=== PATIENT | male | born 1940 | race Caucasian/White ===

== ENCOUNTER 2016-08-22 15:56 | Inpatient (IN) | payer OTHER, MEDICARE ==
--- NOTE | 2016-08-22 16:43 | PDOC ---
History of Present Illness - General History Source: Patient Exam Limitations: No Limitations - History of Present Illness Initial Comments: 08/22/16 16:46 The patient is a 76 year old male, with a significant past medical history of prostate Ca s/p seed implants, NIDDM, HTN, who presents to the emergency department with left toe cellulitis/infection. The patient reports redness and warmth, has been radiating up his LLE originating from his left pinky toe. He reports last night having throbbing pain from his left foot. He reports today having little feeling in his LLE. He denies any recent chills, headache or dizziness. He denies any recent nausea, vomit, diarrhea or constipation. Allergies: See Nursing Notes. Past surgical history: Noncontributory Social History: Nonsmoker. Denies EtOH use and recreational drug use. Canteen Attendant (Referring Physician): <Ganga Trujillo - Last Filed: 08/22/16 16:46> <Gilma Corbin - Last Filed: 08/22/16 18:44> - General Chief Complaint: Wound Infection Stated Complaint: CELLULITIS/ LT TOE (PCP SENT) Time Seen by Provider: 08/22/16 16:25 Past History <Ganga Trujillo - Last Filed: 08/22/16 16:46> - Past Medical History Anemia: No Asthma: No Cancer: Yes (PROSTATE - RADIATION/SEEDS) Cardiac Disorders: Yes (ASHD;CKD) CVA: No COPD: No CHF: No Diabetes: Yes (NIDDM) GI Disorders: Yes (CELIAC DISEASE;GERD;DIVERTICULOSIS) Disorders: No HTN: Yes Hypercholesterolemia: No Kidney Stones: (KIDNEY PROBLEM. FUNCTIONS AT 33%) Liver Disease: No Seizures: No Thyroid Disease: No - Surgical History Appendectomy: No Cardiac Surgery: No Cholecystectomy: No Lung Surgery: No Neurologic Surgery: No Orthopedic Surgery: Yes (LAMINECTOMY/FUSION 1967) - Psycho/Social/Smoking Cessation Hx Anxiety: No Suicidal Ideation: No Smoking History: Current some day smoker Have you smoked in the past 12 months: Yes Number of Cigarettes Smoked Daily: 1 Cigars Per Day: 1 Information on smoking cessation initiated: No 'Breaking Loose' booklet given: 02/13/16 Hx Alcohol Use: No Drug/Substance Use Hx: No Substance Use Type: None <Gilma Corbin - Last Filed: 08/22/16 18:44> - Past Medical History Allergies/Adverse Reactions: Allergies Allergy/AdvReac Type Severity Reaction Status Date / Time Penicillins Allergy Severe Swelling Verified 08/22/16 16:10 ciprofloxacin [From Cipro] Allergy Intermediate Rash Verified 08/22/16 16:10 ciprofloxacin HCl Allergy Intermediate Rash Verified 08/22/16 16:10 [From Cipro] levofloxacin [From Levaquin] Allergy Intermediate Rash Verified 08/22/16 16:10 gluten Allergy Verified 08/22/16 17:05 SHRIMP Allergy Rash Uncoded 08/22/16 16:10 Home Medications: Ambulatory Orders Allopurinol [Zyloprim -] 150 mg PO DAILY 09/28/15 Atorvastatin Calcium 20 mg PO DAILY 09/28/15 Calcium Carbonate [Coral Calcium] 10 gm PO TID 09/28/15 Cholecalciferol (Vitamin D3) [Vitamin D3 -] 4,000 unit PO DAILY 09/28/15 Folic Acid - 3 mg PO DAILY 09/28/15 Glimepiride [Glimepiride -] 2 mg PO DAILY 09/28/15 Lisinopril [Prinivil] 5 mg PO DAILY 09/28/15 Multivit-Min/FA/Lycopen/Lutein [Centrum Silver Tablet] 1 each PO DAILY 09/28/15 Magnesium Chloride [Slow-Mag -] 64 mg PO DAILY 12/05/15 Warfarin Sodium [Coumadin] 7.5 mg PO HS 02/13/16 Review of Systems - Review of Systems Able to Perform ROS?: Yes Comments:: 08/22/16 16:46 GENERAL/CONSTITUTIONAL: No fever or chills. No weakness. HEAD, EYES, EARS, NOSE AND THROAT: No change in vision. No ear pain or discharge. No sore throat. CARDIOVASCULAR: No chest pain or shortness of breath. RESPIRATORY: No cough, wheezing, or hemoptysis. GASTROINTESTINAL: No nausea, vomiting, diarrhea or constipation. GENITOURINARY: No dysuria, frequency, or change in urination. MUSCULOSKELETAL:+ left toe cellulitis. No joint or muscle swelling or pain. No neck or back pain. SKIN: No rash NEUROLOGIC: No headache, vertigo, loss of consciousness, or change in strength/ sensation. ENDOCRINE: No increased thirst. No abnormal weight change. HEMATOLOGIC/LYMPHATIC: No anemia, easy bleeding, or history of blood clots. ALLERGIC/IMMUNOLOGIC: No hives or skin allergy. <Ganga Trujillo - Last Filed: 08/22/16 16:46> *Physical Exam - Vital Signs Last Vital Signs Temp Pulse Resp BP Pulse Ox 97.8 F 82 19 139/77 96 08/22/16 16:10 08/22/16 16:10 08/22/16 16:10 08/22/16 16:10 08/22/16 16:10 - Physical Exam Comments: 08/22/16 16:46 GENERAL: Awake, alert, and fully oriented, in no acute distress HEAD: No signs of trauma EYES: PERRLA, EOMI, sclera anicteric, conjunctiva clear ENT: Auricles normal inspection, hearing grossly normal, nares patent, oropharynx clear without exudates. Moist mucosa NECK: Normal ROM, supple, no lymphadenopathy, JVD, or masses LUNGS: Breath sounds equal, clear to auscultation bilaterally. No wheezes, and no crackles HEART: Regular rate and rhythm, normal S1 and S2, no murmurs, rubs or gallops ABDOMEN: Soft, nontender, normoactive bowel sounds. No guarding, no rebound. No masses EXTREMITIES: LEFT foot: wound at the base of the great toe. Mild swelling erythema. No drainage or induration. Healing wound overlying the base of the 5th toe. NEUROLOGICAL: Cranial nerves II through XII grossly intact. Normal speech, normal gait SKIN: Warm, Dry, normal turgor, no rashes or lesions noted. <Ganga Trujillo - Last Filed: 08/22/16 16:46> - Vital Signs Last Vital Signs Temp Pulse Resp BP Pulse Ox 97.8 F 82 19 139/77 96 08/22/16 16:10 08/22/16 16:10 08/22/16 16:10 08/22/16 16:10 08/22/16 16:10 <Gilma Corbin - Last Filed: 08/22/16 18:44> ED Treatment Course - LABORATORY CBC & Chemistry Diagram: 08/22/16 16:55 08/22/16 16:55 <Gilma Corbin - Last Filed: 08/22/16 18:44> *DC/Admit/Observation/Transfer - Attestations Scribe Attestion: 08/22/16 16:48 Documentation prepared by Ganga Trujillo, acting as medical billing service for Gilma Corbin MD. <Ganga Trujillo - Last Filed: 08/22/16 16:46> - Discharge Dispostion Admit: Yes <Gilma Corbin - Last Filed: 08/22/16 18:44> Diagnosis at time of Disposition: Diabetic foot ulcer Qualifiers: Diabetic foot ulcer location: midfoot Diabetes mellitus type: type 2 Laterality : left Non-pressure ulcer stage: unspecified non-pressure ulcer stage Qualified Code(s): E11.621 - Type 2 diabetes mellitus with foot ulcer; L97.429 - Non- pressure chronic ulcer of left heel and midfoot with unspecified severity Cellulitis Qualifiers: Site of cellulitis: extremity Site of cellulitis of extremity: lower extremity Laterality: left Qualified Code(s): L03.116 - Cellulitis of left lower limb - Discharge Dispostion Condition at time of disposition: Stable - Referrals Referrals: Jose Young MD [Primary Care Provider] -
[2016-08-22] MEDS ORDERED: CLINDAMYCIN 600MG PREMIX IVPB 50 ML IVPB ONE ×2 (16:44→17:26)
[2016-08-22 17:41] LABS: BASOPHIL 0.8 % (0-2.0); EOSINOPHIL 2.5 % (0-4.5); MCHC 34.4 g/dl (32.0-35.9); MEAN CELL VOLUME 93.1 fl (80-96); MEAN PLT VOLUME 8.7 fl (7.5-11.1); NEUTROPHILS 64.6 % (42.8-82.8); PLATELET COUNT 211 K/MM3 (134-434); WHITE BLOOD COUNT 7.2 K/mm3 (4.0-10.0)
[2016-08-22 18:01] LABS: INR 1.41 (0.82-1.09); PROTHROMBIN TIME (PATIENT) 15.6 SEC (9.98-11.88)
[2016-08-22 18:11] LABS: ALBUMIN 3.6 g/dl (3.4-5.0); BILIRUBIN,TOTAL 0.5 mg/dL (0.2-1.0); CALCIUM 8.7 mg/dL (8.5-10.1); COCKROFT - GAULT 61.42; TOT PROT 6.8 g/dl (6.4-8.2)
--- NOTE | 2016-08-22 19:33 | PN ---
<DelroyVera - Last Filed: 08/22/16 19:32> Teaching Attending Note Name of Resident: Joe Macias <Serena Horner - Last Filed: 08/22/16 23:54> Teaching Attending Note ATTENDING PHYSICIAN STATEMENT I saw and evaluated the patient. I reviewed the resident's note and discussed the case with the resident. I agree with the resident's findings and plan as documented. SUBJECTIVE: 76 yo M presents with left toe cellulitis Radiating up from his left pinky toe with throbbing pain and numbness today. Patient denies any recent chills, headache or dizziness. He denies any recent nausea, vomit, diarrhea or constipation. 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 Young OBJECTIVE: Last Vital Signs Temp Pulse Resp BP Pulse Ox 97.6 F 66 20 140/71 96 08/22/16 21:45 08/22/16 21:45 08/22/16 21:45 08/22/16 21:45 08/22/16 22:00 GENERAL: Awake, alert, and fully oriented, in no acute distress HEENT: Atraumatic. PERRLA, EOMI. Moist mucosa. No JVD LUNGS: No distress, speaks full sentences, clear to auscultation bilaterally HEART: Regular rate and rhythm, normal S1 and S2, no murmurs, rubs or gallops, peripheral pulses normal and equal bilaterally. ABDOMEN: Soft, nontender, normoactive bowel sounds. No guarding, no rebound. No masses EXTREMITIES: Normal inspection, Normal range of motion, no edema. No clubbing or Cyanosis. NEUROLOGICAL: Cranial nerves II through XII grossly intact. Normal speech, abnormal gait with external rotation of L foot greater than R. no focal sensorimotor deficits SKIN: Warm, Dry, normal turgor, 3 spots on L buttocks. Erythema up to mid clayton. CBCD WBC 7.2 K/mm3 (4.0-10.0) D 08/22/16 16:55 RBC 3.58 M/mm3 (4.00-5.60) L D 08/22/16 16:55 Hgb 11.4 GM/dL (11.7-16.9) L D 08/22/16 16:55 Hct 33.3 % (35.4-49) L D 08/22/16 16:55 MCV 93.1 fl (80-96) 08/22/16 16:55 MCHC 34.4 g/dl (32.0-35.9) 08/22/16 16:55 RDW 16.0 % (11.9-15.9) H 08/22/16 16:55 Plt Count 211 K/MM3 (134-434) 08/22/16 16:55 MPV 8.7 fl (7.5-11.1) 08/22/16 16:55 CMP Sodium 141 mmol/L (136-145) 08/22/16 16:55 Potassium 4.6 mmol/L (3.5-5.1) 08/22/16 16:55 Chloride 108 mmol/L (98-107) H 08/22/16 16:55 Carbon Dioxide 23 mmol/L (21-32) 08/22/16 16:55 Anion Gap 10 (8-16) 08/22/16 16:55 BUN 38 mg/dL (7-18) H 08/22/16 16:55 Creatinine 2.0 mg/dL (0.7-1.3) H 08/22/16 16:55 Creat Clearance w eGFR 32.74 (>60) 08/22/16 16:55 Calcium 8.7 mg/dL (8.5-10.1) 08/22/16 16:55 Total Bilirubin 0.5 mg/dL (0.2-1.0) D 08/22/16 16:55 AST 33 U/L (15-37) D 08/22/16 16:55 ALT 38 U/L (12-78) 08/22/16 16:55 Alkaline Phosphatase 43 U/L (45-117) L D 08/22/16 16:55 Total Protein 6.8 g/dl (6.4-8.2) 08/22/16 16:55 Albumin 3.6 g/dl (3.4-5.0) 08/22/16 16:55 ASSESSMENT AND PLAN: 1.) Left toe cellulitis -Continue clindamycin -Follow ESR -Will get MRI of LLE to r/o osteomyelitis in AM -FOBT 2.) Anemia -r/o anemia of chronic diseases vs iron deficiency -Get anemia panel 3.) NIDDM -Follow hemoglobin A1C -insulin sliding scale -Hold glimepiride 4.) HTN -Continue lisinopril 5.) Gout -Continue allopurinol 6.) Dyslipidemia -Continue Atorvastatin 7.) Hx of GERD -protonix 40 mg daily 8.) Hx of DVT secondary to hypercoagulability disorder -continue coumadin 7.5 mg HS DVT ppx -None secondary to chronic anticoag therapy Advanced directives Documentation prepared by Serena Horner acting as medical staff coordinator for Vera Potts M.D.
[2016-08-22] MEDS ORDERED: ACETAMINOPHEN 325 MG TABLET (FP) PO PRN (19:55)
--- NOTE | 2016-08-22 20:04 | HP ---
CHIEF COMPLAINT: Sent by [facility] for left foot ulcer PCP: Hector Podiatriy: Marcelo HISTORY OF PRESENT ILLNESS: Patient is a 76 year old female with PMH of HTN, DM, CKD, Gout, Factor V Leiden/ Lupus anticoagulant w/ DVT history of chronic Coumadin, Prostate CA s/p seed implants, Celiac disease who presents to ED from podiatry's office for left foot ulcer. Patient has noted left pinky toe has been red, mildly tender & swollen for 3-4 days. Swelling & erythema started spreading upwards and has now reached ankle, bordering on calf of left lower extremity. There is no discharge or drainage. He has limited sensation on entire left lower extremity for last few years s/p spinal laminectomy for spinal stenosis. Denies fever, chills, headache, visual changes, vomiting, nausea, diarrhea, constipation. Patient states he does NOT live with pets. Ulcer on base of left pinky toe is covered most of the time at home & kept very clean. ER course was notable for: (1)Clindamycin started in ED (2)Foot XRay & LLE US ordered (3)CRP elevated 5.9 Recent Travel: NONE NOTED PAST MEDICAL HISTORY: ABOVE PAST SURGICAL HISTORY: ABOVE Social History: Smoking:tobacco pipe, once every 1-2 days Alcohol:occasional, 1-2 scotches on occasion Drugs: NONE REPORTED, PAST OR PRESENT Family History: noncontributory Allergies Penicillins Allergy (Severe, Verified 08/22/16 16:10) Swelling ciprofloxacin [From Cipro] Allergy (Intermediate, Verified 08/22/16 16:10) Rash ciprofloxacin HCl [From Cipro] Allergy (Intermediate, Verified 08/22/16 16:10) Rash levofloxacin [From Levaquin] Allergy (Intermediate, Verified 08/22/16 16:10) Rash gluten Allergy (Verified 08/22/16 17:05) SHRIMP Allergy (Uncoded 08/22/16 16:10) Rash HOME MEDICATIONS: Home Medications Medication Instructions Recorded Allopurinol [Zyloprim -] 150 mg PO DAILY 09/28/15 Atorvastatin Calcium 20 mg PO DAILY 09/28/15 Calcium Carbonate [Coral Calcium] 10 gm PO TID 09/28/15 Cholecalciferol (Vitamin D3) 4,000 unit PO DAILY 09/28/15 [Vitamin D3 -] Folic Acid - 3 mg PO DAILY 09/28/15 Glimepiride [Glimepiride -] 2 mg PO DAILY 09/28/15 Lisinopril [Prinivil] 5 mg PO DAILY 09/28/15 Multivit-Min/FA/Lycopen/Lutein 1 each PO DAILY 09/28/15 [Centrum Silver Tablet] Magnesium Chloride [Slow-Mag -] 64 mg PO DAILY 12/05/15 Warfarin Sodium [Coumadin] 7.5 mg PO HS 02/13/16 REVIEW OF SYSTEMS CONSTITUTIONAL: Absent: fever, chills, diaphoresis, generalized weakness, malaise, loss of appetite, weight change HEENT: Absent: rhinorrhea, nasal congestion, throat pain, throat swelling, difficulty swallowing, mouth swelling, ear pain, eye pain, visual changes CARDIOVASCULAR: Absent: chest pain, syncope, palpitations, irregular heart rate, lightheadedness , peripheral edema RESPIRATORY: Absent: cough, shortness of breath, dyspnea with exertion, orthopnea, wheezing, stridor, hemoptysis GASTROINTESTINAL: Absent: abdominal pain, abdominal distension, nausea, vomiting, diarrhea, constipation, melena, hematochezia GENITOURINARY: Absent: dysuria, frequency, urgency, hesitancy, hematuria, flank pain, genital pain MUSCULOSKELETAL: Absent: myalgia, arthralgia, joint swelling, back pain, neck pain SKIN: (+)erythema & swelling left foot Absent: itching, pallor HEMATOLOGIC/IMMUNOLOGIC: Absent: easy bleeding, easy bruising, lymphadenopathy, frequent infections ENDOCRINE: Absent: unexplained weight gain, unexplained weight loss, heat intolerance, cold intolerance NEUROLOGIC: Absent: headache, focal weakness or paresthesias, dizziness, unsteady gait, seizure, mental status changes, bladder or bowel incontinence PSYCHIATRIC: Absent: anxiety, depression, suicidal or homicidal ideation, hallucinations. PHYSICAL EXAMINATION Vital Signs Temperature 97.8 F 08/22/16 16:10 Pulse Rate 82 08/22/16 16:10 Respiratory Rate 19 08/22/16 16:10 Blood Pressure 139/77 08/22/16 16:10 O2 Sat by Pulse Oximetry (%) 96 08/22/16 16:10 GENERAL: Awake, alert, and fully oriented, in no acute distress. HEENT: Atraumatic, EOMI, PERRLA, No lymphadenopathy noted, moist membranes LUNGS: Breath sounds equal, clear to auscultation bilaterally. No wheezes, and no crackles. No accessory muscle use. HEART: Regular rate and rhythm, normal S1 and S2 without murmur, rub or gallop. ABDOMEN: Soft, nontender, moderately distended but baseline, normoactive bowel sounds, no guarding, no rebound, no masses. MUSCULOSKELETAL: Normal range of motion at all joints. No bony deformities or tenderness. No CVA tenderness. UPPER EXTREMITIES: 2+ pulses, warm, well-perfused. No cyanosis. No clubbing. No peripheral edema. LOWER EXTREMITIES: 1+ pulses (minimally felt in Left foot), warm, well- perfused. No calf tenderness. +1 pitting edema bilateral LE. NEUROLOGICAL: Cranial nerves II-XII intact. Normal speech. Gait deferred due to clinical condition. PSYCHIATRIC: Cooperative. Good eye contact. Appropriate mood and affect. SKIN: Erythematous, increased warmth, mild tenderness left lower extremity ( dorsal left foot starting at pinky toe spreading up towards ankle just below calf) ASSESSMENT/PLAN: 76 year old female with PMH of HTN, DM, CKD, Gout, Factor V Leiden/Lupus anticoagulant w/ DVT history of chronic Coumadin, Prostate CA s/p seed implants , Celiac disease who presents to ED from podiatry's office for left foot ulcer & cellulitis. #Left foot acute cellulitis, r/o Osteomyelitis -Clindamycin, given patient's multiple allergies -wound cultures -blood cultures -CRP elevated, ESR pending -left foot xray pending -most likely will need left foot MRI in AM (will defer to day team) -LLE US (-) for DVT but does show diminished monophasic blood flow noted at left posterior tibial artery -podiatry consult -vascular surgery consult #Chronic kidney injury -creatinine 2.0 is at baseline -[facility] -avoid nephrotoxic meds #DM -holding oral meds -ISS -BGM ACHS -HgA1C Pending #Hypertension/Hyperlipidemia -continue home meds: Lisinopril 5mg PO Daily, Lipitor 20mg PO HS #Gout -continue home meds: Allopurinol 150mg PO daily Prophylaxis/FEN -Continue Coumadin at home dose, 7.5mg PO HS -Protonix 40mg PO daily -Cholecalciferol 4000u PO daily, FOlic ACid 3mg PO daily, Magnesium Chloride 64mg PO daily -will monitor electrolytes -GLUTEN FREE DIET given celiac disease Visit type - Emergency Visit Emergency Visit: Yes ED Registration Date: 08/22/16 Care time: The patient presented to the Emergency Department on the above date and was hospitalized for further evaluation of their emergent condition. - New Patient This patient is new to me today: Yes Date on this admission: 08/22/16 - Critical Care Critical Care patient: No
[2016-08-22 21:56] VITALS: BMI 39.4
[2016-08-22] MEDS: WARFARIN NA 7.5 MG TABLET (FP) PO SCH (22:15)
[2016-08-22] MEDS: INSULIN SLIDING SCALE (NOVOLOG) 1 VIAL SQ SCH (22:15)
[2016-08-22] MEDS: ATORVASTATIN CA 20 MG TABLET (FP) PO SCH (22:15)
[2016-08-23] MEDS: CLINDAMYCIN 600MG PREMIX IVPB 50 ML IVPB SCH ×4 (01:19→17:06)
[2016-08-23] MEDS: INSULIN SLIDING SCALE (NOVOLOG) 1 VIAL SQ SCH ×4 (06:26→21:07)
[2016-08-23 07:36] LABS: BASOPHIL 0.8 % (0-2.0); EOSINOPHIL 3.8 % (0-4.5); MCH 32.5 pg (25.7-33.7); MCHC 34.7 g/dl (32.0-35.9); MEAN CELL VOLUME 93.5 fl (80-96); MEAN PLT VOLUME 8.5 fl (7.5-11.1); NEUTROPHILS 52.8 % (42.8-82.8); PLATELET COUNT 179 K/MM3 (134-434); WHITE BLOOD COUNT 5.9 K/mm3 (4.0-10.0)
[2016-08-23 07:53] LABS: INR 1.59 (0.82-1.09); PROTHROMBIN TIME (PATIENT) 17.7 SEC (9.98-11.88)
[2016-08-23 07:55] LABS: ACTIVATED PTT 32.3 SECONDS (26.9-34.4)
[2016-08-23 07:58] LABS: ALBUMIN 3.2 g/dl (3.4-5.0); BILIRUBIN,TOTAL 0.7 mg/dL (0.2-1.0); CALCIUM 8.4 mg/dL (8.5-10.1); COCKROFT - GAULT 62.78; CREATININE 1.9 mg/dL (0.7-1.3); MAGNESIUM 2.3 mg/dL (1.8-2.4); PHOSPHOROUS 4.1 mg/dL (2.5-4.9); TOT PROT 6.1 g/dl (6.4-8.2)
[2016-08-23] MEDS: LISINOPRIL 5 MG TABLET (FP) PO SCH (10:38)
[2016-08-23] MEDS: FOLIC ACID 1 MG TABLET (FP) PO SCH (10:38)
[2016-08-23] MEDS: ALLOPURINOL 100 MG TABLET (FP) PO SCH (10:39)
[2016-08-23] MEDS: CHOLECALCIFEROL (VITAMIN D3) 1,000 UNIT TABLET (FP) PO SCH (10:39)
[2016-08-23] MEDS: PANTOPRAZOLE 40 MG TABLET (FP) PO SCH (10:39)
[2016-08-23] MEDS: MAGNESIUM CL 64 MG TABLET.SA PO SCH (12:17)
[2016-08-23] MEDS: WARFARIN NA 7.5 MG TABLET (FP) PO SCH (17:06)
--- NOTE | 2016-08-23 17:24 | PN ---
Teaching Attending Note Name of Resident: Ilya Ring ATTENDING PHYSICIAN STATEMENT I saw and evaluated the patient. I reviewed the resident's note and discussed the case with the resident. I agree with the resident's findings and plan as documented. SUBJECTIVE:staes pain in his foot significantly improved. erythema has resolved. started off as a pimple on bottom of foot which his fund accounting manager noticed 2 weeks ago when cutting his nails. 5 days ago developed subjective fevers and chills. entire L leg to mid clayton became tender and hot and erythematous. now has all resolved. denies CP, SOb, N/V/C/D, did not have any trauma to the foot. was told in the past his circulation is poor OBJECTIVE: Last Vital Signs Temp Pulse Resp BP Pulse Ox 97.7 F 67 20 140/74 96 08/23/16 14:48 08/23/16 14:48 08/23/16 10:00 08/23/16 14:48 08/22/16 22:00 General NAD CV S1 S2 RRR no murmur/rub/gallop Lungs CTA B/L no wheezing/rales/rhonchi Extremities shallow necrotic ulcer plantar surface L foot at base of 1st toe, < 1cm ulcer on lateral aspect of 5th digit. no fluctuance or drainage noted from either lesions, no erythema or warmth. 1+ pitting edema. unable to palpate pedal pulse ASSESSMENT AND PLAN: 76yo M with PMH HTN, DM, Factor 5 leiden, prostate ca, DVT and celiac disease presented to the ER and was admitted for further evaluation of their emergent condition 1. L foot cellulitis- sent by fund accounting manager for evaluation. low concern for OM at this time. XR negative but is less sensitive than MRI. however CRP is elevated will d/w vascular surgery if MRI should be investigated. doppler of the leg is negative for DVT however does show reduced flow. vascular consulted for further evalaution. significant improvement in less than 24H of IV abx therapy. will follow up Cx and if continues to improve can d/c tomorrow on clindamycin 2. DM- controlled here. only on glimperide at home A1c 8. will need to start additional medication on discharge. will hold for possible further imaging. cont BGM, iSS. diabetic diet 3. CKD- at baseline 4. DVT/Factor V leiden- on coumadin INR subtherapeutic. states he is compliant. will increase coumadin to 8mg. check INR 5. Normocytic anemia- no signs of bleeding. iron studies pending 6. DVT ppx- on coumadin
--- NOTE | 2016-08-23 17:30 | EKG ---
Test Reason : Blood Pressure : / mmHG Vent. Rate : 071 BPM Atrial Rate : 071 BPM P-R Int : 178 ms QRS Dur : 114 ms QT Int : 396 ms P-R-T Axes : 046 -59 022 degrees QTc Int : 430 ms NORMAL SINUS RHYTHM LEFT AXIS DEVIATION RIGHT BUNDLE BRANCH BLOCK ABNORMAL ECG WHEN COMPARED WITH ECG OF 28-SEP-2015 20:37, NO SIGNIFICANT CHANGE WAS FOUND Confirmed by KERLINE BEST MD ([id number]) on 08/23/2016 5:29:53 PM Referred By: Confirmed By:KERLINE BEST MD
[2016-08-23] MEDS ORDERED: WARFARIN NA 1 MG TABLET (FP) PO ONE (17:34)
[2016-08-23] MEDS ORDERED: WARFARIN NA 3 MG, WARFARIN NA 5 MG PO SCH (18:00)
[2016-08-23] MEDS ORDERED: WARFARIN NA 2 MG TABLET (UD) PO SCH (18:00)
--- NOTE | 2016-08-23 18:07 | PN ---
Physical Exam: SUBJECTIVE: Patient seen and examined Pt is awake, alert and oriented NO fever or chills no pain in lower ext, no tenderness Pt said that the redness and swelling in the foot has improved OBJECTIVE: Vital Signs Period Temp Pulse Resp BP Sys/Gautam Pulse Ox Last 24 Hr 97.6 F-97.7 F 64-82 20-22 129-140/63-74 96-98 GENERAL: Awake, alert, and fully oriented, in no acute distress. LUNGS: Breath sounds equal, clear to auscultation bilaterally. No wheezes, and no crackles. No accessory muscle use. HEART: Regular rate and rhythm, normal S1 and S2 without murmur, rub or gallop. ABDOMEN: Soft, nontender, moderately distended but baseline, normoactive bowel sounds, no guarding, no rebound, no masses. MUSCULOSKELETAL: Normal range of motion at all joints. No bony deformities or tenderness. No CVA tenderness. LOWER EXTREMITIES: 1+ pulses (minimally felt in Left foot), warm, well- perfused. No calf tenderness. +1 pitting edema bilateral LE. NEUROLOGICAL: Normal speech. Slow wide gait using cane for steadiness PSYCHIATRIC: Cooperative. Good eye contact. Appropriate mood and affect. SKIN: left lower extremities with mild/moderate erythema from foot to midtibia, no mild sewlling, no tenderness, no increased warmth felt on palpation. Left foot with healing/closed small non draining ulcers, one in medial plantar of foot and second in lateral 5th toe of left foot Laboratory Results - last 24 hr 08/22/16 08/23/16 08/23/16 22:13 05:59 06:40 WBC 5.9 RBC 3.41 L Hgb 11.1 L Hct 31.9 L MCV 93.5 MCHC 34.7 RDW 16.0 H Plt Count 179 MPV 8.5 Neutrophils % 52.8 Lymphocytes % 32.7 D Monocytes % 9.9 Eosinophils % 3.8 Basophils % 0.8 INR PTT (Actin FS) Sodium Potassium Chloride Carbon Dioxide Anion Gap BUN Creatinine Creat Clearance w eGFR POC Glucometer 106 133 Random Glucose Calcium Phosphorus Magnesium Total Bilirubin AST ALT Alkaline Phosphatase Total Protein Albumin 08/23/16 08/23/16 08/23/16 06:40 06:40 11:32 WBC RBC Hgb Hct MCV MCHC RDW Plt Count MPV Neutrophils % Lymphocytes % Monocytes % Eosinophils % Basophils % INR 1.59 H PTT (Actin FS) 32.3 Sodium 140 Potassium 4.6 Chloride 108 H Carbon Dioxide 26 Anion Gap 6 L BUN 36 H Creatinine 1.9 H Creat Clearance w eGFR 34.73 POC Glucometer 261 Random Glucose 130 H Calcium 8.4 L Phosphorus 4.1 Magnesium 2.3 Total Bilirubin 0.7 D AST 33 ALT 32 Alkaline Phosphatase 41 L Total Protein 6.1 L Albumin 3.2 L 08/23/16 16:56 WBC RBC Hgb Hct MCV MCHC RDW Plt Count MPV Neutrophils % Lymphocytes % Monocytes % Eosinophils % Basophils % INR PTT (Actin FS) Sodium Potassium Chloride Carbon Dioxide Anion Gap BUN Creatinine Creat Clearance w eGFR POC Glucometer 160 Random Glucose Calcium Phosphorus Magnesium Total Bilirubin AST ALT Alkaline Phosphatase Total Protein Albumin Active Medications Generic Name Dose Route Start Last Admin Trade Name Freq PRN Reason Stop Dose Admin Acetaminophen 650 mg 08/22/16 19:55 08/23/16 04:04 Tylenol - PO 650 mg Q4H PRN Administration FEVER OR PAIN Allopurinol 150 mg 08/23/16 10:00 08/23/16 10:39 Zyloprim - PO 150 mg DAILY ANNY Administration Atorvastatin Calcium 20 mg 08/22/16 22:00 08/22/16 22:15 Lipitor - PO 20 mg HS ANNY Administration Cholecalciferol 4,000 unit 08/23/16 10:00 08/23/16 10:39 Vitamin D3 - PO 4,000 unit DAILY ANNY Administration Folic Acid 3 mg 08/23/16 10:00 08/23/16 10:38 Folic Acid - PO 3 mg DAILY ANNY Administration Clindamycin Phosphate 50 mls @ 100 mls/hr 08/23/16 01:00 08/23/16 17:06 Cleocin 600 Mg Premix Ivpb - IVPB 100 mls/hr Q8H-IV ANNY Administration Insulin Aspart 1 vial 08/22/16 22:00 08/23/16 17:06 Novolog Vial Sliding Scale - SQ 2 units ACHS ANNY Administration Protocol Lisinopril 5 mg 08/23/16 10:00 08/23/16 10:38 Prinivil PO 5 mg DAILY ANNY Administration Magnesium Chloride 64 mg 08/23/16 10:00 08/23/16 12:17 Slow-Mag - PO 64 mg DAILY ANNY Administration Pantoprazole Sodium 40 mg 08/23/16 10:00 08/23/16 10:39 Protonix - PO 40 mg DAILY ANNY Administration Warfarin Sodium 3 mg/ Warfarin 8 mg 08/24/16 18:00 Sodium 5 mg PO DAILY@1800 [facility] CBC, BMP 08/23/16 06:40 08/23/16 06:40 Microbiology 08/22/16 16:55 Blood - Peripheral Venous Blood Culture - Preliminary NO GROWTH OBTAINED AFTER 24 HOURS, INCUBATION TO CONTINUE FOR 4 DAYS. 08/22/16 16:55 Blood - Peripheral Venous Blood Culture - Preliminary NO GROWTH OBTAINED AFTER 24 HOURS, INCUBATION TO CONTINUE FOR 4 DAYS. ASSESSMENT/PLAN: 76 year old male with PMH of Hypertension, Diabetes, CKD, Gout, Factor V Leiden/ Lupus anticoagulant w/ DVT on Coumadin, Prostate Cancer s/p seed implants, Celiac disease presents to ED from podiatry's office with Cellulitis and left foot healing/closed non draining ulcers in medial plantar and lateral 5th toe of left foot. Left foot cellulitis and ulcers Erthythema and swelling has improved No fever, no leukocytosis US lower ext negative for DVT but showed with diminished blood flow in in posterior tibial artery. CRP 5.9 left foot Xray showed f/u wound culture f/l blood culture Podiatry consulted Vascular surgery consulted Low suspicion of Osteomyelitis but will defer to Podiatry and Vascular for evaluation CKD Cr 1.9, at baseline continue to Monitor Avoid nephrotoxins Diabetes Blood sugar has been controlled this admission has not required insulin coverage HgA1c pending Novolog sliding scale BGM AC HS Hyperlipidemia Lipitor 20mg qhs Hypertension BP in 130's Lisinpril 5mg Po daily Gout hyperlipidemia DVT Prophylaxis : on coumadin FEN Fluid: none Electrolytes: Nutrition: Gluten free diet Disposition: Keep in medsurg pending evaluating by podiatry and Vascular Visit type - Emergency Visit Emergency Visit: Yes ED Registration Date: 08/22/16 Care time: The patient presented to the Emergency Department on the above date and was hospitalized for further evaluation of their emergent condition. - New Patient This patient is new to me today: Yes Date on this admission: 08/23/16 - Critical Care Critical Care patient: No - Discharge Referral Referred to [facility] No
--- NOTE | 2016-08-23 18:37 | PN ---
Progress Note (short form) - Note Progress Note: Vascular Surgery Pt seen and examined. Left foot cellulitis is resolving. Has callus on plantar aspect of left foot , but is not open. Foot is warm. No need for MRI. Cont antibiotics and then can DC Can follow up in wound care clinic and Dr. Feng (pt's sports analyst). No need for any intervention. Palpable PT pulse. Yvon Kelly DO
[2016-08-23] MEDS: ATORVASTATIN CA 20 MG TABLET (FP) PO SCH (21:07)
[2016-08-24] MEDS: CLINDAMYCIN 600MG PREMIX IVPB 50 ML IVPB SCH ×3 (01:16→12:46)
[2016-08-24 06:11] LABS: SERUM IRON 101 ug/dL (38-169); TOTAL IRON BINDING CAPACITY 229 ug/dL (250-450); UIBC 128 ug/dL (111-343)
[2016-08-24] MEDS: INSULIN SLIDING SCALE (NOVOLOG) 1 VIAL SQ SCH ×2 (06:38→11:33)
[2016-08-24 09:13] LABS: INR 1.84 (0.82-1.09); PROTHROMBIN TIME (PATIENT) 20.5 SEC (9.98-11.88)
[2016-08-24] MEDS ORDERED: PT OWN MED DRAWER 7, Y5N ONE (10:11)
[2016-08-24] MEDS: CHOLECALCIFEROL (VITAMIN D3) 1,000 UNIT TABLET (FP) PO SCH (10:16)
[2016-08-24] MEDS: FOLIC ACID 1 MG TABLET (FP) PO SCH (10:16)
[2016-08-24] MEDS: PANTOPRAZOLE 40 MG TABLET (FP) PO SCH (10:16)
[2016-08-24] MEDS: LISINOPRIL 5 MG TABLET (FP) PO SCH (10:17)
[2016-08-24] MEDS: MAGNESIUM CL 64 MG TABLET.SA PO SCH (10:17)
[2016-08-24] MEDS: ALLOPURINOL 100 MG TABLET (FP) PO SCH (10:17)
[2016-08-24] MEDS ORDERED: INSULIN (NOVOLOG) ASPART 100 UNITS/ML 10ML VIAL ONE (11:31)
[2016-08-24] MEDS ORDERED: CLINDAMYCIN HCL 150 MG CAPSULE (FP) PO ONE (12:30)
[2016-08-24 14:55] VITALS: BP 158/77; PULSE 62; TEMP 97.8
--- NOTE | 2016-08-24 17:26 | DS ---
Physical Exam: SUBJECTIVE: Patient seen and examined at bedside. No complaint or acute overnight event noted. OBJECTIVE: Vital Signs Period Temp Pulse Resp BP Sys/Gautam Pulse Ox Last 24 Hr 97.8 F-98.5 F 62-65 20-20 146-158/72-84 96-96 PHYSICAL EXAM GENERAL: Awake, alert, and fully oriented, in no acute distress. LUNGS: Breath sounds equal, clear to auscultation bilaterally. No wheezes, and no crackles. No accessory muscle use. HEART: Regular rate and rhythm, normal S1 and S2 without murmur, rub or gallop. ABDOMEN: Soft, nontender, moderately distended but baseline, normoactive bowel sounds, no guarding, no rebound, no masses. MUSCULOSKELETAL: Normal range of motion at all joints. No bony deformities or tenderness. No CVA tenderness. LOWER EXTREMITIES: 1+ pulses (minimally felt in Left foot), warm, well- perfused. No calf tenderness. +1 pitting edema bilateral LE. NEUROLOGICAL: Normal speech. Slow wide gait using cane for steadiness PSYCHIATRIC: Cooperative. Good eye contact. Appropriate mood and affect. SKIN: left lower extremities with mild/moderate erythema from foot to midtibia, no mild sewlling, no tenderness, no increased warmth felt on palpation. Left foot with healing/closed small non draining ulcers, one in medial plantar of foot and second in lateral 5th toe of left foot LABS Laboratory Results - last 24 hr 08/23/16 08/23/16 08/23/16 06:40 16:56 21:05 INR POC Glucometer 160 221 Iron 101 TIBC 229 L Iron Saturation 44 08/24/16 08/24/16 08/24/16 05:56 07:34 11:19 INR 1.84 H POC Glucometer 185 194 Iron TIBC Iron Saturation HOSPITAL COURSE: Date of Admission:08/22/16 76 year old male with PMH of Hypertension, Diabetes, CKD, Gout, Factor V Leiden/ Lupus anticoagulant w/ DVT on Coumadin, Prostate Cancer s/p seed implants, Celiac disease presents to ED from podiatry's office with Cellulitis and left foot healing/closed non draining ulcers in medial plantar and lateral 5th toe of left foot. Patient's erthythema and swelling has improved without fever and leukocytosis. US lower ext negative for DVT but showed with diminished blood flow in in posterior tibial artery. He was also found to have poorly controlled DM for which he will start start januvia after discharge. Because of his h/o DVT /Factor V leiden, INR needed to be within 2-3 range. We increased his coumadin dose from 7.5mg to 8mg daily. Instructed the patient to have a1c, INR checked and cont. to take clindamycin for 7 days and follow up at the wound clinic as scheduled. Date of Discharge: 08/24/16 Minutes to complete discharge: 30 Discharge Summary Reason For Visit: DIABETIC FOOT ULCER; CELLULITIS Current Active Problems Cellulitis (Acute) CA prostate, adenoca (Chronic) Diabetic foot ulcer (Chronic) Factor V Leiden (Chronic) History of DVT (deep vein thrombosis) (Chronic) Condition: Stable - Instructions Diet, Activity, Other Instructions: Instruction for continuing care: You were admitted to the hospital because you had skin infection of your L leg which has now resolved after antibiotic treatment. After discharge, you must follow up with your primary doctor to better manage your blood sugar. You also need to [facility]. [facility] for your diabetic foot. Please take clindamycin 600mg every 6 hours for 6 more days. Otherwise, you may resume normal diet and activities. Referrals: Jose Young MD [Primary Care Provider] - Dioni Feng MD [Staff Physician] - Yvon Kelly MD [Staff Physician] - Disposition: HOME - Home Medications Comprehensive Discharge Medication List: Ambulatory Orders Allopurinol [Zyloprim -] 150 mg PO DAILY 09/28/15 Atorvastatin Calcium 20 mg PO DAILY 09/28/15 Calcium Carbonate [Coral Calcium] 10 gm PO TID 09/28/15 Cholecalciferol (Vitamin D3) [Vitamin D3 -] 4,000 unit PO DAILY 09/28/15 Folic Acid - 3 mg PO DAILY 09/28/15 Glimepiride [Glimepiride -] 2 mg PO DAILY 09/28/15 Lisinopril [Prinivil] 5 mg PO DAILY 09/28/15 Multivit-Min/FA/Lycopen/Lutein [Centrum Silver Tablet] 1 each PO DAILY 09/28/15 Magnesium Chloride [Slow-Mag -] 64 mg PO DAILY 12/05/15 Warfarin Sodium [Coumadin] 7.5 mg PO HS 10/24/16 Acetaminophen [Tylenol .Regular Strength -] 650 mg PO Q4H PRN #0 tablet Clindamycin [Cleocin -] 600 mg PO Q6H #24 capsule 08/24/16 Warfarin Na [Coumadin -] 8 mg PO DAILY@1800 tablet 08/24/16 Warfarin Na [Coumadin -] 8 mg PO DAILY@1800 tablet 08/24/16 This patient is new to me today: Yes Date on this admission: 08/25/16 Emergency Visit: No Critical Care patient: No - Discharge Referral Referred to [facility] No
[2016-08-24] MEDS ORDERED: WARFARIN NA 3 MG, WARFARIN NA 5 MG PO SCH (18:00)
--- NOTE | 2016-08-24 18:13 | PN ---
Teaching Attending Note Name of Resident: Oscar Arora ATTENDING PHYSICIAN STATEMENT I saw and evaluated the patient. I reviewed the resident's note and discussed the case with the resident. I agree with the resident's findings and plan as documented. SUBJECTIVE:currently asymptomatic. denies CP, SOB,fever, chills, N/V/C/D OBJECTIVE: Last Vital Signs Temp Pulse Resp BP Pulse Ox 97.8 F 62 20 158/77 96 08/24/16 14:52 08/24/16 14:52 08/24/16 10:00 08/24/16 14:52 08/24/16 09:00 General NAD CV S1 S2 RRR no murmur/rub/gallop Lungs CTA B/L no wheezing/rales/rhonchi Extremities no warmth of erythema of the LLE, ASSESSMENT AND PLAN: 76yo M with PMH HTN, DM, Factor 5 leiden, prostate ca, DVT and celiac disease presented to the ER and was admitted for further evaluation of their emergent condition 1. L foot cellulitis-resolved at this time. evaluated by vascular surgery. no urgent need for vascular studies at this time. will d/c on clinda to complete 7 day course. appt with wine steward/stewardess on saturday. 2. DM- A1c 8. start januvia at this time. will need repeat a1c in 3 months 3. CKD- at baseline 4. DVT/Factor V leiden- INR increased on coumadin 8 mg. will discharge on 8mg. will need INR check on saturday. 5. Normocytic anemia- no signs of bleeding. iron studies pending 6. DVT ppx- on coumadin 7. d/c home
== END 2016-08-24 14:45 | disposition home or self-care (01) | DRG 638 ==
LOC: JER 15:56 → JERBED 18:45 → J6S 20:56
PROVIDERS: ADMIT Internal Medicine; ATTEND Internal Medicine
DX: E11.621 Type 2 diabetes mellitus with foot ulcer (principal); D68.51 Activated protein C resistance; L97.529 Non-pressure chronic ulcer of other part of left foot with unspecified severity; E11.628 Type 2 diabetes mellitus with other skin complications; L03.032 Cellulitis of left toe; I12.9 Hypertensive chronic kidney disease with stage 1 through stage 4 chronic kidney disease, or unspecified chronic kidney disease; E11.22 Type 2 diabetes mellitus with diabetic chronic kidney disease; N18.9 Chronic kidney disease, unspecified; E78.5 Hyperlipidemia, unspecified; K90.0 Celiac disease; M10.9 Gout, unspecified; F17.210 Nicotine dependence, cigarettes, uncomplicated; D64.9 Anemia, unspecified; K57.90 Diverticulosis of intestine, part unspecified, without perforation or abscess without bleeding; K21.9 Gastro-esophageal reflux disease without esophagitis; D63.8 Anemia in other chronic diseases classified elsewhere; I25.10 Atherosclerotic heart disease of native coronary artery without angina pectoris; Z85.46 Personal history of malignant neoplasm of prostate; Z79.01 Long term (current) use of anticoagulants; Z86.718 Personal history of other venous thrombosis and embolism
CPT/HCPCS: 36415; 73630-TC-LT; 80053; 83036; 83540; 83550; 83735; 84100; 85025; 85610; 85730; 86140; 86850; 86900; 86901; 87040; 87070; 87077; 87205; 93005; 93010; 93926-TC; 97116-GP; 97162-PG; 99285-25

== ENCOUNTER 2017-11-15 07:51 | Day surgery (SDC) | payer OTHER ==
[2017-11-15] MEDS ORDERED: LIDOCAINE VISCOUS 2% ORAL/TOP 20 ML UNIT-DOSE CUP ONE (08:53)
[2017-11-15] MEDS ORDERED: PROPOFOL 20 ML ONE ×2 (08:53)
[2017-11-15 08:58] VITALS: TEMP 97.8; BMI 40.6
[2017-11-15 12:02] VITALS: BP 126/60; PULSE 65
--- NOTE | 2017-11-18 11:16 | PATH ---
Surgical Pathology Report Patient Name: MAGNOLIA LO [facility]. Rec. #: [id number] /Age/Gender: 1940 (Age: 77) / M Account: [id number] Location: U-ENDOSCOPY Taken: 11/15/2017 Received: 11/15/2017 Reported: 11/18/2017 Physicians: Maria Del Carmen Childs M.D. Specimen(s) Received A: BX 2ND PORTION DUODENUM AND DUODENAL BULB B: BX GASTRIC ANTRUM C: BX TRANSVERSE COLON POLYP Clinical History Progressive anemia, adenoma surveillance, celiac disease Postoperative diagnosis: Mild gastritis, colon polyps, angiodysplasia Final Diagnosis A. SECOND PORTION DUODENUM AND BULB, BIOPSY: DUODENAL MUCOSA WITH MILD CHRONIC DUODENITIS. B. GASTRIC ANTRUM, BIOPSY: GASTRIC MUCOSA WITH MILD CHRONIC GASTRITIS. IMMUNOSTAIN IS NEGATIVE FOR H. PYLORI ORGANISMS. C. TRANSVERSE COLON POLYPS, POLYPECTOMY: TUBULAR ADENOMA, ONE FRAGMENT. SEPARATE FRAGMENTS OF POLYPOID COLONIC MUCOSA WITH NO DIAGNOSTIC ABNORMALITIES. Electronically Signed Cinthia Lane M.D. Gross Description A. Received in formalin, labeled "biopsy second portion of duodenum and duodenal bulb" are 3 madden, irregular portions of soft tissue averaging 0.3 cm. in greatest dimension. The specimens are submitted in toto in one cassette. B. Received in formalin, labeled "biopsy gastric antrum" are 4 madden, irregular portions of soft tissue ranging from 0.2-0.4 cm. in greatest dimension. The specimens are submitted in toto in one cassette. C. Received in formalin, labeled "biopsy transverse colon polyps" are 3 madden, irregular portions of soft tissue ranging from 0.1-0.4 cm. in greatest dimension. The specimens are submitted in toto in one cassette. DL/11/15/2017 saudi/11/15/2017
== END 2017-11-15 11:30 | disposition home or self-care (01) ==
LOC: JASU-ENDO 07:51
PROVIDERS: ATTEND Internal Medicine Gastroenterology
PROC: 0DB98ZX Excision of Duodenum, Via Natural or Artificial Opening Endoscopic, Diagnostic (ICD-10-PCS; 2017-11-15)
PROC: 0DB68ZX Excision of Stomach, Via Natural or Artificial Opening Endoscopic, Diagnostic (ICD-10-PCS; 2017-11-15)
PROC: 0DBL8ZX Excision of Transverse Colon, Via Natural or Artificial Opening Endoscopic, Diagnostic (ICD-10-PCS; principal; 2017-11-15 09:00)
DX: D64.9 Anemia, unspecified (principal); D12.3 Benign neoplasm of transverse colon; K57.30 Diverticulosis of large intestine without perforation or abscess without bleeding; K55.20 Angiodysplasia of colon without hemorrhage
CPT/HCPCS: 82962; 88305-TC; 88342-TC

== ENCOUNTER 2019-01-05 18:56 | Inpatient (IN) | payer OTHER ==
--- NOTE | 2019-01-05 19:06 | PDOC ---
Rapid Medical Evaluation Chief Complaint: Wound Time Seen by Provider: 01/05/19 19:03 Medical Evaluation: Allergies Allergy/AdvReac Type Severity Reaction Status Date / Time Penicillins Allergy Severe Swelling Verified 05/28/18 11:30 ciprofloxacin [From Cipro] Allergy Intermediate Rash Verified 05/28/18 11:30 ciprofloxacin HCl Allergy Intermediate Rash Verified 05/28/18 11:30 [From Cipro] levofloxacin [From Levaquin] Allergy Intermediate Rash Verified 05/28/18 11:30 gluten Allergy Verified 05/28/18 11:30 shellfish derived Allergy Hives Verified 05/28/18 11:30 SHRIMP Allergy Rash Uncoded 05/28/18 11:30 01/05/19 19:03 I have performed a brief in-person evaluation of this patient. The patient presents with a chief complaint of: sent by Dr. Young for CT of right ft wound, R leg cellulitis, reports fever at onset of symptoms Pertinent physical exam findings: SOB, marked erythema and swelling to R ft/leg I have ordered the following: labs, lower extremity CT The patient will proceed to the ED for further evaluation. Discharge Disposition - Diagnosis Cellulitis - Referrals - Patient Instructions - Post Discharge Activity
--- NOTE | 2019-01-05 21:58 | PDOC ---
History of Present Illness - General Chief Complaint: Wound Stated Complaint: PAIN Time Seen by Provider: 01/05/19 19:03 - History of Present Illness Initial Comments: Maxi Brandon is a 78yo man with a PMH of HTN, NIDDM, CKD, factor V leiden, lupus anticoagulant, chronic BLE foot wounds who presents with RLE erythema and warmth concerning for cellulitis. He reports that he has had chronic wounds on both feet, but he sees podiatry regularly and his helps him dress the wounds at home. He feels that the wounds are slowly healing and have not started to look any worse than normal; the pt and his report that the right is much better than the left. He was in his usual state of health until Saturday, when his right leg became warm and red. He additionally reports fevers to 101F and chills at home on Saturday. His PMD (Dr Young) sent him to the ED for "a scan" of his leg. Mr Brandon has been admitted to the hospital for LLE cellutlitis and wound in the past, and he was found to have a partial occluded PT as well as poor diabetic control. Past History - Past Medical History Allergies/Adverse Reactions: Allergies Allergy/AdvReac Type Severity Reaction Status Date / Time Penicillins Allergy Severe Swelling Verified 05/28/18 11:30 ciprofloxacin [From Cipro] Allergy Intermediate Rash Verified 05/28/18 11:30 ciprofloxacin HCl Allergy Intermediate Rash Verified 05/28/18 11:30 [From Cipro] levofloxacin [From Levaquin] Allergy Intermediate Rash Verified 05/28/18 11:30 gluten Allergy Verified 05/28/18 11:30 shellfish derived Allergy Hives Verified 05/28/18 11:30 SHRIMP Allergy Rash Uncoded 05/28/18 11:30 Home Medications: Ambulatory Orders Atorvastatin Calcium 20 mg PO DAILY 09/28/15 Calcium Carbonate [Coral Calcium] 10 gm PO TID 09/28/15 Cholecalciferol (Vitamin D3) [Vitamin D3 -] 4,000 unit PO DAILY 09/28/15 Folic Acid - 3 mg PO DAILY 09/28/15 Glimepiride [Glimepiride -] 2 mg PO DAILY 09/28/15 Lisinopril [Prinivil] 5 mg PO DAILY 09/28/15 Multivit-Min/FA/Lycopen/Lutein [Centrum Silver Tablet] 1 each PO DAILY 09/28/15 Magnesium Chloride [Slow-Mag -] 64 mg PO DAILY 12/05/15 Warfarin Sodium [Coumadin] 7.5 mg PO HS 02/13/16 Allopurinol 150 mg PO DAILY 11/14/17 Docusate Sodium [Colace] 100 mg PO PRN PRN 11/14/17 Ferrous Sulfate [Feosol] 324 mg PO DAILY 11/14/17 Furosemide [Lasix -] 1 tab PO DAILY 11/14/17 Planada-3 Fatty Acids/Fish Oil [Fish Oil 1,000 mg Capsule] 3 cap PO DAILY Potassium Chloride [K-Dur -] 20 meq PO DAILY 11/14/17 Ranitidine [Zantac -] 150 mg PO BID 11/14/17 Anemia: No Asthma: No Cancer: Yes (PROSTATE - RADIATION/SEEDS) Cardiac Disorders: Yes (ASHD) CVA: No COPD: No CHF: No Diabetes: Yes (NIDDM) GI Disorders: Yes (GERD,MILD DIVERTICULOSIS) Disorders: Yes (BPH) HTN: Yes Hypercholesterolemia: No Kidney Stones: (KIDNEY PROBLEM. FUNCTIONS AT 33%) Liver Disease: No Seizures: No Thyroid Disease: No - Surgical History Appendectomy: No Cardiac Surgery: No Cholecystectomy: No Lung Surgery: No Neurologic Surgery: No Orthopedic Surgery: Yes (LAMINECTOMY/FUSION 1966) - Immunization History Immunization Up to Date: No - Suicide/Smoking/Psychosocial Hx Smoking History: Current every day smoker Have you smoked in the past 12 months: Yes Number of Cigarettes Smoked Daily: 0 Cigars Per Day: 1 Information on smoking cessation initiated: No 'Breaking Loose' booklet given: 11/15/17 Hx Alcohol Use: No Drug/Substance Use Hx: No Substance Use Type: None Hx Substance Use Treatment: No Review of Systems - Review of Systems Comments:: General: No fevers, no chills, no weight or appetite change, no malaise HEENT: No changes in vision, no changes in hearing, no congestion, no sore throat CV: No chest pain, no palpitations, no LE edema Pulm: No SOB, no cough, no wheezing GI: No nausea or vomiting, no change in bowel habits, no melena : No frequency, no urgency, no dysuria Musc: No back pain, no joint swelling, no recent injury Skin: See HPI Endo: No excessive thirst, no heat/cold intolerance Heme: No unusual bruising or bleeding, no swollen glands Neuro: No syncope, no numbness/tingling, no focal weakness Vasc: No claudication Psych: No recent change in mood, no SI or HI *Physical Exam - Vital Signs Last Vital Signs Temp Pulse Resp BP Pulse Ox 98.9 F 89 16 135/59 L 96 01/05/19 19:02 01/05/19 19:02 01/05/19 19:02 01/05/19 19:02 01/05/19 19:02 - Physical Exam Comments: General: Comfortable, no acute distress HEENT: PERRL, EOMI, MMM, voice normal, normal neck ROM Cards: RRR, no murmur appreciated Pulm: Comfortable on room air, clear to auscultation bilaterally Abd: Soft, nontender, nondistended Ext: Atraumatic. 3+ LE edema. ROM intact. Strength 5/5 and equal bilaterally Vasc: Extremities WWP. Skin: Warmth, erythema to RLE distal to knee. Ulcerated wound to plantar surface of Rt foot w/ overlying callus. L foot without erythema. Wound to medial plantar surface with circular scooped-out appearance in thick callus. No erythema, drainage, or swelling at wounds. Neuro: A&Ox3, CN grossly intact, normal speech, motor/sensory grossly intact and symmetric Psych: Mood appropriate to situation ED Treatment Course - LABORATORY CBC & Chemistry Diagram: 01/05/19 21:50 01/05/19 21:50 - RADIOLOGY Radiology Studies Ordered: Category Date Time Status DUPLEX VASCUL US-1 LEG [US] Stat Ultrasound 01/05/19 21:49 Ordered Medical Decision Making - Medical Decision Making 01/05/19 21:50 Maxi Brandon is a 78yo man with a PMH of HTN, NIDDM, CKD, factor V leiden, lupus anticoagulant, chronic BLE foot wounds who presents with RLE erythema and warmth concerning for cellulitis. He reports fever/chills at home but is currently afebrile. - RLE appears cellulitic, but currently no systemic symptoms indicating widespread infection. Erythema distal to knee only. Reports fever at home but currently afebrile. Given coagulopathies, cannot exclude DVT though pt is on warfarin - LE wounds appear clean, do not look grossly infected. RLE wound shallow. LLE wound w/ clean base. No purulence or drainage. - CBC, CMP, blood cultures ordered in RME - Coags added as pt is on Warfarin and has significant DVT risk factors - Duplex US RLE, leg xrays 01/05/19 23:20 - CBC, Chemistry without concerning changes. Notable for Cr 2.3 (at baseline) - INR supratherapeutic at 3.55 - Duplex completed. No DVT appreciated. Radiology report pending 01/06/19 00:48 - Sign out given to Dr Spencer. Will admit to med/surg on Dr Austin's service Discussed with Dr Travis Denton PGY2 *DC/Admit/Observation/Transfer Diagnosis at time of Disposition: Cellulitis Qualifiers: Site of cellulitis: extremity Site of cellulitis of extremity: lower extremity Laterality: right Qualified Code(s): L03.115 - Cellulitis of right lower limb - Discharge Dispostion Decision to Admit order: Yes - Referrals Referrals: Jose Young MD [Primary Care Provider] - - Patient Instructions - Post Discharge Activity
[2019-01-05 22:21] LABS: BASO % 0.5 % (0-2.0); EOS % 0.4 % (0-4.5); HEMATOCRIT 35.2 % (35.4-49); HEMOGLOBIN 11.6 GM/dL (11.7-16.9); LYMPH % 22.6 % (8-40); MCH 32.4 pg (25.7-33.7); MEAN PLT VOLUME 9.3 fl (7.5-11.1); MONO % 8.8 % (3.8-10.2); NEUT % 67.7 % (42.8-82.8); PLATELET COUNT 186 K/MM3 (134-434); RBC 3.59 M/mm3 (4.00-5.60); RDW 17.4 % (11.9-15.9); WHITE BLOOD COUNT 8.8 K/mm3 (4.0-10.0)
[2019-01-05 22:42] LABS: INR 3.55 (0.83-1.09); PROTHROMBIN TIME (PATIENT) 42.4 SEC (9.7-13.0)
[2019-01-05 22:52] LABS: ALBUMIN 3.4 g/dl (3.4-5.0); BILIRUBIN,TOTAL 0.8 mg/dL (0.2-1); BLOOD UREA NITROGEN 44.6 mg/dL (7-18); CALCIUM 8.4 mg/dL (8.5-10.1); CREATININE 2.3 mg/dL (0.55-1.3); POTASSIUM 4.7 mmol/L (3.5-5.1); TOT PROT 6.4 g/dl (6.4-8.2)
--- NOTE | 2019-01-06 00:01 | PDOC ---
Attending Attestation - Resident Resident Name: CorrieElodia - ED Attending Attestation I have performed the following: I have examined & evaluated the patient, The case was reviewed & discussed with the resident, I agree w/resident's findings & plan, Exceptions are as noted - HPI HPI: 01/05/19 23:55 78 yo male h/o chronic edema. prior dvt, factor V leiden, lupus anticoagulant , DM HTN CKD here with c/o right leg swelling and pain. pt states started one week ago. has h/o two foot wounds one each foot. base first toe left, foot plantar surface. does put cream on them daily and dressing changes. also c/o fever at home few days ago. denies cough, or chest pain. still takes warfarin daily - Physicial Exam PE: 01/05/19 23:59 awake alert lungs clear bilat heart rrr no mrg abd soft nt nd ext wwp. right leg erythema to [place], warmth, bilat foot wounds, callus with central ulceration. moist no drainage. 2 + pulses bilat. - Medical Decision Making 01/06/19 00:00 78 yo male h/o dm prior dvt, foot ulcer, here with right leg cellulitis, foot wound. plan vancomycin ivpb, blood cultures, doppler leg, labs.
--- NOTE | 2019-01-06 00:41 | PN ---
Teaching Attending Note Name of Resident: Mahin Pineda ATTENDING PHYSICIAN STATEMENT I saw and evaluated the patient. I reviewed the resident's note and discussed the case with the resident. I agree with the resident's findings and plan as documented. SUBJECTIVE: Patient is a 78 year old man with a PMH of HTN, Tobacco use, NIDDM, DVT (on coumadin), CKD, Factor V leiden, Prostate cancer, GERD, Penicillin allergy, Lupus anticoagulant and Chronic BLE foot wounds who presents with RLE erythema and warmth concerning for cellulitis. He reports that he has had chronic wounds on both feet, but he sees podiatry regularly and his helps him dress the wounds at home. He feels that the wounds are slowly healing and have not started to look any worse than normal; the pt and his report that the right is much better than the left. On Saturday, he noticed that his right leg became warm and red. He additionally reports fevers to 101F and chills at home on Saturday. His PMD (Dr Young) sent him to the ER for "a scan" of his leg. He denies cough, or chest pain. OBJECTIVE: Alert Vital Signs Period Temp Pulse Resp BP Sys/Gautam Pulse Ox Last 24 Hr 98.9 F 89 16 135/59 96 HEENT: No Jaundice, eye redness or discharge, PERRLA, EOMI. Normocephalic, atraumatic. External ears are normal and hearing is grossly intact. No nasal discharge. Neck: Supple, nontender. No palpable adenopathy or thyromegaly. No JVD Chest: Good effort. Clear to auscultation and percussion. Heart: Regular. No S3, rub or murmur Abdomen: Not distended, soft, nontender and no HSM. No rebound or guarding. Normal bowel sounds. Ext: Peripheral pulses intact. Erythema from of right foot to midcalf; warm and tender. Wounds on medial aspect of feet. Leg edema. Skin: Warm and dry. No petechiae, rash or ecchymosis. Neuro: Alert. Oriented x3. CN 2-12 grossly intact. Sensation grossly intact in all four extremities and DTR are symmetric. Psych: Appropriate mood and affect. Good insight. Home Medications Medication Instructions Recorded Atorvastatin Calcium 20 mg PO DAILY 09/28/15 Calcium Carbonate [Coral Calcium] 10 gm PO TID 09/28/15 Cholecalciferol (Vitamin D3) 4,000 unit PO DAILY 09/28/15 [Vitamin D3 -] Folic Acid - 3 mg PO DAILY 09/28/15 Glimepiride [Glimepiride -] 2 mg PO DAILY 09/28/15 Lisinopril [Prinivil] 5 mg PO DAILY 09/28/15 Multivit-Min/FA/Lycopen/Lutein 1 each PO DAILY 09/28/15 [Centrum Silver Tablet] Magnesium Chloride [Slow-Mag -] 64 mg PO DAILY 12/05/15 Warfarin Sodium [Coumadin] 7.5 mg PO HS 02/13/16 Allopurinol 150 mg PO DAILY 11/14/17 Docusate Sodium [Colace] 100 mg PO PRN PRN 11/14/17 Ferrous Sulfate [Feosol] 324 mg PO DAILY 11/14/17 Furosemide [Lasix -] 1 tab PO DAILY 11/14/17 [place]-3 Fatty Acids/Fish Oil [Fish 3 cap PO DAILY 11/14/17 Oil 1,000 mg Capsule] Potassium Chloride [K-Dur -] 20 meq PO DAILY 11/14/17 Ranitidine [Zantac -] 150 mg PO BID 11/14/17 Abnormal Lab Results 01/05/19 01/05/19 01/05/19 21:50 21:50 21:50 RBC 3.59 L Hgb 11.6 L Hct 35.2 L MCV 98.0 H RDW 17.4 H PT with INR INR PTT (Actin FS) 51.3 H Anion Gap 7 L BUN 44.6 H Creatinine 2.3 H Calcium 8.4 L 01/05/19 21:50 RBC Hgb Hct MCV RDW PT with INR 42.40 H INR 3.55 H PTT (Actin FS) Anion Gap BUN Creatinine Calcium ASSESSMENT AND PLAN: 1. RLE Cellulitis - Sepsis workup and wound culture being done. Being treated with IV Linezolid and Aztreonam. Want to avoid vancomycin in view of CKD. Will consult ID, Podiatry and Wound care service. Daily wound care. No DVT on leg doppler and foot xrays are pending. EKG shows NSR with LAD and RBBB. Will hold coumadin for INR of 3.55 and check INR daily. Will continue comprehensive care for all of patients comorbid conditions. 2. DM For now, we will hold the home diabetes drugs and implement sliding scale insulin regimen. Provide comprehensive diabetes care with patient teaching and counseling about the importance of adherence to prescribed diabetes regimen, euglycemia, eye care and foot care. 3. Tobacco Use Counseled on risks associated with tobacco use. We will provide patient all the necessary assistance to facilitate smoking cessation and prescribe Nicotine patch. 4. CKD - Has multiple risk factors for CKD. Will consult nephrology and avoid nephrotoxic agents such as NSAIDS, aminoglycosides, contrast dyes and certain Alternative medicine products. 5. Anemia - Likely partly due to CKD. Will do basic anemia work up including serial stool guaiacs, reticulocyte count and iron studies. 6. Morbid Obesity Counseled on the risks associated with obesity. Will provide patient all the necessary assistance, counseling and positive reinforcement to facilitate weight loss. Consult housekeeper supervisor. 7. Hypertension - Restart suitable outpatient antihypertensive drugs when clinically appropriate. Revise regimen to ensure [id number] excellent BP control and counselor education professor patient on the injurious effects of uncontrolled hypertension. Nonpharmacologic measures to control hypertension like weight loss , salt restriction and exercise discussed. Importance of adherence to treatment regimen and attainment of normotension emphasized. 8. DVT prophylaxis - On coumadin 9. Advance directives - Full code
[2019-01-06] MEDS ORDERED: VANCOMYCIN 1 GM in D5W (PRE-DOCKED) 1,000 MG/250 ML IVPB ONE (01:27)
[2019-01-06] MEDS ORDERED: AZTREONAM 1 GM in DEXTROSE 5%-WATER - 50 ML IVPB ONE (01:27)
[2019-01-06] MEDS ORDERED: AZTREONAM 1 GM VIAL (RESTRICTED TO ID) ONE (01:28)
[2019-01-06] MEDS ORDERED: VANCOMYCIN 1 GRAM (PRE-DOCKED) 1,000 MG/250 ML BAG IVPB ONE (02:18)
--- NOTE | 2019-01-06 02:47 | HP ---
CHIEF COMPLAINT: cellulitis PCP: Dr. Young HISTORY OF PRESENT ILLNESS: Maxi Brandon is a 78 year old male with a past medical history of hypertension , diabetes, CKD, Factor V Leiden mutation, lupus anticoagulant, chronic BLE foot wounds, gout, celiac disease, prostate CA, GERD who presents with RLE erythema and warmth. The patient stated that 3 days prior to admission he felt generalized weakness, fever, chills, and general discomfort of the RLE. He stated that he felt better the next day but noticed that his RLE had increased erythema, warmth, and was tender to touch. He stated that it was not more difficult to walk around than usual and he usually ambulates with the help of two canes. He was encouraged to come to the ED by family however refused until his PCP told him to come for evaluation. Denies localized trauma to the area, bleeding from the wounds, weeping wounds, pus drainage. Noted that usually his changes his dressings and sees Dr. Feng for wound care. Stated that his wounds looked better in general and did not appear to be worsening of recent. Since, 3 days ago when his symptoms began, he denied further episodes of chest pain, shortness of breath, nausea, vomiting, dizziness, lightheadedness, syncope , falls, constipation, diarrhea, dysuria. Denies recent use of antibiotics, recent medication changes, sick contacts, travel. ER course was notable for: (1) Vascular study of RLE with no DVT (2) Given Aztreonam and vancomycin (3) INR 3.55 Recent Travel: denies PAST MEDICAL HISTORY: as above PAST SURGICAL HISTORY: prostate seeds laminectomy Social History: Smoking: endorses smoking a pipe and cigar regularly Alcohol: occasional alcohol use Drugs: denies Lives at home with Family History: denies significant family history Allergies Penicillins Allergy (Severe, Verified 05/28/18 11:30) Swelling ciprofloxacin [From Cipro] Allergy (Intermediate, Verified 05/28/18 11:30) Rash ciprofloxacin HCl [From Cipro] Allergy (Intermediate, Verified 05/28/18 11:30) Rash levofloxacin [From Levaquin] Allergy (Intermediate, Verified 05/28/18 11:30) Rash gluten Allergy (Verified 05/28/18 11:30) shellfish derived Allergy (Verified 05/28/18 11:30) Hives SHRIMP Allergy (Uncoded 05/28/18 11:30) Rash HOME MEDICATIONS: Home Medications Medication Instructions Recorded Atorvastatin Calcium 20 mg PO DAILY 09/28/15 Calcium Carbonate [Coral Calcium] 10 gm PO TID 09/28/15 Cholecalciferol (Vitamin D3) 4,000 unit PO DAILY 09/28/15 [Vitamin D3 -] Folic Acid - 3 mg PO DAILY 09/28/15 Glimepiride [Glimepiride -] 2 mg PO DAILY 09/28/15 Lisinopril [Prinivil] 5 mg PO DAILY 09/28/15 Multivit-Min/FA/Lycopen/Lutein 1 each PO DAILY 09/28/15 [Centrum Silver Tablet] Magnesium Chloride [Slow-Mag -] 64 mg PO DAILY 12/05/15 Warfarin Sodium [Coumadin] 7.5 mg PO HS 02/13/16 Allopurinol 150 mg PO DAILY 11/14/17 Docusate Sodium [Colace] 100 mg PO PRN PRN 11/14/17 Ferrous Sulfate [Feosol] 324 mg PO DAILY 11/14/17 Furosemide [Lasix -] 1 tab PO DAILY 11/14/17 [place]-3 Fatty Acids/Fish Oil [Fish 3 cap PO DAILY 11/14/17 Oil 1,000 mg Capsule] Potassium Chloride [K-Dur -] 20 meq PO DAILY 11/14/17 Ranitidine [Zantac -] 150 mg PO BID 11/14/17 REVIEW OF SYSTEMS CONSTITUTIONAL: fever, chills, generalized weakness Absent: diaphoresis, ,malaise, loss of appetite, weight change HEENT: Absent: rhinorrhea, nasal congestion, throat pain, throat swelling, difficulty swallowing, visual changes CARDIOVASCULAR: peripheral edema Absent: chest pain, syncope, palpitations, irregular heart rate, lightheadedness , RESPIRATORY: Absent: cough, shortness of breath, dyspnea with exertion, orthopnea, wheezing, GASTROINTESTINAL: Absent: abdominal pain, abdominal distension, nausea, vomiting, diarrhea, constipation, GENITOURINARY: Absent: dysuria, frequency, urgency, hesitancy, hematuria, flank pain MUSCULOSKELETAL: Absent: myalgia, arthralgia, joint swelling, back pain, neck pain SKIN: open wounds on bilateral feet, warmth, erythema and tenderness on the RLE Absent: rash, itching, pallor HEMATOLOGIC/IMMUNOLOGIC: Absent: easy bleeding, easy bruising, lymphadenopathy, frequent infections ENDOCRINE: Absent: unexplained weight gain, unexplained weight loss, heat intolerance, cold intolerance NEUROLOGIC: numbness on bilateral plantar side of feet Absent: headache, focal weakness, dizziness, unsteady gait, seizure, mental status changes PSYCHIATRIC: Absent: anxiety, depression, suicidal or homicidal ideation, hallucinations. PHYSICAL EXAMINATION Vital Signs - 24 hr 01/05/19 01/06/19 19:02 02:32 Temperature 98.9 F Pulse Rate 89 Pulse Rate [ 74 Left Radial] Respiratory 16 18 Rate Blood Pressure 135/59 L Blood Pressure 141/53 L [Left Arm] O2 Sat by Pulse 96 94 L Oximetry (%) GENERAL: Awake, alert, and fully oriented, in no acute distress. HEAD: Normal with no signs of trauma. EYES: Pupils equal, round and reactive to light, extraocular movements intact, sclera anicteric, conjunctiva clear. EARS, NOSE, THROAT: Oropharynx clear without exudates. Moist mucous membranes. NECK: Normal range of motion, supple without lymphadenopathy, JVD. LUNGS: Breath sounds equal, clear to auscultation bilaterally. No wheezes, and no crackles. No accessory muscle use. HEART: Regular rate and rhythm, normal S1 and S2 without murmur, rub. ABDOMEN: Soft, obese, nontender, not distended, normoactive bowel sounds, no guarding, no rebound, no masses. MUSCULOSKELETAL: Normal range of motion at all joints. No bony deformities or tenderness. UPPER EXTREMITIES: 2+ pulses, warm, well-perfused. No cyanosis. No clubbing. No peripheral edema. LOWER EXTREMITIES: 1+ pulses poorly palpated, warm, well-perfused. No calf tenderness. 1+ peripheral edema slightly past the ankles. NEUROLOGICAL: Cranial nerves II-XII intact. 5/5 muscle strength bilaterally upper and lower extremities. PSYCHIATRIC: Cooperative. Good eye contact. Appropriate mood and affect. SKIN: RLE erythema, tenderness to palpation, warmness circumferentially from the malleoli midway up the calf, noted [id number] open wound non-draining on the plantar surface of the foot. LLE noted [id number] open wound non-draining on the plantar surface of the foot. Laboratory Results - last 24 hr 01/05/19 01/05/19 01/05/19 21:50 21:50 21:50 WBC 8.8 RBC 3.59 L Hgb 11.6 L Hct 35.2 L MCV 98.0 H MCH 32.4 MCHC 33.0 RDW 17.4 H Plt Count 186 D MPV 9.3 Absolute Neuts (auto) 6.0 Neutrophils % 67.7 D Lymphocytes % 22.6 D Monocytes % 8.8 Eosinophils % 0.4 D Basophils % 0.5 Nucleated RBC % 0 PT with INR INR PTT (Actin FS) 51.3 H Sodium 139 Potassium 4.7 Chloride 107 Carbon Dioxide 26 Anion Gap 7 L BUN 44.6 H Creatinine 2.3 H Est GFR (CKD-EPI)AfAm 30.60 Est GFR (CKD-EPI)NonAf 26.40 Random Glucose 76 Calcium 8.4 L Total Bilirubin 0.8 AST 32 ALT 31 Alkaline Phosphatase 51 Total Protein 6.4 Albumin 3.4 01/05/19 21:50 WBC RBC Hgb Hct MCV MCH MCHC RDW Plt Count MPV Absolute Neuts (auto) Neutrophils % Lymphocytes % Monocytes % Eosinophils % Basophils % Nucleated RBC % PT with INR 42.40 H INR 3.55 H PTT (Actin FS) Sodium Potassium Chloride Carbon Dioxide Anion Gap BUN Creatinine Est GFR (CKD-EPI)AfAm Est GFR (CKD-EPI)NonAf Random Glucose Calcium Total Bilirubin AST ALT Alkaline Phosphatase Total Protein Albumin EKG--> NSr, Left axis deviation, RBBB, no ST segment changes, QtC 434 ASSESSMENT/PLAN: Maxi Brandon is a 78 year old male with a past medical history of hypertension , diabetes, CKD, Factor V Leiden mutation, lupus anticoagulant, chronic BLE foot wounds, gout, celiac disease, prostate CA, GERD admitted for cellulitis. Cellulitis HTN DM NAZARIO on CKD Anemia Elevated INR Tobacco Use Obesity Cellulitis - likely from open wound on surface of the R foot - foot x-ray to evaluate for osteomyelitis with possibility of needing MRI - duplex as above - linezolid 600mg q12 in setting of renal impairment - continue aztreonam 1g q12 - blood cultures pending - ID consult - wound care consult - patient will follow up with his regular leaf sorter upon leaving the hospital - tight glucose control for proper wound healing HTN - continue home medications once reconciled - monitor BP closely DM - BGM - ISS - A1c NAZARIO on CKD - likely from infection - oral hydration - careful with IV hydration in setting of CKD Anemia - likely in setting of CKD - iron studies - may benefit from iron supplementation Elevated INR - warfarin dose tonight held - recheck levels in the morning and redose as necessary Tobacco Use - offered nicotine patch - encouraged cessation Obesity - morbidly obese - encouraged weight loss with proper diet, smoking cessation, and exercise program - physical therapy consult FEN - no standing fluids in setting of CKD - continue to monitor electrolytes and replete as necessary - Gluten free diet with sodium and diabetic restrictions Prophylaxis - on warfarin Code - full code KATIE SERRATO DO - PGY-1 Visit type - Emergency Visit Emergency Visit: Yes ED Registration Date: 01/06/19 Care time: The patient presented to the Emergency Department on the above date and was hospitalized for further evaluation of their emergent condition. - New Patient This patient is new to me today: Yes Date on this admission: 01/06/19 - Critical Care Critical Care patient: No
[2019-01-06] MEDS ORDERED: DOCUSATE SODIUM 100 MG CAPSULE (FP) PO PRN (03:42)
[2019-01-06] MEDS ORDERED: FUROSEMIDE 40 MG TABLET (FP) PO SCH (03:42)
[2019-01-06] MEDS: INSULIN SLIDING SCALE (NOVOLOG) 1 VIAL SQ SCH ×4 (07:13→22:30)
[2019-01-06] MEDS ORDERED: LINEZOLID 600 MG PREMIX BAG 600 MG in PREMIX 300 IVPB SCH (10:00)
[2019-01-06] MEDS ORDERED: PT OWN MED DRAWER 7, Y5N ONE ×3 (10:03→21:22)
[2019-01-06] MEDS: FOLIC ACID 1 MG TABLET (FP) PO SCH (10:08)
[2019-01-06] MEDS: GABAPENTIN 300 MG CAPSULE (FP) PO SCH ×2 (10:08→22:24)
[2019-01-06] MEDS: ALLOPURINOL 300 MG TABLET (FP) PO SCH (10:08)
[2019-01-06] MEDS: LOSARTAN POTASSIUM 25 MG TABLET PO SCH (10:08)
[2019-01-06] MEDS: FUROSEMIDE 40 MG TABLET (FP) PO SCH (10:08)
[2019-01-06 10:22] LABS: BASO % 0.4 % (0-2.0); EOS % 0.9 % (0-4.5); HEMATOCRIT 30.7 % (35.4-49); HEMOGLOBIN 10.5 GM/dL (11.7-16.9); LYMPH % 16.4 % (8-40); MCH 33.3 pg (25.7-33.7); MCHC 34.2 g/dl (32.0-35.9); MEAN CELL VOLUME 97.5 fl (80-96); MONO % 10.1 % (3.8-10.2); NEUT % 72.2 % (42.8-82.8); PLATELET COUNT 167 K/MM3 (134-434); RBC 3.15 M/mm3 (4.00-5.60); RDW 17.9 % (11.9-15.9); WHITE BLOOD COUNT 6.5 K/mm3 (4.0-10.0)
[2019-01-06 10:41] LABS: INR 3.07 (0.83-1.09); PROTHROMBIN TIME (PATIENT) 36.6 SEC (9.7-13.0)
--- NOTE | 2019-01-06 10:46 | EKG ---
Test Reason : Blood Pressure : / mmHG Vent. Rate : 073 BPM Atrial Rate : 073 BPM P-R Int : 166 ms QRS Dur : 146 ms QT Int : 394 ms P-R-T Axes : 037 -88 003 degrees QTc Int : 434 ms NORMAL SINUS RHYTHM LEFT AXIS DEVIATION RIGHT BUNDLE BRANCH BLOCK ABNORMAL ECG WHEN COMPARED WITH ECG OF 22-AUG-2016 17:33, QRS DURATION HAS INCREASED NONSPECIFIC T WAVE ABNORMALITY NOW EVIDENT IN ANTERIOR LEADS Confirmed by MD Otto, Rolando ([id number]) on 01/06/2019 10:45:39 AM Referred By: Confirmed By:Rolando Menjivar MD
[2019-01-06 10:56] LABS: ALBUMIN 2.9 g/dl (3.4-5.0); BILIRUBIN,TOTAL 0.9 mg/dL (0.2-1); BLOOD UREA NITROGEN 45.1 mg/dL (7-18); CALCIUM 8.1 mg/dL (8.5-10.1); CREATININE 2.3 mg/dL (0.55-1.3); MAGNESIUM 2.5 mg/dL (1.8-2.4); PHOSPHOROUS 2.5 mg/dL (2.5-4.9); POTASSIUM 4.3 mmol/L (3.5-5.1); TOT PROT 5.6 g/dl (6.4-8.2)
[2019-01-06] MEDS: MAGNESIUM CL 64 MG TABLET.SA PO SCH (12:07)
[2019-01-06] MEDS: NICOTINE 7 MG/24 HOURS TOPICAL PATCH TD SCH (12:08)
--- NOTE | 2019-01-06 12:10 | PN ---
Physical Exam: SUBJECTIVE: Patient seen and examined. He reports RLE pain when walking. He denies fever or chills, n/v/d. OBJECTIVE: Vital Signs Period Temp Pulse Resp BP Sys/Gautam Pulse Ox Last 24 Hr 98.2 F-98.9 F 74-89 16-20 120-141/53-83 94-96 GENERAL: The patient is awake, alert, and fully oriented, in no acute distress. HEAD: Normal with no signs of trauma. EYES: PERRL, extraocular movements intact, sclera anicteric, conjunctiva clear. No ptosis. ENT: Ears normal, nares patent, oropharynx clear without exudates, moist mucous membranes. NECK: Trachea midline, full range of motion, supple. LUNGS: Breath sounds equal, clear to auscultation bilaterally, no wheezes, no crackles, no accessory muscle use. HEART: Regular rate and rhythm, S1, S2 without murmur, rub or gallop. ABDOMEN: Soft, nontender, nondistended, normoactive bowel sounds EXTREMITIES: 2+ pulses, warm, well-perfused. 1cm non-erythematous, not weeping ulcer on medial surface of right foot. Erythema noted on right lower extremity below knee to ankle. Left foot has 1cm ulcer as well, not actively draining. NEUROLOGICAL: Cranial nerves II through XII grossly intact. Normal speech, gait not observed. PSYCH: Normal mood, normal affect. SKIN: Warm, dry, normal turgor, no rashes or lesions noted Laboratory Results - last 24 hr 01/05/19 01/05/19 01/05/19 21:50 21:50 21:50 WBC 8.8 RBC 3.59 L Hgb 11.6 L Hct 35.2 L MCV 98.0 H MCH 32.4 MCHC 33.0 RDW 17.4 H Plt Count 186 D MPV 9.3 Absolute Neuts (auto) 6.0 Neutrophils % 67.7 D Lymphocytes % 22.6 D Monocytes % 8.8 Eosinophils % 0.4 D Basophils % 0.5 Nucleated RBC % 0 PT with INR INR PTT (Actin FS) 51.3 H Sodium 139 Potassium 4.7 Chloride 107 Carbon Dioxide 26 Anion Gap 7 L BUN 44.6 H Creatinine 2.3 H Est GFR (CKD-EPI)AfAm 30.60 Est GFR (CKD-EPI)NonAf 26.40 POC Glucometer Random Glucose 76 Hemoglobin A1c % Calcium 8.4 L Phosphorus Magnesium Iron TIBC Iron Saturation Unsaturated IBC Ferritin Total Bilirubin 0.8 AST 32 ALT 31 Alkaline Phosphatase 51 Total Protein 6.4 Albumin 3.4 Random Vancomycin 01/05/19 01/06/19 01/06/19 21:50 06:37 10:00 WBC 6.5 RBC 3.15 L Hgb 10.5 L Hct 30.7 L MCV 97.5 H MCH 33.3 MCHC 34.2 RDW 17.9 H Plt Count 167 MPV 9.0 Absolute Neuts (auto) 4.7 Neutrophils % 72.2 Lymphocytes % 16.4 D Monocytes % 10.1 Eosinophils % 0.9 D Basophils % 0.4 Nucleated RBC % 0 PT with INR 42.40 H INR 3.55 H PTT (Actin FS) Sodium Potassium Chloride Carbon Dioxide Anion Gap BUN Creatinine Est GFR (CKD-EPI)AfAm Est GFR (CKD-EPI)NonAf POC Glucometer 109 Random Glucose Hemoglobin A1c % Calcium Phosphorus Magnesium Iron TIBC Iron Saturation Unsaturated IBC Ferritin Total Bilirubin AST ALT Alkaline Phosphatase Total Protein Albumin Random Vancomycin 01/06/19 01/06/19 01/06/19 10:00 10:00 10:00 WBC RBC Hgb Hct MCV MCH MCHC RDW Plt Count MPV Absolute Neuts (auto) Neutrophils % Lymphocytes % Monocytes % Eosinophils % Basophils % Nucleated RBC % PT with INR 36.60 H INR 3.07 H PTT (Actin FS) 45.0 H Sodium 138 Potassium 4.3 Chloride 106 Carbon Dioxide 27 Anion Gap 5 L BUN 45.1 H Creatinine 2.3 H Est GFR (CKD-EPI)AfAm 30.60 Est GFR (CKD-EPI)NonAf 26.40 POC Glucometer Random Glucose 268 H Hemoglobin A1c % Calcium 8.1 L Phosphorus 2.5 Magnesium 2.5 H Iron TIBC Iron Saturation Unsaturated IBC Ferritin Total Bilirubin 0.9 AST 25 ALT 26 Alkaline Phosphatase 47 Total Protein 5.6 L Albumin 2.9 L Random Vancomycin < 0.8 L 01/06/19 01/06/19 01/06/19 10:00 10:00 11:57 WBC RBC Hgb Hct MCV MCH MCHC RDW Plt Count MPV Absolute Neuts (auto) Neutrophils % Lymphocytes % Monocytes % Eosinophils % Basophils % Nucleated RBC % PT with INR INR PTT (Actin FS) Sodium Potassium Chloride Carbon Dioxide Anion Gap BUN Creatinine Est GFR (CKD-EPI)AfAm Est GFR (CKD-EPI)NonAf POC Glucometer 277 Random Glucose Hemoglobin A1c % 5.7 Calcium Phosphorus Magnesium Iron 26 L TIBC 200 L Iron Saturation 13 L Unsaturated IBC 174 L Ferritin 339.3 Total Bilirubin AST ALT Alkaline Phosphatase Total Protein Albumin Random Vancomycin Active Medications Generic Name Dose Route Start Last Admin Trade Name Freq PRN Reason Stop Dose Admin Allopurinol 150 mg 01/06/19 10:00 01/06/19 10:08 Zyloprim - PO 150 mg DAILY ANNY Administration Atorvastatin Calcium 20 mg 01/06/19 22:00 Lipitor - PO HS ANNY Docusate Sodium 100 mg 01/06/19 03:42 Colace - PO DAILY PRN CONSTIPATION Folic Acid 3 mg 01/06/19 10:00 01/06/19 10:08 Folic Acid - PO 3 mg DAILY ANNY Administration Furosemide 40 mg 01/06/19 10:00 01/06/19 10:08 Lasix - PO 40 mg DAILY ANNY Administration Gabapentin 300 mg 01/06/19 10:00 01/06/19 10:08 Neurontin - PO 300 mg BID ANNY Administration Linezolid 600 mg/ 300 mls @ 300 mls/hr 01/06/19 10:00 Miscellaneous IVPB Q12H ANNY Protocol Insulin Aspart 1 vial 01/06/19 07:00 01/06/19 12:07 Novolog Vial Sliding Scale - SQ 6 units ACHS ANNY Administration Protocol Losartan Potassium 25 mg 01/06/19 10:00 01/06/19 10:08 Cozaar - PO 25 mg DAILY ANNY Administration Magnesium Chloride 64 mg 01/06/19 10:00 01/06/19 12:07 Slow-Mag - PO 64 mg DAILY ANNY Administration Nicotine 7 mg 01/06/19 10:00 01/06/19 12:08 Nicoderm Patch - TD Not Given DAILY ANNY Non-Formulary Medication 10 gm 01/06/19 06:00 Calcium Carbonate [Coral Calcium] PO TID ANNY ASSESSMENT/PLAN: Mr. Brandon is a 78 y/o male with HTN, DM, CKD, Factor V Leiden mutation, lupus anticoagulant, chronic BLE foot wounds, gout, celiac disease, prostate CA, HLD, and GERD who presents with RLE erythema and warmth following 3 days of chills and fever. #cellulitis Right lower extremity below the knee. X-ray did not show osteomyelitis. Doppler negative for DVT. -linezolid given at admission -ID consult- continue linezolid -blood cultures -CBC #bilateral foot ulcers Pt reports ulcers to be chronic and is monitored by podiatry. -podiatry consult -surgery consult #supratherapeutic INR INR 3.07 -hold warfarin -monitor INR #HLD -lipitor 20mg #HTN -losartan 25mg #DM -SSI #gout -allopurinol #tobacco use disorder -nicoderm FEN gluten free/diabetic/sodium restricted diet monitor electrolytes DT Ppx hold warfarin for INR Visit type - Emergency Visit Emergency Visit: Yes ED Registration Date: 01/06/19 Care time: The patient presented to the Emergency Department on the above date and was hospitalized for further evaluation of their emergent condition. - New Patient This patient is new to me today: Yes Date on this admission: 01/07/19 - Critical Care Critical Care patient: No - Discharge Referral Referred to [facility] Med [facility].C[facility] No ATTENDING PHYSICIAN STATEMENT I saw and evaluated the patient. I reviewed the resident's note and discussed the case with the resident. I agree with the resident's findings and plan as documented. SUBJECTIVE: OBJECTIVE: ASSESSMENT AND PLAN:
--- NOTE | 2019-01-06 14:39 | PN ---
Teaching Attending Note Name of Resident: Smitha Boyd ATTENDING PHYSICIAN STATEMENT I saw and evaluated the patient. I reviewed the resident's note and discussed the case with the resident. I agree with the resident's findings and plan as documented. SUBJECTIVE:c/o RLE pain, states started as pain then developed redness and then swelling. denies any trauma to the leg or any cuts or abrasions. does have non healing non draining ulcer on plantar aspects of both feet which he states have not been infected and been following closely with door captain. denies Cp, SOB, fever, chills, N/V/C/D denies any recent abx use OBJECTIVE: Last Vital Signs Temp Pulse Resp BP Pulse Ox 98.3 F 76 20 137/62 95 01/06/19 09:57 01/06/19 09:57 01/06/19 09:57 01/06/19 09:57 01/06/19 09:00 General NAD CV S1 S2 RRR no murmur/rub/gallop Lungs CTA B/L no wheezing/rales/rhonchi Extremities RLE erythema below the knee to right above the ankle. only on anterior surface does not appear to be circumferential. area is tender/warm with 1+ pitting edema. plantar aspect of foot has 1cm deep round ulcer, no active drainage. not tender or warm L foot plantar ulcer no drainage on manipulation but noted to have drainage on bandage ASSESSMENT AND PLAN: 78yo M wtih PMH HTN, DM, CKD, prostate ca, DVT with factor V leiden deficiency and lupus anticoagulant on coumadin presented to the ER with fever and chills and RLE pain 1. RLE cellulitis- reports fevers at home 101. received vanco/linezolid/ aztreonam in the ER. XR noted with no signs of om. ID and vascular surgery consulted. f/u Cx. duplex negative for DVT 2. Supratherapeutic INR- need to clarify if medication dose has been recently adjusted. hold coumadin. can re-start once INR <3 3. HTN- controlled 4. DM-A1c 5.7. hold oral agents. iss and bgm 5. prostate ca 6. DVT ppx- supratherpeutic INR 7. spoke with son present at bedside. all questions answered. verbalized understanding and agreement
--- NOTE | 2019-01-06 14:57 | PN ---
Progress Note (short form) - Note Progress Note: ID consult dictated imp/reccd 78 yo man with obesity, DM, walks with 2 canes- bilateral plantar ulcers - left foot 1/5 years, right foot [address] Feng- didnot tolerate HBO at [facility] now admitted with celulitis of the RLE he developed shaking chills and myalgias on Saturday, next day felt better but RLE was red- refused to come to ED saw his PMD on Saturday who referred him to the ED no further fever or chills otherwise feels well has been offered surgery by podiatry he reports that he has declined cellulitis RLE multiple antibiotic allergies CKD chronic plantar ulcers-no drainage noted agree with zyvox f/u cultures podiatry consult with Dr Feng
[2019-01-06] MEDS ORDERED: LINEZOLID 600 MG PREMIX BAG 600 MG/300 ML BAG IVPB SCH (15:00)
--- NOTE | 2019-01-06 15:41 | CONSULT ---
- Consultation REQUESTING PROVIDER: CONSULT REQUEST: We have been asked to surgically evaluate this patient for b/l foot ulcers and RLE cellulitis PCP:Zhanna Rees HISTORY OF PRESENT ILLNESS: 78yo M presented to the ED with RLE cellulitis, pt has a long history of chronic b/l foot ulcers. Pt has history of b/l leg deformities with significant out-toeing causing these chronic foot wounds. Pt seen by Dr. Feng (podiatry). Pt developed redness and swelling in his RLE 3 days ago, with chills and fevers. Pt has history of DM and smokes a pipe daily for 60+ years. Pt denies seeing a vascular surgeon in the past. PMHx: DM, HLD, diabetic neuropathy, CKD Home Medications Medication Instructions Recorded Atorvastatin Calcium 20 mg PO DAILY 09/28/15 Calcium Carbonate [Coral Calcium] 10 gm PO TID 09/28/15 Cholecalciferol (Vitamin D3) 4,000 unit PO DAILY 09/28/15 [Vitamin D3 -] Folic Acid - 3 mg PO DAILY 09/28/15 Glimepiride [Glimepiride -] 2 mg PO DAILY 09/28/15 Multivit-Min/FA/Lycopen/Lutein 1 each PO DAILY 09/28/15 [Centrum Silver Tablet] Magnesium Chloride [Slow-Mag -] 64 mg PO DAILY 12/05/15 Warfarin Sodium [Coumadin] 7.5 mg PO HS 02/13/16 Allopurinol 150 mg PO DAILY 11/14/17 Docusate Sodium [Colace] 100 mg PO PRN PRN 11/14/17 Ferrous Sulfate [Feosol] 324 mg PO DAILY 11/14/17 Ranitidine [Zantac -] 150 mg PO BID 11/14/17 Furosemide [Lasix] 40 mg PO PRN PRN 01/06/19 Gabapentin [Neurontin -] 300 mg PO BID 01/06/19 Losartan Potassium [Cozaar -] 25 mg PO DAILY 01/06/19 Allergies Allergy/AdvReac Type Severity Reaction Status Date / Time Penicillins Allergy Severe Swelling Verified 01/06/19 03:17 ciprofloxacin [From Cipro] Allergy Intermediate Rash Verified 01/06/19 03:17 ciprofloxacin HCl Allergy Intermediate Rash Verified 01/06/19 03:17 [From Cipro] levofloxacin [From Levaquin] Allergy Intermediate Rash Verified 01/06/19 03:17 gluten Allergy Verified 01/06/19 03:17 shellfish derived Allergy Hives Verified 01/06/19 03:17 SHRIMP Allergy Rash Uncoded 01/06/19 03:17 REVIEW OF SYSTEMS: CONSTITUTIONAL: Absent: diaphoresis, generalized weakness, malaise, loss of appetite, weight change CARDIOVASCULAR: Absent: chest pain, syncope, palpitations, irregular heart rate, lightheadedness , peripheral edema RESPIRATORY: Absent: cough, shortness of breath, dyspnea with exertion, wheezing, stridor, hemoptysis PHYSICAL EXAM: GENERAL: Awake, alert, and fully oriented, in no acute distress. HEAD: Normal with no signs of trauma. EYES: PERRL, sclera anicteric, conjunctiva clear. NECK: Normal ROM, LUNGS: Breathing comfortably, No accessory muscle use. HEART: Regular rate and rhythm. LOWER EXTREMITIES: dopplarable pulses b/l, warm, +1 edema, RLE shows erythema on anterior clayton, Medial maleolus 3 cm callus with 1 cm ulcer in the center, serous drainage. LLE shows 3cm callus with 1 cm ulcer in center of medial 1st MCP joint. NEUROLOGICAL: Normal speech, gait not observed. PSYCH: Cooperative. Good eye contact. Appropriate mood and affect. SKIN: Warm, dry, normal turgor, no rashes or lesions noted. Vital Signs Temperature 98.3 F 01/06/19 09:57 Pulse Rate 76 01/06/19 09:57 Respiratory Rate 20 01/06/19 09:57 Blood Pressure 137/62 01/06/19 09:57 O2 Sat by Pulse Oximetry (%) 95 01/06/19 09:00 Lab Results WBC 6.5 K/mm3 (4.0-10.0) 01/06/19 10:00 RBC 3.15 M/mm3 (4.00-5.60) L 01/06/19 10:00 Hgb 10.5 GM/dL (11.7-16.9) L 01/06/19 10:00 Hct 30.7 % (35.4-49) L 01/06/19 10:00 MCV 97.5 fl (80-96) H 01/06/19 10:00 MCHC 34.2 g/dl (32.0-35.9) 01/06/19 10:00 RDW 17.9 % (11.9-15.9) H 01/06/19 10:00 Plt Count 167 K/MM3 (134-434) 01/06/19 10:00 Sodium 138 mmol/L (136-145) 01/06/19 10:00 Potassium 4.3 mmol/L (3.5-5.1) 01/06/19 10:00 Chloride 106 mmol/L (98-107) 01/06/19 10:00 Carbon Dioxide 27 mmol/L (21-32) 01/06/19 10:00 Anion Gap 5 MMOL/L (8-16) L 01/06/19 10:00 BUN 45.1 mg/dL (7-18) H 01/06/19 10:00 Creatinine 2.3 mg/dL (0.55-1.3) H 01/06/19 10:00 Random Glucose 268 mg/dL (74-106) H 01/06/19 10:00 Calcium 8.1 mg/dL (8.5-10.1) L 01/06/19 10:00 INR 3.07 (0.83-1.09) H 01/06/19 10:00 Problem List - Problems (1) Diabetic foot ulcer Assessment/Plan: Plan -pt appears to have some signs of vascular insuffiency, but most likely chronic in nature, would recommend outpatient follow up with wound care clinic for arterial duplex. -counselled pt on smoking cessation -cont abx as per ID/med -foot wound care per Podiatry, Dr. Feng -no acute vascular surgery intervention at this time. Case discussed with Dr. Kelly, who agrees with plan Code(s): E11.621 - TYPE 2 DIABETES MELLITUS WITH FOOT ULCER; L97.509 - NON- PRESSURE CHRONIC ULCER OTH PRT UNSP FOOT W UNSP SEVERITY Qualifiers: Diabetic foot ulcer location: midfoot Diabetes mellitus type: type 2 Laterality: left Non-pressure ulcer stage: unspecified non-pressure ulcer stage Qualified Code(s): E11.621 - Type 2 diabetes mellitus with foot ulcer Visit type - Case Type Case Type: ED Admission - Emergency Emergency Visit: Yes ED Registration Date: 01/06/19 Care time: The patient presented to the Emergency Department on the above date and was hospitalized for further evaluation of their emergent condition. - New patient This patient is new to me today: Yes Date on this admission: 01/06/19 - Critical Care Critical Care patient: No
--- NOTE | 2019-01-06 16:19 | CONSULT ---
Consult Consult Specialty:: Dioni Feng DPM [employer] Reason for Consultation:: Cellulitis and ulcer of the right foot and leg. - History of Present Illness Chief Complaint: Cellulitis and ulcer of right foot and leg - History Source History Provided By: Medical Record (deferred to admitting physician) - Alcohol/Substance Use Hx Alcohol Use: No - Smoking History Smoking history: Current every day smoker Have you smoked in the past 12 months: Yes Aproximately how many cigarettes per day: 0 Home Medications - Allergies Allergies/Adverse Reactions: Allergies Allergy/AdvReac Type Severity Reaction Status Date / Time Penicillins Allergy Severe Swelling Verified 01/06/19 03:17 ciprofloxacin [From Cipro] Allergy Intermediate Rash Verified 01/06/19 03:17 ciprofloxacin HCl Allergy Intermediate Rash Verified 01/06/19 03:17 [From Cipro] levofloxacin [From Levaquin] Allergy Intermediate Rash Verified 01/06/19 03:17 gluten Allergy Verified 01/06/19 03:17 shellfish derived Allergy Hives Verified 01/06/19 03:17 SHRIMP Allergy Rash Uncoded 01/06/19 03:17 - Home Medications Home Medications: Ambulatory Orders Atorvastatin Calcium 20 mg PO DAILY 09/28/15 Calcium Carbonate [Coral Calcium] 10 gm PO TID 09/28/15 Cholecalciferol (Vitamin D3) [Vitamin D3 -] 4,000 unit PO DAILY 09/28/15 Folic Acid - 3 mg PO DAILY 09/28/15 Glimepiride [Glimepiride -] 2 mg PO DAILY 09/28/15 Multivit-Min/FA/Lycopen/Lutein [Centrum Silver Tablet] 1 each PO DAILY 09/28/15 Magnesium Chloride [Slow-Mag -] 64 mg PO DAILY 12/05/15 Warfarin Sodium [Coumadin] 7.5 mg PO HS 02/13/16 Allopurinol 150 mg PO DAILY 11/14/17 Docusate Sodium [Colace] 100 mg PO PRN PRN 11/14/17 Ferrous Sulfate [Feosol] 324 mg PO DAILY 11/14/17 Ranitidine [Zantac -] 150 mg PO BID 11/14/17 Furosemide [Lasix] 40 mg PO PRN PRN 01/06/19 Gabapentin [Neurontin -] 300 mg PO BID 01/06/19 Losartan Potassium [Cozaar -] 25 mg PO DAILY 01/06/19 Physical Exam Vital Signs: Vital Signs Temperature 98.4 F 01/06/19 14:00 Pulse Rate 67 01/06/19 14:00 Respiratory Rate 18 01/06/19 14:00 Blood Pressure 144/57 L 01/06/19 14:00 O2 Sat by Pulse Oximetry (%) 95 01/06/19 09:00 Wound/Incision: Yes: Other (Wound right plantar navicular tuberosity shows no purulence. Marga-wound tissue shows no inflammation. Wound depth extends to deep fascia. Bone is not exposed.) Labs: CBC, BMP 01/06/19 10:00 01/06/19 10:00 Imaging - Results X-ray: Image Reviewed (Image of the right foot shows significan subluxation at the midfoot with prominence of the navicular tuberosity. No sign of erosion or periosteal changes are noted at the tuberosity above the wound.) Assessment/Plan Assessment Cellulitis of the right leg is likely caused by plantar wound. The foot wound shows no sign of local infection. Surgical excision of wound and underlying bone prominence is recommended following resolution of the cellulitis, however antibiosis alone is recommended for now. Plan Recommend off weight bed rest if possible. Bacitracin or Mupericin Ointment topically with sterile dressing. Continue antibiosis until cellulitis resolves. Patient will return to my office for care folllowing resolution of cellulitis and discharge. Thank you for seeking my consultation. Dioni Feng DPM [phone]
--- NOTE | 2019-01-06 21:47 | CONS ---
DATE OF CONSULTATION: 01/06/2019 REQUESTED BY: Hospitalist Service This is a 78-year-old man with past medical history of obesity, diabetes. He has bilateral plantar ulcers on the left foot for 1-1/2 years and on the right for 6 months. He is followed by Dr. Feng, who arranged for him to have hyperbaric at [facility], which he did not tolerate. The ulcers are chronic and have not healed. He developed shaking chills and myalgias on Saturday. The next day, he felt better, but noted this right lower extremity was red. His family wanted him to come to the ER, but he refused. He did go see his PMD on Saturday, who then sent him to the ER. No further fever or chills. He, otherwise, feels well. He has no nausea, vomiting, diarrhea, dysuria, or cough. He has been offered surgery by Podiatry, but he has declined. PAST MEDICAL HISTORY: Notable for hypertension, diabetes, chronic kidney disease, Factor V Leiden mutation, lupus anticoagulant, bilateral foot wounds, gout, celiac disease, prostate cancer, and GERD. SURGICAL HISTORY: Notable for back surgery. He has had a laminectomy and prostate seeds. SOCIAL HISTORY: He lives at home with his . He is retired. He smokes a pipe and cigar. Denies any drug use. He uses 2 canes to walk. There is no history of any recent travel. FAMILY HISTORY: Noncontributory. REVIEW OF SYSTEMS: He has not recently been on any antibiotics and, as stated, he did not tolerate hyperbaric. He is allergic to PENICILLIN, CIPRO, LEVOFLOXACIN. He has a GLUTEN allergy, SHELLFISH allergy, and SHRIMP allergy. MEDICATIONS AT HOME: Atorvastatin, calcium, vitamin D, folic acid, glimepiride, Prinivil, vitamins, Coumadin, allopurinol, Colace, Feosol, and Lasix as well as K-Dur and Zantac. PHYSICAL EXAMINATION: General: He is awake and alert. Vital Signs: He has had no fever since arrival. Temperature is 98.4, pulse is 67, blood pressure 144/57, respiratory rate of 18, saturating 95% on room air. He is an obese man; he weighs 133 kg. HEENT: Normocephalic. His eyes are anicteric. Neck: Supple. Lungs: Clear to auscultation. Diminished breath sounds at the bases. Heart: Regular rate and rhythm. Abdomen: Protuberant and soft. Extremities: Notable for edema of the right lower extremity from above his foot to below his knee. No involvement of the ankle or knee joint. He has open plantar ulcers that do not probe to bone on both legs. There is no drainage or erythema related to either ulcer. LABORATORIES: Notable for a white count of 6.5, hemoglobin 10.5, platelets of 167. INR is 3. BUN is 45, creatinine is 2.3 with normal LFTs. Blood cultures are pending. Foot x-ray shows there is swelling and there is evidence of arthritic changes. There is no fracture or evidence of osteomyelitis. SUMMARY: This is a diabetic man with chronic foot ulcers with cellulitis of the right lower extremity, most like a portal is his chronic ulcer, but MULTIPLE ANTIBIOTIC allergies. He has chronic kidney disease as well. I would agree with Thaddeus with followup culture and await podiatry consult with Dr. Feng. Further recommendations to follow. Cuca [id number]
[2019-01-06] MEDS: ATORVASTATIN CA 20 MG TABLET (FP) PO SCH (22:24)
[2019-01-06] MEDS: CALCIUM CARBONATE 650 MG TABLET PO SCH (22:24)
[2019-01-07] MEDS: LINEZOLID 600 MG PREMIX BAG 600 MG/300 ML BAG IVPB SCH ×2 (05:10→17:09)
[2019-01-07] MEDS: CALCIUM CARBONATE 650 MG TABLET PO SCH ×3 (05:49→22:35)
[2019-01-07] MEDS: INSULIN SLIDING SCALE (NOVOLOG) 1 VIAL SQ SCH ×4 (06:29→22:36)
[2019-01-07 07:33] LABS: BASO % 0.6 % (0-2.0); EOS % 3.7 % (0-4.5); HEMATOCRIT 31.1 % (35.4-49); HEMOGLOBIN 10.6 GM/dL (11.7-16.9); LYMPH % 20.8 % (8-40); MCH 33.3 pg (25.7-33.7); MCHC 34.2 g/dl (32.0-35.9); MEAN CELL VOLUME 97.4 fl (80-96); MEAN PLT VOLUME 9.3 fl (7.5-11.1); MONO % 9.1 % (3.8-10.2); NEUT % 65.8 % (42.8-82.8); PLATELET COUNT 198 K/MM3 (134-434); RBC 3.19 M/mm3 (4.00-5.60); RDW 17.4 % (11.9-15.9); WHITE BLOOD COUNT 6.3 K/mm3 (4.0-10.0)
[2019-01-07 07:36] LABS: ALBUMIN 2.9 g/dl (3.4-5.0); BILIRUBIN,TOTAL 0.7 mg/dL (0.2-1); BLOOD UREA NITROGEN 47.1 mg/dL (7-18); CALCIUM 7.9 mg/dL (8.5-10.1); CREATININE 2.1 mg/dL (0.55-1.3); POTASSIUM 4.3 mmol/L (3.5-5.1); TOT PROT 5.9 g/dl (6.4-8.2)
[2019-01-07 09:34] LABS: INR 2.26 (0.83-1.09); PROTHROMBIN TIME (PATIENT) 26.9 SEC (9.7-13.0)
[2019-01-07] MEDS ORDERED: PT OWN MED DRAWER 7, Y5N ONE ×5 (09:57→21:43)
[2019-01-07] MEDS: FOLIC ACID 1 MG TABLET (FP) PO SCH (10:07)
[2019-01-07] MEDS: GABAPENTIN 300 MG CAPSULE (FP) PO SCH ×2 (10:08→22:35)
[2019-01-07] MEDS: FUROSEMIDE 40 MG TABLET (FP) PO SCH (10:08)
[2019-01-07] MEDS: LOSARTAN POTASSIUM 25 MG TABLET PO SCH (10:08)
[2019-01-07] MEDS: ALLOPURINOL 300 MG TABLET (FP) PO SCH (10:08)
[2019-01-07] MEDS: MAGNESIUM CL 64 MG TABLET.SA PO SCH (10:09)
[2019-01-07] MEDS: NICOTINE 7 MG/24 HOURS TOPICAL PATCH TD SCH (10:10)
--- NOTE | 2019-01-07 12:49 | PN ---
Teaching Attending Note Name of Resident: Smitha Boyd ATTENDING PHYSICIAN STATEMENT I saw and evaluated the patient. I reviewed the resident's note and discussed the case with the resident. I agree with the resident's findings and plan as documented. SUBJECTIVE: no real change from yesterday. cont to have leg pain. denies Cp, SOB , fever, chills, N/V/C/D OBJECTIVE: Last Vital Signs Temp Pulse Resp BP Pulse Ox 98.5 F 69 20 135/57 L 95 01/07/19 10:01/07/19 10:05 01/07/19 10:01/07/19 10:01/06/19 22:00 General NAD Extremities RLE erythema below the knee to right above the ankle. only on anterior surface does not appear to be circumferential. area is tender/warm with 1+ pitting edema. ASSESSMENT AND PLAN: 78yo M wtih PMH HTN, DM, CKD, prostate ca, DVT with factor V leiden deficiency and lupus anticoagulant on coumadin presented to the ER with fever and chills and RLE pain 1. RLE cellulitis-no real change from yesterday. cont linezolid day 2. Bcx negative. ID and podiatry on board. 2. Supratherapeutic INR- trended down. will need to verify about recent dose change but state his INR fluctuates. start at 6mg, may need alternating doses if patient will be able to comply with that. trend INR 3. HTN- controlled 4. DM-A1c 5.7. hold oral agents. iss and bgm 5. prostate ca 6. DVT ppx-coumadin
--- NOTE | 2019-01-07 13:53 | PN ---
Physical Exam: SUBJECTIVE: Patient seen and examined. He reports tenderness to palpation and walking. Extremity has minimal decrease in erythema. He denies n/v/d. OBJECTIVE: Vital Signs Period Temp Pulse Resp BP Sys/Gautam Pulse Ox Last 24 Hr 97.8 F-98.5 F 67-71 18-20 135-159/57-71 95 GENERAL: The patient is awake, alert, and fully oriented, in no acute distress. HEAD: Normal with no signs of trauma. EYES: PERRL, extraocular movements intact, sclera anicteric, conjunctiva clear. No ptosis. ENT: Ears normal, nares patent, oropharynx clear without exudates, moist mucous membranes. NECK: Trachea midline, full range of motion, supple. LUNGS: Breath sounds equal, clear to auscultation bilaterally, no wheezes, no crackles, no accessory muscle use. HEART: Regular rate and rhythm, S1, S2 without murmur, rub or gallop. ABDOMEN: Soft, nontender, nondistended, normoactive bowel sounds EXTREMITIES: 2+ pulses, warm, well-perfused. 1cm non-erythematous, not weeping ulcer on medial surface of right foot. Erythema noted on right lower extremity below knee to ankle. Left foot has 1cm ulcer as well, not actively draining. NEUROLOGICAL: Cranial nerves II through XII grossly intact. Normal speech, gait not observed. PSYCH: Normal mood, normal affect. SKIN: Warm, dry, normal turgor, no rashes or lesions noted Laboratory Results - last 24 hr 01/06/19 01/06/19 01/06/19 17:13 22:21 23:15 WBC RBC Hgb Hct MCV MCH MCHC RDW Plt Count MPV Absolute Neuts (auto) Neutrophils % Lymphocytes % Monocytes % Eosinophils % Basophils % Nucleated RBC % PT with INR INR Sodium Potassium Chloride Carbon Dioxide Anion Gap BUN Creatinine Est GFR (CKD-EPI)AfAm Est GFR (CKD-EPI)NonAf POC Glucometer 122 207 Random Glucose Calcium Total Bilirubin AST ALT Alkaline Phosphatase Total Protein Albumin Stool Occult Blood Positive 01/07/19 01/07/19 01/07/19 05:35 06:25 06:25 WBC 6.3 RBC 3.19 L Hgb 10.6 L Hct 31.1 L MCV 97.4 H MCH 33.3 MCHC 34.2 RDW 17.4 H Plt Count 198 MPV 9.3 Absolute Neuts (auto) 4.1 Neutrophils % 65.8 Lymphocytes % 20.8 D Monocytes % 9.1 Eosinophils % 3.7 D Basophils % 0.6 Nucleated RBC % 0 PT with INR INR Sodium 136 Potassium 4.3 Chloride 104 Carbon Dioxide 26 Anion Gap 7 L BUN 47.1 H Creatinine 2.1 H Est GFR (CKD-EPI)AfAm 34.16 Est GFR (CKD-EPI)NonAf 29.47 POC Glucometer 140 Random Glucose 164 H Calcium 7.9 L Total Bilirubin 0.7 AST 38 H ALT 40 Alkaline Phosphatase 49 Total Protein 5.9 L Albumin 2.9 L Stool Occult Blood 01/07/19 01/07/19 09:05 11:55 WBC RBC Hgb Hct MCV MCH MCHC RDW Plt Count MPV Absolute Neuts (auto) Neutrophils % Lymphocytes % Monocytes % Eosinophils % Basophils % Nucleated RBC % PT with INR 26.90 H INR 2.26 H Sodium Potassium Chloride Carbon Dioxide Anion Gap BUN Creatinine Est GFR (CKD-EPI)AfAm Est GFR (CKD-EPI)NonAf POC Glucometer 234 Random Glucose Calcium Total Bilirubin AST ALT Alkaline Phosphatase Total Protein Albumin Stool Occult Blood Active Medications Generic Name Dose Route Start Last Admin Trade Name Freq PRN Reason Stop Dose Admin Allopurinol 150 mg 01/06/19 10:00 01/07/19 10:08 Zyloprim - PO 150 mg DAILY ANNY Administration Atorvastatin Calcium 20 mg 01/06/19 22:00 01/06/19 22:24 Lipitor - PO 20 mg HS ANNY Administration Calcium Carbonate 650 mg 01/06/19 22:00 01/07/19 05:49 Calcium Carbonate - PO 650 mg TID ANNY Administration Docusate Sodium 100 mg 01/06/19 03:42 Colace - PO DAILY PRN CONSTIPATION Folic Acid 3 mg 01/06/19 10:00 01/07/19 10:07 Folic Acid - PO 3 mg DAILY ANNY Administration Furosemide 40 mg 01/06/19 10:00 01/07/19 10:08 Lasix - PO 40 mg DAILY ANNY Administration Gabapentin 300 mg 01/06/19 10:00 01/07/19 10:08 Neurontin - PO 300 mg BID ANNY Administration Linezolid 600 mg in 300 mls @ 300 mls/hr 01/07/19 05:10 01/07/19 05:10 Zyvox 600 Mg Premix Bag (Restricted To Id) - IVPB 300 mls/hr Q12H ANNY Administration Protocol Insulin Aspart 1 vial 01/06/19 07:00 01/07/19 11:57 Novolog Vial Sliding Scale - SQ 4 units ACHS ANNY Administration Protocol Losartan Potassium 25 mg 01/06/19 10:00 01/07/19 10:08 Cozaar - PO 25 mg DAILY ANNY Administration Magnesium Chloride 64 mg 01/06/19 10:00 01/07/19 10:09 Slow-Mag - PO 64 mg DAILY ANNY Administration Nicotine 7 mg 01/06/19 10:00 01/07/19 10:10 Nicoderm Patch - TD Not Given DAILY ANNY Warfarin Sodium 6 mg 01/07/19 18:00 Coumadin - PO DAILY@1800 [facility] ASSESSMENT/PLAN: Mr. Brandon is a 78 y/o male with HTN, DM, CKD, Factor V Leiden mutation, lupus anticoagulant, chronic BLE foot wounds, gout, celiac disease, prostate CA, HLD, and GERD who presents with RLE erythema and warmth following 3 days of chills and fever. #cellulitis Right lower extremity below the knee. X-ray did not show osteomyelitis. Doppler negative for DVT. -linezolid day 2 -ID following -blood cultures-prelim negative -CBC #bilateral foot ulcers Pt reports ulcers to be chronic and is monitored by podiatry. -podiatry consulted- surgical excision of wounds following cellulitis resolution , wound care -surgery consult- f/u outpatient for arterial duplex #supratherapeutic INR INR 2.26 -start warfarin 6mg -monitor INR #CKD Cr 2.1. near baseline #HLD -lipitor 20mg #HTN -losartan 25mg #DM -SSI #gout -allopurinol #tobacco use disorder -nicoderm FEN gluten free/diabetic/sodium restricted diet monitor electrolytes DT Ppx hold warfarin for INR Visit type - Emergency Visit Emergency Visit: Yes ED Registration Date: 01/06/19 Care time: The patient presented to the Emergency Department on the above date and was hospitalized for further evaluation of their emergent condition. - New Patient This patient is new to me today: No - Critical Care Critical Care patient: No - Discharge Referral Referred to [facility] Med P.C.: No ATTENDING PHYSICIAN STATEMENT I saw and evaluated the patient. I reviewed the resident's note and discussed the case with the resident. I agree with the resident's findings and plan as documented. SUBJECTIVE: OBJECTIVE: ASSESSMENT AND PLAN:
[2019-01-07 14:50] VITALS: BMI 40.8
--- NOTE | 2019-01-07 15:00 | PN ---
Progress Note (short form) - Note Progress Note: leg still hurts no fever Vital Signs Period Temp Pulse Resp BP Sys/Gautam Pulse Ox Last 24 Hr 97.8 F-98.5 F 69-71 18-20 135-159/57-71 95 cor-rrr lungs clear abd soft,nt ext decreasing erythema of the RLE, dressings both plantar ulcers in place CBC, BMP 01/07/19 06:25 01/07/19 06:25 Microbiology 01/05/19 21:50 Blood - Peripheral Venous Blood Culture - Preliminary NO GROWTH OBTAINED AFTER 24 HOURS, INCUBATION TO CONTINUE FOR 4 DAYS. 01/05/19 21:50 Blood - Peripheral Venous Blood Culture - Preliminary NO GROWTH OBTAINED AFTER 24 HOURS, INCUBATION TO CONTINUE FOR 4 DAYS. a/p cellulitis RLE-continue zyvox, improving multiple antibiotic allergies CKD chronic plantar ulcers-no drainage noted-f/u podiatry Problem List - Problems (1) Cellulitis Code(s): L03.90 - CELLULITIS, UNSPECIFIED Qualifiers: Site of cellulitis: extremity Site of cellulitis of extremity: lower extremity Laterality: right Qualified Code(s): L03.115 - Cellulitis of right lower limb (2) Allergy to multiple antibiotics Code(s): Z88.1 - ALLERGY STATUS TO OTHER ANTIBIOTIC AGENTS STATUS (3) CKD (chronic kidney disease) Code(s): N18.9 - CHRONIC KIDNEY DISEASE, UNSPECIFIED (4) Diabetic foot ulcer Code(s): E11.621 - TYPE 2 DIABETES MELLITUS WITH FOOT ULCER; L97.509 - NON- PRESSURE CHRONIC ULCER OTH PRT UNSP FOOT W UNSP SEVERITY Qualifiers: Diabetic foot ulcer location: midfoot Diabetes mellitus type: type 2 Laterality: left Non-pressure ulcer stage: unspecified non-pressure ulcer stage Qualified Code(s): E11.621 - Type 2 diabetes mellitus with foot ulcer
[2019-01-07] MEDS ORDERED: INSULIN (NOVOLOG) ASPART 100 UNITS/ML 10ML VIAL ONE (17:47)
[2019-01-07] MEDS: WARFARIN NA 3 MG TABLET PO SCH (17:49)
[2019-01-07] MEDS: ATORVASTATIN CA 20 MG TABLET (FP) PO SCH (22:36)
[2019-01-08] MEDS ORDERED: PT OWN MED DRAWER 7, Y5N ONE ×5 (05:23→19:29)
[2019-01-08] MEDS: CALCIUM CARBONATE 650 MG TABLET PO SCH ×3 (06:07→22:35)
[2019-01-08] MEDS: LINEZOLID 600 MG PREMIX BAG 600 MG/300 ML BAG IVPB SCH ×2 (06:07→17:09)
[2019-01-08] MEDS: INSULIN SLIDING SCALE (NOVOLOG) 1 VIAL SQ SCH ×4 (06:11→22:30)
[2019-01-08 08:32] LABS: BASO % 0.6 % (0-2.0); EOS % 3.9 % (0-4.5); HEMATOCRIT 33.3 % (35.4-49); HEMOGLOBIN 11.2 GM/dL (11.7-16.9); LYMPH % 23.6 % (8-40); MCH 32.8 pg (25.7-33.7); MCHC 33.7 g/dl (32.0-35.9); MEAN CELL VOLUME 97.4 fl (80-96); MEAN PLT VOLUME 8.9 fl (7.5-11.1); MONO % 7.4 % (3.8-10.2); NEUT % 64.5 % (42.8-82.8); PLATELET COUNT 238 K/MM3 (134-434); RBC 3.42 M/mm3 (4.00-5.60); RDW 17.4 % (11.9-15.9); WHITE BLOOD COUNT 6.1 K/mm3 (4.0-10.0)
[2019-01-08 09:08] LABS: ALBUMIN 3.1 g/dl (3.4-5.0); BILIRUBIN,TOTAL 0.6 mg/dL (0.2-1); BLOOD UREA NITROGEN 45.7 mg/dL (7-18); CALCIUM 8.2 mg/dL (8.5-10.1); CREATININE 2.1 mg/dL (0.55-1.3); POTASSIUM 4.6 mmol/L (3.5-5.1); TOT PROT 6.2 g/dl (6.4-8.2)
[2019-01-08 09:20] LABS: INR 1.85 (0.83-1.09)
[2019-01-08] MEDS: ALLOPURINOL 300 MG TABLET (FP) PO SCH (10:06)
[2019-01-08] MEDS: FOLIC ACID 1 MG TABLET (FP) PO SCH (10:06)
[2019-01-08] MEDS: GABAPENTIN 300 MG CAPSULE (FP) PO SCH ×2 (10:06→22:35)
[2019-01-08] MEDS: FUROSEMIDE 40 MG TABLET (FP) PO SCH (10:07)
[2019-01-08] MEDS: MAGNESIUM CL 64 MG TABLET.SA PO SCH (10:07)
[2019-01-08] MEDS: LOSARTAN POTASSIUM 25 MG TABLET PO SCH (10:07)
[2019-01-08] MEDS: NICOTINE 7 MG/24 HOURS TOPICAL PATCH TD SCH (11:44)
--- NOTE | 2019-01-08 13:56 | PN ---
Physical Exam: SUBJECTIVE: Patient seen and examined. He reports tenderness to palpation and walking. Erythema is stable compared to yesterday. He denies n/v/d. OBJECTIVE: Vital Signs Period Temp Pulse Resp BP Sys/Gautam Pulse Ox Last 24 Hr 98.0 F-98.5 F 63-71 20-20 124-155/51-78 94 GENERAL: The patient is awake, alert, and fully oriented, in no acute distress. HEAD: Normal with no signs of trauma. EYES: PERRL, extraocular movements intact, sclera anicteric, conjunctiva clear. No ptosis. ENT: Ears normal, nares patent, oropharynx clear without exudates, moist mucous membranes. NECK: Trachea midline, full range of motion, supple. LUNGS: Breath sounds equal, clear to auscultation bilaterally, no wheezes, no crackles, no accessory muscle use. HEART: Regular rate and rhythm, S1, S2 without murmur, rub or gallop. ABDOMEN: Soft, nontender, nondistended, normoactive bowel sounds EXTREMITIES: 2+ pulses, warm, well-perfused. 1cm non-erythematous, not weeping ulcer on medial surface of right foot. Erythema noted on right lower extremity below knee to ankle. Left foot has 1cm ulcer as well, not actively draining. NEUROLOGICAL: Cranial nerves II through XII grossly intact. Normal speech, gait not observed. PSYCH: Normal mood, normal affect. SKIN: Warm, dry, normal turgor, no rashes or lesions noted Laboratory Results - last 24 hr 01/07/19 01/07/19 01/08/19 17:31 22:33 06:10 WBC RBC Hgb Hct MCV MCH MCHC RDW Plt Count MPV Absolute Neuts (auto) Neutrophils % Lymphocytes % Monocytes % Eosinophils % Basophils % Nucleated RBC % PT with INR INR Sodium Potassium Chloride Carbon Dioxide Anion Gap BUN Creatinine Est GFR (CKD-EPI)AfAm Est GFR (CKD-EPI)NonAf POC Glucometer 198 176 145 Random Glucose Calcium Total Bilirubin AST ALT Alkaline Phosphatase Total Protein Albumin 01/08/19 01/08/19 01/08/19 07:28 07:28 07:28 WBC 6.1 RBC 3.42 L Hgb 11.2 L Hct 33.3 L MCV 97.4 H MCH 32.8 MCHC 33.7 RDW 17.4 H Plt Count 238 D MPV 8.9 Absolute Neuts (auto) 4.0 Neutrophils % 64.5 Lymphocytes % 23.6 Monocytes % 7.4 Eosinophils % 3.9 Basophils % 0.6 Nucleated RBC % 0 PT with INR 22.00 H INR 1.85 H Sodium 135 L Potassium 4.6 Chloride 102 Carbon Dioxide 28 Anion Gap 5 L BUN 45.7 H Creatinine 2.1 H Est GFR (CKD-EPI)AfAm 34.16 Est GFR (CKD-EPI)NonAf 29.47 POC Glucometer Random Glucose 180 H Calcium 8.2 L Total Bilirubin 0.6 AST 49 H ALT 59 Alkaline Phosphatase 55 Total Protein 6.2 L Albumin 3.1 L 01/08/19 11:43 WBC RBC Hgb Hct MCV MCH MCHC RDW Plt Count MPV Absolute Neuts (auto) Neutrophils % Lymphocytes % Monocytes % Eosinophils % Basophils % Nucleated RBC % PT with INR INR Sodium Potassium Chloride Carbon Dioxide Anion Gap BUN Creatinine Est GFR (CKD-EPI)AfAm Est GFR (CKD-EPI)NonAf POC Glucometer 279 Random Glucose Calcium Total Bilirubin AST ALT Alkaline Phosphatase Total Protein Albumin Active Medications Generic Name Dose Route Start Last Admin Trade Name Freq PRN Reason Stop Dose Admin Allopurinol 150 mg 01/06/19 10:00 01/08/19 10:06 Zyloprim - PO 150 mg DAILY [facility] Administration Atorvastatin Calcium 20 mg 01/06/19 22:00 01/07/19 22:36 Lipitor - PO 20 mg HS [facility] Administration Bacitracin 1 applic 01/08/19 12:00 Bacitracin - TP BID [facility] Calcium Carbonate 650 mg 01/06/19 22:00 01/08/19 06:07 Calcium Carbonate - PO 650 mg TID [facility] Administration Docusate Sodium 100 mg 01/06/19 03:42 Colace - PO DAILY PRN CONSTIPATION Folic Acid 3 mg 01/06/19 10:00 01/08/19 10:06 Folic Acid - PO 3 mg DAILY [facility] Administration Furosemide 40 mg 01/06/19 10:00 01/08/19 10:07 Lasix - PO 40 mg DAILY [facility] Administration Gabapentin 300 mg 01/06/19 10:00 01/08/19 10:06 Neurontin - PO 300 mg BID [facility] Administration Linezolid 600 mg in 300 mls @ 300 mls/hr 01/07/19 05:10 01/08/19 06:07 Zyvox 600 Mg Premix Bag (Restricted To Id) - IVPB 300 mls/hr Q12H [facility] Administration Protocol Insulin Aspart 1 vial 01/06/19 07:00 01/08/19 11:44 Novolog Vial Sliding Scale - SQ 6 units ACHS [facility] Administration Protocol Losartan Potassium 25 mg 01/06/19 10:00 01/08/19 10:07 Cozaar - PO 25 mg DAILY [facility] Administration Magnesium Chloride 64 mg 01/06/19 10:00 01/08/19 10:07 Slow-Mag - PO 64 mg DAILY [facility] Administration Nicotine 7 mg 01/06/19 10:00 01/08/19 11:44 Nicoderm Patch - TD Not Given DAILY [facility] Warfarin Sodium 6 mg 01/07/19 18:00 01/07/19 17:49 Coumadin - PO 6 mg DAILY@1800 [facility] Administration ASSESSMENT/PLAN: Mr. Brandon is a 78 y/o male with HTN, DM, CKD, Factor V Leiden mutation, lupus anticoagulant, chronic BLE foot wounds, gout, celiac disease, prostate CA, HLD, and GERD who presents with RLE erythema and warmth following 3 days of chills and fever. #cellulitis Right lower extremity below the knee. X-ray did not show osteomyelitis. Doppler negative for DVT. Minimal improvement in erythema. Afebrile. No leukocytosis. -linezolid day 3 -ID following -blood cultures-prelim negative -CBC #bilateral foot ulcers Pt reports ulcers to be chronic and is monitored by podiatry. -podiatry consulted- surgical excision of wounds following cellulitis resolution , wound care -surgery consult- f/u outpatient for arterial duplex #supratherapeutic INR on admission INR 1.85 today -warfarin 6mg -monitor INR #CKD Cr 2.1. near baseline #HLD -lipitor 20mg #HTN -losartan 25mg #DM -SSI #gout -allopurinol #tobacco use disorder -nicoderm FEN gluten free/diabetic/sodium restricted diet monitor electrolytes DT Ppx warfarin 6mg Visit type - Emergency Visit Emergency Visit: Yes ED Registration Date: 01/06/19 Care time: The patient presented to the Emergency Department on the above date and was hospitalized for further evaluation of their emergent condition. - New Patient This patient is new to me today: No - Critical Care Critical Care patient: No - Discharge Referral Referred to [facility] Med [facility].C[facility] No ATTENDING PHYSICIAN STATEMENT I saw and evaluated the patient. I reviewed the resident's note and discussed the case with the resident. I agree with the resident's findings and plan as documented. SUBJECTIVE: OBJECTIVE: ASSESSMENT AND PLAN:
[2019-01-08] MEDS: BACITRACIN 15 GM TUBE TOPICAL OINTMENT TP SCH ×2 (14:12→22:36)
--- NOTE | 2019-01-08 14:13 | PN ---
Teaching Attending Note Name of Resident: Smitha Boyd ATTENDING PHYSICIAN STATEMENT I saw and evaluated the patient. I reviewed the resident's note and discussed the case with the resident. I agree with the resident's findings and plan as documented. SUBJECTIVE:states pain and swelling is worse today. denies CP, SOb, fever, chills, N/V/C/D OBJECTIVE: Last Vital Signs Temp Pulse Resp BP Pulse Ox 98.1 F 71 20 124/51 L 94 L 01/08/19 10:01/08/19 10:01/08/19 10:01/08/19 10:01/07/19 21:00 General NAD Extremities RLE erythema below the knee to right above the ankle. is warm and erythematous which now appears to be circumferential. ASSESSMENT AND PLAN: 78yo M wtih PMH HTN, DM, CKD, prostate ca, DVT with factor V leiden deficiency and lupus anticoagulant on coumadin presented to the ER with fever and chills and RLE pain 1. RLE cellulitis-appears to be worse than yesterday as encompensing the entire calf. will d/w ID about step up in abx for broader coverage. multiple allergies noted. Bcx negative. ID and podiatry on board. 2. Supratherapeutic INR- states hes been on 7.5mg for years and that his INR is checked weekly and sometimes called by PMD and told to hold a dose of coumadin. started on 6mg yesterday. will cont to trend while here. may need further adjustments 3. HTN- controlled 4. DM-A1c 5.7. hold oral agents. iss and bgm 5. prostate ca 6. DVT ppx-coumadin
--- NOTE | 2019-01-08 17:12 | PN ---
Progress Note (short form) - Note Progress Note: leg still hurts no fever erythema unchanged Vital Signs Period Temp Pulse Resp BP Sys/Gautam Pulse Ox Last 24 Hr 98.0 F-98.5 F 63-71 20-20 124-155/51-78 94 cor-rrr lungs decreased bs at bases erythema and induration of RLE unchanged CBC, BMP 01/08/19 07:28 01/08/19 07:28 Microbiology 01/05/19 21:50 Blood - Peripheral Venous Blood Culture - Preliminary NO GROWTH OBTAINED AFTER 48 HOURS, INCUBATION TO CONTINUE FOR 3 DAYS. 01/05/19 21:50 Blood - Peripheral Venous Blood Culture - Preliminary NO GROWTH OBTAINED AFTER 48 HOURS, INCUBATION TO CONTINUE FOR 3 DAYS. Current Medications Allopurinol (Zyloprim -) 150 mg PO DAILY [facility] Last Admin: 01/08/19 10:06 Dose: 150 mg Atorvastatin Calcium (Lipitor -) 20 mg PO HS [facility] Last Admin: 01/07/19 22:36 Dose: 20 mg Bacitracin (Bacitracin -) 1 applic TP BID [facility] Last Admin: 01/08/19 14:12 Dose: 1 applic Calcium Carbonate (Calcium Carbonate -) 650 mg PO TID [facility] Last Admin: 01/08/19 14:12 Dose: 650 mg Docusate Sodium (Colace -) 100 mg PO DAILY PRN PRN Reason: CONSTIPATION Folic Acid (Folic Acid -) 3 mg PO DAILY [facility] Last Admin: 01/08/19 10:06 Dose: 3 mg Furosemide (Lasix -) 40 mg PO DAILY [facility] Last Admin: 01/08/19 10:07 Dose: 40 mg Gabapentin (Neurontin -) 300 mg PO BID [facility] Last Admin: 01/08/19 10:06 Dose: 300 mg Linezolid (Zyvox 600 Mg Premix Bag (Restricted To Id) -) 600 mg in 300 mls @ 300 mls/hr IVPB Q12H [facility]; Protocol Last Admin: 01/08/19 17:09 Dose: 300 mls/hr Insulin Aspart (Novolog Vial Sliding Scale -) 1 vial SQ ACHS [facility]; Protocol Last Admin: 01/08/19 17:07 Dose: 2 units Losartan Potassium (Cozaar -) 25 mg PO DAILY [facility] Last Admin: 01/08/19 10:07 Dose: 25 mg Magnesium Chloride (Slow-Mag -) 64 mg PO DAILY [facility] Last Admin: 01/08/19 10:07 Dose: 64 mg Nicotine (Nicoderm Patch -) 7 mg TD DAILY [facility] Last Admin: 01/08/19 11:44 Dose: Not Given Warfarin Sodium (Coumadin -) 6 mg PO DAILY@1800 [facility] Last Admin: 01/07/19 17:49 Dose: 6 mg a/p cellulitis RLE-continue zyvox, add azactam for empiric GNR multiple antibiotic allergies CKD chronic plantar ulcers-no drainage noted-f/u podiatry Problem List - Problems (1) Cellulitis Code(s): L03.90 - CELLULITIS, UNSPECIFIED Qualifiers: Site of cellulitis: extremity Site of cellulitis of extremity: lower extremity Laterality: right Qualified Code(s): L03.115 - Cellulitis of right lower limb (2) Allergy to multiple antibiotics Code(s): Z88.1 - ALLERGY STATUS TO OTHER ANTIBIOTIC AGENTS STATUS (3) CKD (chronic kidney disease) Code(s): N18.9 - CHRONIC KIDNEY DISEASE, UNSPECIFIED (4) Diabetic foot ulcer Code(s): E11.621 - TYPE 2 DIABETES MELLITUS WITH FOOT ULCER; L97.509 - NON- PRESSURE CHRONIC ULCER OTH PRT UNSP FOOT W UNSP SEVERITY Qualifiers: Diabetic foot ulcer location: midfoot Diabetes mellitus type: type 2 Laterality: left Non-pressure ulcer stage: unspecified non-pressure ulcer stage Qualified Code(s): E11.621 - Type 2 diabetes mellitus with foot ulcer
[2019-01-08] MEDS: WARFARIN NA 3 MG TABLET PO SCH (17:50)
[2019-01-08] MEDS: AZTREONAM 2 GM in DEXTROSE 5%-WATER 100 ML IVPB SCH (20:36)
[2019-01-08] MEDS: ATORVASTATIN CA 20 MG TABLET (FP) PO SCH (22:35)
[2019-01-09] MEDS: AZTREONAM 2 GM in DEXTROSE 5%-WATER 100 ML IVPB SCH ×3 (03:02→19:07)
[2019-01-09] MEDS: LINEZOLID 600 MG PREMIX BAG 600 MG/300 ML BAG IVPB SCH ×2 (06:32→20:41)
[2019-01-09] MEDS: INSULIN SLIDING SCALE (NOVOLOG) 1 VIAL SQ SCH ×4 (06:32→22:48)
[2019-01-09] MEDS: CALCIUM CARBONATE 650 MG TABLET PO SCH ×3 (06:32→22:39)
[2019-01-09] MEDS: FOLIC ACID 1 MG TABLET (FP) PO SCH (10:12)
[2019-01-09] MEDS: GABAPENTIN 300 MG CAPSULE (FP) PO SCH ×2 (10:13→22:39)
[2019-01-09] MEDS: FUROSEMIDE 40 MG TABLET (FP) PO SCH (10:13)
[2019-01-09] MEDS: NICOTINE 7 MG/24 HOURS TOPICAL PATCH TD SCH (10:17)
[2019-01-09] MEDS: ALLOPURINOL 300 MG TABLET (FP) PO SCH (10:18)
[2019-01-09] MEDS ORDERED: PT OWN MED DRAWER 7, Y5N ONE ×6 (10:22→22:27)
[2019-01-09] MEDS: LOSARTAN POTASSIUM 25 MG TABLET PO SCH (10:23)
[2019-01-09] MEDS: MAGNESIUM CL 64 MG TABLET.SA PO SCH (10:25)
[2019-01-09] MEDS ORDERED: INSULIN (NOVOLOG) ASPART 100 UNITS/ML 10ML VIAL ONE ×2 (11:51→16:59)
--- NOTE | 2019-01-09 11:58 | PN ---
Physical Exam: SUBJECTIVE: Patient seen and examined. He reports tenderness to palpation and walking. Extremity has minimal decrease in erythema. He denies n/v/d. OBJECTIVE: Vital Signs Period Temp Pulse Resp BP Sys/Gautam Pulse Ox Last 24 Hr 97.6 F-98.5 F 59-70 20-20 108-155/64-67 94-100 GENERAL: The patient is awake, alert, and fully oriented, in no acute distress. HEAD: Normal with no signs of trauma. EYES: PERRL, extraocular movements intact, sclera anicteric, conjunctiva clear. No ptosis. ENT: Ears normal, nares patent, oropharynx clear without exudates, moist mucous membranes. NECK: Trachea midline, full range of motion, supple. LUNGS: Breath sounds equal, clear to auscultation bilaterally, no wheezes, no crackles, no accessory muscle use. HEART: Regular rate and rhythm, S1, S2 without murmur, rub or gallop. ABDOMEN: Soft, nontender, nondistended, normoactive bowel sounds EXTREMITIES: 2+ pulses, warm, well-perfused. 1cm non-erythematous, not weeping ulcer on medial surface of right foot. Erythema noted on right lower extremity below knee to ankle. Left foot has 1cm ulcer as well, not actively draining. NEUROLOGICAL: Cranial nerves II through XII grossly intact. Normal speech, gait not observed. PSYCH: Normal mood, normal affect. SKIN: Warm, dry, normal turgor, no rashes or lesions noted Laboratory Results - last 24 hr 01/08/19 01/08/19 01/09/19 17:05 22:28 06:05 POC Glucometer 163 241 151 01/09/19 11:49 POC Glucometer 228 Active Medications Generic Name Dose Route Start Last Admin Trade Name Freq PRN Reason Stop Dose Admin Allopurinol 150 mg 01/06/19 10:00 01/09/19 10:18 Zyloprim - PO 150 mg DAILY [facility] Administration Atorvastatin Calcium 20 mg 01/06/19 22:00 01/08/19 22:35 Lipitor - PO 20 mg HS [facility] Administration Bacitracin 1 applic 01/08/19 12:00 01/08/19 22:36 Bacitracin - TP 1 applic BID [facility] Administration Calcium Carbonate 650 mg 01/06/19 22:00 01/09/19 06:32 Calcium Carbonate - PO 650 mg TID [facility] Administration Docusate Sodium 100 mg 01/06/19 03:42 Colace - PO DAILY PRN CONSTIPATION Folic Acid 3 mg 01/06/19 10:00 01/09/19 10:12 Folic Acid - PO 3 mg DAILY [facility] Administration Furosemide 40 mg 01/06/19 10:00 01/09/19 10:13 Lasix - PO 40 mg DAILY [facility] Administration Gabapentin 300 mg 01/06/19 10:00 01/09/19 10:13 Neurontin - PO 300 mg BID [facility] Administration Linezolid 600 mg in 300 mls @ 300 mls/hr 01/07/19 05:10 01/09/19 06:32 Zyvox 600 Mg Premix Bag (Restricted To Id) - IVPB 300 mls/hr Q12H [facility] Administration Protocol Aztreonam 2 gm/ Dextrose 100 mls @ 100 mls/hr 01/08/19 18:00 01/09/19 10:24 IVPB 100 mls/hr Q8H-IV [facility] Administration Protocol Insulin Aspart 1 vial 01/06/19 07:00 01/09/19 06:32 Novolog Vial Sliding Scale - SQ 2 units ACHS [facility] Administration Protocol Losartan Potassium 25 mg 01/06/19 10:00 01/09/19 10:23 Cozaar - PO 25 mg DAILY [facility] Administration Magnesium Chloride 64 mg 01/06/19 10:00 01/09/19 10:25 Slow-Mag - PO 64 mg DAILY [facility] Administration Nicotine 7 mg 01/06/19 10:00 01/09/19 10:17 Nicoderm Patch - TD Not Given DAILY [facility] Warfarin Sodium 6 mg 01/07/19 18:00 01/08/19 17:50 Coumadin - PO 6 mg DAILY@1800 [facility] Administration ASSESSMENT/PLAN: Mr. Brandon is a 78 y/o male with HTN, DM, CKD, Factor V Leiden mutation, lupus anticoagulant, chronic BLE foot wounds, gout, celiac disease, prostate CA, HLD, and GERD who presents with RLE erythema and warmth following 3 days of chills and fever. #cellulitis Right lower extremity below the knee. X-ray did not show osteomyelitis. Doppler negative for DVT. Minimal improvement in erythema. Afebrile. No leukocytosis. -linezolid day 4 -ID following -blood cultures-prelim negative -CBC #bilateral foot ulcers Pt reports ulcers to be chronic and is monitored by podiatry. -podiatry consulted- surgical excision of wounds following cellulitis resolution , wound care -surgery consult- f/u outpatient for arterial duplex #supratherapeutic INR on admission INR 2.04 today -warfarin 6mg -monitor INR #CKD Cr 2.1. near baseline #HLD -lipitor 20mg #HTN -losartan 25mg #DM -SSI #gout -allopurinol #tobacco use disorder -nicoderm FEN gluten free/diabetic/sodium restricted diet monitor electrolytes Visit type - Emergency Visit Emergency Visit: Yes ED Registration Date: 01/06/19 Care time: The patient presented to the Emergency Department on the above date and was hospitalized for further evaluation of their emergent condition. - New Patient This patient is new to me today: No - Critical Care Critical Care patient: No - Discharge Referral Referred to [facility] Med P.C.: No ATTENDING PHYSICIAN STATEMENT I saw and evaluated the patient. I reviewed the resident's note and discussed the case with the resident. I agree with the resident's findings and plan as documented. SUBJECTIVE: OBJECTIVE: ASSESSMENT AND PLAN:
--- NOTE | 2019-01-09 14:01 | PN ---
Teaching Attending Note Name of Resident: Smitha Boyd ATTENDING PHYSICIAN STATEMENT I saw and evaluated the patient. I reviewed the resident's note and discussed the case with the resident. I agree with the resident's findings and plan as documented. SUBJECTIVE:says no improvement. continues to have pain. denies Cp, SOB, fever, chills, N/V/C/d OBJECTIVE: Last Vital Signs Temp Pulse Resp BP Pulse Ox 98.9 F 66 20 140/63 100 01/09/19 12:00 01/09/19 12:00 01/09/19 12:00 01/09/19 12:00 01/09/19 10:46 General NAD Extremities RLE circumferential erythema, less red than yesterday but remains warm and tender 1+ pitting edema ASSESSMENT AND PLAN: 78yo M wtih PMH HTN, DM, CKD, prostate ca, DVT with factor V leiden deficiency and lupus anticoagulant on coumadin presented to the ER with fever and chills and RLE pain 1. RLE cellulitis-no significant improvement since yesterday. azactam added yesterday. Linezolid day 3. Cx negative. will monitor for response. foot ulcers not draining. ID and podiatry on board. 2. Supratherapeutic INR- INR subtherapeutic after coumadin held for 2 days. cont coumadin 6mg. may need to titrate to goal. 3. HTN- controlled 4. DM-A1c 5.7. hold oral agents. iss and bgm 5. prostate ca 6. DVT ppx-coumadin
--- NOTE | 2019-01-09 14:26 | PN ---
Progress Note (short form) - Note Progress Note: leg still hurts no fever Vital Signs Period Temp Pulse Resp BP Sys/Gautam Pulse Ox Last 24 Hr 97.6 F-98.9 F 59-67 20-20 108-155/63-67 94-100 cor-rrr lungs clear abd soft, protuberant ext +erythema and swelling RLE- less red sacrum - +stage 1 ulcer CBC, BMP 01/08/19 07:28 01/08/19 07:28 Microbiology 01/05/19 21:50 Blood - Peripheral Venous Blood Culture - Preliminary NO GROWTH OBTAINED AFTER 72 HOURS, INCUBATION TO CONTINUE FOR 2 DAYS. 01/05/19 21:50 Blood - Peripheral Venous Blood Culture - Preliminary NO GROWTH OBTAINED AFTER 72 HOURS, INCUBATION TO CONTINUE FOR 2 DAYS. a/p cellulitis RLE-continue zyvox/azactam, improving slowly multiple antibiotic allergies CKD chronic plantar ulcers-no drainage noted-f/u podiatry morbid obesity Problem List - Problems (1) Cellulitis Code(s): L03.90 - CELLULITIS, UNSPECIFIED Qualifiers: Site of cellulitis: extremity Site of cellulitis of extremity: lower extremity Laterality: right Qualified Code(s): L03.115 - Cellulitis of right lower limb (2) Allergy to multiple antibiotics Code(s): Z88.1 - ALLERGY STATUS TO OTHER ANTIBIOTIC AGENTS STATUS (3) CKD (chronic kidney disease) Code(s): N18.9 - CHRONIC KIDNEY DISEASE, UNSPECIFIED (4) Diabetic foot ulcer Code(s): E11.621 - TYPE 2 DIABETES MELLITUS WITH FOOT ULCER; L97.509 - NON- PRESSURE CHRONIC ULCER OTH PRT UNSP FOOT W UNSP SEVERITY Qualifiers: Diabetic foot ulcer location: midfoot Diabetes mellitus type: type 2 Laterality: left Non-pressure ulcer stage: unspecified non-pressure ulcer stage Qualified Code(s): E11.621 - Type 2 diabetes mellitus with foot ulcer
[2019-01-09] MEDS: BACITRACIN 15 GM TUBE TOPICAL OINTMENT TP SCH (17:21)
[2019-01-09 22:16] LABS: INR 2.04 (0.83-1.09); PROTHROMBIN TIME (PATIENT) 24.2 SEC (9.7-13.0)
[2019-01-09] MEDS: WARFARIN NA 3 MG TABLET PO SCH (22:38)
[2019-01-09] MEDS: ATORVASTATIN CA 20 MG TABLET (FP) PO SCH (22:39)
[2019-01-10] MEDS ORDERED: PT OWN MED DRAWER 7, Y5N ONE ×4 (01:52→21:42)
[2019-01-10] MEDS: AZTREONAM 2 GM in DEXTROSE 5%-WATER 100 ML IVPB SCH ×3 (03:20→18:34)
[2019-01-10] MEDS: BACITRACIN 15 GM TUBE TOPICAL OINTMENT TP SCH ×3 (04:45→22:17)
[2019-01-10] MEDS: CALCIUM CARBONATE 650 MG TABLET PO SCH ×3 (06:43→22:15)
[2019-01-10] MEDS: INSULIN SLIDING SCALE (NOVOLOG) 1 VIAL SQ SCH ×4 (06:44→22:22)
[2019-01-10 07:05] LABS: HEMOGLOBIN 11.1 GM/dL (11.7-16.9); MCH 32.5 pg (25.7-33.7); MCHC 33.6 g/dl (32.0-35.9); MEAN CELL VOLUME 96.7 fl (80-96); MEAN PLT VOLUME 8.5 fl (7.5-11.1); PLATELET COUNT 258 K/MM3 (134-434); RBC 3.41 M/mm3 (4.00-5.60); RDW 16.9 % (11.9-15.9); WHITE BLOOD COUNT 6.2 K/mm3 (4.0-10.0)
[2019-01-10 07:34] LABS: INR 2.01 (0.83-1.09); PROTHROMBIN TIME (PATIENT) 23.9 SEC (9.7-13.0)
--- NOTE | 2019-01-10 10:25 | PN ---
Progress Note, Physician Chief Complaint: No new complaints History of Present Illness: 78 yrs old man H/O HTN, T2DM Diabetic foot ulcer, CKD stage 3 admitted with LE cellulitis improving on IV abx. also H/o Factor V Leiden on AC - Current Medication List Current Medications: Active Medications Allopurinol (Zyloprim -) 150 mg PO DAILY [facility] Last Admin: 01/09/19 10:18 Dose: 150 mg Atorvastatin Calcium (Lipitor -) 20 mg PO HS [facility] Last Admin: 01/09/19 22:39 Dose: 20 mg Bacitracin (Bacitracin -) 1 applic TP BID [facility] Last Admin: 01/10/19 04:45 Dose: 1 applic Calcium Carbonate (Calcium Carbonate -) 650 mg PO TID [facility] Last Admin: 01/10/19 06:43 Dose: 650 mg Docusate Sodium (Colace -) 100 mg PO DAILY PRN PRN Reason: CONSTIPATION Folic Acid (Folic Acid -) 3 mg PO DAILY [facility] Last Admin: 01/09/19 10:12 Dose: 3 mg Furosemide (Lasix -) 40 mg PO DAILY [facility] Last Admin: 01/09/19 10:13 Dose: 40 mg Gabapentin (Neurontin -) 300 mg PO BID [facility] Last Admin: 01/09/19 22:39 Dose: 300 mg Linezolid (Zyvox 600 Mg Premix Bag (Restricted To Id) -) 600 mg in 300 mls @ 300 mls/hr IVPB Q12H [facility]; Protocol Last Admin: 01/09/19 20:41 Dose: 300 mls/hr Aztreonam 2 gm/ Dextrose 100 mls @ 100 mls/hr IVPB Q8H-IV [facility]; Protocol Last Admin: 01/10/19 03:20 Dose: 100 mls/hr Insulin Aspart (Novolog Vial Sliding Scale -) 1 vial SQ ACHS [facility]; Protocol Last Admin: 01/10/19 06:44 Dose: 2 units Losartan Potassium (Cozaar -) 25 mg PO DAILY [facility] Last Admin: 01/09/19 10:23 Dose: 25 mg Magnesium Chloride (Slow-Mag -) 64 mg PO DAILY [facility] Last Admin: 01/09/19 10:25 Dose: 64 mg Nicotine (Nicoderm Patch -) 7 mg TD DAILY [facility] Last Admin: 01/09/19 10:17 Dose: Not Given Warfarin Sodium (Coumadin -) 6 mg PO DAILY@1800 [facility] Last Admin: 01/09/19 22:38 Dose: 6 mg - Objective Vital Signs: Vital Signs Temperature 98.2 F 01/10/19 06:00 Pulse Rate 66 01/10/19 06:00 Respiratory Rate 20 01/10/19 06:00 Blood Pressure 152/65 01/10/19 06:00 O2 Sat by Pulse Oximetry (%) 98 01/09/19 21:00 Elderly man not in distress HEENT: Mm moist, mild aneia, PERRLA< EOMI NECK; No JJD No bruit CHEST: CTA B/L CVS; s1S2 R ABD: non tender Bs + EXT: Le celulilitis improving STAFF SONOGRAPHER: AOX3 non focal Labs: CBC, BMP 01/10/19 06:30 01/08/19 07:28 INR, PTT INR 2.01 (0.83-1.09) H 01/10/19 06:30 Problem List - Problems (1) Cellulitis Assessment/Plan: cont current abx F/U ID recommendations Code(s): L03.90 - CELLULITIS, UNSPECIFIED Qualifiers: Site of cellulitis: extremity Site of cellulitis of extremity: lower extremity Laterality: right Qualified Code(s): L03.115 - Cellulitis of right lower limb (2) History of DVT (deep vein thrombosis) Assessment/Plan: Factor V Leiden on Life long AC F/U INR Code(s): Z86.718 - PERSONAL HISTORY OF OTHER VENOUS THROMBOSIS AND EMBOLISM (3) CKD (chronic kidney disease) Assessment/Plan: Renal functions are stable Code(s): N18.9 - CHRONIC KIDNEY DISEASE, UNSPECIFIED (4) T2DM (type 2 diabetes mellitus) Assessment/Plan: cont current management optimize Glycemic control Code(s): E11.9 - TYPE 2 DIABETES MELLITUS WITHOUT COMPLICATIONS (5) Elevated INR Assessment/Plan: Coumadin dose is adjusted F/U INR. Code(s): R79.1 - ABNORMAL COAGULATION PROFILE
[2019-01-10] MEDS: LINEZOLID 600 MG PREMIX BAG 600 MG/300 ML BAG IVPB SCH ×2 (10:45→18:31)
[2019-01-10] MEDS: LOSARTAN POTASSIUM 25 MG TABLET PO SCH (10:46)
[2019-01-10] MEDS: FOLIC ACID 1 MG TABLET (FP) PO SCH (10:46)
[2019-01-10] MEDS: FUROSEMIDE 40 MG TABLET (FP) PO SCH (10:46)
[2019-01-10] MEDS: GABAPENTIN 300 MG CAPSULE (FP) PO SCH ×2 (10:46→22:14)
[2019-01-10] MEDS: ALLOPURINOL 300 MG TABLET (FP) PO SCH (10:46)
[2019-01-10] MEDS: MAGNESIUM CL 64 MG TABLET.SA PO SCH (10:47)
[2019-01-10] MEDS: NICOTINE 7 MG/24 HOURS TOPICAL PATCH TD SCH (10:47)
--- NOTE | 2019-01-10 13:30 | PN ---
Progress Note (short form) - Note Progress Note: slow improvement was able to ambulate yesterday Vital Signs Period Temp Pulse Resp BP Sys/Gautam Pulse Ox Last 24 Hr 97.9 F-98.7 F 65-70 20-20 136-152/61-76 98 cor-rrr lungs decreased bs at bases decreased RLE edema CBC, BMP 01/10/19 06:30 01/08/19 07:28 Active Medications Allopurinol (Zyloprim -) 150 mg PO DAILY ANNY Last Admin: 01/10/19 10:46 Dose: 150 mg Atorvastatin Calcium (Lipitor -) 20 mg PO HS ANNY Last Admin: 01/09/19 22:39 Dose: 20 mg Bacitracin (Bacitracin -) 1 applic TP BID ANNY Last Admin: 01/10/19 04:45 Dose: 1 applic Calcium Carbonate (Calcium Carbonate -) 650 mg PO TID ANNY Last Admin: 01/10/19 06:43 Dose: 650 mg Docusate Sodium (Colace -) 100 mg PO DAILY PRN PRN Reason: CONSTIPATION Folic Acid (Folic Acid -) 3 mg PO DAILY ANNY Last Admin: 01/10/19 10:46 Dose: 3 mg Furosemide (Lasix -) 40 mg PO DAILY ANNY Last Admin: 01/10/19 10:46 Dose: 40 mg Gabapentin (Neurontin -) 300 mg PO BID ANNY Last Admin: 01/10/19 10:46 Dose: 300 mg Linezolid (Zyvox 600 Mg Premix Bag (Restricted To Id) -) 600 mg in 300 mls @ 300 mls/hr IVPB Q12H ANNY; Protocol Last Admin: 01/10/19 10:45 Dose: 300 mls/hr Aztreonam 2 gm/ Dextrose 100 mls @ 100 mls/hr IVPB Q8H-IV ANNY; Protocol Last Admin: 01/10/19 10:46 Dose: 100 mls/hr Insulin Aspart (Novolog Vial Sliding Scale -) 1 vial SQ ACHS ANNY; Protocol Last Admin: 01/10/19 06:44 Dose: 2 units Losartan Potassium (Cozaar -) 25 mg PO DAILY ANNY Last Admin: 01/10/19 10:46 Dose: 25 mg Magnesium Chloride (Slow-Mag -) 64 mg PO DAILY ANNY Last Admin: 01/10/19 10:47 Dose: 64 mg Nicotine (Nicoderm Patch -) 7 mg TD DAILY [facility] Last Admin: 01/10/19 10:47 Dose: Not Given Warfarin Sodium (Coumadin -) 6 mg PO DAILY@1800 [facility] Last Admin: 01/09/19 22:38 Dose: 6 mg a/p cellulitis RLE-continue zyvox/azactam, improving slowly-now able to ambulate multiple antibiotic allergies CKD chronic plantar ulcers-no drainage noted-f/u podiatry morbid obesity Problem List - Problems (1) Cellulitis Code(s): L03.90 - CELLULITIS, UNSPECIFIED Qualifiers: Site of cellulitis: extremity Site of cellulitis of extremity: lower extremity Laterality: right Qualified Code(s): L03.115 - Cellulitis of right lower limb (2) Allergy to multiple antibiotics Code(s): Z88.1 - ALLERGY STATUS TO OTHER ANTIBIOTIC AGENTS STATUS (3) CKD (chronic kidney disease) Code(s): N18.9 - CHRONIC KIDNEY DISEASE, UNSPECIFIED (4) Diabetic foot ulcer Code(s): E11.621 - TYPE 2 DIABETES MELLITUS WITH FOOT ULCER; L97.509 - NON- PRESSURE CHRONIC ULCER OTH PRT UNSP FOOT W UNSP SEVERITY Qualifiers: Diabetic foot ulcer location: midfoot Diabetes mellitus type: type 2 Laterality: left Non-pressure ulcer stage: unspecified non-pressure ulcer stage Qualified Code(s): E11.621 - Type 2 diabetes mellitus with foot ulcer
[2019-01-10] MEDS: WARFARIN NA 3 MG TABLET PO SCH (18:35)
[2019-01-10] MEDS: ATORVASTATIN CA 20 MG TABLET (FP) PO SCH (22:15)
[2019-01-11] MEDS: AZTREONAM 2 GM in DEXTROSE 5%-WATER 100 ML IVPB SCH ×3 (01:15→18:45)
[2019-01-11] MEDS: LINEZOLID 600 MG PREMIX BAG 600 MG/300 ML BAG IVPB SCH ×2 (05:33→18:44)
[2019-01-11] MEDS: CALCIUM CARBONATE 650 MG TABLET PO SCH ×3 (05:33→21:47)
[2019-01-11] MEDS: INSULIN SLIDING SCALE (NOVOLOG) 1 VIAL SQ SCH ×4 (06:14→21:47)
[2019-01-11 07:36] LABS: BLOOD UREA NITROGEN 47.5 mg/dL (7-18); CALCIUM 8.7 mg/dL (8.5-10.1); POTASSIUM 4.5 mmol/L (3.5-5.1)
[2019-01-11 07:46] LABS: BASO % 0.4 % (0-2.0); EOS % 3.1 % (0-4.5); HEMATOCRIT 32.4 % (35.4-49); LYMPH % 26.6 % (8-40); MCH 32.6 pg (25.7-33.7); MCHC 33.8 g/dl (32.0-35.9); MEAN CELL VOLUME 96.2 fl (80-96); MEAN PLT VOLUME 8.7 fl (7.5-11.1); MONO % 9.3 % (3.8-10.2); NEUT % 60.6 % (42.8-82.8); PLATELET COUNT 254 K/MM3 (134-434); RBC 3.36 M/mm3 (4.00-5.60); RDW 16.8 % (11.9-15.9); WHITE BLOOD COUNT 5.6 K/mm3 (4.0-10.0)
[2019-01-11 07:48] LABS: INR 2.16 (0.83-1.09); PROTHROMBIN TIME (PATIENT) 25.7 SEC (9.7-13.0)
--- NOTE | 2019-01-11 09:06 | PN ---
Teaching Attending Note Name of Resident: Smitha Boyd ATTENDING PHYSICIAN STATEMENT I saw and evaluated the patient. I reviewed the resident's note and discussed the case with the resident. I agree with the resident's findings and plan as documented. SUBJECTIVE: OBJECTIVE: Vital Signs Temperature 98 F 01/11/19 06:00 Pulse Rate 66 01/11/19 06:00 Respiratory Rate 20 01/11/19 06:00 Blood Pressure 149/68 01/11/19 06:00 O2 Sat by Pulse Oximetry (%) 98 01/10/19 21:00 Elderly man not in distress HEENT: Mm moist, mild anemia, PERRLA< EOMI NECK; No JJD No bruit CHEST: CTA B/L CVS; s1S2 R ABD: non tender Bs + EXT: Non healing ulcer on medial aspect of sole, Rt Le celulilitis improving ENGLISH [employer]CTOR: AOX3 non focal CBC, BMP 01/11/19 06:40 01/11/19 06:40 Active Medications Allopurinol (Zyloprim -) 150 mg PO DAILY [facility] Last Admin: 01/10/19 10:46 Dose: 150 mg Atorvastatin Calcium (Lipitor -) 20 mg PO HS ANNY Last Admin: 01/10/19 22:15 Dose: 20 mg Bacitracin (Bacitracin -) 1 applic TP BID ANNY Last Admin: 01/10/19 22:17 Dose: 1 applic Calcium Carbonate (Calcium Carbonate -) 650 mg PO TID ANNY Last Admin: 01/11/19 05:33 Dose: 650 mg Docusate Sodium (Colace -) 100 mg PO DAILY PRN PRN Reason: CONSTIPATION Folic Acid (Folic Acid -) 3 mg PO DAILY ANNY Last Admin: 01/10/19 10:46 Dose: 3 mg Furosemide (Lasix -) 40 mg PO DAILY ANNY Last Admin: 01/10/19 10:46 Dose: 40 mg Gabapentin (Neurontin -) 300 mg PO BID ANNY Last Admin: 01/10/19 22:14 Dose: 300 mg Linezolid (Zyvox 600 Mg Premix Bag (Restricted To Id) -) 600 mg in 300 mls @ 300 mls/hr IVPB Q12H ANNY; Protocol Last Admin: 01/11/19 05:33 Dose: 300 mls/hr Aztreonam 2 gm/ Dextrose 100 mls @ 100 mls/hr IVPB Q8H-IV ANNY; Protocol Last Admin: 01/11/19 01:15 Dose: 100 mls/hr Insulin Aspart (Novolog Vial Sliding Scale -) 1 vial SQ ACHS [facility]; Protocol Last Admin: 01/11/19 06:14 Dose: 2 units Losartan Potassium (Cozaar -) 25 mg PO DAILY [facility] Last Admin: 01/10/19 10:46 Dose: 25 mg Magnesium Chloride (Slow-Mag -) 64 mg PO DAILY [facility] Last Admin: 01/10/19 10:47 Dose: 64 mg Nicotine (Nicoderm Patch -) 7 mg TD DAILY [facility] Last Admin: 01/10/19 10:47 Dose: Not Given Warfarin Sodium (Coumadin -) 6 mg PO DAILY@1800 [facility] Last Admin: 01/10/19 18:35 Dose: 6 mg ASSESSMENT AND PLAN:78 yrs old man H/O HTN, T2DM Diabetic foot ulcer, CKD stage 3 a H/o Factor V Leiden on AC admitted with LE cellulitis improving on IV abx. Problem List - Problems (1) Cellulitis Assessment/Plan: cont current abx F/U ID recommendations Code(s): L03.90 - CELLULITIS, UNSPECIFIED Qualifiers: Site of cellulitis: extremity Site of cellulitis of extremity: lower extremity Laterality: right Qualified Code(s): L03.115 - Cellulitis of right lower limb (2) History of DVT (deep vein thrombosis) Assessment/Plan: Factor V Leiden on Life long AC F/U INR Code(s): Z86.718 - PERSONAL HISTORY OF OTHER VENOUS THROMBOSIS AND EMBOLISM (3) CKD (chronic kidney disease) Assessment/Plan: Renal functions are stable Code(s): N18.9 - CHRONIC KIDNEY DISEASE, UNSPECIFIED (4) T2DM (type 2 diabetes mellitus) Assessment/Plan: cont current management optimize Glycemic control Code(s): E11.9 - TYPE 2 DIABETES MELLITUS WITHOUT COMPLICATIONS (5) Elevated INR Assessment/Plan: Coumadin dose is adjusted F/U INR. Code(s): R79.1 - ABNORMAL COAGULATION PROFILE
[2019-01-11] MEDS: FOLIC ACID 1 MG TABLET (FP) PO SCH (11:10)
[2019-01-11] MEDS: FUROSEMIDE 40 MG TABLET (FP) PO SCH (11:10)
[2019-01-11] MEDS: ALLOPURINOL 300 MG TABLET (FP) PO SCH (11:11)
[2019-01-11] MEDS: LOSARTAN POTASSIUM 25 MG TABLET PO SCH (11:11)
[2019-01-11] MEDS: NICOTINE 7 MG/24 HOURS TOPICAL PATCH TD SCH (11:12)
[2019-01-11] MEDS: BACITRACIN 15 GM TUBE TOPICAL OINTMENT TP SCH ×2 (11:12→21:47)
[2019-01-11] MEDS: GABAPENTIN 300 MG CAPSULE (FP) PO SCH ×2 (11:12→21:46)
[2019-01-11] MEDS: MAGNESIUM CL 64 MG TABLET.SA PO SCH (11:13)
--- NOTE | 2019-01-11 11:51 | PN ---
Physical Exam: SUBJECTIVE: Patient seen and examined. He reports tenderness to palpation and walking. Extremity has minimal decrease in erythema. He denies n/v/d, chest pain. OBJECTIVE: Vital Signs Period Temp Pulse Resp BP Sys/Gautam Pulse Ox Last 24 Hr 97.8 F-98.1 F 65-70 20-20 149-160/68-94 98-98 GENERAL: The patient is awake, alert, and fully oriented, in no acute distress. HEAD: Normal with no signs of trauma. EYES: PERRL, extraocular movements intact, sclera anicteric, conjunctiva clear. No ptosis. ENT: Ears normal, nares patent, oropharynx clear without exudates, moist mucous membranes. NECK: Trachea midline, full range of motion, supple. LUNGS: Breath sounds equal, clear to auscultation bilaterally, no wheezes, no crackles, no accessory muscle use. HEART: Regular rate and rhythm, S1, S2 without murmur, rub or gallop. ABDOMEN: Soft, nontender, nondistended, normoactive bowel sounds EXTREMITIES: 2+ pulses, warm, well-perfused. 1cm non-erythematous, ulcer on medial surface of right foot. Some drainage noted on bandage. Erythema noted on right lower extremity below knee to ankle. +2 pitting edema. Left foot has 1cm ulcer as well, not actively draining. NEUROLOGICAL: Cranial nerves II through XII grossly intact. Normal speech, gait not observed. PSYCH: Normal mood, normal affect. SKIN: Warm, dry, normal turgor, no rashes or lesions noted Laboratory Results - last 24 hr 01/10/19 01/10/19 01/11/19 12:20 22:21 05:40 WBC RBC Hgb Hct MCV MCH MCHC RDW Plt Count MPV Absolute Neuts (auto) Neutrophils % Lymphocytes % Monocytes % Eosinophils % Basophils % Nucleated RBC % PT with INR 25.70 H INR 2.16 H Sodium Potassium Chloride Carbon Dioxide Anion Gap BUN Creatinine Est GFR (CKD-EPI)AfAm Est GFR (CKD-EPI)NonAf POC Glucometer 228 219 Random Glucose Calcium 01/11/19 01/11/19 01/11/19 05:49 06:40 06:40 WBC 5.6 RBC 3.36 L Hgb 11.0 L Hct 32.4 L MCV 96.2 H MCH 32.6 MCHC 33.8 RDW 16.8 H Plt Count 254 MPV 8.7 Absolute Neuts (auto) 3.4 Neutrophils % 60.6 Lymphocytes % 26.6 Monocytes % 9.3 Eosinophils % 3.1 Basophils % 0.4 Nucleated RBC % 0 PT with INR INR Sodium 135 L Potassium 4.5 Chloride 100 Carbon Dioxide 27 Anion Gap 8 BUN 47.5 H Creatinine 2.0 H Est GFR (CKD-EPI)AfAm 36.24 Est GFR (CKD-EPI)NonAf 31.26 POC Glucometer 167 Random Glucose 192 H Calcium 8.7 01/11/19 11:18 WBC RBC Hgb Hct MCV MCH MCHC RDW Plt Count MPV Absolute Neuts (auto) Neutrophils % Lymphocytes % Monocytes % Eosinophils % Basophils % Nucleated RBC % PT with INR INR Sodium Potassium Chloride Carbon Dioxide Anion Gap BUN Creatinine Est GFR (CKD-EPI)AfAm Est GFR (CKD-EPI)NonAf POC Glucometer 185 Random Glucose Calcium Active Medications Generic Name Dose Route Start Last Admin Trade Name Freq PRN Reason Stop Dose Admin Allopurinol 150 mg 01/06/19 10:00 01/11/19 11:11 Zyloprim - PO 150 mg DAILY ANNY Administration Atorvastatin Calcium 20 mg 01/06/19 22:00 01/10/19 22:15 Lipitor - PO 20 mg HS ANNY Administration Bacitracin 1 applic 01/08/19 12:00 01/11/19 11:12 Bacitracin - TP 1 applic BID ANNY Administration Calcium Carbonate 650 mg 01/06/19 22:00 01/11/19 05:33 Calcium Carbonate - PO 650 mg TID ANNY Administration Docusate Sodium 100 mg 01/06/19 03:42 Colace - PO DAILY PRN CONSTIPATION Folic Acid 3 mg 01/06/19 10:00 01/11/19 11:10 Folic Acid - PO 3 mg DAILY ANNY Administration Furosemide 40 mg 01/06/19 10:00 01/11/19 11:10 Lasix - PO 40 mg DAILY ANNY Administration Gabapentin 300 mg 01/06/19 10:00 01/11/19 11:12 Neurontin - PO 300 mg BID ANNY Administration Linezolid 600 mg in 300 mls @ 300 mls/hr 01/07/19 05:10 01/11/19 05:33 Zyvox 600 Mg Premix Bag (Restricted To Id) - IVPB 300 mls/hr Q12H ANNY Administration Protocol Aztreonam 2 gm/ Dextrose 100 mls @ 100 mls/hr 01/08/19 18:00 01/11/19 11:12 IVPB 100 mls/hr Q8H-IV ANNY Administration Protocol Insulin Aspart 1 vial 01/06/19 07:00 01/11/19 11:18 Novolog Vial Sliding Scale - SQ 2 units ACHS ANNY Administration Protocol Losartan Potassium 25 mg 01/06/19 10:00 01/11/19 11:11 Cozaar - PO 25 mg DAILY ANNY Administration Magnesium Chloride 64 mg 01/06/19 10:00 01/11/19 11:13 Slow-Mag - PO 64 mg DAILY ANNY Administration Nicotine 7 mg 01/06/19 10:00 01/11/19 11:12 Nicoderm Patch - TD Not Given DAILY ANNY Warfarin Sodium 6 mg 01/07/19 18:00 01/10/19 18:35 Coumadin - PO 6 mg DAILY@1800 ANNY Administration ASSESSMENT/PLAN: Mr. Brandon is a 78 y/o male with HTN, DM, CKD, Factor V Leiden mutation, lupus anticoagulant, chronic BLE foot wounds, gout, celiac disease, prostate CA, HLD, and GERD who presents with RLE erythema and warmth following 3 days of chills and fever. #cellulitis Right lower extremity below the knee. X-ray did not show osteomyelitis. Doppler negative for DVT. Minimal improvement in erythema. Afebrile. No leukocytosis. -linezolid day 5 -aztreonam day 4 -ID consult- continue abx -blood cultures- negative -CBC #bilateral foot ulcers Pt reports ulcers to be chronic and is monitored by podiatry. -podiatry consult- surgical excision of wounds following cellulitis resolution, wound care -surgery consult- f/u outpatient for arterial duplex -gabapentin #supratherapeutic INR on admission hx of Factor V Leiden mutation. INR 2.01 today. -warfarin 6mg -monitor INR #CKD Cr 2.1. near baseline -BMP #HLD -lipitor 20mg #HTN -losartan 25mg -Lasix #DM -SSI #gout -allopurinol #tobacco use disorder -nicoderm PRN FEN gluten free/diabetic/sodium restricted diet monitor electrolytes Visit type - Emergency Visit Emergency Visit: Yes ED Registration Date: 01/06/19 Care time: The patient presented to the Emergency Department on the above date and was hospitalized for further evaluation of their emergent condition. - New Patient This patient is new to me today: No - Critical Care Critical Care patient: No - Discharge Referral Referred to [facility] No ATTENDING PHYSICIAN STATEMENT I saw and evaluated the patient. I reviewed the resident's note and discussed the case with the resident. I agree with the resident's findings and plan as documented. SUBJECTIVE: OBJECTIVE: ASSESSMENT AND PLAN:
[2019-01-11] MEDS ORDERED: PT OWN MED DRAWER 7, Y5N ONE ×2 (18:25→21:38)
[2019-01-11] MEDS: WARFARIN NA 3 MG TABLET PO SCH (18:53)
[2019-01-11] MEDS ORDERED: INSULIN (NOVOLOG) ASPART 100 UNITS/ML 10ML VIAL ONE (21:45)
[2019-01-11] MEDS: ATORVASTATIN CA 20 MG TABLET (FP) PO SCH (21:46)
[2019-01-12] MEDS ORDERED: PT OWN MED DRAWER 7, Y5N ONE ×8 (02:06→23:42)
[2019-01-12] MEDS: AZTREONAM 2 GM in DEXTROSE 5%-WATER 100 ML IVPB SCH ×3 (02:13→21:27)
[2019-01-12] MEDS: CALCIUM CARBONATE 650 MG TABLET PO SCH ×3 (05:56→21:28)
[2019-01-12] MEDS: LINEZOLID 600 MG PREMIX BAG 600 MG/300 ML BAG IVPB SCH ×2 (05:56→18:55)
[2019-01-12] MEDS: INSULIN SLIDING SCALE (NOVOLOG) 1 VIAL SQ SCH ×4 (06:13→21:30)
[2019-01-12 07:53] LABS: EOS % 2.5 % (0-4.5); HEMATOCRIT 31.9 % (35.4-49); HEMOGLOBIN 11.1 GM/dL (11.7-16.9); LYMPH % 25.3 % (8-40); MCH 33.3 pg (25.7-33.7); MCHC 34.8 g/dl (32.0-35.9); MEAN CELL VOLUME 95.5 fl (80-96); MEAN PLT VOLUME 8.6 fl (7.5-11.1); MONO % 9.6 % (3.8-10.2); NEUT % 61.6 % (42.8-82.8); PLATELET COUNT 235 K/MM3 (134-434); RBC 3.34 M/mm3 (4.00-5.60); RDW 16.9 % (11.9-15.9); WHITE BLOOD COUNT 5.6 K/mm3 (4.0-10.0)
[2019-01-12 07:59] LABS: INR 2.07 (0.83-1.09); PROTHROMBIN TIME (PATIENT) 24.6 SEC (9.7-13.0)
--- NOTE | 2019-01-12 08:08 | PN ---
Physical Exam: SUBJECTIVE: Patient seen and examined. He reports tenderness to palpation and walking. Extremity has decrease in erythema. He denies n/v/d, chest pain. OBJECTIVE: Vital Signs Period Temp Pulse Resp BP Sys/Gautam Pulse Ox Last 24 Hr 97.3 F-98.6 F 66-72 20-21 150-160/56-94 95-98 GENERAL: The patient is awake, alert, and fully oriented, in no acute distress. HEAD: Normal with no signs of trauma. EYES: PERRL, extraocular movements intact, sclera anicteric, conjunctiva clear. No ptosis. ENT: Ears normal, nares patent, oropharynx clear without exudates, moist mucous membranes. NECK: Trachea midline, full range of motion, supple. LUNGS: Breath sounds equal, clear to auscultation bilaterally, no wheezes, no crackles, no accessory muscle use. HEART: Regular rate and rhythm, S1, S2 without murmur, rub or gallop. ABDOMEN: Soft, nontender, nondistended, normoactive bowel sounds EXTREMITIES: 2+ pulses, warm, well-perfused. 1cm non-erythematous, ulcer on medial surface of right foot. Some drainage noted on bandage. Erythema noted on right lower extremity below knee to ankle. +2 pitting edema. Left foot has 1cm ulcer as well, not actively draining. NEUROLOGICAL: Cranial nerves II through XII grossly intact. Normal speech, gait not observed. PSYCH: Normal mood, normal affect. SKIN: Warm, dry, normal turgor, no rashes or lesions noted Laboratory Results - last 24 hr 01/11/19 01/11/19 01/11/19 06:40 11:18 21:42 WBC 5.6 RBC 3.36 L Hgb 11.0 L Hct 32.4 L MCV 96.2 H MCH 32.6 MCHC 33.8 RDW 16.8 H Plt Count 254 MPV 8.7 Absolute Neuts (auto) 3.4 Neutrophils % 60.6 Lymphocytes % 26.6 Monocytes % 9.3 Eosinophils % 3.1 Basophils % 0.4 Nucleated RBC % 0 PT with INR INR POC Glucometer 185 231 01/12/19 01/12/19 06:10 06:40 WBC RBC Hgb Hct MCV MCH MCHC RDW Plt Count MPV Absolute Neuts (auto) Neutrophils % Lymphocytes % Monocytes % Eosinophils % Basophils % Nucleated RBC % PT with INR 24.60 H INR 2.07 H POC Glucometer 172 Active Medications Generic Name Dose Route Start Last Admin Trade Name Freq PRN Reason Stop Dose Admin Allopurinol 150 mg 01/06/19 10:00 01/11/19 11:11 Zyloprim - PO 150 mg DAILY ANNY Administration Atorvastatin Calcium 20 mg 01/06/19 22:00 01/11/19 21:46 Lipitor - PO 20 mg HS ANNY Administration Bacitracin 1 applic 01/08/19 12:00 01/11/19 21:47 Bacitracin - TP 1 applic BID ANNY Administration Calcium Carbonate 650 mg 01/06/19 22:00 01/12/19 05:56 Calcium Carbonate - PO 650 mg TID ANNY Administration Docusate Sodium 100 mg 01/06/19 03:42 Colace - PO DAILY PRN CONSTIPATION Folic Acid 3 mg 01/06/19 10:00 01/11/19 11:10 Folic Acid - PO 3 mg DAILY ANNY Administration Furosemide 40 mg 01/06/19 10:00 01/11/19 11:10 Lasix - PO 40 mg DAILY ANNY Administration Gabapentin 300 mg 01/06/19 10:00 01/11/19 21:46 Neurontin - PO 300 mg BID ANNY Administration Linezolid 600 mg in 300 mls @ 300 mls/hr 01/07/19 05:10 01/12/19 05:56 Zyvox 600 Mg Premix Bag (Restricted To Id) - IVPB 300 mls/hr Q12H ANNY Administration Protocol Aztreonam 2 gm/ Dextrose 100 mls @ 100 mls/hr 01/08/19 18:00 01/12/19 02:13 IVPB 100 mls/hr Q8H-IV ANNY Administration Protocol Insulin Aspart 1 vial 01/06/19 07:00 01/12/19 06:13 Novolog Vial Sliding Scale - SQ 2 units ACHS ANNY Administration Protocol Losartan Potassium 25 mg 01/06/19 10:00 01/11/19 11:11 Cozaar - PO 25 mg DAILY ANNY Administration Magnesium Chloride 64 mg 01/06/19 10:00 01/11/19 11:13 Slow-Mag - PO 64 mg DAILY ANNY Administration Nicotine 7 mg 01/06/19 10:00 01/11/19 11:12 Nicoderm Patch - TD Not Given DAILY ANNY Warfarin Sodium 6 mg 01/07/19 18:00 01/11/19 18:53 Coumadin - PO 6 mg DAILY@1800 [facility] Administration ASSESSMENT/PLAN: Mr. Brandon is a 78 y/o male with HTN, DM, CKD, Factor V Leiden mutation, lupus anticoagulant, chronic BLE foot wounds, gout, celiac disease, prostate CA, HLD, and GERD who presents with RLE erythema and warmth following 3 days of chills and fever. #cellulitis Right lower extremity below the knee. X-ray did not show osteomyelitis. Doppler negative for DVT. Minimal improvement in erythema. Afebrile. No leukocytosis. -linezolid day 6 -aztreonam day 5 -ID consult- may switch to PO abx soon -blood cultures- negative -CBC #bilateral foot ulcers Pt reports ulcers to be chronic and is monitored by podiatry. -podiatry consult- surgical excision of wounds following cellulitis resolution, wound care -surgery consult- f/u outpatient for arterial duplex -gabapentin #supratherapeutic INR on admission hx of Factor V Leiden mutation. INR 2.01 today. -warfarin 6mg -monitor INR #CKD Cr 2.1. near baseline -BMP #HLD -lipitor 20mg #HTN -losartan 25mg -Lasix #DM -SSI -BGM #gout -allopurinol #tobacco use disorder -nicoderm PRN FEN gluten free/diabetic/sodium restricted diet monitor electrolytes Visit type - Emergency Visit Emergency Visit: Yes ED Registration Date: 01/06/19 Care time: The patient presented to the Emergency Department on the above date and was hospitalized for further evaluation of their emergent condition. - New Patient This patient is new to me today: No - Critical Care Critical Care patient: No - Discharge Referral Referred to [facility] No ATTENDING PHYSICIAN STATEMENT I saw and evaluated the patient. I reviewed the resident's note and discussed the case with the resident. I agree with the resident's findings and plan as documented. SUBJECTIVE: OBJECTIVE: ASSESSMENT AND PLAN:
[2019-01-12 09:30] LABS: CALCIUM 8.4 mg/dL (8.5-10.1); CREATININE 2.1 mg/dL (0.55-1.3); POTASSIUM 4.4 mmol/L (3.5-5.1)
[2019-01-12 10:04] LABS: BLOOD UREA NITROGEN 59.2 mg/dL (7-18)
--- NOTE | 2019-01-12 10:42 | PN ---
Teaching Attending Note Name of Resident: Smitha Boyd ATTENDING PHYSICIAN STATEMENT I saw and evaluated the patient. I reviewed the resident's note and discussed the case with the resident. I agree with the resident's findings and plan as documented. SUBJECTIVE: OBJECTIVE: Vital Signs Period Temp Pulse Resp BP Sys/Gautam Pulse Ox Last 24 Hr 97.3 F-98.6 F 66-72 20-21 150-160/56-94 95 Laboratory Results - last 24 hr 01/11/19 01/11/19 01/12/19 11:18 21:42 06:10 WBC RBC Hgb Hct MCV MCH MCHC RDW Plt Count MPV Absolute Neuts (auto) Neutrophils % Lymphocytes % Monocytes % Eosinophils % Basophils % Nucleated RBC % PT with INR INR Sodium Potassium Chloride Carbon Dioxide Anion Gap BUN Creatinine Est GFR (CKD-EPI)AfAm Est GFR (CKD-EPI)NonAf POC Glucometer 185 231 172 Random Glucose Calcium 01/12/19 01/12/19 01/12/19 06:40 06:40 06:40 WBC 5.6 RBC 3.34 L Hgb 11.1 L Hct 31.9 L MCV 95.5 MCH 33.3 MCHC 34.8 RDW 16.9 H Plt Count 235 MPV 8.6 Absolute Neuts (auto) 3.4 Neutrophils % 61.6 Lymphocytes % 25.3 Monocytes % 9.6 Eosinophils % 2.5 Basophils % 1.0 Nucleated RBC % 0 PT with INR 24.60 H INR 2.07 H Sodium 134 L Potassium 4.4 Chloride 100 Carbon Dioxide 28 Anion Gap 7 L BUN 59.2 H Creatinine 2.1 H Est GFR (CKD-EPI)AfAm 34.16 Est GFR (CKD-EPI)NonAf 29.47 POC Glucometer Random Glucose 195 H Calcium 8.4 L Current Medications Generic Name Dose Route Start Last Admin Trade Name Freq PRN Reason Stop Dose Admin Allopurinol 150 mg 01/06/19 10:00 01/11/19 11:11 Zyloprim - PO 150 mg DAILY ANNY Administration Atorvastatin Calcium 20 mg 01/06/19 22:00 01/11/19 21:46 Lipitor - PO 20 mg HS ANNY Administration Bacitracin 1 applic 01/08/19 12:00 01/11/19 21:47 Bacitracin - TP 1 applic BID ANNY Administration Calcium Carbonate 650 mg 01/06/19 22:00 01/12/19 05:56 Calcium Carbonate - PO 650 mg TID ANNY Administration Docusate Sodium 100 mg 01/06/19 03:42 Colace - PO DAILY PRN CONSTIPATION Folic Acid 3 mg 01/06/19 10:00 01/11/19 11:10 Folic Acid - PO 3 mg DAILY ANNY Administration Furosemide 40 mg 01/06/19 10:00 01/11/19 11:10 Lasix - PO 40 mg DAILY ANNY Administration Gabapentin 300 mg 01/06/19 10:00 01/11/19 21:46 Neurontin - PO 300 mg BID ANNY Administration Linezolid 600 mg in 300 mls @ 300 mls/hr 01/07/19 05:10 01/12/19 05:56 Zyvox 600 Mg Premix Bag (Restricted To Id) - IVPB 300 mls/hr Q12H ANNY Administration Protocol Aztreonam 2 gm/ Dextrose 100 mls @ 100 mls/hr 01/08/19 18:00 01/12/19 02:13 IVPB 100 mls/hr Q8H-IV ANNY Administration Protocol Insulin Aspart 1 vial 01/06/19 07:00 01/12/19 06:13 Novolog Vial Sliding Scale - SQ 2 units ACHS ANNY Administration Protocol Losartan Potassium 25 mg 01/06/19 10:00 01/11/19 11:11 Cozaar - PO 25 mg DAILY ANNY Administration Magnesium Chloride 64 mg 01/06/19 10:00 01/11/19 11:13 Slow-Mag - PO 64 mg DAILY ANNY Administration Nicotine 7 mg 01/06/19 10:00 01/11/19 11:12 Nicoderm Patch - TD Not Given DAILY [facility] Warfarin Sodium 6 mg 01/07/19 18:00 01/11/19 18:53 Coumadin - PO 6 mg DAILY@1800 ANNY Administration ASSESSMENT AND PLAN: This is a 78 year old man with a history of HTN, hyperlipidemia, type 2 DM, stage 3 CKD, DVT with Factor V mutation and lupus anticoagulant, gout, celiac disease, GERD, prostate cancer who presented to the ED with pain, redness, and swelling of his right leg. 1. Right foot plantar ulcer with right leg cellulitis - Improving with Zyvox, Azactam - Outpatient podiatry follow up 2. HTN - Continue Cozaar, Lasix 3. Hyperlipidemia - Continue Lipitor 4. Type 2 DM - Continue Novolog sliding scale 5. Stage 3 CKD - Stable 6. 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 History of gout - Continue Allopurinol 8. GERD 9. Celiac disease 10. Prostate cancer 11. Nicotine dependence - Continue nicotine patch
[2019-01-12] MEDS: FOLIC ACID 1 MG TABLET (FP) PO SCH (11:57)
[2019-01-12] MEDS: NICOTINE 7 MG/24 HOURS TOPICAL PATCH TD SCH (11:57)
[2019-01-12] MEDS: FUROSEMIDE 40 MG TABLET (FP) PO SCH (11:57)
[2019-01-12] MEDS: LOSARTAN POTASSIUM 25 MG TABLET PO SCH (11:57)
[2019-01-12] MEDS: MAGNESIUM CL 64 MG TABLET.SA PO SCH (11:57)
[2019-01-12] MEDS: GABAPENTIN 300 MG CAPSULE (FP) PO SCH ×2 (11:57→21:29)
[2019-01-12] MEDS: ALLOPURINOL 300 MG TABLET (FP) PO SCH (11:58)
[2019-01-12] MEDS ORDERED: INSULIN (NOVOLOG) ASPART 100 UNITS/ML 10ML VIAL ONE (12:47)
[2019-01-12] MEDS: BACITRACIN 15 GM TUBE TOPICAL OINTMENT TP SCH ×2 (12:50→21:27)
--- NOTE | 2019-01-12 13:56 | PN ---
Progress Note (short form) - Note Progress Note: slow improvement was able to ambulate yesterday Vital Signs Period Temp Pulse Resp BP Sys/Gautam Pulse Ox Last 24 Hr 97.3 F-98.6 F 66-72 20-21 144-158/56-73 95-98 cor-rrr lungs-decreased bs at bases abd soft,nt ext less erythema, less edema, less tender CBC, BMP 01/12/19 06:40 01/12/19 06:40 a/p cellulitis RLE-continue zyvox/azactam, improving slowly-now able to ambulate- now day #6, hopefully change to po antibiotics soon multiple antibiotic allergies CKD chronic plantar ulcers-no drainage noted-f/u podiatry morbid obesity Problem List - Problems (1) Cellulitis Code(s): L03.90 - CELLULITIS, UNSPECIFIED Qualifiers: Site of cellulitis: extremity Site of cellulitis of extremity: lower extremity Laterality: right Qualified Code(s): L03.115 - Cellulitis of right lower limb (2) Allergy to multiple antibiotics Code(s): Z88.1 - ALLERGY STATUS TO OTHER ANTIBIOTIC AGENTS STATUS (3) CKD (chronic kidney disease) Code(s): N18.9 - CHRONIC KIDNEY DISEASE, UNSPECIFIED (4) Diabetic foot ulcer Code(s): E11.621 - TYPE 2 DIABETES MELLITUS WITH FOOT ULCER; L97.509 - NON- PRESSURE CHRONIC ULCER OTH PRT UNSP FOOT W UNSP SEVERITY Qualifiers: Diabetic foot ulcer location: midfoot Diabetes mellitus type: type 2 Laterality: left Non-pressure ulcer stage: unspecified non-pressure ulcer stage Qualified Code(s): E11.621 - Type 2 diabetes mellitus with foot ulcer
[2019-01-12] MEDS: WARFARIN NA 3 MG TABLET PO SCH (18:55)
[2019-01-12] MEDS: ATORVASTATIN CA 20 MG TABLET (FP) PO SCH (21:28)
[2019-01-13] MEDS: LINEZOLID 600 MG PREMIX BAG 600 MG/300 ML BAG IVPB SCH ×2 (05:18→18:56)
[2019-01-13] MEDS: INSULIN SLIDING SCALE (NOVOLOG) 1 VIAL SQ SCH ×4 (06:26→22:29)
[2019-01-13] MEDS: CALCIUM CARBONATE 650 MG TABLET PO SCH ×3 (06:26→21:36)
[2019-01-13] MEDS ORDERED: PT OWN MED DRAWER 7, Y5N ONE ×8 (06:42→20:52)
[2019-01-13] MEDS ORDERED: INSULIN (NOVOLOG) ASPART 100 UNITS/ML 10ML VIAL ONE (06:43)
[2019-01-13 07:14] LABS: INR 2.21 (0.83-1.09); PROTHROMBIN TIME (PATIENT) 26.3 SEC (9.7-13.0)
[2019-01-13] MEDS: FOLIC ACID 1 MG TABLET (FP) PO SCH (09:25)
[2019-01-13] MEDS: FUROSEMIDE 40 MG TABLET (FP) PO SCH (09:25)
[2019-01-13] MEDS: LOSARTAN POTASSIUM 25 MG TABLET PO SCH (09:25)
[2019-01-13] MEDS: GABAPENTIN 300 MG CAPSULE (FP) PO SCH ×2 (09:25→21:36)
[2019-01-13] MEDS: ALLOPURINOL 300 MG TABLET (FP) PO SCH (09:25)
[2019-01-13] MEDS: AZTREONAM 2 GM in DEXTROSE 5%-WATER 100 ML IVPB SCH ×2 (09:26→21:10)
[2019-01-13] MEDS: NICOTINE 7 MG/24 HOURS TOPICAL PATCH TD SCH (09:37)
[2019-01-13] MEDS: BACITRACIN 15 GM TUBE TOPICAL OINTMENT TP SCH ×2 (11:36→21:10)
[2019-01-13] MEDS: MAGNESIUM CL 64 MG TABLET.SA PO SCH (11:36)
--- NOTE | 2019-01-13 16:07 | PN ---
Physical Exam: SUBJECTIVE: Patient seen and examined. He reports tenderness to palpation and walking. Extremity has decrease in erythema. He denies n/v/d, chest pain. OBJECTIVE: Vital Signs Period Temp Pulse Resp BP Sys/Gautam Pulse Ox Last 24 Hr 98.1 F-98.9 F 68-74 18-20 129-153/56-94 95-98 GENERAL: The patient is awake, alert, and fully oriented, in no acute distress. HEAD: Normal with no signs of trauma. EYES: PERRL, extraocular movements intact, sclera anicteric, conjunctiva clear. No ptosis. ENT: Ears normal, nares patent, oropharynx clear without exudates, moist mucous membranes. NECK: Trachea midline, full range of motion, supple. LUNGS: Breath sounds equal, clear to auscultation bilaterally, no wheezes, no crackles, no accessory muscle use. HEART: Regular rate and rhythm, S1, S2 without murmur, rub or gallop. ABDOMEN: Soft, nontender, nondistended, normoactive bowel sounds EXTREMITIES: 2+ pulses, warm, well-perfused. 1cm non-erythematous, ulcer on medial surface of right foot. Some drainage noted on bandage. Erythema noted on right lower extremity below knee to ankle. +2 pitting edema. Left foot has 1cm ulcer as well, not actively draining. NEUROLOGICAL: Cranial nerves II through XII grossly intact. Normal speech, gait not observed. PSYCH: Normal mood, normal affect. SKIN: Warm, dry, normal turgor, no rashes or lesions noted Laboratory Results - last 24 hr 01/12/19 01/12/19 01/13/19 17:06 21:18 05:30 PT with INR 26.30 H INR 2.21 H POC Glucometer 169 234 01/13/19 01/13/19 06:03 11:27 PT with INR INR POC Glucometer 199 241 Active Medications Generic Name Dose Route Start Last Admin Trade Name Freq PRN Reason Stop Dose Admin Allopurinol 150 mg 01/06/19 10:00 01/13/19 09:25 Zyloprim - PO 150 mg DAILY ANNY Administration Atorvastatin Calcium 20 mg 01/06/19 22:00 01/12/19 21:28 Lipitor - PO 20 mg HS ANNY Administration Bacitracin 1 applic 01/08/19 12:00 01/13/19 11:36 Bacitracin - TP 1 applic BID ANNY Administration Calcium Carbonate 650 mg 01/06/19 22:00 01/13/19 06:26 Calcium Carbonate - PO 650 mg TID ANNY Administration Docusate Sodium 100 mg 01/06/19 03:42 Colace - PO DAILY PRN CONSTIPATION Folic Acid 3 mg 01/06/19 10:00 01/13/19 09:25 Folic Acid - PO 3 mg DAILY ANNY Administration Furosemide 40 mg 01/06/19 10:00 01/13/19 09:25 Lasix - PO 40 mg DAILY ANNY Administration Gabapentin 300 mg 01/06/19 10:00 01/13/19 09:25 Neurontin - PO 300 mg BID ANNY Administration Linezolid 600 mg in 300 mls @ 300 mls/hr 01/07/19 05:10 01/13/19 05:18 Zyvox 600 Mg Premix Bag (Restricted To Id) - IVPB 300 mls/hr Q12H ANNY Administration Protocol Aztreonam 2 gm/ Dextrose 100 mls @ 100 mls/hr 01/12/19 20:00 01/13/19 09:26 IVPB 100 mls/hr Q12H ANNY Administration Protocol Insulin Aspart 1 vial 01/06/19 07:00 01/13/19 11:37 Novolog Vial Sliding Scale - SQ 4 units ACHS [facility] Administration Protocol Losartan Potassium 25 mg 01/06/19 10:00 01/13/19 09:25 Cozaar - PO 25 mg DAILY ANNY Administration Magnesium Chloride 64 mg 01/06/19 10:00 01/13/19 11:36 Slow-Mag - PO 64 mg DAILY ANNY Administration Nicotine 7 mg 01/06/19 10:00 01/13/19 09:37 Nicoderm Patch - TD Not Given DAILY [facility] Warfarin Sodium 6 mg 01/07/19 18:00 01/12/19 18:55 Coumadin - PO 6 mg DAILY@1800 ANNY Administration ASSESSMENT/PLAN: Mr. Brandon is a 78 y/o male with HTN, DM, CKD, Factor V Leiden mutation, lupus anticoagulant, chronic BLE foot wounds, gout, celiac disease, prostate CA, HLD, and GERD who presents with RLE erythema and warmth following 3 days of chills and fever. #right lower extremity cellulitis Right lower extremity below the knee. X-ray did not show osteomyelitis. Doppler negative for DVT. Minimal improvement in erythema. Afebrile. No leukocytosis. -linezolid day 6 -aztreonam day 6 -ID consult- may switch to PO abx soon -blood cultures- negative -CBC #bilateral foot ulcers Pt reports ulcers to be chronic and is monitored by podiatry. -podiatry consult- surgical excision of wounds following cellulitis resolution, wound care -surgery consult- f/u outpatient for arterial duplex -gabapentin #supratherapeutic INR on admission hx of Factor V Leiden mutation. INR 2.21 today. -warfarin 6mg -monitor INR #CKD Cr 2.1. near baseline -BMP #HLD -lipitor 20mg #HTN -losartan 25mg -Lasix #DM -SSI -BGM #gout -allopurinol #tobacco use disorder -nicoderm PRN FEN gluten free/diabetic/sodium restricted diet monitor electrolytes Visit type - Emergency Visit Emergency Visit: Yes ED Registration Date: 01/06/19 Care time: The patient presented to the Emergency Department on the above date and was hospitalized for further evaluation of their emergent condition. - New Patient This patient is new to me today: No - Critical Care Critical Care patient: No - Discharge Referral Referred to [facility] No ATTENDING PHYSICIAN STATEMENT I saw and evaluated the patient. I reviewed the resident's note and discussed the case with the resident. I agree with the resident's findings and plan as documented. SUBJECTIVE: OBJECTIVE: ASSESSMENT AND PLAN:
--- NOTE | 2019-01-13 16:52 | PN ---
Teaching Attending Note Name of Resident: Smitha Boyd ATTENDING PHYSICIAN STATEMENT I saw and evaluated the patient. I reviewed the resident's note and discussed the case with the resident. I agree with the resident's findings and plan as documented. SUBJECTIVE: Feeling a bit better, less RLE pain. No fever/chills. No nausea/ vomiting. OBJECTIVE: Afebrile, Hemodynamically Stable. Last Vital Signs Temp Pulse Resp BP Pulse Ox 98.6 F 71 18 153/58 L 95 01/13/19 14:26 01/13/19 14:26 01/13/19 14:01/13/19 14:01/13/19 09:00 HEENT - Atramatic, Normocephalic. Heart - S1, S2, RRR Lungs - clear to auscultation Abdomen - soft, non-tender. Bowel Sounds normal. Extremities - no RLE edema/erythema with R foot medial/plantar ulcer, L foot medial/plantar ulcer - both dressed. Neuro -AAO x 3. Tone/Power normal all extremities. Laboratory Results - last 24 hr 01/12/19 01/12/19 01/13/19 17:06 21:18 05:30 PT with INR 26.30 H INR 2.21 H POC Glucometer 169 234 01/13/19 01/13/19 01/13/19 06:03 11:27 16:31 PT with INR INR POC Glucometer 199 241 189 Current Medications Generic Name Dose Route Start Last Admin Trade Name Freq PRN Reason Stop Dose Admin Allopurinol 150 mg 01/06/19 10:00 01/13/19 09:25 Zyloprim - PO 150 mg DAILY ANNY Administration Atorvastatin Calcium 20 mg 01/06/19 22:00 01/12/19 21:28 Lipitor - PO 20 mg HS ANNY Administration Bacitracin 1 applic 01/08/19 12:00 01/13/19 11:36 Bacitracin - TP 1 applic BID ANNY Administration Calcium Carbonate 650 mg 01/06/19 22:00 01/13/19 16:33 Calcium Carbonate - PO 650 mg TID ANNY Administration Docusate Sodium 100 mg 01/06/19 03:42 Colace - PO DAILY PRN CONSTIPATION Folic Acid 3 mg 01/06/19 10:00 01/13/19 09:25 Folic Acid - PO 3 mg DAILY ANNY Administration Furosemide 40 mg 01/06/19 10:00 01/13/19 09:25 Lasix - PO 40 mg DAILY ANNY Administration Gabapentin 300 mg 01/06/19 10:00 01/13/19 09:25 Neurontin - PO 300 mg BID ANNY Administration Linezolid 600 mg in 300 mls @ 300 mls/hr 01/07/19 05:10 01/13/19 05:18 Zyvox 600 Mg Premix Bag (Restricted To Id) - IVPB 300 mls/hr Q12H ANNY Administration Protocol Aztreonam 2 gm/ Dextrose 100 mls @ 100 mls/hr 01/12/19 20:00 01/13/19 09:26 IVPB 100 mls/hr Q12H ANNY Administration Protocol Insulin Aspart 1 vial 01/06/19 07:00 01/13/19 16:32 Novolog Vial Sliding Scale - SQ 2 units ACHS [facility] Administration Protocol Losartan Potassium 25 mg 01/06/19 10:00 01/13/19 09:25 Cozaar - PO 25 mg DAILY ANNY Administration Magnesium Chloride 64 mg 01/06/19 10:00 01/13/19 11:36 Slow-Mag - PO 64 mg DAILY ANNY Administration Nicotine 7 mg 01/06/19 10:00 01/13/19 09:37 Nicoderm Patch - TD Not Given DAILY [facility] Warfarin Sodium 6 mg 01/07/19 18:00 01/12/19 18:55 Coumadin - PO 6 mg DAILY@1800 [facility] Administration Home Medications Medication Instructions Recorded Atorvastatin Calcium 20 mg PO DAILY 09/28/15 Calcium Carbonate [Coral Calcium] 10 gm PO TID 09/28/15 Cholecalciferol (Vitamin D3) 4,000 unit PO DAILY 09/28/15 [Vitamin D3 -] Folic Acid - 3 mg PO DAILY 09/28/15 Glimepiride [Glimepiride -] 2 mg PO DAILY 09/28/15 Multivit-Min/FA/Lycopen/Lutein 1 each PO DAILY 09/28/15 [Centrum Silver Tablet] Magnesium Chloride [Slow-Mag -] 64 mg PO DAILY 12/05/15 Warfarin Sodium [Coumadin] 7.5 mg PO HS 02/13/16 Allopurinol 150 mg PO DAILY 11/14/17 Docusate Sodium [Colace] 100 mg PO PRN PRN 11/14/17 Ferrous Sulfate [Feosol] 324 mg PO DAILY 11/14/17 Ranitidine [Zantac -] 150 mg PO BID 11/14/17 Furosemide [Lasix] 40 mg PO PRN PRN 01/06/19 Gabapentin [Neurontin -] 300 mg PO BID 01/06/19 Losartan Potassium [Cozaar -] 25 mg PO DAILY 01/06/19 ASSESSMENT AND PLAN: 78 year old male with history of HTN, HLD, DM 2,CKD 3, Hx DVT on Coumadin, Factor V Leiden and lupus anticoagulant positive, Gout, Celiac Disease, GERD, prostate cancer, presented to the ED with pain, redness, and swelling of his RLE. 1. Right foot plantar ulcer with right leg cellulitis Continue Linezolid and Azactam Needs Podiatry follow up as out-patient. ID to guide further abx therapy. 2. HTN - Continue Cozaar. 3. Hyperlipidemia - Continue Lipitor 4. DM 2 - Continue Novolog sliding scale 5. CKD 3 - Stable 6. 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 History of gout - Continue Allopurinol 8. GERD - will resume ranitidine 9. Celiac disease - gluten free diet. 10. Nicotine dependence - Continue nicotine patch 11. Chronic Venous Insufficiency - continue Lasix. DVT Px - on Coumadin.
--- NOTE | 2019-01-13 18:20 | PN ---
Progress Note (short form) - Note Progress Note: slow improvement was able to ambulate yesterday Vital Signs Period Temp Pulse Resp BP Sys/Gautam Pulse Ox Last 24 Hr 98.2 F-98.9 F 68-71 18-20 129-153/56-82 95-98 cor-rrr lungs clear right leg with less erythema, not tender to palpation still some edema CBC, BMP 01/12/19 06:40 01/12/19 06:40 Microbiology 01/05/19 21:50 Blood - Peripheral Venous Blood Culture - Final NO GROWTH AFTER 5 DAYS INCUBATION 01/05/19 21:50 Blood - Peripheral Venous Blood Culture - Final NO GROWTH AFTER 5 DAYS INCUBATION a/p cellulitis RLE-continue zyvox/azactam, improving slowly-now able to ambulate- now day #7 multiple antibiotic allergies-can switch to po clindamycin 300 tid in am-treat another week- slow improvement due to his venous stasis venous stasis- would he benefit from wrapping his legs? CKD chronic plantar ulcers-no drainage noted-f/u podiatry morbid obesity add probiotics for a month f/u with podiatry as outpatient Problem List - Problems (1) Cellulitis Code(s): L03.90 - CELLULITIS, UNSPECIFIED Qualifiers: Site of cellulitis: extremity Site of cellulitis of extremity: lower extremity Laterality: right Qualified Code(s): L03.115 - Cellulitis of right lower limb (2) Allergy to multiple antibiotics Code(s): Z88.1 - ALLERGY STATUS TO OTHER ANTIBIOTIC AGENTS STATUS (3) CKD (chronic kidney disease) Code(s): N18.9 - CHRONIC KIDNEY DISEASE, UNSPECIFIED (4) Diabetic foot ulcer Code(s): E11.621 - TYPE 2 DIABETES MELLITUS WITH FOOT ULCER; L97.509 - NON- PRESSURE CHRONIC ULCER OTH PRT UNSP FOOT W UNSP SEVERITY Qualifiers: Diabetic foot ulcer location: midfoot Diabetes mellitus type: type 2 Laterality: left Non-pressure ulcer stage: unspecified non-pressure ulcer stage Qualified Code(s): E11.621 - Type 2 diabetes mellitus with foot ulcer
[2019-01-13] MEDS: WARFARIN NA 3 MG TABLET PO SCH (19:02)
[2019-01-13] MEDS: ATORVASTATIN CA 20 MG TABLET (FP) PO SCH (21:36)
[2019-01-14] MEDS: LINEZOLID 600 MG PREMIX BAG 600 MG/300 ML BAG IVPB SCH ×2 (06:20→17:28)
[2019-01-14] MEDS: INSULIN SLIDING SCALE (NOVOLOG) 1 VIAL SQ SCH ×3 (06:57→17:55)
[2019-01-14] MEDS: CALCIUM CARBONATE 650 MG TABLET PO SCH ×2 (06:57→14:01)
[2019-01-14 07:39] LABS: INR 2.42 (0.83-1.09); PROTHROMBIN TIME (PATIENT) 28.8 SEC (9.7-13.0)
[2019-01-14 08:06] LABS: BASO % 0.9 % (0-2.0); EOS % 4.3 % (0-4.5); HEMATOCRIT 30.9 % (35.4-49); HEMOGLOBIN 10.5 GM/dL (11.7-16.9); LYMPH % 30.8 % (8-40); MCH 32.6 pg (25.7-33.7); MCHC 34.1 g/dl (32.0-35.9); MEAN CELL VOLUME 95.8 fl (80-96); MEAN PLT VOLUME 8.5 fl (7.5-11.1); MONO % 10.6 % (3.8-10.2); NEUT % 53.4 % (42.8-82.8); PLATELET COUNT 189 K/MM3 (134-434); RBC 3.23 M/mm3 (4.00-5.60); RDW 17.3 % (11.9-15.9); WHITE BLOOD COUNT 4.6 K/mm3 (4.0-10.0)
[2019-01-14] MEDS ORDERED: PT OWN MED DRAWER 7, Y5N ONE ×3 (08:56→16:55)
[2019-01-14] MEDS: LOSARTAN POTASSIUM 25 MG TABLET PO SCH (09:17)
[2019-01-14] MEDS: FUROSEMIDE 40 MG TABLET (FP) PO SCH (09:17)
[2019-01-14] MEDS: ALLOPURINOL 300 MG TABLET (FP) PO SCH (09:17)
[2019-01-14] MEDS: FOLIC ACID 1 MG TABLET (FP) PO SCH (09:17)
[2019-01-14] MEDS: GABAPENTIN 300 MG CAPSULE (FP) PO SCH (09:18)
[2019-01-14] MEDS: NICOTINE 7 MG/24 HOURS TOPICAL PATCH TD SCH (09:18)
[2019-01-14] MEDS: MAGNESIUM CL 64 MG TABLET.SA PO SCH (09:18)
[2019-01-14] MEDS: BACITRACIN 15 GM TUBE TOPICAL OINTMENT TP SCH (09:19)
[2019-01-14] MEDS: AZTREONAM 2 GM in DEXTROSE 5%-WATER 100 ML IVPB SCH (09:19)
[2019-01-14] MEDS ORDERED: LACTOBACILLUS ACIDOPHILUS 1 TABLET PO SCH (10:00)
[2019-01-14] MEDS ORDERED: ACETAMINOPHEN 325 MG TABLET (FP) PO PRN (13:10)
--- NOTE | 2019-01-14 15:47 | PN ---
Teaching Attending Note Name of Resident: Smitha Boyd ATTENDING PHYSICIAN STATEMENT I saw and evaluated the patient. I reviewed the resident's note and discussed the case with the resident. I agree with the resident's findings and plan as documented. SUBJECTIVE: Fees okay, less RLE pain. Some improvement in erythema. No fever/ chills. No nausea/vomiting. OBJECTIVE: Afebrile, Hemodynamically Stable. Last Vital Signs Temp Pulse Resp BP Pulse Ox 97.8 F 76 19 134/61 96 01/14/19 14:13 01/14/19 14:13 01/14/19 14:13 01/14/19 14:13 01/14/19 09:00 Heart - S1, S2, RRR Lungs - clear to auscultation Abdomen - soft, non-tender. Bowel Sounds normal. Extremities - RLE edema/erythema (improving) with R foot medial/plantar ulcer, L foot medial/plantar ulcer - both dressed. Neuro -AAO x 3. Tone/Power normal all extremities. Laboratory Results - last 24 hr 01/13/19 01/13/19 01/14/19 16:31 21:14 06:28 WBC RBC Hgb Hct MCV MCH MCHC RDW Plt Count MPV Absolute Neuts (auto) Neutrophils % Lymphocytes % Monocytes % Eosinophils % Basophils % Nucleated RBC % PT with INR INR POC Glucometer 189 214 186 01/14/19 01/14/19 01/14/19 06:35 06:35 11:29 WBC 4.6 RBC 3.23 L Hgb 10.5 L Hct 30.9 L MCV 95.8 MCH 32.6 MCHC 34.1 RDW 17.3 H Plt Count 189 MPV 8.5 Absolute Neuts (auto) 2.4 Neutrophils % 53.4 Lymphocytes % 30.8 D Monocytes % 10.6 H Eosinophils % 4.3 Basophils % 0.9 Nucleated RBC % 0 PT with INR 28.80 H INR 2.42 H POC Glucometer 265 Current Medications Generic Name Dose Route Start Last Admin Trade Name Freq PRN Reason Stop Dose Admin Acetaminophen 650 mg 01/14/19 13:10 01/14/19 13:34 Tylenol - PO 650 mg Q6H PRN Administration PAIN LEVEL 6-10 Allopurinol 150 mg 01/06/19 10:00 01/14/19 09:17 Zyloprim - PO 150 mg DAILY ANNY Administration Atorvastatin Calcium 20 mg 01/06/19 22:00 01/13/19 21:36 Lipitor - PO 20 mg HS ANNY Administration Bacitracin 1 applic 01/08/19 12:00 01/14/19 09:19 Bacitracin - TP 1 applic BID ANNY Administration Calcium Carbonate 650 mg 01/06/19 22:00 01/14/19 14:01 Calcium Carbonate - PO 650 mg TID ANNY Administration Docusate Sodium 100 mg 01/06/19 03:42 Colace - PO DAILY PRN CONSTIPATION Folic Acid 3 mg 01/06/19 10:00 01/14/19 09:17 Folic Acid - PO 3 mg DAILY ANNY Administration Furosemide 40 mg 01/06/19 10:00 01/14/19 09:17 Lasix - PO 40 mg DAILY ANNY Administration Gabapentin 300 mg 01/06/19 10:00 01/14/19 09:18 Neurontin - PO 300 mg BID ANNY Administration Linezolid 600 mg in 300 mls @ 300 mls/hr 01/07/19 05:10 01/14/19 06:20 Zyvox 600 Mg Premix Bag (Restricted To Id) - IVPB 300 mls/hr Q12H ANNY Administration Protocol Aztreonam 2 gm/ Dextrose 100 mls @ 100 mls/hr 01/12/19 20:00 01/14/19 09:19 IVPB 100 mls/hr Q12H ANNY Administration Protocol Insulin Aspart 1 vial 01/06/19 07:00 01/14/19 11:32 Novolog Vial Sliding Scale - SQ 6 units ACHS ANNY Administration Protocol Lactobacillus Acidophilus 1 tab 01/14/19 10:00 01/14/19 09:17 Bacid - PO 1 tab DAILY ANNY Administration Losartan Potassium 25 mg 01/06/19 10:00 01/14/19 09:17 Cozaar - PO 25 mg DAILY ANNY Administration Magnesium Chloride 64 mg 01/06/19 10:00 01/14/19 09:18 Slow-Mag - PO 64 mg DAILY ANNY Administration Nicotine 7 mg 01/06/19 10:00 01/14/19 09:18 Nicoderm Patch - TD Not Given DAILY ANNY Warfarin Sodium 6 mg 01/07/19 18:00 01/13/19 19:02 Coumadin - PO 6 mg DAILY@1800 ANNY Administration Home Medications Medication Instructions Recorded Atorvastatin Calcium 20 mg PO DAILY 09/28/15 Calcium Carbonate [Coral Calcium] 10 gm PO TID 09/28/15 Cholecalciferol (Vitamin D3) 4,000 unit PO DAILY 09/28/15 [Vitamin D3 -] Folic Acid - 3 mg PO DAILY 09/28/15 Glimepiride [Glimepiride -] 2 mg PO DAILY 09/28/15 Multivit-Min/FA/Lycopen/Lutein 1 each PO DAILY 09/28/15 [Centrum Silver Tablet] Magnesium Chloride [Slow-Mag -] 64 mg PO DAILY 12/05/15 Allopurinol 150 mg PO DAILY 11/14/17 Docusate Sodium [Colace] 100 mg PO PRN PRN 11/14/17 Ferrous Sulfate [Feosol] 324 mg PO DAILY 11/14/17 Ranitidine [Zantac -] 150 mg PO BID 11/14/17 Furosemide [Lasix] 40 mg PO PRN PRN 01/06/19 Gabapentin [Neurontin -] 300 mg PO BID 01/06/19 Losartan Potassium [Cozaar -] 25 mg PO DAILY 01/06/19 Clindamycin [Cleocin -] 300 mg PO TID 7 Days #21 capsule 01/14/19 Lactobacillus Acidophilus [Bacid -] 1 each PO DAILY #30 capsule 01/14/19 Warfarin Na [Coumadin -] 6 mg PO DAILY@1800 30 Days #30 01/14/19 tablet ASSESSMENT AND PLAN: 78 year old male with history of HTN, HLD, DM 2, CKD 3, Hx DVT on Coumadin, Factor V Leiden and lupus anticoagulant positive, Gout, Celiac Disease, GERD, prostate cancer, presented to the ED with pain, redness, and swelling of his RLE. 1. Right foot plantar ulcer with right leg cellulitis Continue Linezolid and Azactam Needs Podiatry follow up as out-patient. As per ID, Abx can be transitioned to oral Clindamycin. 2. HTN - Continue Cozaar. 3. Hyperlipidemia - Continue Lipitor. 4. DM 2 - Continue Novolog sliding scale 5. CKD 3 - Stable 6. 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 History of Gout - Continue Allopurinol 8. GERD - will resume ranitidine 9. Celiac disease - gluten free diet. 10. Nicotine dependence - Continue nicotine patch 11. Chronic Venous Insufficiency - Continue Lasix. DVT Px - on Coumadin. Medically optimized for discharge with ID and Podiatry follow ups.
[2019-01-14] MEDS: WARFARIN NA 3 MG TABLET PO SCH (17:38)
[2019-01-14 18:18] VITALS: BP 138/62; PULSE 69; TEMP 98
--- NOTE | 2019-01-14 18:57 | DS ---
Physical Exam: SUBJECTIVE: Patient seen and examined OBJECTIVE: Vital Signs Period Temp Pulse Resp BP Sys/Gautam Pulse Ox Last 24 Hr 97.6 F-98.0 F 69-76 18-20 125-154/60-81 95-96 PHYSICAL EXAM GENERAL: The patient is awake, alert, and fully oriented, in no acute distress. HEAD: Normal with no signs of trauma. EYES: PERRL, extraocular movements intact, sclera anicteric, conjunctiva clear. ENT: Ears normal, nares patent, oropharynx clear without exudates, moist mucous membranes. NECK: Trachea midline, full range of motion, supple. LUNGS: Breath sounds equal, clear to auscultation bilaterally, no wheezes, no crackles, no accessory muscle use. HEART: Regular rate and rhythm, S1, S2 without murmur, rub or gallop. ABDOMEN: Soft, nontender, nondistended, normoactive bowel sounds, no guarding, no rebound, no hepatosplenomegaly, no masses. EXTREMITIES: 2+ pulses, warm, well-perfused, no edema. NEUROLOGICAL: Cranial nerves II through XII grossly intact. Normal speech, gait not observed. PSYCH: Normal mood, normal affect. SKIN: Warm, dry, normal turgor, no rashes or lesions noted. LABS Laboratory Results - last 24 hr 01/13/19 01/14/19 01/14/19 21:14 06:28 06:35 WBC RBC Hgb Hct MCV MCH MCHC RDW Plt Count MPV Absolute Neuts (auto) Neutrophils % Lymphocytes % Monocytes % Eosinophils % Basophils % Nucleated RBC % PT with INR 28.80 H INR 2.42 H POC Glucometer 214 186 01/14/19 01/14/19 01/14/19 06:35 11:29 17:50 WBC 4.6 RBC 3.23 L Hgb 10.5 L Hct 30.9 L MCV 95.8 MCH 32.6 MCHC 34.1 RDW 17.3 H Plt Count 189 MPV 8.5 Absolute Neuts (auto) 2.4 Neutrophils % 53.4 Lymphocytes % 30.8 D Monocytes % 10.6 H Eosinophils % 4.3 Basophils % 0.9 Nucleated RBC % 0 PT with INR INR POC Glucometer 265 211 HOSPITAL COURSE: Date of Admission:01/06/19 Date of Discharge: 01/14/19 Discharge Summary Reason For Visit: CELLULITIS Current Active Problems CKD (chronic kidney disease) (Acute) Cellulitis (Acute) T2DM (type 2 diabetes mellitus) (Acute) Condition: Stable - Instructions Diet, Activity, Other Instructions: Hospital Visit: You were admitted to the hospital because you had a skin infection on your leg. It has improved while on IV antibiotics. You are able to go home to complete your antibiotics. You were seen by a vascular surgeon who would like to evaluate you in his office after discharge to see how the veins in your legs are working. You were seen by a security alarm installer for your foot ulcers. You will need to follow up after discharge to see if any further treatment needs to be done. You were found to have a mild anemia (low red blood cell count). You should follow up with your primary care doctor to see if you need further labs done. Your Coumadin (warfarin) dose was changed. You need to follow up to have your levels checked. Medications: Your Coumadin dosage was decreased to 6mg once a day. Resume all your OTHER home medications. New medications: Take clindamycin 300mg three times a day for 1 week. Bacid 1 pill once a day. This should be taken at least 2 hours apart from the antibiotic. Follow up with the following: Dr. Feng, security alarm installer, within [address] Young, primary care, within [address] Kelly, vascular surgeon, within 1-[address] Pizarro, infectious disease, within 1 week of discharge. Other instructions: Return to the emergency room if you have worsening of redness or swelling in your leg, if the pain cannot be controlled with Tylenol according to the directions, you have a fever above 101, or you have chest pain, difficulty breathing, vomiting, or diarrhea that cannot be controlled with medication. Referrals: Jose Young MD [Primary Care Provider] - Carrol Pizarro MD [Staff Physician] - Dioni Feng MD [Staff Physician] - Yvon Kelly DO [Staff Physician] - Disposition: HOME - Home Medications Comprehensive Discharge Medication List: Ambulatory Orders Atorvastatin Calcium 20 mg PO DAILY 09/28/15 Calcium Carbonate [Coral Calcium] 10 gm PO TID 09/28/15 Cholecalciferol (Vitamin D3) [Vitamin D3 -] 4,000 unit PO DAILY 09/28/15 Folic Acid - 3 mg PO DAILY 09/28/15 Glimepiride [Glimepiride -] 2 mg PO DAILY 09/28/15 Multivit-Min/FA/Lycopen/Lutein [Centrum Silver Tablet] 1 each PO DAILY 09/28/15 Magnesium Chloride [Slow-Mag -] 64 mg PO DAILY 12/05/15 Allopurinol 150 mg PO DAILY 11/14/17 Docusate Sodium [Colace] 100 mg PO PRN PRN 11/14/17 Ferrous Sulfate [Feosol] 324 mg PO DAILY 11/14/17 Ranitidine [Zantac -] 150 mg PO BID 11/14/17 Furosemide [Lasix] 40 mg PO PRN PRN 01/06/19 Gabapentin [Neurontin -] 300 mg PO BID 01/06/19 Losartan Potassium [Cozaar -] 25 mg PO DAILY 01/06/19 Clindamycin [Cleocin -] 300 mg PO TID 7 Days #21 capsule 01/14/19 Lactobacillus Acidophilus [Bacid -] 1 each PO DAILY #30 capsule 01/14/19 Warfarin Na [Coumadin -] 6 mg PO DAILY@1800 30 Days #30 tablet 01/14/19 - Discharge Referral Referred to [facility] No ATTENDING PHYSICIAN STATEMENT I saw and evaluated the patient. I reviewed the resident's note and discussed the case with the resident. I agree with the resident's findings and plan as documented. SUBJECTIVE: OBJECTIVE: ASSESSMENT AND PLAN:
== END 2019-01-14 19:05 | disposition home health service (06) | DRG 638 ==
LOC: JER 18:56 → JERBED 01-06 00:15 → J5S 01-06 04:48
PROVIDERS: ADMIT Internal Medicine
DX: E11.621 Type 2 diabetes mellitus with foot ulcer (principal); L03.115 Cellulitis of right lower limb; L97.518 Non-pressure chronic ulcer of other part of right foot with other specified severity; D68.51 Activated protein C resistance; Z68.41 Body mass index [BMI] 40.0-44.9, adult; N17.9 Acute kidney failure, unspecified; R79.1 Abnormal coagulation profile; K90.0 Celiac disease; M10.9 Gout, unspecified; E78.5 Hyperlipidemia, unspecified; D64.9 Anemia, unspecified; I87.8 Other specified disorders of veins; I12.9 Hypertensive chronic kidney disease with stage 1 through stage 4 chronic kidney disease, or unspecified chronic kidney disease; E11.22 Type 2 diabetes mellitus with diabetic chronic kidney disease; N18.3 Chronic kidney disease, stage 3 (moderate); M32.9 Systemic lupus erythematosus, unspecified; E66.01 Morbid (severe) obesity due to excess calories; I25.10 Atherosclerotic heart disease of native coronary artery without angina pectoris; I45.10 Unspecified right bundle-branch block; N40.0 Benign prostatic hyperplasia without lower urinary tract symptoms; K21.9 Gastro-esophageal reflux disease without esophagitis; K57.90 Diverticulosis of intestine, part unspecified, without perforation or abscess without bleeding; Z88.0 Allergy status to penicillin; Z86.718 Personal history of other venous thrombosis and embolism; Z85.46 Personal history of malignant neoplasm of prostate; Z79.01 Long term (current) use of anticoagulants
CPT/HCPCS: 36415; 73590-TC-RT-FY; 73630-TC-RT-FY; 80048; 80053; 82272; 82728; 82962; 83036; 83540; 83550; 83735; 84100; 85025; 85027; 85610; 85730; 87040; 93005; 93010; 93971-TC; 97116-GP; 97162-GP; 99283-25; G0480

== ENCOUNTER 2019-03-05 18:09 | Inpatient (IN) | payer OTHER ==
--- NOTE | 2019-03-05 18:14 | PDOC ---
Rapid Medical Evaluation Time Seen by Provider: 03/05/19 18:11 Medical Evaluation: Allergies Allergy/AdvReac Type Severity Reaction Status Date / Time Penicillins Allergy Severe Swelling Verified 01/06/19 03:17 ciprofloxacin [From Cipro] Allergy Intermediate Rash Verified 01/06/19 03:17 ciprofloxacin HCl Allergy Intermediate Rash Verified 01/06/19 03:17 [From Cipro] levofloxacin [From Levaquin] Allergy Intermediate Rash Verified 01/06/19 03:17 gluten Allergy Verified 01/06/19 03:17 shellfish derived Allergy Hives Verified 01/06/19 03:17 SHRIMP Allergy Rash Uncoded 01/06/19 03:17 03/05/19 18:12 I have performed a brief in-person evaluation of this patient. The patient presents with a chief complaint of: leg swelling, wounds, chills Pertinent physical exam findings:stable and in NAD, non-focal I have ordered the following:labs The patient will proceed to the ED for further evaluation.
--- NOTE | 2019-03-05 19:04 | PDOC ---
History of Present Illness - General Chief Complaint: Wound Stated Complaint: WOUND W/LEG PAIN Time Seen by Provider: 03/05/19 18:11 - History of Present Illness Initial Comments: 03/05/19 19:13 79 yo M PMH HTN, HLD, DM 2, CKD 3, Hx DVT on Coumadin, Factor V Leiden and lupus anticoagulant positive, Gout, Celiac Disease, GERD, prostate cancer, non- healing wounds on R heel and L heel, presenting with RLE cellulitis. Notably, was here about 2.5 months ago for the same, received linezolid and aztreonam due to allergic reactions. Patient was supposed to follow up with vascular surgery and ID, but did not. Reports that he began to experience worsening RLE pain yesterday, with onset of increased redness and swelling. He followed up with his primary care doctor today, who recommended that he come to the ED. Patient denies fevers/chills, constipation/diarrhea, recent illness, sick contacts, N/V, RAYGOZA, CP, SOB, abd pain, urinary changes. Endorses RLE pain. Past History - Past Medical History Allergies/Adverse Reactions: Allergies Allergy/AdvReac Type Severity Reaction Status Date / Time Penicillins Allergy Severe Swelling Verified 01/06/19 03:17 ciprofloxacin [From Cipro] Allergy Intermediate Rash Verified 01/06/19 03:17 ciprofloxacin HCl Allergy Intermediate Rash Verified 01/06/19 03:17 [From Cipro] levofloxacin [From Levaquin] Allergy Intermediate Rash Verified 01/06/19 03:17 gluten Allergy Verified 01/06/19 03:17 shellfish derived Allergy Hives Verified 01/06/19 03:17 SHRIMP Allergy Rash Uncoded 01/06/19 03:17 Home Medications: Ambulatory Orders Atorvastatin Calcium 20 mg PO DAILY 09/28/15 Calcium Carbonate [Coral Calcium] 10 gm PO TID 09/28/15 Cholecalciferol (Vitamin D3) [Vitamin D3 -] 4,000 unit PO DAILY 09/28/15 Folic Acid - 3 mg PO DAILY 09/28/15 Glimepiride [Glimepiride -] 2 mg PO DAILY 09/28/15 Multivit-Min/FA/Lycopen/Lutein [Centrum Silver Tablet] 1 each PO DAILY 09/28/15 Magnesium Chloride [Slow-Mag -] 64 mg PO DAILY 12/05/15 Allopurinol 150 mg PO DAILY 11/14/17 Docusate Sodium [Colace] 100 mg PO PRN PRN 11/14/17 Ferrous Sulfate [Feosol] 324 mg PO DAILY 11/14/17 Ranitidine [Zantac -] 150 mg PO BID 11/14/17 Furosemide [Lasix] 40 mg PO PRN PRN 01/06/19 Gabapentin [Neurontin -] 300 mg PO BID 01/06/19 Losartan Potassium [Cozaar -] 25 mg PO DAILY 01/06/19 Clindamycin [Cleocin -] 300 mg PO TID 7 Days #21 capsule 01/14/19 Lactobacillus Acidophilus [Bacid -] 1 each PO DAILY #30 capsule 01/14/19 Warfarin Na [Coumadin -] 6 mg PO DAILY@1800 30 Days #30 tablet 01/14/19 Anemia: No Asthma: No Cancer: Yes (PROSTATE - RADIATION/SEEDS) Cardiac Disorders: Yes (ASHD) CVA: No COPD: No CHF: No Diabetes: Yes (NIDDM) GI Disorders: Yes (GERD,MILD DIVERTICULOSIS,CELIAC DISEASE) Disorders: Yes (BPH) HTN: Yes Hypercholesterolemia: No Kidney Stones: (KIDNEY PROBLEM. FUNCTIONS AT 33%) Liver Disease: No Seizures: No Thyroid Disease: No - Surgical History Appendectomy: No Cardiac Surgery: No Cholecystectomy: No Lung Surgery: No Neurologic Surgery: No Orthopedic Surgery: Yes (LAMINECTOMY/FUSION 1967) - Immunization History Immunization Up to Date: No - Psycho Social/Smoking Cessation Hx Smoking History: Current every day smoker Have you smoked in the past 12 months: Yes Number of Cigarettes Smoked Daily: 0 Cigars Per Day: 1 Information on smoking cessation initiated: No 'Breaking Loose' booklet given: 11/15/17 Hx Alcohol Use: Yes Drug/Substance Use Hx: No Substance Use Type: None Hx Substance Use Treatment: No Review of Systems - Review of Systems Comments:: 03/05/19 19:27 GENERAL/CONSTITUTIONAL: No fever or chills. No weakness. HEAD, EYES, EARS, NOSE AND THROAT: No change in vision. No ear pain or discharge. No sore throat. CARDIOVASCULAR: No chest pain or shortness of breath. RESPIRATORY: No cough, wheezing, or hemoptysis. GASTROINTESTINAL: No nausea, vomiting, diarrhea or constipation. GENITOURINARY: No dysuria, frequency, or change in urination. MUSCULOSKELETAL. No neck or back pain. RLE pain and swelling. SKIN: No rash NEUROLOGIC: No headache, vertigo, loss of consciousness, or change in strength/ sensation. ENDOCRINE: No increased thirst. No abnormal weight change. HEMATOLOGIC/LYMPHATIC: No anemia, easy bleeding, or history of blood clots. ALLERGIC/IMMUNOLOGIC: No hives or skin allergy *Physical Exam - Vital Signs Last Vital Signs Temp Pulse Resp BP Pulse Ox 97.8 F 92 H 16 94/52 L 96 03/05/19 18:13 03/05/19 18:13 03/05/19 18:13 03/05/19 18:13 03/05/19 18:13 - Physical Exam Comments: 03/05/19 19:28 Gen: well-developed, well-nourished, NAD, obese Neuro: AAOX4, CN II-XII intact, FTN intact, EOMI, PERRLA, 5/5 strength, SILT HEENT: atraumatic, normocephalic, dry mucous membranes Neck: trachea midline, supple CV: regular rate, regular rhythm, no murmurs, rubs, or gallops Pulm: CTA b/l, no wheezing Abd: soft, non-distended, non-tender MSK: full ROM, intact pulses Extr: RLE erythema, edema, mild ttp from ankle to mid tibia Skin: warm, dry, punctate lesions on R heel and L heel, wrapped and non-purulent ED Treatment Course - LABORATORY CBC & Chemistry Diagram: 03/05/19 18:50 03/05/19 18:50 Medical Decision Making - Medical Decision Making 03/05/19 19:36 Concern for recurrent cellulitis. - CBC, CMP, Mg, Phos - EKG, CXR, trop, VBG - BP 90s/40s, will give 500cc bolus - Duplex for DVT - aztreonam/linezolid - likely admit 03/05/19 20:22 Cr 2.7, INR 2.54, WBC 18.2. Admit. 03/05/19 20:29 EKG normal sinus at 78 bpm, LAD, RBBB Discharge - Discharge Information Problems reviewed: Yes Clinical Impression/Diagnosis: Cellulitis Condition: Stable - Follow up/Referral Referrals: Jose Young MD [Primary Care Provider] - - Patient Discharge Instructions - Post Discharge Activity
[2019-03-05] MEDS ORDERED: AZTREONAM 1 GM VIAL (RESTRICTED TO ID) IVPB SCH (19:30)
[2019-03-05] MEDS ORDERED: LINEZOLID 600 MG PREMIX BAG 600 MG in PREMIX 300 IVPB SCH (19:30)
[2019-03-05 19:35] LABS: BASO % 0.3 % (0-2.0); EOS % 0.1 % (0-4.5); HEMATOCRIT 35.4 % (35.4-49); HEMOGLOBIN 11.4 GM/dL (11.7-16.9); LYMPH % 7.4 % (8-40); MCH 31.6 pg (25.7-33.7); MCHC 32.2 g/dl (32.0-35.9); MEAN PLT VOLUME 9.1 fl (7.5-11.1); MONO % 5.7 % (3.8-10.2); NEUT % 86.5 % (42.8-82.8); PLATELET COUNT 201 K/MM3 (134-434); RBC 3.61 M/mm3 (4.00-5.60); RDW 19.5 % (11.9-15.9); WHITE BLOOD COUNT 18.2 K/mm3 (4.0-10.0)
[2019-03-05 19:36] LABS: VENOUS PH 7.34 (7.31-7.41)
[2019-03-05 19:38] LABS: VENOUS PO2 < 49 mmHg (28-48)
[2019-03-05] MEDS ORDERED: SODIUM CHLORIDE 0.9% 500 ML INFUS.BAG IV ONE (19:44)
[2019-03-05 20:02] LABS: ALBUMIN 3.8 g/dl (3.4-5.0); BILIRUBIN,TOTAL 1.1 mg/dL (0.2-1); BLOOD UREA NITROGEN 44.8 mg/dL (7-18); CALCIUM 8.6 mg/dL (8.5-10.1); CREATININE 2.7 mg/dL (0.55-1.3); POTASSIUM 4.3 mmol/L (3.5-5.1); TOT PROT 6.9 g/dl (6.4-8.2)
[2019-03-05 20:12] LABS: INR 2.54 (0.83-1.09); PROTHROMBIN TIME (PATIENT) 30.2 SEC (9.7-13.0)
[2019-03-05] MEDS ORDERED: AZTREONAM 1 GM VIAL (RESTRICTED TO ID) ONE (20:13)
[2019-03-05 20:14] LABS: ACTIVATED PTT 42.4 SECONDS (25.2-36.5)
--- NOTE | 2019-03-05 20:17 | PDOC ---
Attending Attestation - Resident Resident Name: Paulo Cartagena - ED Attending Attestation I have performed the following: I have examined & evaluated the patient, The case was reviewed & discussed with the resident, I agree w/resident's findings & plan, Exceptions are as noted - HPI HPI: 03/05/19 20:17 79M DM, HTN, HLD, CKD, Factor V Leiden, hx dvt on coumadin, gout, ceilac dz, prostate CA, non-healing ulcers on bilateral feet here with RLE redness, pain, swelling. - Physicial Exam PE: 03/05/19 20:36 Agree with exam as documented by resident - Medical Decision Making 03/05/19 20:36 Likely RLE cellulitis, consider DVT f/u labs, imaging, start abx admit
[2019-03-05] MEDS ORDERED: AZTREONAM 2 GM in DEXTROSE 5%-WATER 100 ML IVPB SCH (20:30)
[2019-03-05 21:27] LABS: MAGNESIUM 2.4 mg/dL (1.8-2.4); PHOSPHOROUS 2.9 mg/dL (2.5-4.9)
[2019-03-05] MEDS ORDERED: SODIUM CHLORIDE 1,000 ML IV SCH (21:45)
--- NOTE | 2019-03-05 21:48 | PN ---
Teaching Attending Note Name of Resident: Donna Lim ATTENDING PHYSICIAN STATEMENT I saw and evaluated the patient. I reviewed the resident's note and discussed the case with the resident. I agree with the resident's findings and plan as documented. SUBJECTIVE: 79M DM, HTN, HLD, CKD, Factor V Leiden, hx dvt on coumadin, gout, ceilac dz, prostate CA, non-healing ulcers on bilateral feet here with RLE redness, pain, swelling for the past couple days. Patient was not cooperating well during the interview and was sleeping however as per EMR he did not have other complaints other than his right leg erythema. OBJECTIVE: Last Vital Signs Temp Pulse Resp BP Pulse Ox 98.4 F 75 20 94/47 L 97 03/05/19 19:30 03/05/19 19:30 03/05/19 19:30 03/05/19 19:30 03/05/19 19:30 GENERAL: Well developed, well nourished. Awake and alert. No acute distress. HEENT: Normocephalic, atraumatic. PERRLA, EOMI. No conjunctival pallor. Sclera are non- icteric. Moist mucous membranes. Oropharynx is clear. NECK: Supple. Full ROM. No JVD. Carotid pulses 2+ and symmetric, without bruits. No thyromegaly. No lymphadenopathy. CARDIOVASCULAR: Regular rate and rhythm. No murmurs, rubs, or gallops. Distal pulses are 2+ and symmetric. PULMONARY: No evidence of respiratory distress. Lungs clear to auscultation bilaterally. No wheezing, rales or rhonchi. ABDOMINAL: Soft. Non-tender. Non-distended. No rebound or guarding. No organomegaly. Normoactive bowel sounds. MUSCULOSKELETAL Normal range of motion at all joints. No bony deformities or tenderness. No CVA tenderness. EXTREMITIES: Right lower Extremity cellulitis, primarily involving the medial aspect of the leg. Noted to have bilateral plantar ulcers. They appear clean bilaterally SKIN: Warm and dry. Normal capillary refill. No rashes. No jaundice. PSYCHIATRIC: Cooperative. Good eye contact. Appropriate mood and affect. Abnormal Lab Results 03/05/19 03/05/19 03/05/19 18:50 18:50 18:50 WBC 18.2 H RBC 3.61 L Hgb 11.4 L MCV 98.0 H RDW 19.5 H Absolute Neuts (auto) 15.7 H Neutrophils % 86.5 H D Lymphocytes % 7.4 L D PT with INR 30.20 H INR 2.54 H PTT (Actin FS) 42.4 H POC VBG pO2 VBG O2 Sat (Maye) Chloride 108 H Anion Gap 5 L BUN 44.8 H Creatinine 2.7 H Total Bilirubin 1.1 H Urine Protein Urine Ketones 03/05/19 03/05/19 18:50 21:25 WBC RBC Hgb MCV RDW Absolute Neuts (auto) Neutrophils % Lymphocytes % PT with INR INR PTT (Actin FS) POC VBG pO2 < 49 H VBG O2 Sat (Maye) 46.0 L Chloride Anion Gap BUN Creatinine Total Bilirubin Urine Protein 3+ H Urine Ketones Trace H Imaging reviewed ASSESSMENT AND PLAN: 79-year-old male with right lower extremity cellulitis, extensiveAssociated with leukocytosis with neutrophil predominance. DVT should be ruled out. Multiple antibiotic allergies including severe penicillin allergy characterized by angioedema. DVT should be ruled out. Admit to [facility] Blood cultures Vancomycin Aztreonam ID consult IV fluids Lower extremity duplex to rule out DVT Lower extremity elevation ESR, CRP Heparin subcutaneously for DVT prophylaxis #Macrocytic anemia #History of DVT and CoumadinINR appears to be in therapeutic range Continue Coumadin home dose Check daily INR #CKDappears relatively stable although might have slight NAZARIO Avoid nephrotoxins Gentle IV fluid hydration I's and O's Daily weights DVT prophylaxis on Coumadin with therapeutic INR
[2019-03-05] MEDS: SODIUM CHLORIDE 1,000 ML IV SCH (21:59)
[2019-03-05] MEDS ORDERED: VANCOMYCIN 1 GM in D5W (PRE-DOCKED) 1,000 MG/250 ML IVPB SCH (22:00)
[2019-03-05] MEDS ORDERED: CEFTRIAXONE 1 GM in DEXTROSE 5%-WATER - 50 ML IVPB SCH (22:00)
[2019-03-05 22:01] LABS: EPI CELLS 4.5 /HPF (0-5/HPF); HYALINE CASTS 6 /lpf (0-8); URINE APPEARANCE CLEAR; URINE BACTERIA 41.3 /hpf (NEGATIVE); URINE BILIRUBIN NEGATIVE (NEGATIVE); URINE COLOR YELLOW; URINE GLUCOSE (UA) NEGATIVE (NEGATIVE); URINE KETONE TRACE (NEGATIVE); URINE LEUK ESTERASE TRACE (NEGATIVE); URINE NITRITE NEGATIVE (NEGATIVE); URINE PROTEIN 3+ (NEGATIVE); URINE RBC 3 /hpf (0-4); URINE UROBILINOGEN 0.2 mg/dL (0.2-1.0); URINE WBC 2 /hpf (0-5)
--- NOTE | 2019-03-05 22:31 | HP ---
CHIEF COMPLAINT: Cellulitis PCP: Dr. Young HISTORY OF PRESENT ILLNESS: Pt is a 79 y/o M with pmhx of HLD, DM2, CKD (stage 4, 33%), Hx of DVT (on Coumadin), Factor V Leiden, Lupus anticoagulant +, Gout, Celiac disease, GERD, prostate CA (remission since 2013) and non-healing wounds on R and L heels presenting to ED complaining of diaphoresis, chills, and R leg pain. Pt was treated at [facility] about 2.5 months ago for bilateral LE cellulitis with Linezolid and Aztreonam due to allergic reaction to penicillin (throat/tongue swelling). He was discharged on Abx, Clindamycin, which the pt says he finished. Pt was supposed to follow up with vascular surgery and ID but was only able to follow up with ID, Dr. Watkins, who ordered "oxygen boots" for him though he has not received them yet. Yesterday night, pt reports he started experienced R leg pain, chills , diaphoresis, and per his , the pt felt feverish to touch. He experienced similar symptoms during his last admission to [facility] hospital. Pt denies RAYGOZA, SOB, chest pain, Abd pain, urinary changes or any trauma to the legs. Nothing improves or worsens pts symptoms. 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 Residence: Pt lives with his Fhx: Father: none; Mother: Breast CA ( at 47 y/o) Allergies Penicillin Rx: Tongue/ Throat swelling; Cipro/Cipro HCl Rx: Rash; Levofloxacin Rx: Rash; Gluten; Shellfish Rx: Hives; Shrimp Rx: Rash Penicillins Allergy (Severe, Verified 01/06/19 03:17) Swelling ciprofloxacin [From Cipro] Allergy (Intermediate, Verified 01/06/19 03:17) Rash ciprofloxacin HCl [From Cipro] Allergy (Intermediate, Verified 01/06/19 03:17) Rash levofloxacin [From Levaquin] Allergy (Intermediate, Verified 01/06/19 03:17) Rash gluten Allergy (Verified 01/06/19 03:17) shellfish derived Allergy (Verified 01/06/19 03:17) Hives SHRIMP Allergy (Uncoded 01/06/19 03:17) Rash HOME MEDICATIONS: Home Medications Medication Instructions Recorded Atorvastatin Calcium 20 mg PO DAILY 09/28/15 Calcium Carbonate [Coral Calcium] 10 gm PO TID 09/28/15 Cholecalciferol (Vitamin D3) 4,000 unit PO DAILY 09/28/15 [Vitamin D3 -] Folic Acid - 3 mg PO DAILY 09/28/15 Glimepiride [Glimepiride -] 2 mg PO DAILY 09/28/15 Multivit-Min/FA/Lycopen/Lutein 1 each PO DAILY 09/28/15 [Centrum Silver Tablet] Magnesium Chloride [Slow-Mag -] 64 mg PO DAILY 12/05/15 Allopurinol 150 mg PO DAILY 11/14/17 Docusate Sodium [Colace] 100 mg PO PRN PRN 11/14/17 Ferrous Sulfate [Feosol] 324 mg PO DAILY 11/14/17 Ranitidine [Zantac -] 150 mg PO BID 11/14/17 Furosemide [Lasix] 40 mg PO PRN PRN 01/06/19 Gabapentin [Neurontin -] 300 mg PO BID 01/06/19 Losartan Potassium [Cozaar -] 25 mg PO DAILY 01/06/19 Clindamycin [Cleocin -] 300 mg PO TID 7 Days #21 capsule 01/14/19 Lactobacillus Acidophilus [Bacid -] 1 each PO DAILY #30 capsule 01/14/19 Warfarin Na [Coumadin -] 6 mg PO DAILY@1800 30 Days #30 01/14/19 tablet REVIEW OF SYSTEMS CONSTITUTIONAL: fever, chills, diaphoresis, Absent: generalized weakness, malaise, loss of appetite, weight change HEENT: Absent: rhinorrhea, nasal congestion, throat pain, throat swelling, difficulty swallowing, mouth swelling, ear pain, eye pain, visual changes CARDIOVASCULAR: Absent: chest pain, syncope, palpitations, irregular heart rate, lightheadedness , peripheral edema RESPIRATORY: Absent: cough, shortness of breath, dyspnea with exertion, orthopnea, wheezing, stridor, hemoptysis GASTROINTESTINAL: Absent: abdominal pain, abdominal distension, nausea, vomiting, diarrhea, constipation, melena, hematochezia GENITOURINARY: Absent: dysuria, frequency, urgency, hesitancy, hematuria, flank pain, genital pain MUSCULOSKELETAL: Absent: myalgia, arthralgia, joint swelling, back pain, neck pain SKIN: erythema and warmth of RLE Absent: rash, itching, pallor HEMATOLOGIC/IMMUNOLOGIC: Absent: easy bleeding, easy bruising, lymphadenopathy, frequent infections ENDOCRINE: Absent: unexplained weight gain, unexplained weight loss, heat intolerance, cold intolerance NEUROLOGIC: decreased sensation in right foot Absent: headache, focal weakness or paresthesias, dizziness, unsteady gait, seizure, mental status changes, bladder or bowel incontinence PSYCHIATRIC: Absent: anxiety, depression, suicidal or homicidal ideation, hallucinations. PHYSICAL EXAMINATION Vital Signs - 24 hr 03/05/19 03/05/19 18:13 19:30 Temperature 97.8 F 98.4 F Pulse Rate 92 H Pulse Rate [ 75 Left Apical] Respiratory 16 20 Rate Blood Pressure 94/52 L Blood Pressure 94/47 L [Right Arm] O2 Sat by Pulse 96 97 Oximetry (%) GENERAL: Awake, alert, and fully oriented, in no acute distress. HEAD: Normal with no signs of trauma. EYES: Pupils equal, round and reactive to light, extraocular movements intact, sclera anicteric, conjunctiva clear. No lid lag. EARS, NOSE, THROAT: Ears normal, nares patent, oropharynx clear without exudates. Moist mucous membranes, extremely poor dentition NECK: Normal range of motion, supple without lymphadenopathy, JVD, or masses. LUNGS: Breath sounds equal, clear to auscultation bilaterally. No wheezes, and no crackles. No accessory muscle use. HEART: Regular rate and rhythm, normal S1 and S2 without murmur, rub or gallop. ABDOMEN: Soft, nontender,obese, normoactive bowel sounds, no guarding, no rebound, no masses. MUSCULOSKELETAL: Normal range of motion at all joints. No bony deformities or tenderness. No CVA tenderness. UPPER EXTREMITIES: 2+ pulses, warm, well-perfused. No cyanosis. No clubbing. No peripheral edema. LOWER EXTREMITIES: 2+ pulses, warm, well-perfused. 1+ bilateral pitting edema, , LLE with warmth and erythema to 4 inches below knee, TTP. Bilateral foot wounds on L foot the wound is on the plantar surface near the metatarsal phalangeal joint of the big toe. It is ulcerated wth some surrounding erythema but not pus and not ttp. On the Right foot the wound is on the medial plantar surface and appears similar to the L side, ulcerated with some surrounding erythema. No pus was present or expressed and it is not ttp. NEUROLOGICAL: Cranial nerves II-XII intact. Normal speech. PSYCHIATRIC: Cooperative. Good eye contact. Appropriate mood and affect. SKIN: as described above Laboratory Results - last 24 hr 03/05/19 03/05/19 03/05/19 18:50 18:50 18:50 WBC 18.2 H RBC 3.61 L Hgb 11.4 L Hct 35.4 MCV 98.0 H MCH 31.6 MCHC 32.2 RDW 19.5 H Plt Count 201 MPV 9.1 Absolute Neuts (auto) 15.7 H Neutrophils % 86.5 H D Lymphocytes % 7.4 L D Monocytes % 5.7 Eosinophils % 0.1 D Basophils % 0.3 Nucleated RBC % 0 PT with INR 30.20 H INR 2.54 H PTT (Actin FS) 42.4 H VBG pH POC VBG pCO2 POC VBG pO2 VBG HCO3 VBG O2 Sat (Maye) VBG Base Excess Sodium Potassium Chloride Carbon Dioxide Anion Gap BUN Creatinine Est GFR (CKD-EPI)AfAm Est GFR (CKD-EPI)NonAf Random Glucose Lactic Acid Calcium Phosphorus Magnesium Total Bilirubin AST ALT Alkaline Phosphatase Troponin I 0.02 Total Protein Albumin Urine Color Urine Appearance Urine pH Ur Specific [place] Urine Protein Urine Glucose (UA) Urine Ketones Urine Blood Urine Nitrite Urine Bilirubin Urine Urobilinogen Ur Leukocyte Esterase Urine WBC (Auto) Urine RBC (Auto) Urine Casts (Auto) U Epithel Cells (Auto) Urine Bacteria (Auto) 03/05/19 03/05/19 03/05/19 18:50 18:50 18:50 WBC RBC Hgb Hct MCV MCH MCHC RDW Plt Count MPV Absolute Neuts (auto) Neutrophils % Lymphocytes % Monocytes % Eosinophils % Basophils % Nucleated RBC % PT with INR INR PTT (Actin FS) VBG pH 7.34 POC VBG pCO2 45.0 POC VBG pO2 < 49 H VBG HCO3 23.3 VBG O2 Sat (Maye) 46.0 L VBG Base Excess -2.0 Sodium 138 Potassium 4.3 Chloride 108 H Carbon Dioxide 25 Anion Gap 5 L BUN 44.8 H Creatinine 2.7 H Est GFR (CKD-EPI)AfAm 25.03 Est GFR (CKD-EPI)NonAf 21.60 Random Glucose 76 Lactic Acid 1.5 Calcium 8.6 Phosphorus Magnesium Total Bilirubin 1.1 H AST 22 ALT 22 Alkaline Phosphatase 62 Troponin I Total Protein 6.9 Albumin 3.8 Urine Color Urine Appearance Urine pH Ur Specific [place] Urine Protein Urine Glucose (UA) Urine Ketones Urine Blood Urine Nitrite Urine Bilirubin Urine Urobilinogen Ur Leukocyte Esterase Urine WBC (Auto) Urine RBC (Auto) Urine Casts (Auto) U Epithel Cells (Auto) Urine Bacteria (Auto) 03/05/19 03/05/19 20:47 21:25 WBC RBC Hgb Hct MCV MCH MCHC RDW Plt Count MPV Absolute Neuts (auto) Neutrophils % Lymphocytes % Monocytes % Eosinophils % Basophils % Nucleated RBC % PT with INR INR PTT (Actin FS) VBG pH POC VBG pCO2 POC VBG pO2 VBG HCO3 VBG O2 Sat (Maye) VBG Base Excess Sodium Potassium Chloride Carbon Dioxide Anion Gap BUN Creatinine Est GFR (CKD-EPI)AfAm Est GFR (CKD-EPI)NonAf Random Glucose Lactic Acid Calcium Phosphorus 2.9 Magnesium 2.4 Total Bilirubin AST ALT Alkaline Phosphatase Troponin I Total Protein Albumin Urine Color Yellow Urine Appearance Clear Urine pH 5.0 Ur Specific [place] 1.017 Urine Protein 3+ H Urine Glucose (UA) Negative Urine Ketones Trace H Urine Blood Negative Urine Nitrite Negative Urine Bilirubin Negative Urine Urobilinogen 0.2 Ur Leukocyte Esterase Trace Urine WBC (Auto) 2 Urine RBC (Auto) 3 Urine Casts (Auto) 6 U Epithel Cells (Auto) 4.5 Urine Bacteria (Auto) 41.3 ASSESSMENT/PLAN: Pt is a 79 y/o M with pmhx of HLD, DM2, CKD (stage 4, 33%), Hx of DVT (on Coumadin), Factor V Leiden, Lupus anticoagulant +, Gout, Celiac disease, GERD, prostate CA (remission since 2013) and non-healing wounds on R and L heels presenting to ED complaining of diaphoresis, chills, and R leg pain. # RLE cellulitis- Associated with leukocytosis with neutrophil predominance. Multiple antibiotic allergies including severe penicillin allergy characterized by angioedema. DVT should be ruled out. - Blood cultures - Vancomycin 1000mg IVPB daily - Random vanc trough as pt has CKD - Aztreonam 2gm IVPB q8h - ID consult - IV fluids - Lower extremity duplex to rule out DVT - Lower extremity elevation - ESR, CRP # Hx of DVT- on Coumadin, INR in therapeutic range - Continue Coumadin home dose - Check daily INR # CKD - Avoid nephrotoxins - Renally dose all medications - Gentle IV fluid hydration with IVNS @ 100cc/h - I's and O's - Daily weights # DM II - BGM ACHS - ISS # FEN - IVNS @ 100cc/h - replete PRN - Na controlled diet # PPx - DVT ppx- pt is on Coumadin with therapeutic INR # Dispo- admit to med-surg, full code Visit type - Emergency Visit Emergency Visit: Yes ED Registration Date: 03/05/19 Care time: The patient presented to the Emergency Department on the above date and was hospitalized for further evaluation of their emergent condition. - New Patient This patient is new to me today: Yes Date on this admission: 03/06/19 - Critical Care Critical Care patient: No ATTENDING PHYSICIAN STATEMENT I saw and evaluated the patient. I reviewed the resident's note and discussed the case with the resident. I agree with the resident's findings and plan as documented. SUBJECTIVE: OBJECTIVE: ASSESSMENT AND PLAN:
[2019-03-06] MEDS ORDERED: DEXTROSE 50%-WATER - 25 GM/50 ML VIAL IVPUSH ONE (00:30)
[2019-03-06] MEDS ORDERED: DEXTROSE 50%-WATER 25 GM/50 ML DISP.SYRIN ONE (00:32)
[2019-03-06] MEDS: INSULIN SLIDING SCALE (NOVOLOG) 1 VIAL SQ SCH ×4 (00:41→17:25)
[2019-03-06] MEDS ORDERED: AZTREONAM 2 GM in DEXTROSE 5%-WATER 100 ML IVPB SCH ×2 (02:00→20:15)
[2019-03-06] MEDS: AZTREONAM 2 GM in DEXTROSE 5%-WATER 100 ML IVPB SCH ×3 (03:31→18:21)
[2019-03-06 07:50] LABS: BASO % 0.3 % (0-2.0); EOS % 0.5 % (0-4.5); HEMATOCRIT 28.5 % (35.4-49); HEMOGLOBIN 9.6 GM/dL (11.7-16.9); LYMPH % 14.5 % (8-40); MCH 32.5 pg (25.7-33.7); MCHC 33.5 g/dl (32.0-35.9); MEAN CELL VOLUME 97.2 fl (80-96); MEAN PLT VOLUME 8.9 fl (7.5-11.1); MONO % 8.6 % (3.8-10.2); NEUT % 76.1 % (42.8-82.8); PLATELET COUNT 141 K/MM3 (134-434); RBC 2.94 M/mm3 (4.00-5.60); RDW 19.6 % (11.9-15.9); WHITE BLOOD COUNT 9.3 K/mm3 (4.0-10.0)
[2019-03-06 08:02] LABS: INR 2.42 (0.83-1.09); PROTHROMBIN TIME (PATIENT) 28.8 SEC (9.7-13.0)
[2019-03-06 08:25] LABS: ALBUMIN 2.9 g/dl (3.4-5.0); BILIRUBIN,TOTAL 0.9 mg/dL (0.2-1); BLOOD UREA NITROGEN 44.8 mg/dL (7-18); CREATININE 2.6 mg/dL (0.55-1.3); MAGNESIUM 2.3 mg/dL (1.8-2.4); PHOSPHOROUS 2.8 mg/dL (2.5-4.9); POTASSIUM 4.3 mmol/L (3.5-5.1); TOT PROT 5.6 g/dl (6.4-8.2)
[2019-03-06] MEDS ORDERED: VANCOMYCIN 1 GM in D5W (PRE-DOCKED) 1,000 MG/250 ML IVPB SCH (10:00)
[2019-03-06] MEDS ORDERED: LOSARTAN POTASSIUM 25 MG TABLET PO SCH (10:00)
[2019-03-06] MEDS ORDERED: CEFTRIAXONE 1 GM in DEXTROSE 5%-WATER - 50 ML IVPB SCH (10:00)
[2019-03-06 10:29] LABS: ERYTHROCYTE SEDIMENTATION RATE 31 mm/hr (0-20)
[2019-03-06] MEDS: GABAPENTIN 300 MG CAPSULE (FP) PO SCH ×2 (11:37→21:40)
--- NOTE | 2019-03-06 13:45 | EKG ---
Test Reason : Blood Pressure : / mmHG Vent. Rate : 078 BPM Atrial Rate : 078 BPM P-R Int : 168 ms QRS Dur : 148 ms QT Int : 392 ms P-R-T Axes : 046 -77 -05 degrees QTc Int : 446 ms NORMAL SINUS RHYTHM LEFT AXIS DEVIATION RIGHT BUNDLE BRANCH BLOCK INFERIOR INFARCT , AGE UNDETERMINED ABNORMAL ECG WHEN COMPARED WITH ECG OF 06-JAN-2019 01:51, NO SIGNIFICANT CHANGE WAS FOUND Confirmed by DAVI HONG MD ([id number]) on 03/06/2019 1:45:37 PM Referred By: Confirmed By:DAVI HONG MD
--- NOTE | 2019-03-06 13:45 | CON.ID ---
Consult Reason for Consultation:: LE cellulitis/multiple abx allergies - History of Present Illness Chief Complaint: right leg pain History of Present Illness: Mr. Brandon is a 78 y/o male with hx of right LE cellulitis, chronic b/l foot ulcers, multiple abx allergies, HTN, DM, and CKD who presents with right lower extremity pain and chills x 2 days. Pt was admitted in December for cellulitis and treated with IV and PO abx. He reports his leg improved and saw Dr. Watkins and Dr. Feng for follow up. An oxygen boot was ordered, but it was not received yet. Two days ago pain and chills began. He denies fever, n/v, or trauma to the leg. 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) Home Medications - Allergies Allergies/Adverse Reactions: Allergies Allergy/AdvReac Type Severity Reaction Status Date / Time Penicillins Allergy Severe Swelling Verified 01/06/19 03:17 ciprofloxacin [From Cipro] Allergy Intermediate Rash Verified 01/06/19 03:17 ciprofloxacin HCl Allergy Intermediate Rash Verified 01/06/19 03:17 [From Cipro] levofloxacin [From Levaquin] Allergy Intermediate Rash Verified 01/06/19 03:17 gluten Allergy Verified 01/06/19 03:17 shellfish derived Allergy Hives Verified 01/06/19 03:17 SHRIMP Allergy Rash Uncoded 01/06/19 03:17 - Home Medications Home Medications: Ambulatory Orders Atorvastatin Calcium 20 mg PO DAILY 09/28/15 Calcium Carbonate [Coral Calcium] 10 gm PO TID 09/28/15 Cholecalciferol (Vitamin D3) [Vitamin D3 -] 4,000 unit PO DAILY 09/28/15 Folic Acid - 3 mg PO DAILY 09/28/15 Glimepiride [Glimepiride -] 2 mg PO BID 09/28/15 Multivit-Min/FA/Lycopen/Lutein [Centrum Silver Tablet] 1 each PO DAILY 09/28/15 Magnesium Chloride [Slow-Mag -] 64 mg PO DAILY 12/05/15 Allopurinol 300 mg PO DAILY 11/14/17 Docusate Sodium [Colace] 100 mg PO PRN PRN 11/14/17 Ferrous Sulfate [Feosol] 324 mg PO DAILY 11/14/17 Ranitidine [Zantac -] 150 mg PO BID 11/14/17 Furosemide [Lasix] 40 mg PO PRN PRN 01/06/19 Gabapentin [Neurontin -] 300 mg PO BID 01/06/19 Losartan Potassium [Cozaar -] 25 mg PO DAILY 01/06/19 Warfarin Na [Coumadin -] 6 mg PO DAILY@1800 30 Days #30 tablet 01/14/19 Tamsulosin HCl 1 tablet PO DAILY 03/06/19 Review of Systems - Review of Systems Constitutional: denies: Chills, Fever Integumentary: reports: Erythema, Wound Physical Exam Vital Signs: Vital Signs Temperature 99.6 F 03/06/19 09:00 Pulse Rate 78 03/06/19 09:00 Respiratory Rate 20 03/06/19 09:00 Blood Pressure 130/50 L 03/06/19 09:00 O2 Sat by Pulse Oximetry (%) 97 03/06/19 01:27 Constitutional: Yes: Well Nourished, No Distress Eyes: Yes: Conjunctiva Clear, EOM Intact HENT: Yes: Atraumatic, Normocephalic Neck: Yes: Supple, Trachea Midline Cardiovascular: Yes: Regular Rate and Rhythm. No: Murmur Respiratory: Yes: CTA Bilaterally Gastrointestinal: Yes: Normal Bowel Sounds. No: Tenderness Extremities: Yes: Erythema (circumferential erythema below the knee to the ankle , more prominent laterally, warm to touch), Other (chronic left plantar ulcer at 1st MTP, with no drainage; chronic right medial foot ulcer with no drainage) Edema: LLE: 2+, RLE: 1+ Neurological: Yes: Alert, Oriented Labs: CBC, BMP 03/06/19 07:10 03/06/19 07:10 Assessment/Plan ASSESSMENT/PLAN: Mr. Brandon is a 78 y/o male with hx of right LE cellulitis, chronic b/l foot ulcers, multiple abx allergies, HTN, DM, and CKD who presents with right lower extremity pain and chills x 2 days. Pt was admitted in December and was given 7 days linezolid and aztreonam and discharged with PO clindamycin. Cellulitis improved and began again 2 days ago. Pt was hypotensive upon presentation with leukocytosis. Pressure has normalized and leukocytosis resolved. #right lower extremity cellulitis -aztreonam (day 1) -vancomycin 1,000mg x 1-recheck vanc level tomorrow morning #bilateral foot ulcers -consider podiatry consult
[2019-03-06] MEDS: SODIUM CHLORIDE 1,000 ML IV SCH (14:04)
[2019-03-06] MEDS ORDERED: VANCOMYCIN 1 GRAM (PRE-DOCKED) 1,000 MG/250 ML BAG IVPB ONE (14:06)
--- NOTE | 2019-03-06 14:18 | PN ---
Teaching Attending Note Name of Resident: Smitha Boyd ATTENDING PHYSICIAN STATEMENT I saw and evaluated the patient. I reviewed the resident's note and discussed the case with the resident. I agree with the resident's findings and plan as documented. SUBJECTIVE: recurrent erythema of his legs plantar ulcers unchanged never did HBO followed by dr victoria OBJECTIVE: Vital Signs Period Temp Pulse Resp BP Sys/Gautam Pulse Ox Last 24 Hr 97.8 F-99.6 F 72-92 16-20 94-139/47-61 96-97 obese cor-rrr lungs clear abd soft,nt ext erythema of the LLE bilateral plantar ulcers CBC, BMP 03/06/19 07:10 03/06/19 07:10 ASSESSMENT AND PLAN: cellulitis bilateral plantar ulcers CKD DM penicillin/quinolone allergy continue vancomycin by level continue azactam podiatry consule dr victoria
--- NOTE | 2019-03-06 15:37 | PN ---
Physical Exam: SUBJECTIVE: Patient seen and examined 79 y/o M, pmh of HLD, DM2, CKD (stage 4, 33%), Hx of DVT (on Coumadin), Factor V Leiden, Lupus anticoagulant +, Gout, Celiac disease, GERD, prostate CA ( remission since 2013) and non-healing wounds on R and L heels presented for worsening swelling, redness and pain of his right lower legs accompanied by chills and diaphoresis of 2 day duration. Currently, pt is stable and says that his chills and diaphoresis has resolved, however, the swelling, redness and pain of his left leg is still present. Pt is afebrile and had no overnight issues. Denies f/c/n/v/d/sob/chest pain/ numbness and tingling. OBJECTIVE: Vital Signs Period Temp Pulse Resp BP Sys/Gautam Pulse Ox Last 24 Hr 97.8 F-99.6 F 72-92 16-20 94-139/47-61 96-97 GENERAL: The patient is awake, alert, and fully oriented, in no acute distress. EYES: PERRL, extraocular movements intact, ENT: Dentition poor. Clear without exudates, moist mucous membranes. NECK: full range of motion, supple. LUNGS: Breath sounds equal, clear to auscultation bilaterally, no wheezes, no crackles HEART: Regular rate and rhythm, S1, S2 without murmur, rub or gallop. ABDOMEN: Soft, nontender, nondistended, normoactive bowel sounds, no guarding, EXTREMITIES: RLE: 1x1.5 cm ulcer on the plantar surface of the 1st metatarsal. Swelling and redness present up to 2/3 of the LE. Tender to palpation. LLE: 1.5-1.5 cm ulcer on the plantar surface of 2nd metatarsal, w/ swelling of the foot. Non-tender to palpation. NEUROLOGICAL: Cranial nerves II through XII grossly intact. SKIN: Warm, dry, normal turgor, no rashes or lesions noted Laboratory Results - last 24 hr CBC,CMP WBC 9.3 K/mm3 (4.0-10.0) 03/06/19 07:10 RBC 2.94 M/mm3 (4.00-5.60) L 03/06/19 07:10 Hgb 9.6 GM/dL (11.7-16.9) L 03/06/19 07:10 Hct 28.5 % (35.4-49) L D 03/06/19 07:10 MCV 97.2 fl (80-96) H 03/06/19 07:10 MCH 32.5 pg (25.7-33.7) 03/06/19 07:10 MCHC 33.5 g/dl (32.0-35.9) 03/06/19 07:10 RDW 19.6 % (11.9-15.9) H 03/06/19 07:10 Plt Count 141 K/MM3 (134-434) D 03/06/19 07:10 MPV 8.9 fl (7.5-11.1) 03/06/19 07:10 Absolute Neuts (auto) 7.1 K/mm3 (1.5-8.0) 03/06/19 07:10 Neutrophils % 76.1 % (42.8-82.8) 03/06/19 07:10 Lymphocytes % 14.5 % (8-40) D 03/06/19 07:10 Monocytes % 8.6 % (3.8-10.2) 03/06/19 07:10 Eosinophils % 0.5 % (0-4.5) D 03/06/19 07:10 Basophils % 0.3 % (0-2.0) 03/06/19 07:10 Nucleated RBC % 0 % (0-0) 03/06/19 07:10 ESR 31 mm/hr (0-20) H 03/06/19 07:10 Sodium 136 mmol/L (136-145) 03/06/19 07:10 Potassium 4.3 mmol/L (3.5-5.1) 03/06/19 07:10 Chloride 105 mmol/L (98-107) 03/06/19 07:10 Carbon Dioxide 24 mmol/L (21-32) 03/06/19 07:10 Anion Gap 8 MMOL/L (8-16) 03/06/19 07:10 BUN 44.8 mg/dL (7-18) H 03/06/19 07:10 Creatinine 2.6 mg/dL (0.55-1.3) H 03/06/19 07:10 Est GFR (CKD-EPI)AfAm 26.20 03/06/19 07:10 Est GFR (CKD-EPI)NonAf 22.61 03/06/19 07:10 POC Glucometer 151 UNITS (80-120) 03/06/19 11:32 Random Glucose 99 mg/dL (74-106) 03/06/19 07:10 Lactic Acid 1.4 mmol/L (0.4-2.0) 03/05/19 22:15 Calcium 8.0 mg/dL (8.5-10.1) L 03/06/19 07:10 Phosphorus 2.8 mg/dL (2.5-4.9) 03/06/19 07:10 Magnesium 2.3 mg/dL (1.8-2.4) 03/06/19 07:10 Total Bilirubin 0.9 mg/dL (0.2-1) 03/06/19 07:10 AST 20 U/L (15-37) 03/06/19 07:10 ALT 19 U/L (13-61) 03/06/19 07:10 Alkaline Phosphatase 47 U/L (45-117) 03/06/19 07:10 Troponin I 0.02 ng/ml (0.00-0.05) 03/05/19 18:50 C-Reactive Protein 12.8 MG/DL (0.00-0.3) H 03/06/19 07:10 Total Protein 5.6 g/dl (6.4-8.2) L 03/06/19 07:10 Albumin 2.9 g/dl (3.4-5.0) L 03/06/19 07:10 Active Medications Current Medications Gabapentin (Neurontin -) 300 mg PO BID ANNY Last Admin: 03/06/19 11:37 Dose: 300 mg Sodium Chloride (Normal Saline -) 1,000 mls @ 100 mls/hr IV ASDIR ANNY Stop: 03/06/19 21:39 Last Admin: 03/06/19 14:04 Dose: 100 mls/hr Aztreonam 2 gm/ Dextrose 100 mls @ 100 mls/hr IVPB Q8H-IV ANNY; Protocol Vancomycin HCl (Vancomycin (Pre-Docked)) 1,000 mg in 250 mls @ 166.667 mls/hr IVPB ONCE ONE; Protocol Stop: 03/06/19 15:35 Insulin Aspart (Novolog Vial Sliding Scale -) 1 vial SQ TIDAC [facility]; Protocol Last Admin: 03/06/19 11:42 Dose: 2 units Warfarin Sodium (Coumadin -) 6 mg PO DAILY@1800 [facility] Home Medications Medication Instructions Recorded Atorvastatin Calcium 20 mg PO DAILY 09/28/15 Calcium Carbonate [Coral Calcium] 10 gm PO TID 09/28/15 Cholecalciferol (Vitamin D3) 4,000 unit PO DAILY 09/28/15 [Vitamin D3 -] Folic Acid - 3 mg PO DAILY 09/28/15 Glimepiride [Glimepiride -] 2 mg PO BID 09/28/15 Multivit-Min/FA/Lycopen/Lutein 1 each PO DAILY 09/28/15 [Centrum Silver Tablet] Magnesium Chloride [Slow-Mag -] 64 mg PO DAILY 12/05/15 Allopurinol 300 mg PO DAILY 11/14/17 Docusate Sodium [Colace] 100 mg PO PRN PRN 11/14/17 Ferrous Sulfate [Feosol] 324 mg PO DAILY 11/14/17 Ranitidine [Zantac -] 150 mg PO BID 11/14/17 Furosemide [Lasix] 40 mg PO PRN PRN 01/06/19 Gabapentin [Neurontin -] 300 mg PO BID 01/06/19 Losartan Potassium [Cozaar -] 25 mg PO DAILY 01/06/19 Warfarin Na [Coumadin -] 6 mg PO DAILY@1800 30 Days #30 01/14/19 tablet Tamsulosin HCl 1 tablet PO DAILY 03/06/19 ASSESSMENT/PLAN: 79 y/o M, pmh of HLD, DM2, CKD (stage 4, 33%), Hx of DVT (on Coumadin), Factor V Leiden, Lupus anticoagulant +, Gout, Celiac disease, GERD, prostate CA ( remission since 2013) and non-healing wounds on R and L heels presented for worsening swelling, redness and pain of his right lower legs accompanied by chills and diaphoresis of 2 day duration is admitted for cellulitis of the RLE #Swelling, erythema and tenderness of RLE likely 2/2 to Cellulitis Continue abx- Vancomycin 1gm, Aztreonam 2g, Q8H Follow vanc trough Podiatry consulted- we will f/u CRP elevated #Hx of DVT cont home meds- Coumadin monitor INR #DM ISS, monitor BGM #Gout cont home meds- allopurinol #HLD cont home meds #CKD Cautious dosing of meds- renal dose IVF at 100 wts and I&O #DVTppx on coumadin FEN IVF NS at 100, monito lytes, sodium controlled diet Dispo: f/u with podiatry, monitor INR, cont Abx Visit type - Emergency Visit Emergency Visit: Yes ED Registration Date: 03/05/19 Care time: The patient presented to the Emergency Department on the above date and was hospitalized for further evaluation of their emergent condition. - New Patient This patient is new to me today: Yes Date on this admission: 03/06/19 - Critical Care Critical Care patient: No - Discharge Referral Referred to [facility] Med P.C.: No ATTENDING PHYSICIAN STATEMENT I saw and evaluated the patient. I reviewed the resident's note and discussed the case with the resident. I agree with the resident's findings and plan as documented. SUBJECTIVE: OBJECTIVE: ASSESSMENT AND PLAN:
[2019-03-06] MEDS ORDERED: PT OWN MED DRAWER 7, Y5N ONE (16:48)
--- NOTE | 2019-03-06 17:14 | CONSULT ---
Consult Consult Specialty:: podiatry Reason for Consultation:: right erythema and ulceration. - History of Present Illness History of Present Illness: 79 yo male who is followed by Dr. Deleon as outpatient presents with right leg erythema and cellulitis. Has wounds on b/l foot and is an uncontrolled db. States he sees Dr. Deleon monthly and has not had any problems with the wound. States that the wound ahs been stable but leg started to get red and inflammed. Had chills at home and presented to the ER. Denies any other complaints. O: RLE with gross erythema noted on the anterolateral leg, marking made and appear to have minimal resolution, warm to touch, no abscess or wound noted on the leg , on plantar medial aspect of the foot there is a roughly 1 x 1 x .5 cm wound, no bone exposed, woudn site granular, no erythema noted or purulence noted int he wound site, no streaking from wound site noted, gross charcot deformity b/l A: RLE cellulitis P: Evaluated and reviewed consult placed for Dr. Deleon as patient is seen and followed by him I Recc getting xray of the right foot but wound looks very stable Cont iv abx per ID If cannot get in contact with Dr. Deleon can reconsult will sign off for now. 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) Home Medications - Allergies Allergies/Adverse Reactions: Allergies Allergy/AdvReac Type Severity Reaction Status Date / Time Penicillins Allergy Severe Swelling Verified 01/06/19 03:17 ciprofloxacin [From Cipro] Allergy Intermediate Rash Verified 01/06/19 03:17 ciprofloxacin HCl Allergy Intermediate Rash Verified 01/06/19 03:17 [From Cipro] levofloxacin [From Levaquin] Allergy Intermediate Rash Verified 01/06/19 03:17 gluten Allergy Verified 01/06/19 03:17 shellfish derived Allergy Hives Verified 01/06/19 03:17 SHRIMP Allergy Rash Uncoded 01/06/19 03:17 - Home Medications Home Medications: Ambulatory Orders Atorvastatin Calcium 20 mg PO DAILY 09/28/15 Calcium Carbonate [Coral Calcium] 10 gm PO TID 09/28/15 Cholecalciferol (Vitamin D3) [Vitamin D3 -] 4,000 unit PO DAILY 09/28/15 Folic Acid - 3 mg PO DAILY 09/28/15 Glimepiride [Glimepiride -] 2 mg PO BID 09/28/15 Multivit-Min/FA/Lycopen/Lutein [Centrum Silver Tablet] 1 each PO DAILY 09/28/15 Magnesium Chloride [Slow-Mag -] 64 mg PO DAILY 12/05/15 Allopurinol 300 mg PO DAILY 11/14/17 Docusate Sodium [Colace] 100 mg PO PRN PRN 11/14/17 Ferrous Sulfate [Feosol] 324 mg PO DAILY 11/14/17 Ranitidine [Zantac -] 150 mg PO BID 11/14/17 Furosemide [Lasix] 40 mg PO PRN PRN 01/06/19 Gabapentin [Neurontin -] 300 mg PO BID 01/06/19 Losartan Potassium [Cozaar -] 25 mg PO DAILY 01/06/19 Warfarin Na [Coumadin -] 6 mg PO DAILY@1800 30 Days #30 tablet 01/14/19 Tamsulosin HCl 1 tablet PO DAILY 03/06/19 Physical Exam Vital Signs: Vital Signs Temperature 98.6 F 03/06/19 13:00 Pulse Rate 77 03/06/19 13:00 Respiratory Rate 20 03/06/19 13:00 Blood Pressure 144/57 L 03/06/19 13:00 O2 Sat by Pulse Oximetry (%) 97 03/06/19 01:27 Labs: CBC, BMP 03/06/19 07:10 03/06/19 07:10
[2019-03-06] MEDS: WARFARIN NA 3 MG TABLET PO SCH (17:25)
--- NOTE | 2019-03-06 19:09 | PN ---
Teaching Attending Note Name of Resident: Serena Kidd ATTENDING PHYSICIAN STATEMENT I saw and evaluated the patient. I reviewed the resident's note and discussed the case with the resident. I agree with the resident's findings and plan as documented. SUBJECTIVE: No fever or chills. No RAYGOZA .has pain in R leg. OBJECTIVE: NAD CV: RRR, no MRG Lungs: CTAB EXt: R leg erythema, plantar ulcers on feet. No discharge .decreased sensation in R foot and b/l legs. ASSESSMENT AND PLAN: 79 y/o man with h/o DM , HTN, HLP, DVT, V liden def, out, celiac Dz, prostate ca , and feet ulcers. He presented with erythema of R leg He was diagnosed with cellulitis 1- cellulitis of R leg : - cont aztreonam and vanco - vanco level tomorrow - xray of foot - podiatry and ID appreciated 2- NAZARIO on CKD: hold ARB and lasix - IVF - US obtained with no hydro 3-H/o DVT , factor V leiden def: - cont couamdin - INR in am 4- DM : hypoglycemic at admission. - hold glemepiride and cont SSI - expect hypoglycemia is triggered by renal function worsening on glemepiride 5- feet ulcers at compression sites, due to neuropathy . - podiatry consult appreciated - dry dressing daily . avoid tape
[2019-03-06] MEDS: ATORVASTATIN CA 20 MG TABLET (FP) PO SCH (21:40)
[2019-03-07] MEDS: AZTREONAM 2 GM in DEXTROSE 5%-WATER 100 ML IVPB SCH ×3 (01:23→18:10)
[2019-03-07] MEDS: INSULIN SLIDING SCALE (NOVOLOG) 1 VIAL SQ SCH ×3 (06:26→16:44)
[2019-03-07 08:41] LABS: HEMATOCRIT 28.9 % (35.4-49); HEMOGLOBIN 9.7 GM/dL (11.7-16.9); MCH 32.5 pg (25.7-33.7); MCHC 33.4 g/dl (32.0-35.9); MEAN CELL VOLUME 97.3 fl (80-96); MEAN PLT VOLUME 8.9 fl (7.5-11.1); PLATELET COUNT 145 K/MM3 (134-434); RBC 2.98 M/mm3 (4.00-5.60); RDW 19.9 % (11.9-15.9); WHITE BLOOD COUNT 6.9 K/mm3 (4.0-10.0)
[2019-03-07 08:57] LABS: INR 1.97 (0.83-1.09); PROTHROMBIN TIME (PATIENT) 23.4 SEC (9.7-13.0)
[2019-03-07 09:04] LABS: BLOOD UREA NITROGEN 48.3 mg/dL (7-18); CALCIUM 8.1 mg/dL (8.5-10.1); CREATININE 2.2 mg/dL (0.55-1.3); POTASSIUM 4.4 mmol/L (3.5-5.1)
[2019-03-07] MEDS ORDERED: PT OWN MED DRAWER 7, Y5N ONE ×2 (09:30→18:08)
[2019-03-07] MEDS: CHOLECALCIFEROL (VIT D3) 1,000 UNIT (25 MCG) TABLET PO SCH (09:31)
[2019-03-07] MEDS: ALLOPURINOL 300 MG TABLET (FP) PO SCH (09:32)
[2019-03-07] MEDS: TAMSULOSIN HCL 0.4 MG CAP PO SCH (09:32)
[2019-03-07] MEDS: FOLIC ACID 1 MG TABLET (FP) PO SCH (09:32)
[2019-03-07] MEDS: GABAPENTIN 300 MG CAPSULE (FP) PO SCH ×2 (09:32→21:59)
[2019-03-07] MEDS ORDERED: ATORVASTATIN CA 20 MG TABLET (FP) PO SCH (10:00)
[2019-03-07] MEDS ORDERED: VANCOMYCIN 1 GM in D5W (PRE-DOCKED) 1,000 MG/250 ML IVPB ONE (10:14)
--- NOTE | 2019-03-07 11:36 | PN ---
Teaching Attending Note Name of Resident: Juan Walters ATTENDING PHYSICIAN STATEMENT I saw and evaluated the patient. I reviewed the resident's note and discussed the case with the resident. I agree with the resident's findings and plan as documented. SUBJECTIVE: no fever or chills. no RAYGOZA . has pain in R leg , same or maybe worse than yesterday OBJECTIVE: NAD CV: RRR, no MRG Lungs: CTAB EXt: R leg erythema extended beyond the drawn line. plantar ulcers on feet. No discharge .decreased sensation in R foot and b/l legs. ASSESSMENT AND PLAN: 79 y/o man with h/o DM , HTN, HLP, DVT, V liden def, out, celiac Dz, prostate ca , and feet ulcers. He presented with erythema of R leg He was diagnosed with cellulitis 1- Cellulitis of R leg: - cont aztreonam . - vanco level 10.5. will give a dose . CrCl 52 ?, will d/w ID standing dosing - xray of foot reviewed. 2- NAZARIO on CKD: Cr at base line now. - IVF till am - resume losartan in am 3-H/o DVT, factor V leiden def: - cont couamdin at 6. INR 1.97, but expect it to be increased with Abx - INR in am 4- DM: hypoglycemic at admission. resolved. cont to hold glemepiride and cont SSI 5- Feet ulcers at compression sites, due to neuropathy. - podiatry consult appreciated - dry dressing daily . avoid tape DVT px : Anticoagulated
[2019-03-07] MEDS ORDERED: SODIUM CHLORIDE 1,000 ML IV SCH (11:45)
[2019-03-07] MEDS ORDERED: INSULIN (NOVOLOG) ASPART 100 UNITS/ML 10ML VIAL ONE (12:02)
--- NOTE | 2019-03-07 13:59 | PN ---
Physical Exam: SUBJECTIVE: Patient seen and examined at baseline. No events overnight. Patient endorses pain in the RLE. OBJECTIVE: Vital Signs Period Temp Pulse Resp BP Sys/Gautam Pulse Ox Last 24 Hr 98.5 F-99.4 F 71-95 18-20 121-145/58-90 96-97 GENERAL: The patient is awake, alert, and fully oriented, in no acute distress. LUNGS: Breath sounds equal, clear to auscultation bilaterally, no wheezes, no crackles, no accessory muscle use. HEART: Regular rate and rhythm, S1, S2 without murmur, rub or gallop. ABDOMEN: Soft, nontender, nondistended, normoactive bowel sounds, no guarding, no rebound, no hepatosplenomegaly, no masses. EXTREMITIES: 2+ pulses, warm, well-perfused. The erythema, warmth and tenderness has progressed slightly past the line placed on admission. Pedal ulcer clean without stigmata of infection. NEUROLOGICAL: Cranial nerves II through X grossly intact. Normal speech, gait not observed. Laboratory Results - last 24 hr 03/06/19 03/06/19 03/07/19 17:18 21:29 05:57 WBC RBC Hgb Hct MCV MCH MCHC RDW Plt Count MPV PT with INR INR Sodium Potassium Chloride Carbon Dioxide Anion Gap BUN Creatinine Est GFR (CKD-EPI)AfAm Est GFR (CKD-EPI)NonAf POC Glucometer 172 189 121 Random Glucose Calcium Random Vancomycin 03/07/19 03/07/19 03/07/19 06:00 08:00 08:00 WBC 6.9 RBC 2.98 L Hgb 9.7 L Hct 28.9 L MCV 97.3 H MCH 32.5 MCHC 33.4 RDW 19.9 H Plt Count 145 MPV 8.9 PT with INR INR Sodium 138 Potassium 4.4 Chloride 109 H Carbon Dioxide 23 Anion Gap 5 L BUN 48.3 H Creatinine 2.2 H Est GFR (CKD-EPI)AfAm 32.06 Est GFR (CKD-EPI)NonAf 27.67 POC Glucometer Random Glucose 120 H Calcium 8.1 L Random Vancomycin 10.5 L 03/07/19 03/07/19 08:00 11:54 WBC RBC Hgb Hct MCV MCH MCHC RDW Plt Count MPV PT with INR 23.40 H INR 1.97 H Sodium Potassium Chloride Carbon Dioxide Anion Gap BUN Creatinine Est GFR (CKD-EPI)AfAm Est GFR (CKD-EPI)NonAf POC Glucometer 157 Random Glucose Calcium Random Vancomycin Active Medications Generic Name Dose Route Start Last Admin Trade Name Jerry PRN Reason Stop Dose Admin Allopurinol 300 mg 03/07/19 10:00 03/07/19 09:32 Zyloprim - PO 300 mg DAILY ANNY Administration Atorvastatin Calcium 20 mg 03/06/19 22:00 03/06/19 21:40 Lipitor - PO 20 mg HS ANNY Administration Cholecalciferol 4,000 unit 03/07/19 10:00 03/07/19 09:31 Vitamin D3 - PO 4,000 unit DAILY ANNY Administration Folic Acid 3 mg 03/07/19 10:00 03/07/19 09:32 Folic Acid - PO 3 mg DAILY ANNY Administration Gabapentin 300 mg 03/06/19 10:00 03/07/19 09:32 Neurontin - PO 300 mg BID ANNY Administration Aztreonam 2 gm/ Dextrose 100 mls @ 100 mls/hr 03/06/19 18:00 03/07/19 09:32 IVPB 100 mls/hr Q8H-IV ANNY Administration Protocol Sodium Chloride 1,000 mls @ 75 mls/hr 03/07/19 11:45 03/07/19 12:20 Normal Saline - IV 03/07/19 23:44 75 mls/hr ASDIR ANNY Administration Insulin Aspart 1 vial 03/06/19 11:00 03/07/19 12:08 Novolog Vial Sliding Scale - SQ 2 units TIDAC ANNY Administration Protocol Losartan Potassium 25 mg 03/08/19 10:00 Cozaar - PO DAILY [facility] Tamsulosin HCl 0.4 mg 03/07/19 10:00 03/07/19 09:32 Flomax - PO 0.4 mg DAILY ANNY Administration Warfarin Sodium 6 mg 03/06/19 18:00 03/06/19 17:25 Coumadin - PO 6 mg DAILY@1800 ANNY Administration ASSESSMENT/PLAN: 79 y/o M, pmh of HLD, DM2, CKD (stage 4, 33%), Hx of DVT (on Coumadin), Factor V Leiden, Lupus anticoagulant +, Gout, Celiac disease, GERD, prostate CA ( remission since 2013) and non-healing wounds on R and L heels presented for worsening swelling, redness and pain of his right lower legs accompanied by chills and diaphoresis of 2 day duration is admitted for cellulitis of the RLE Swelling, erythema and tenderness of RLE 2/2 cellulitis -on Aztreonam 2g, Q8H -s/p 1g vancomycin 03/06 -random vanc level 10; will redose 1g vancomycin today -Podiatry consulted- we will f/u -CRP elevated -cellulitis appears to be spreading today -ID onboard -c/w daily random vanc levels Hx of DVT -cont home meds- Coumadin -monitor INR DM -ISS ACHS -BGM ACHS Gout -c/w home allopurinol HLD -c/w home lipitor CKD -renally dose medications -f/u daily random vanc levels -NS @ 75 FEN -NS @ 75 -lytes wnl, monitor -sodium controlled diet #DVTppx -on coumadin Dispo: -Admit Med surg Visit type - Emergency Visit Emergency Visit: Yes ED Registration Date: 03/05/19 Care time: The patient presented to the Emergency Department on the above date and was hospitalized for further evaluation of their emergent condition. - New Patient This patient is new to me today: Yes Date on this admission: 03/07/19 - Critical Care Critical Care patient: No - Discharge Referral Referred to [facility] Med P.C[facility] No ATTENDING PHYSICIAN STATEMENT I saw and evaluated the patient. I reviewed the resident's note and discussed the case with the resident. I agree with the resident's findings and plan as documented. SUBJECTIVE: OBJECTIVE: ASSESSMENT AND PLAN:
--- NOTE | 2019-03-07 14:08 | PN ---
Progress Note (short form) - Note Progress Note: continues with leg erythema and pain Vital Signs Period Temp Pulse Resp BP Sys/Gautam Pulse Ox Last 24 Hr 98.5 F-99.4 F 71-95 18-20 121-145/58-90 96-97 cor-rrr lungs clear abd protuberant LLE erythema and warmth unchanged CBC, BMP 03/07/19 08:00 03/07/19 08:00 Microbiology 03/05/19 21:25 Urine - Urine Clean Catch Urine Culture - Preliminary Lactose Fermenting Neg Bacilli Group D Strep Or Entero Coccus 03/05/19 18:50 Blood - Peripheral Venous Blood Culture - Preliminary NO GROWTH OBTAINED AFTER 24 HOURS, INCUBATION TO CONTINUE FOR 4 DAYS. 03/05/19 18:55 Blood - Peripheral Venous Blood Culture - Preliminary NO GROWTH OBTAINED AFTER 24 HOURS, INCUBATION TO CONTINUE FOR 4 DAYS. a/p cellulitis chronic plantar ulcers diabetes obesity venous stasis multilple antibiotic allergies continue vanco by levels /azactam podiatry to see for wound care for ulcers
[2019-03-07] MEDS: WARFARIN NA 3 MG TABLET PO SCH (18:10)
[2019-03-07] MEDS: ATORVASTATIN CA 20 MG TABLET (FP) PO SCH (21:58)
[2019-03-08] MEDS ORDERED: PT OWN MED DRAWER 7, Y5N ONE ×2 (01:49→17:45)
[2019-03-08] MEDS: AZTREONAM 2 GM in DEXTROSE 5%-WATER 100 ML IVPB SCH ×3 (02:02→17:51)
[2019-03-08] MEDS: INSULIN SLIDING SCALE (NOVOLOG) 1 VIAL SQ SCH ×3 (06:26→17:48)
[2019-03-08 08:01] LABS: HEMATOCRIT 29.4 % (35.4-49); HEMOGLOBIN 9.9 GM/dL (11.7-16.9); MCH 32.6 pg (25.7-33.7); MCHC 33.6 g/dl (32.0-35.9); MEAN PLT VOLUME 8.5 fl (7.5-11.1); PLATELET COUNT 152 K/MM3 (134-434); RBC 3.03 M/mm3 (4.00-5.60); RDW 19.9 % (11.9-15.9); WHITE BLOOD COUNT 5.1 K/mm3 (4.0-10.0)
[2019-03-08 08:14] LABS: BLOOD UREA NITROGEN 41.8 mg/dL (7-18); POTASSIUM 4.4 mmol/L (3.5-5.1)
[2019-03-08 08:22] LABS: INR 1.76 (0.83-1.09); PROTHROMBIN TIME (PATIENT) 20.9 SEC (9.7-13.0)
[2019-03-08] MEDS: FOLIC ACID 1 MG TABLET (FP) PO SCH (11:45)
[2019-03-08] MEDS: CHOLECALCIFEROL (VIT D3) 1,000 UNIT (25 MCG) TABLET PO SCH (11:45)
[2019-03-08] MEDS: ALLOPURINOL 300 MG TABLET (FP) PO SCH (11:45)
[2019-03-08] MEDS: LOSARTAN POTASSIUM 25 MG TABLET PO SCH (11:46)
[2019-03-08] MEDS: TAMSULOSIN HCL 0.4 MG CAP PO SCH (11:46)
[2019-03-08] MEDS: GABAPENTIN 300 MG CAPSULE (FP) PO SCH ×2 (11:46→21:19)
[2019-03-08] MEDS ORDERED: WARFARIN NA 3 MG TABLET PO SCH (16:53)
[2019-03-08] MEDS ORDERED: VANCOMYCIN 1 GRAM (PRE-DOCKED) 1,000 MG/250 ML BAG IVPB ONE (16:56)
--- NOTE | 2019-03-08 17:04 | PN ---
Progress Note (short form) - Note Progress Note: Subjective: complains of painin her gluteal area. complains of wound under his pannus . Objective: Vital Signs: Last Vital Signs Temp Pulse Resp BP Pulse Ox 98.4 F 67 18 138/67 96 03/08/19 15:01 03/08/19 15:01 03/08/19 15:01 03/08/19 15:01 03/07/19 09:00 Laboratory Results - last 24 hr 03/08/19 03/08/19 03/08/19 06:24 07:20 07:20 WBC RBC Hgb Hct MCV MCH MCHC RDW Plt Count MPV PT with INR 20.90 H INR 1.76 H Sodium Potassium Chloride Carbon Dioxide Anion Gap BUN Creatinine Est GFR (CKD-EPI)AfAm Est GFR (CKD-EPI)NonAf POC Glucometer 130 Random Glucose Calcium Random Vancomycin 10.9 L 03/08/19 03/08/19 03/08/19 07:20 07:20 11:43 WBC 5.1 RBC 3.03 L Hgb 9.9 L Hct 29.4 L MCV 97.0 H MCH 32.6 MCHC 33.6 RDW 19.9 H Plt Count 152 MPV 8.5 PT with INR INR Sodium 139 Potassium 4.4 Chloride 109 H Carbon Dioxide 23 Anion Gap 7 L BUN 41.8 H Creatinine 2.0 H Est GFR (CKD-EPI)AfAm 35.98 Est GFR (CKD-EPI)NonAf 31.04 POC Glucometer 229 Random Glucose 127 H Calcium 8.0 L Random Vancomycin 03/08/19 16:23 WBC RBC Hgb Hct MCV MCH MCHC RDW Plt Count MPV PT with INR INR Sodium Potassium Chloride Carbon Dioxide Anion Gap BUN Creatinine Est GFR (CKD-EPI)AfAm Est GFR (CKD-EPI)NonAf POC Glucometer 169 Random Glucose Calcium Random Vancomycin OBJECTIVE: NAD CV: RRR, no MRG Lungs: CTAB EXt: R leg erythema has slightly improved feet are in dressings. skin : R lower quadrant small skin abrasion 2x1 Cm under R sided Pannus. R gluteal stage 2 ulcers 1cm each ( 3 lesions ) no discharge and no surrounding erythema ASSESSMENT AND PLAN: 79 y/o man with h/o DM , HTN, HLP, DVT, V liden def, out, celiac Dz, prostate ca , and feet ulcers. He presented with erythema of R leg He was diagnosed with cellulitis 1- Cellulitis of R leg: - cont aztreonam . - vanco level 10.9. will give a dose . 2- NAZARIO on CKD: Cr at base line - dc IVF -resume losartan 3-H/o DVT, factor V leiden def: - cont couamdin. increase to 8 mg - INR in am 4- DM: hypoglycemic at admission. resolved. cont to hold glemepiride and cont SSI 5- Feet ulcers at compression sites, due to neuropathy. - podiatry consult appreciated - dry dressing daily . avoid tape 6- decub ulcer on gluteal area, foam dressing and lidocaine gell Ulcer Under R pannus , apply nystatin and bacitracin DVT px : Anticoagulated L Visit type - Emergency Visit Emergency Visit: Yes ED Registration Date: 03/05/19 Care time: The patient presented to the Emergency Department on the above date and was hospitalized for further evaluation of their emergent condition. - New Patient This patient is new to me today: No - Critical Care Critical Care patient: No
[2019-03-08] MEDS ORDERED: WARFARIN NA 3 MG TABLET ONE (17:45)
[2019-03-08] MEDS ORDERED: WARFARIN NA 5 MG TABLET (UD) ONE (17:45)
[2019-03-08] MEDS: WARFARIN NA 5 MG, WARFARIN NA 3 MG PO SCH (17:46)
[2019-03-08] MEDS: BACITRACIN 15 GM TUBE TOPICAL OINTMENT TP SCH (21:17)
[2019-03-08] MEDS: NYSTATIN POWDER 100,000 UNITS/GM - 15 GM TOPICAL POWDER TP SCH (21:17)
[2019-03-08] MEDS: LIDOCAINE HCL 2% JELLY (30 ML/TUBE) TP SCH (21:17)
[2019-03-08] MEDS: ATORVASTATIN CA 20 MG TABLET (FP) PO SCH (21:18)
[2019-03-08] MEDS ORDERED: NYSTATIN POWDER 100,000 UNITS/GM - 15 GM TOPICAL POWDER TP SCH (22:00)
[2019-03-09] MEDS ORDERED: PT OWN MED DRAWER 7, Y5N ONE ×3 (02:20→17:12)
[2019-03-09] MEDS: AZTREONAM 2 GM in DEXTROSE 5%-WATER 100 ML IVPB SCH ×3 (02:33→17:27)
[2019-03-09] MEDS: INSULIN SLIDING SCALE (NOVOLOG) 1 VIAL SQ SCH ×3 (07:02→16:56)
[2019-03-09 08:45] LABS: BLOOD UREA NITROGEN 39.6 mg/dL (7-18); CALCIUM 8.1 mg/dL (8.5-10.1); CREATININE 1.8 mg/dL (0.55-1.3); POTASSIUM 4.6 mmol/L (3.5-5.1)
[2019-03-09 10:52] LABS: INR 1.86 (0.83-1.09); PROTHROMBIN TIME (PATIENT) 22.1 SEC (9.7-13.0)
[2019-03-09] MEDS: BACITRACIN 15 GM TUBE TOPICAL OINTMENT TP SCH (10:57)
[2019-03-09] MEDS: TAMSULOSIN HCL 0.4 MG CAP PO SCH (10:58)
[2019-03-09] MEDS: LOSARTAN POTASSIUM 25 MG TABLET PO SCH (10:58)
[2019-03-09] MEDS: FOLIC ACID 1 MG TABLET (FP) PO SCH (10:58)
[2019-03-09] MEDS: ALLOPURINOL 300 MG TABLET (FP) PO SCH ×2 (10:58→10:59)
[2019-03-09] MEDS: LIDOCAINE HCL 2% JELLY (30 ML/TUBE) TP SCH (10:59)
[2019-03-09] MEDS: CHOLECALCIFEROL (VIT D3) 1,000 UNIT (25 MCG) TABLET PO SCH (10:59)
[2019-03-09] MEDS: GABAPENTIN 300 MG CAPSULE (FP) PO SCH ×2 (10:59→22:50)
[2019-03-09] MEDS ORDERED: VANCOMYCIN 1 GM in D5W (PRE-DOCKED) 1,000 MG/250 ML IVPB ONE (11:00)
[2019-03-09] MEDS ORDERED: FUROSEMIDE 40 MG TABLET (FP) PO ONE (14:39)
--- NOTE | 2019-03-09 14:57 | CONSULT ---
Consult Consult Specialty:: Podiatry Referred by:: Dr. Feng Reason for Consultation:: Wounds b/l feet with cellulitis right leg. Consulted today. - History of Present Illness Chief Complaint: b/l wounds on feet. Has been tx in past at [facility] wound care and has had 4 hbo tx and dc felt claustraphobic. 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) Home Medications - Allergies Allergies/Adverse Reactions: Allergies Allergy/AdvReac Type Severity Reaction Status Date / Time Penicillins Allergy Severe Swelling Verified 01/06/19 03:17 ciprofloxacin [From Cipro] Allergy Intermediate Rash Verified 01/06/19 03:17 ciprofloxacin HCl Allergy Intermediate Rash Verified 01/06/19 03:17 [From Cipro] levofloxacin [From Levaquin] Allergy Intermediate Rash Verified 01/06/19 03:17 gluten Allergy Verified 01/06/19 03:17 shellfish derived Allergy Hives Verified 01/06/19 03:17 SHRIMP Allergy Rash Uncoded 01/06/19 03:17 - Home Medications Home Medications: Ambulatory Orders Atorvastatin Calcium 20 mg PO DAILY 09/28/15 Calcium Carbonate [Coral Calcium] 10 gm PO TID 09/28/15 Cholecalciferol (Vitamin D3) [Vitamin D3 -] 4,000 unit PO DAILY 09/28/15 Folic Acid - 3 mg PO DAILY 09/28/15 Glimepiride [Glimepiride -] 2 mg PO BID 09/28/15 Multivit-Min/FA/Lycopen/Lutein [Centrum Silver Tablet] 1 each PO DAILY 09/28/15 Magnesium Chloride [Slow-Mag -] 64 mg PO DAILY 12/05/15 Allopurinol 300 mg PO DAILY 11/14/17 Docusate Sodium [Colace] 100 mg PO PRN PRN 11/14/17 Ferrous Sulfate [Feosol] 324 mg PO DAILY 11/14/17 Ranitidine [Zantac -] 150 mg PO BID 11/14/17 Furosemide [Lasix] 40 mg PO PRN PRN 01/06/19 Gabapentin [Neurontin -] 300 mg PO BID 01/06/19 Losartan Potassium [Cozaar -] 25 mg PO DAILY 01/06/19 Warfarin Na [Coumadin -] 6 mg PO DAILY@1800 30 Days #30 tablet 01/14/19 Tamsulosin HCl 1 tablet PO DAILY 03/06/19 Physical Exam Vital Signs: Vital Signs Temperature 98.0 F 03/09/19 10:48 Pulse Rate 72 03/09/19 10:48 Respiratory Rate 20 03/09/19 10:48 Blood Pressure 141/86 03/09/19 10:48 O2 Sat by Pulse Oximetry (%) 97 03/09/19 09:00 Wound/Incision: Yes: Other (+wound right foot in arch area approximately [id number] , -dranage, -mal odor, grade 2-3, +cellulitis right leg +wound left foot sub hallux [id number], -drainage -mal odor,) Labs: CBC, BMP 03/08/19 07:20 03/09/19 07:14 Imaging - Results X-ray: Report Reviewed, Image Reviewed (right foot) Assessment/Plan cellulitis right leg chronic wounds b/l feet morbid obesity MRI Ordered. Vascular Consult Ordered. Left foot xray ordered. Cellulitis improving. Will follow. Irena to foot wounds.
--- NOTE | 2019-03-09 15:54 | PN ---
Physical Exam: SUBJECTIVE: Patient seen and examined 79 y/o M, pmh of HLD, DM2, CKD (stage 4, 33%), Hx of DVT (on Coumadin), Factor V Leiden, Lupus anticoagulant +, Gout, Celiac disease, GERD, prostate CA ( remission since 2013) and non-healing wounds on R and L heels presented for worsening swelling, redness and pain of his right lower legs accompanied by chills and diaphoresis of 2 day duration. Currently, pt is afebrile and had no overnight issues. Pt reports his legs are more swollen and his redness has worsened. Denies f/c/n/v/d/sob/chest pain/ numbness and tingling. OBJECTIVE: Vital Signs Last Vital Signs Temp Pulse Resp BP Pulse Ox 98.4 F 65 20 150/61 97 03/09/19 14:00 03/09/19 14:00 03/09/19 14:00 03/09/19 14:00 03/09/19 09:00 GENERAL: The patient is awake, alert, and fully oriented, in no acute distress. EYES: PERRL, extraocular movements intact, ENT: Dentition poor. Clear without exudates, moist mucous membranes. NECK: full range of motion, supple. LUNGS: Breath sounds equal, clear to auscultation bilaterally, no wheezes, no crackles HEART: Regular rate and rhythm, S1, S2 without murmur, rub or gallop. ABDOMEN: Soft, nontender, nondistended, normoactive bowel sounds, no guarding, Pannus- 2 ulcers (both 1x.5) presents without erythema or purulent discharge. Ulcers are painful EXTREMITIES: RLE: 1x1.5 cm ulcer on the plantar surface of the 1st metatarsal. Swelling and redness present up to 2/3 of the LE. Tender to palpation. Redness is demarcated below the line that was drawn. LLE: 1.5-1.5 cm ulcer on the plantar surface of 2nd metatarsal, w/ swelling of the foot. Non-tender to palpation. Back: .5x.5 decub ulcer with surrounding erythema w/ no purulent discharge NEUROLOGICAL: Cranial nerves II through XII grossly intact. SKIN: Warm, dry, normal turgor, no rashes or lesions noted Laboratory Results - last 24 hr CBC,CMP WBC 5.1 K/mm3 (4.0-10.0) 03/08/19 07:20 RBC 3.03 M/mm3 (4.00-5.60) L 03/08/19 07:20 Hgb 9.9 GM/dL (11.7-16.9) L 03/08/19 07:20 Hct 29.4 % (35.4-49) L 03/08/19 07:20 MCV 97.0 fl (80-96) H 03/08/19 07:20 MCH 32.6 pg (25.7-33.7) 03/08/19 07:20 MCHC 33.6 g/dl (32.0-35.9) 03/08/19 07:20 RDW 19.9 % (11.9-15.9) H 03/08/19 07:20 Plt Count 152 K/MM3 (134-434) 03/08/19 07:20 MPV 8.5 fl (7.5-11.1) 03/08/19 07:20 Absolute Neuts (auto) 7.1 K/mm3 (1.5-8.0) 03/06/19 07:10 Neutrophils % 76.1 % (42.8-82.8) 03/06/19 07:10 Lymphocytes % 14.5 % (8-40) D 03/06/19 07:10 Monocytes % 8.6 % (3.8-10.2) 03/06/19 07:10 Eosinophils % 0.5 % (0-4.5) D 03/06/19 07:10 Basophils % 0.3 % (0-2.0) 03/06/19 07:10 Nucleated RBC % 0 % (0-0) 03/06/19 07:10 ESR 31 mm/hr (0-20) H 03/06/19 07:10 Sodium 140 mmol/L (136-145) 03/09/19 07:14 Potassium 4.6 mmol/L (3.5-5.1) 03/09/19 07:14 Chloride 111 mmol/L (98-107) H 03/09/19 07:14 Carbon Dioxide 24 mmol/L (21-32) 03/09/19 07:14 Anion Gap 6 MMOL/L (8-16) L 03/09/19 07:14 BUN 39.6 mg/dL (7-18) H 03/09/19 07:14 Creatinine 1.8 mg/dL (0.55-1.3) H 03/09/19 07:14 Est GFR (CKD-EPI)AfAm 40.87 03/09/19 07:14 Est GFR (CKD-EPI)NonAf 35.26 03/09/19 07:14 POC Glucometer 246 UNITS (80-120) 03/09/19 11:12 Random Glucose 147 mg/dL (74-106) H 03/09/19 07:14 Lactic Acid 1.4 mmol/L (0.4-2.0) 03/05/19 22:15 Calcium 8.1 mg/dL (8.5-10.1) L 03/09/19 07:14 Phosphorus 2.8 mg/dL (2.5-4.9) 03/06/19 07:10 Magnesium 2.3 mg/dL (1.8-2.4) 03/06/19 07:10 Total Bilirubin 0.9 mg/dL (0.2-1) 03/06/19 07:10 AST 20 U/L (15-37) 03/06/19 07:10 ALT 19 U/L (13-61) 03/06/19 07:10 Alkaline Phosphatase 47 U/L (45-117) 03/06/19 07:10 Troponin I 0.02 ng/ml (0.00-0.05) 03/05/19 18:50 C-Reactive Protein 12.8 MG/DL (0.00-0.3) H 03/06/19 07:10 Total Protein 5.6 g/dl (6.4-8.2) L 03/06/19 07:10 Albumin 2.9 g/dl (3.4-5.0) L 03/06/19 07:10 Active Medications Current Medications Acetaminophen (Tylenol -) 650 mg PO Q6H PRN PRN Reason: PAIN Allopurinol (Zyloprim -) 300 mg PO DAILY [facility] Last Admin: 03/09/19 10:59 Dose: 300 mg Atorvastatin Calcium (Lipitor -) 20 mg PO HS [facility] Last Admin: 03/08/19 21:18 Dose: 20 mg Bacitracin (Bacitracin -) 1 applic TP DAILY [facility] Last Admin: 03/09/19 10:57 Dose: 1 applic Cholecalciferol (Vitamin D3 -) 4,000 unit PO DAILY [facility] Last Admin: 03/09/19 10:59 Dose: 4,000 unit Folic Acid (Folic Acid -) 3 mg PO DAILY [facility] Last Admin: 03/09/19 10:58 Dose: 3 mg Furosemide (Lasix -) 40 mg PO DAILY [facility] Gabapentin (Neurontin -) 300 mg PO BID [facility] Last Admin: 03/09/19 10:59 Dose: 300 mg Aztreonam 2 gm/ Dextrose 100 mls @ 100 mls/hr IVPB Q8H-IV [facility]; Protocol Last Admin: 03/09/19 10:57 Dose: 100 mls/hr Insulin Aspart (Novolog Vial Sliding Scale -) 1 vial SQ TIDAC [facility]; Protocol Last Admin: 03/09/19 11:31 Dose: 4 units Lidocaine HCl (Xylocaine 2% Jelly) 1 applic TP DAILY [facility] Last Admin: 03/09/19 10:59 Dose: 1 applic Losartan Potassium (Cozaar -) 25 mg PO DAILY [facility] Last Admin: 03/09/19 10:58 Dose: 25 mg Nystatin (Nystop Powder -) 1 applic TP HS [facility] Last Admin: 03/08/19 21:17 Dose: 1 applic Tamsulosin HCl (Flomax -) 0.4 mg PO DAILY [facility] Last Admin: 03/09/19 10:58 Dose: 0.4 mg Warfarin Sodium 5 mg/ Warfarin (Sodium 3 mg) 8 mg PO DAILY@1800 [facility] Last Admin: 03/08/19 17:46 Dose: 8 mg Home Medications Medication Instructions Recorded Atorvastatin Calcium 20 mg PO DAILY 09/28/15 Calcium Carbonate [Coral Calcium] 10 gm PO TID 09/28/15 Cholecalciferol (Vitamin D3) 4,000 unit PO DAILY 09/28/15 [Vitamin D3 -] Folic Acid - 3 mg PO DAILY 09/28/15 Glimepiride [Glimepiride -] 2 mg PO BID 09/28/15 Multivit-Min/FA/Lycopen/Lutein 1 each PO DAILY 09/28/15 [Centrum Silver Tablet] Magnesium Chloride [Slow-Mag -] 64 mg PO DAILY 12/05/15 Allopurinol 300 mg PO DAILY 11/14/17 Docusate Sodium [Colace] 100 mg PO PRN PRN 11/14/17 Ferrous Sulfate [Feosol] 324 mg PO DAILY 11/14/17 Ranitidine [Zantac -] 150 mg PO BID 11/14/17 Furosemide [Lasix] 40 mg PO PRN PRN 01/06/19 Gabapentin [Neurontin -] 300 mg PO BID 01/06/19 Losartan Potassium [Cozaar -] 25 mg PO DAILY 01/06/19 Warfarin Na [Coumadin -] 6 mg PO DAILY@1800 30 Days #30 01/14/19 tablet Tamsulosin HCl 1 tablet PO DAILY 03/06/19 Microbiology 03/05/19 18:50 Blood - Peripheral Venous Blood Culture - Preliminary NO GROWTH OBTAINED AFTER 72 HOURS, INCUBATION TO CONTINUE FOR 2 DAYS. 03/05/19 18:55 Blood - Peripheral Venous Blood Culture - Preliminary NO GROWTH OBTAINED AFTER 72 HOURS, INCUBATION TO CONTINUE FOR 2 DAYS. 03/05/19 21:25 Urine - Urine Clean Catch Urine Culture - Final Escherichia Coli Enterococcus Faecalis ASSESSMENT/PLAN: 79 y/o M, pmh of HLD, DM2, CKD (stage 4, 33%), Hx of DVT (on Coumadin), Factor V Leiden, Lupus anticoagulant +, Gout, Celiac disease, GERD, prostate CA ( remission since 2013) and non-healing wounds on R and L heels presented for worsening swelling, redness and pain of his right lower legs accompanied by chills and diaphoresis of 2 day duration is admitted for cellulitis of the RLE #Swelling, erythema and tenderness of RLE likely 2/2 to Cellulitis Aztreonam 2g, Q8H vanc trough today- 12.2 One dose of vanc given Podiatry consulted- we will f/u We will follow CRP #Decub ulcers Lidocaine gel topical Foam and dressing #Hx of DVT cont home meds- Coumadin- 8mg INR 1.86 #NAZARIO on CKD Cautious dosing of meds- renal dose wts- increased today Lasix 40 given today resume losartan 25, if BP remains elevated, increase dose to 50 #DM ISS, monitor BGM #Gout cont home meds- allopurinol #HLD cont home meds #Morbid Obesity monitor wts recom out pt bariatric options advised on diet control, exercise and wt loss #DVTppx on coumadin FEN monito lytes, sodium controlled diet Dispo: f/u with podiatry, monitor INR, cont Abx Visit type - Emergency Visit Emergency Visit: Yes ED Registration Date: 03/05/19 Care time: The patient presented to the Emergency Department on the above date and was hospitalized for further evaluation of their emergent condition. - New Patient This patient is new to me today: Yes Date on this admission: 03/09/19 - Critical Care Critical Care patient: No - Discharge Referral Referred to [facility] No ATTENDING PHYSICIAN STATEMENT I saw and evaluated the patient. I reviewed the resident's note and discussed the case with the resident. I agree with the resident's findings and plan as documented. SUBJECTIVE: OBJECTIVE: ASSESSMENT AND PLAN:
[2019-03-09] MEDS ORDERED: WARFARIN NA 5 MG TABLET (UD) ONE (17:11)
[2019-03-09] MEDS ORDERED: WARFARIN NA 3 MG TABLET ONE (17:11)
[2019-03-09] MEDS: WARFARIN NA 5 MG, WARFARIN NA 3 MG PO SCH (17:27)
--- NOTE | 2019-03-09 17:28 | PN ---
Progress Note (short form) - Note Progress Note: less leg pain Vital Signs Period Temp Pulse Resp BP Sys/Gautam Pulse Ox Last 24 Hr 97.8 F-98.9 F 65-74 18-20 141-160/61-86 96-97 cor-rrr lungs clear abd soft,nt ext 2 + pitting edema of the RLE less erythema, less tender CBC, BMP 03/08/19 07:20 03/09/19 07:14 Microbiology 03/05/19 18:50 Blood - Peripheral Venous Blood Culture - Preliminary NO GROWTH OBTAINED AFTER 72 HOURS, INCUBATION TO CONTINUE FOR 2 DAYS. 03/05/19 18:55 Blood - Peripheral Venous Blood Culture - Preliminary NO GROWTH OBTAINED AFTER 72 HOURS, INCUBATION TO CONTINUE FOR 2 DAYS. 03/05/19 21:25 Urine - Urine Clean Catch Urine Culture - Final Escherichia Coli Enterococcus Faecalis a/p cellulitis chronic plantar ulcers diabetes obesity venous stasis multilple antibiotic allergies continue vanco by levels /azactam podiatry to see for wound care for ulcers significant LE edema consider vascular consult- d/w patient, and son at bedside
[2019-03-09] MEDS ORDERED: INSULIN (NOVOLOG) ASPART 100 UNITS/ML 10ML VIAL ONE (17:38)
--- NOTE | 2019-03-09 18:37 | PN ---
Teaching Attending Note Name of Resident: Marilin Malik ATTENDING PHYSICIAN STATEMENT I saw and evaluated the patient. I reviewed the resident's note and discussed the case with the resident. I agree with the resident's findings and plan as documented. SUBJECTIVE: No fever or chills. No RAYGOZA . has pain in R leg OBJECTIVE: NAD CV: RRR, no MRG Lungs: CTAB EXt: R leg erythema and edema . no extension beyond the line feet ulcers are not changes with no discharge ASSESSMENT AND PLAN: 79 y/o man with h/o DM , HTN, HLP, DVT, V liden def, out, celiac Dz, prostate ca , and feet ulcers. He presented with erythema of R leg He was diagnosed with cellulitis 1- Cellulitis of R leg: - cont aztreonam. - Vanco level noted. give a dose toady 2- NAZARIO on CKD: Cr at base line -resume losartan - resume lasix 3-H/o DVT, factor V leiden def: - cont couamdin at 8 mg q PM - INR in am 4- DM:cont SSI 5- Feet ulcers at compression sites, due to neuropathy. - Dr. Moser note pending Recs - dry dressing daily . avoid tape 6- Decub ulcer on gluteal area, foam dressing and lidocaine gel Ulcer Under R pannus , apply nystatin and bacitracin DVT px : Anticoagulated
[2019-03-09] MEDS: ATORVASTATIN CA 20 MG TABLET (FP) PO SCH (22:50)
[2019-03-09] MEDS: NYSTATIN POWDER 100,000 UNITS/GM - 15 GM TOPICAL POWDER TP SCH (22:51)
[2019-03-10] MEDS ORDERED: PT OWN MED DRAWER 7, Y5N ONE (01:44)
[2019-03-10] MEDS: AZTREONAM 2 GM in DEXTROSE 5%-WATER 100 ML IVPB SCH ×3 (01:51→17:48)
[2019-03-10] MEDS: INSULIN SLIDING SCALE (NOVOLOG) 1 VIAL SQ SCH ×3 (06:37→17:48)
[2019-03-10 08:36] LABS: HEMATOCRIT 30.1 % (35.4-49); MCH 32.4 pg (25.7-33.7); MCHC 33.1 g/dl (32.0-35.9); MEAN CELL VOLUME 97.8 fl (80-96); MEAN PLT VOLUME 9.2 fl (7.5-11.1); PLATELET COUNT 173 K/MM3 (134-434); RBC 3.08 M/mm3 (4.00-5.60); RDW 19.4 % (11.9-15.9); WHITE BLOOD COUNT 4.6 K/mm3 (4.0-10.0)
[2019-03-10 09:05] LABS: BLOOD UREA NITROGEN 35.4 mg/dL (7-18); CALCIUM 8.3 mg/dL (8.5-10.1); CREATININE 1.7 mg/dL (0.55-1.3); POTASSIUM 4.3 mmol/L (3.5-5.1)
[2019-03-10 09:26] LABS: INR 2.19 (0.83-1.09)
--- NOTE | 2019-03-10 10:36 | CONSULT ---
- Consultation REQUESTING PROVIDER: CONSULT REQUEST: We have been asked to surgically evaluate this patient for b/l DM foot wounds. PCP:Miah Kennedy HISTORY OF PRESENT ILLNESS: 79yo M presented to the ED with RLE cellulitis, pt has a long history of chronic b/l foot ulcers. Pt has history of b/l foot deformities 2/2 DM neuropathy with significant collapse and eversion adding to chronic foot wounds. He states he follows with his supervisor Dr. Feng regularly and has [facility] for wound care, he is also the process of having new orthotics made. Pt developed redness and swelling in his RLE last week, with chills and fevers. Pt has history of DM and smokes a pipe daily for 60+ years. Pt denies seeing a vascular surgeon in the past. PMHx: DM, HLD, diabetic neuropathy, CKD Home Medications Medication Instructions Recorded Atorvastatin Calcium 20 mg PO DAILY 09/28/15 Calcium Carbonate [Coral Calcium] 10 gm PO TID 09/28/15 Cholecalciferol (Vitamin D3) 4,000 unit PO DAILY 09/28/15 [Vitamin D3 -] Folic Acid - 3 mg PO DAILY 09/28/15 Glimepiride [Glimepiride -] 2 mg PO BID 09/28/15 Multivit-Min/FA/Lycopen/Lutein 1 each PO DAILY 09/28/15 [Centrum Silver Tablet] Magnesium Chloride [Slow-Mag -] 64 mg PO DAILY 12/05/15 Allopurinol 300 mg PO DAILY 11/14/17 Docusate Sodium [Colace] 100 mg PO PRN PRN 11/14/17 Ferrous Sulfate [Feosol] 324 mg PO DAILY 11/14/17 Ranitidine [Zantac -] 150 mg PO BID 11/14/17 Furosemide [Lasix] 40 mg PO PRN PRN 01/06/19 Gabapentin [Neurontin -] 300 mg PO BID 01/06/19 Losartan Potassium [Cozaar -] 25 mg PO DAILY 01/06/19 Warfarin Na [Coumadin -] 6 mg PO DAILY@1800 30 Days #30 01/14/19 tablet Tamsulosin HCl 1 tablet PO DAILY 03/06/19 Allergies Allergy/AdvReac Type Severity Reaction Status Date / Time Penicillins Allergy Severe Swelling Verified 01/06/19 03:17 ciprofloxacin [From Cipro] Allergy Intermediate Rash Verified 01/06/19 03:17 ciprofloxacin HCl Allergy Intermediate Rash Verified 01/06/19 03:17 [From Cipro] levofloxacin [From Levaquin] Allergy Intermediate Rash Verified 01/06/19 03:17 gluten Allergy Verified 01/06/19 03:17 shellfish derived Allergy Hives Verified 01/06/19 03:17 SHRIMP Allergy Rash Uncoded 01/06/19 03:17 REVIEW OF SYSTEMS: CONSTITUTIONAL: Absent: diaphoresis, generalized weakness, malaise, loss of appetite, weight change CARDIOVASCULAR: Absent: chest pain, syncope, palpitations, irregular heart rate, lightheadedness , peripheral edema RESPIRATORY: Absent: cough, shortness of breath, dyspnea with exertion, wheezing, stridor, hemoptysis Vital Signs Temp 97.8 F 03/10/19 09:46 Pulse 71 03/10/19 09:46 Resp 20 03/10/19 09:46 BP 150/56 L 03/10/19 09:46 Pulse Ox 97 03/09/19 21:00 Intake & Output 03/09/19 03/09/19 03/10/19 11:59 23:59 11:59 Intake Total 100 880 Output Total 500 Balance 100 380 Weight 307 lb 1.6 oz 302 lb 6.4 oz Intake: IVPB 100 450 Oral 430 Output: Urine 500 Void 500 Other: Voiding Method Toilet Urinal # Unmeasured Voids Void 2 1 Bowel Movement Yes Weight Measurement Method Standing Scale Standing Scale CBC, BMP 03/10/19 07:22 03/10/19 07:22 PHYSICAL EXAM: GENERAL: Awake, alert, and fully oriented, in no acute distress. HEAD: Normal with no signs of trauma. EYES: PERRL, sclera anicteric, conjunctiva clear. NECK: Normal ROM, LUNGS: Breathing comfortably, No accessory muscle use. HEART: Regular rate and rhythm. LOWER EXTREMITIES: Right LE with chronic edema and Chronic venous stasis changes throughout, Cellulitis over the [place] extending from ankle to just below the knee laterally. Right foot with diffuse edema medial malleolus just superior to instep, 1.5 cm callus with 0.5 cm ulcer in the center, No evidence of collection, fluctuance foul odor or serous drainage. Left LE with diffuse edema and chronic skin changes throughout. Small callus @1cm with smaller ulcer at center on the plantar surface of the 1st MTP. no active d/c or foul odor. Bilateral feet and toes warm and well perfused.+ signal on Doppler over DP and PT b/l, with +1 pitting edema. NEUROLOGICAL: Normal speech, gait not observed. PSYCH: Cooperative. Good eye contact. Appropriate mood and affect. SKIN: Warm, dry, normal turgor, no rashes or lesions noted. Bilateral LE duplex revealed no evidence of DVT Problem List - Problems (1) Diabetic foot ulcer Assessment/Plan: Patient appears to have some signs of vascular insuffiency, but chronic in nature. Patient failed to follow up in [facility] for arterial duplex. f/u Bilateral arterial duplex IV ABX per ID/med F/U MRI to r/o osteomylitis gentamicin ointment to b/l wounds counselled pt on smoking cessation foot wound care per Podiatry, Dr. Feng Code(s): E11.621 - TYPE 2 DIABETES MELLITUS WITH FOOT ULCER; L97.509 - NON- PRESSURE CHRONIC ULCER OTH PRT UNSP FOOT W UNSP SEVERITY Qualifiers: Diabetic foot ulcer location: midfoot Diabetes mellitus type: type 2 Laterality: left Non-pressure ulcer stage: unspecified non-pressure ulcer stage Qualified Code(s): E11.621 - Type 2 diabetes mellitus with foot ulcer; L97.429 - Non-pressure chronic ulcer of left heel and midfoot with unspecified severity
[2019-03-10] MEDS: CHOLECALCIFEROL (VIT D3) 1,000 UNIT (25 MCG) TABLET PO SCH (10:41)
[2019-03-10] MEDS: FOLIC ACID 1 MG TABLET (FP) PO SCH (10:41)
[2019-03-10] MEDS: ALLOPURINOL 300 MG TABLET (FP) PO SCH (10:42)
[2019-03-10] MEDS: TAMSULOSIN HCL 0.4 MG CAP PO SCH (10:42)
[2019-03-10] MEDS: LIDOCAINE HCL 2% JELLY (30 ML/TUBE) TP SCH (10:42)
[2019-03-10] MEDS: LOSARTAN POTASSIUM 25 MG TABLET PO SCH (10:42)
[2019-03-10] MEDS: GABAPENTIN 300 MG CAPSULE (FP) PO SCH ×2 (10:42→22:20)
[2019-03-10] MEDS: FUROSEMIDE 40 MG TABLET (FP) PO SCH (10:42)
[2019-03-10] MEDS: BACITRACIN 15 GM TUBE TOPICAL OINTMENT TP SCH (10:43)
[2019-03-10] MEDS ORDERED: GENTAMICIN SO4 0.1% TOPICAL OINTMENT 15 GM/TUBE TUBE TP ONE (10:46)
[2019-03-10] MEDS ORDERED: INSULIN (NOVOLOG) ASPART 100 UNITS/ML 10ML VIAL ONE (12:09)
[2019-03-10] MEDS ORDERED: FUROSEMIDE 40 MG TABLET (FP) PO ONE (12:30)
[2019-03-10] MEDS: COLLAGENASE CLOSTRIDIUM HIST. 30 GRAMS TUBE TP SCH (12:41)
[2019-03-10] MEDS ORDERED: VANCOMYCIN 1 GRAM (PRE-DOCKED) 1,000 MG/250 ML BAG IVPB ONE (13:00)
[2019-03-10] MEDS ORDERED: WARFARIN NA 5 MG TABLET (UD) ONE (17:43)
[2019-03-10] MEDS ORDERED: WARFARIN NA 3 MG TABLET ONE (17:43)
[2019-03-10] MEDS: WARFARIN NA 5 MG, WARFARIN NA 3 MG PO SCH (17:48)
--- NOTE | 2019-03-10 17:51 | PN ---
Physical Exam: SUBJECTIVE: Patient seen and examined 79 y/o M, pmh of HLD, DM2, CKD (stage 4, 33%), Hx of DVT (on Coumadin), Factor V Leiden, Lupus anticoagulant +, Gout, Celiac disease, GERD, prostate CA ( remission since 2013) and non-healing wounds on R and L heels presented for worsening swelling, redness and pain of his right lower legs accompanied by chills and diaphoresis of 2 day duration. Today, pt is afebrile and had no overnight issues. Pt reports his legs have improved but his redness has spread higher mildly. Reports increased urinary frequency. Denies f/c/n/v/d/sob/chest pain/ numbness and tingling. OBJECTIVE: Vital Signs Period Temp Pulse Resp BP Sys/Gautam Pulse Ox Last 24 Hr 97.7 F-99.0 F 65-71 20-20 138-155/56-67 97-98 GENERAL: The patient is awake, alert, and fully oriented, in no acute distress. ENT: Dentition poor. Clear without exudates, moist mucous membranes. LUNGS: Breath sounds equal, clear to auscultation bilaterally, no wheezes, no crackles HEART: Regular rate and rhythm, S1, S2 without murmur, rub or gallop. ABDOMEN: Soft, nontender, nondistended, normoactive bowel sounds, no guarding, Pannus- 2 ulcers (both 1x.5) presents without erythema or purulent discharge. Ulcers are painful EXTREMITIES: RLE: 1x1.5 cm ulcer on the plantar surface of the 1st metatarsal- Appears improved. Swelling and redness present up to 2/3 of the LE. Tender to palpation. Redness is demarcated slightly above the line that was drawn. LLE: 1.5-1.5 cm ulcer on the plantar surface of 2nd metatarsal, w/ swelling of the foot. Non-tender to palpation. Back: .5x.5 decub ulcer with surrounding erythema w/ no purulent discharge NEUROLOGICAL: Cranial nerves II through XII grossly intact. SKIN: Warm, dry, normal turgor, no rashes or lesions noted Laboratory Results - last 24 hr CBC,CMP WBC 4.6 K/mm3 (4.0-10.0) 03/10/19 07:22 RBC 3.08 M/mm3 (4.00-5.60) L 11/19/19 07:22 Hgb 10.0 GM/dL (11.7-16.9) L 03/10/19 07:22 Hct 30.1 % (35.4-49) L 03/10/19 07:22 MCV 97.8 fl (80-96) H 03/10/19 07:22 MCH 32.4 pg (25.7-33.7) 03/10/19 07:22 MCHC 33.1 g/dl (32.0-35.9) 03/10/19 07:22 RDW 19.4 % (11.9-15.9) H 03/10/19 07:22 Plt Count 173 K/MM3 (134-434) 03/10/19 07:22 MPV 9.2 fl (7.5-11.1) 03/10/19 07:22 Absolute Neuts (auto) 7.1 K/mm3 (1.5-8.0) 03/06/19 07:10 Neutrophils % 76.1 % (42.8-82.8) 03/06/19 07:10 Lymphocytes % 14.5 % (8-40) D 03/06/19 07:10 Monocytes % 8.6 % (3.8-10.2) 03/06/19 07:10 Eosinophils % 0.5 % (0-4.5) D 03/06/19 07:10 Basophils % 0.3 % (0-2.0) 03/06/19 07:10 Nucleated RBC % 0 % (0-0) 03/06/19 07:10 ESR 31 mm/hr (0-20) H 03/06/19 07:10 Sodium 138 mmol/L (136-145) 03/10/19 07:22 Potassium 4.3 mmol/L (3.5-5.1) 03/10/19 07:22 Chloride 107 mmol/L (98-107) 03/10/19 07:22 Carbon Dioxide 25 mmol/L (21-32) 03/10/19 07:22 Anion Gap 6 MMOL/L (8-16) L 03/10/19 07:22 BUN 35.4 mg/dL (7-18) H 03/10/19 07:22 Creatinine 1.7 mg/dL (0.55-1.3) H 03/10/19 07:22 Est GFR (CKD-EPI)AfAm 43.79 03/10/19 07:22 Est GFR (CKD-EPI)NonAf 37.79 03/10/19 07:22 POC Glucometer 162 UNITS (80-120) 03/10/19 16:46 Random Glucose 137 mg/dL (74-106) H 03/10/19 07:22 Hemoglobin A1c % 5.4 % (4.2-6.3) 03/10/19 07:22 Lactic Acid 1.4 mmol/L (0.4-2.0) 03/05/19 22:15 Calcium 8.3 mg/dL (8.5-10.1) L 03/10/19 07:22 Phosphorus 2.8 mg/dL (2.5-4.9) 03/06/19 07:10 Magnesium 2.3 mg/dL (1.8-2.4) 03/06/19 07:10 Total Bilirubin 0.9 mg/dL (0.2-1) 03/06/19 07:10 AST 20 U/L (15-37) 03/06/19 07:10 ALT 19 U/L (13-61) 03/06/19 07:10 Alkaline Phosphatase 47 U/L (45-117) 03/06/19 07:10 Troponin I 0.02 ng/ml (0.00-0.05) 03/05/19 18:50 C-Reactive Protein 7.3 MG/DL (0.00-0.3) H 03/09/19 07:14 Total Protein 5.6 g/dl (6.4-8.2) L 03/06/19 07:10 Albumin 2.9 g/dl (3.4-5.0) L 03/06/19 07:10 Active Medications Current Medications Acetaminophen (Tylenol -) 650 mg PO Q6H PRN PRN Reason: PAIN Allopurinol (Zyloprim -) 300 mg PO DAILY [facility] Last Admin: 03/10/19 10:42 Dose: 300 mg Atorvastatin Calcium (Lipitor -) 20 mg PO HS [facility] Last Admin: 03/09/19 22:50 Dose: 20 mg Bacitracin (Bacitracin -) 1 applic TP DAILY [facility] Last Admin: 03/10/19 10:43 Dose: 1 applic Cholecalciferol (Vitamin D3 -) 4,000 unit PO DAILY [facility] Last Admin: 03/10/19 10:41 Dose: 4,000 unit Collagenase (Santyl -) 1 applic TP DAILY [facility]; Protocol Last Admin: 03/10/19 12:41 Dose: 1 applic Folic Acid (Folic Acid -) 3 mg PO DAILY [facility] Last Admin: 03/10/19 10:41 Dose: 3 mg Furosemide (Lasix -) 40 mg PO DAILY [facility] Last Admin: 03/10/19 10:42 Dose: 40 mg Gabapentin (Neurontin -) 300 mg PO BID [facility] Last Admin: 03/10/19 10:42 Dose: 300 mg Aztreonam 2 gm/ Dextrose 100 mls @ 100 mls/hr IVPB Q8H-IV [facility]; Protocol Last Admin: 03/10/19 10:42 Dose: 100 mls/hr Insulin Aspart (Novolog Vial Sliding Scale -) 1 vial SQ [facility]; Protocol Last Admin: 03/10/19 12:10 Dose: 4 units Lidocaine HCl (Xylocaine 2% Jelly) 1 applic TP DAILY [facility] Last Admin: 03/10/19 10:42 Dose: 1 applic Losartan Potassium (Cozaar -) 25 mg PO DAILY [facility] Last Admin: 03/10/19 10:42 Dose: 25 mg Nystatin (Nystop Powder -) 1 applic TP HS [facility] Last Admin: 03/09/19 22:51 Dose: 1 applic Tamsulosin HCl (Flomax -) 0.4 mg PO DAILY [facility] Last Admin: 03/10/19 10:42 Dose: 0.4 mg Warfarin Sodium 5 mg/ Warfarin (Sodium 3 mg) 8 mg PO DAILY@1800 [facility] Last Admin: 03/09/19 17:27 Dose: 8 mg Home Medications Medication Instructions Recorded Atorvastatin Calcium 20 mg PO DAILY 09/28/15 Calcium Carbonate [Coral Calcium] 10 gm PO TID 09/28/15 Cholecalciferol (Vitamin D3) 4,000 unit PO DAILY 09/28/15 [Vitamin D3 -] Folic Acid - 3 mg PO DAILY 09/28/15 Glimepiride [Glimepiride -] 2 mg PO BID 09/28/15 Multivit-Min/FA/Lycopen/Lutein 1 each PO DAILY 09/28/15 [Centrum Silver Tablet] Magnesium Chloride [Slow-Mag -] 64 mg PO DAILY 12/05/15 Allopurinol 300 mg PO DAILY 11/14/17 Docusate Sodium [Colace] 100 mg PO PRN PRN 11/14/17 Ferrous Sulfate [Feosol] 324 mg PO DAILY 11/14/17 Ranitidine [Zantac -] 150 mg PO BID 11/14/17 Furosemide [Lasix] 40 mg PO PRN PRN 01/06/19 Gabapentin [Neurontin -] 300 mg PO BID 01/06/19 Losartan Potassium [Cozaar -] 25 mg PO DAILY 01/06/19 Warfarin Na [Coumadin -] 6 mg PO DAILY@1800 30 Days #30 01/14/19 tablet Tamsulosin HCl 1 tablet PO DAILY 03/06/19 Microbiology 03/05/19 18:50 Blood - Peripheral Venous Blood Culture - Preliminary NO GROWTH OBTAINED AFTER 96 HOURS, INCUBATION TO CONTINUE FOR 1 DAYS. 03/05/19 18:55 Blood - Peripheral Venous Blood Culture - Preliminary NO GROWTH OBTAINED AFTER 96 HOURS, INCUBATION TO CONTINUE FOR 1 DAYS. 03/05/19 21:25 Urine - Urine Clean Catch Urine Culture - Final Escherichia Coli Enterococcus Faecalis ASSESSMENT/PLAN: 79 y/o M, pmh of HLD, DM2, CKD (stage 4, 33%), Hx of DVT (on Coumadin), Factor V Leiden, Lupus anticoagulant +, Gout, Celiac disease, GERD, prostate CA ( remission since 2013) and non-healing wounds on R and L heels presented for worsening swelling, redness and pain of his right lower legs accompanied by chills and diaphoresis of 2 day duration is admitted for cellulitis of the RLE #Swelling, erythema and tenderness of RLE likely 2/2 to Cellulitis Aztreonam 2g, Q8H vanc trough today- 12.5, One dose of vanc given MRI of LE ordered- pending results Duplex LE ordered- pending results X ray foot: no acute changes seen Apply gentamicin ointment on the wound #Decub ulcers Lidocaine gel topical Foam and dressing #Hx of DVT cont home meds- Coumadin- 8mg INR 2.19 #NAZARIO on CKD Cautious dosing of meds- renal dose wts- decreased today Extra dose of Lasix 40 given today #DM ISS, monitor BGM #Gout cont home meds- allopurinol #HLD cont home meds #Morbid Obesity monitor wts recom out pt bariatric options advised on diet control, exercise and wt loss #DVTppx on coumadin FEN monito lytes, sodium controlled diet Dispo: monitor INR, cont Abx, f/u MRI and duplex in am Visit type - Emergency Visit Emergency Visit: Yes ED Registration Date: 03/05/19 Care time: The patient presented to the Emergency Department on the above date and was hospitalized for further evaluation of their emergent condition. - New Patient This patient is new to me today: Yes Date on this admission: 03/10/19 - Critical Care Critical Care patient: No - Discharge Referral Referred to [facility] Med [facility] No ATTENDING PHYSICIAN STATEMENT I saw and evaluated the patient. I reviewed the resident's note and discussed the case with the resident. I agree with the resident's findings and plan as documented. SUBJECTIVE: OBJECTIVE: ASSESSMENT AND PLAN:
--- NOTE | 2019-03-10 19:06 | PN ---
Teaching Attending Note Name of Resident: Marilin Malik ATTENDING PHYSICIAN STATEMENT I saw and evaluated the patient. I reviewed the resident's note and discussed the case with the resident. I agree with the resident's findings and plan as documented. SUBJECTIVE: seen in hallway no fever or chills. pain in R leg OBJECTIVE: NAD EXt: R leg erythema and edema expanded beyond the line. feet in dressings ASSESSMENT AND PLAN: 79 y/o man with h/o DM , HTN, HLP, DVT, V liden def, out, celiac Dz, prostate ca , and feet ulcers. He presented with erythema of R leg He was diagnosed with cellulitis 1- Cellulitis of R leg: - cont aztreonam. - Vanco level noted. give a dose toady - give an extra dose of lasix to help with edema 2- NAZARIO on CKD: Cr at base line -cont losartan - cont lasix 3-H/o DVT, factor V leiden def: - cont couamdin at 8 mg q PM - INR is therapeutic. posibly tomorrow and depending on INR level , might need to decrease dose to 7 4- DM:cont SSI 5- Feet ulcers at compression sites, due to neuropathy. - dressing changes - MRI pendign 6- Decub ulcer on gluteal area, foam dressing and lidocaine gel Ulcer Under R pannus , apply nystatin and bacitracin DVT px : Anticoagulated
[2019-03-10] MEDS: NYSTATIN POWDER 100,000 UNITS/GM - 15 GM TOPICAL POWDER TP SCH (22:20)
[2019-03-10] MEDS: ATORVASTATIN CA 20 MG TABLET (FP) PO SCH (22:20)
[2019-03-11] MEDS ORDERED: PT OWN MED DRAWER 7, Y5N ONE ×3 (00:44→16:59)
[2019-03-11] MEDS: AZTREONAM 2 GM in DEXTROSE 5%-WATER 100 ML IVPB SCH ×3 (01:38→17:33)
[2019-03-11] MEDS: INSULIN SLIDING SCALE (NOVOLOG) 1 VIAL SQ SCH ×3 (06:32→17:34)
--- NOTE | 2019-03-11 07:37 | PN ---
Progress Note (short form) - Note Progress Note: Surgery Awaiting read for bilateral arterial duplex done 03/10/19 Will follow. Problem List - Problems (1) Diabetic foot ulcer Code(s): E11.621 - TYPE 2 DIABETES MELLITUS WITH FOOT ULCER; L97.509 - NON- PRESSURE CHRONIC ULCER OTH PRT UNSP FOOT W UNSP SEVERITY Qualifiers: Diabetic foot ulcer location: midfoot Diabetes mellitus type: type 2 Laterality: left Non-pressure ulcer stage: unspecified non-pressure ulcer stage Qualified Code(s): E11.621 - Type 2 diabetes mellitus with foot ulcer; L97.429 - Non-pressure chronic ulcer of left heel and midfoot with unspecified severity
[2019-03-11 09:06] LABS: HEMATOCRIT 31.2 % (35.4-49); HEMOGLOBIN 10.2 GM/dL (11.7-16.9); MCH 31.9 pg (25.7-33.7); MCHC 32.8 g/dl (32.0-35.9); MEAN CELL VOLUME 97.3 fl (80-96); MEAN PLT VOLUME 9.4 fl (7.5-11.1); PLATELET COUNT 208 K/MM3 (134-434); RDW 19.2 % (11.9-15.9); WHITE BLOOD COUNT 5.5 K/mm3 (4.0-10.0)
[2019-03-11 09:17] LABS: INR 2.54 (0.83-1.09); PROTHROMBIN TIME (PATIENT) 30.3 SEC (9.7-13.0)
[2019-03-11 09:37] LABS: BLOOD UREA NITROGEN 34.7 mg/dL (7-18); CALCIUM 8.6 mg/dL (8.5-10.1); CREATININE 1.7 mg/dL (0.55-1.3); POTASSIUM 4.5 mmol/L (3.5-5.1)
--- NOTE | 2019-03-11 09:48 | PN ---
Teaching Attending Note Name of Resident: Osman Hagan ATTENDING PHYSICIAN STATEMENT I saw and evaluated the patient. I reviewed the resident's note and discussed the case with the resident. I agree with the resident's findings and plan as documented. SUBJECTIVE: Patient is c/o of right LE cellulitis otherwise no fever or chill, no shortness of breath. Vital Signs Temperature 97.4 F L 03/11/19 06:00 Pulse Rate 60 03/11/19 06:00 Respiratory Rate 18 03/11/19 06:00 Blood Pressure 143/68 03/11/19 06:00 O2 Sat by Pulse Oximetry (%) 95 03/10/19 21:00 GENERAL: The patient is awake, alert, and fully oriented, in no acute distress. HEAD: Normal with no signs of trauma. EYES: PERRL, extraocular movements intact, sclera anicteric, conjunctiva clear. ENT: Ears normal, oropharynx clear without exudates, moist mucous membranes. NECK: Trachea midline, full range of motion, supple. LUNGS: Breath sounds equal, clear to auscultation bilaterally, no wheezes, no crackles, no accessory muscle use. HEART: Regular rate and rhythm, S1, S2 without murmur, rub or gallop. ABDOMEN: Soft, NT,ND, normoactive bowel sounds, no guarding, no rebound, no hepatosplenomegaly, no masses. EXTREMITIES: 2+ pulses, warm, well-perfused, erythema of RLE improving, a craig size open wound with clean base at both plantars of LEs improving, with chronic venous stasis. NEUROLOGICAL: Cranial nerves II through XII grossly intact. Normal speech, gait is stable uses canes. PSYCH: Normal mood, normal affect. SKIN: Warm, dry, normal turgor, no rashes or lesions noted EXt: Right lower extremity cellulitis improving WBC 5.5 K/mm3 (4.0-10.0) 03/11/19 07:35 RBC 3.20 M/mm3 (4.00-5.60) L 03/11/19 07:35 Hgb 10.2 GM/dL (11.7-16.9) L 03/11/19 07:35 Hct 31.2 % (35.4-49) L 03/11/19 07:35 MCV 97.3 fl (80-96) H 03/11/19 07:35 MCHC 32.8 g/dl (32.0-35.9) 03/11/19 07:35 RDW 19.2 % (11.9-15.9) H 03/11/19 07:35 Plt Count 208 K/MM3 (134-434) D 03/11/19 07:35 MPV 9.4 fl (7.5-11.1) 03/11/19 07:35 CMP Sodium 138 mmol/L (136-145) 03/11/19 07:35 Potassium 4.5 mmol/L (3.5-5.1) 03/11/19 07:35 Chloride 106 mmol/L (98-107) 03/11/19 07:35 Carbon Dioxide 27 mmol/L (21-32) 03/11/19 07:35 Anion Gap 5 MMOL/L (8-16) L 03/11/19 07:35 BUN 34.7 mg/dL (7-18) H 03/11/19 07:35 Creatinine 1.7 mg/dL (0.55-1.3) H 03/11/19 07:35 Random Glucose 144 mg/dL (74-106) H 03/11/19 07:35 Calcium 8.6 mg/dL (8.5-10.1) 03/11/19 07:35 Total Bilirubin 0.9 mg/dL (0.2-1) 03/06/19 07:10 AST 20 U/L (15-37) 03/06/19 07:10 ALT 19 U/L (13-61) 03/06/19 07:10 Alkaline Phosphatase 47 U/L (45-117) 03/06/19 07:10 Total Protein 5.6 g/dl (6.4-8.2) L 03/06/19 07:10 Albumin 2.9 g/dl (3.4-5.0) L 03/06/19 07:10 CARDIAC ENZYMES Troponin I 0.02 ng/ml (0.00-0.05) 03/05/19 18:50 Current Medications Generic Name Dose Route Start Last Admin Trade Name Freq PRN Reason Stop Dose Admin Acetaminophen 650 mg 03/07/19 19:54 Tylenol - PO Q6H PRN PAIN Allopurinol 300 mg 03/07/19 10:00 03/10/19 10:42 Zyloprim - PO 300 mg DAILY [facility] Administration Atorvastatin Calcium 20 mg 03/06/19 22:00 03/10/19 22:20 Lipitor - PO 20 mg HS [facility] Administration Bacitracin 1 applic 03/08/19 17:00 03/10/19 10:43 Bacitracin - TP 1 applic DAILY [facility] Administration Cholecalciferol 4,000 unit 03/07/19 10:00 03/10/19 10:41 Vitamin D3 - PO 4,000 unit DAILY [facility] Administration Collagenase 1 applic 03/10/19 10:00 03/10/19 12:41 Santyl - TP 1 applic DAILY [facility] Administration Protocol Folic Acid 3 mg 03/07/19 10:00 03/10/19 10:41 Folic Acid - PO 3 mg DAILY [facility] Administration Furosemide 40 mg 03/10/19 10:00 03/10/19 10:42 Lasix - PO 40 mg DAILY [facility] Administration Gabapentin 300 mg 03/06/19 10:00 03/10/19 22:20 Neurontin - PO 300 mg BID [facility] Administration Aztreonam 2 gm/ Dextrose 100 mls @ 100 mls/hr 03/06/19 18:00 03/11/19 01:38 IVPB 100 mls/hr Q8H-IV [facility] Administration Protocol Insulin Aspart 1 vial 03/06/19 11:00 03/11/19 06:32 Novolog Vial Sliding Scale - SQ Not Given [facility] Protocol Lidocaine HCl 1 applic 03/08/19 16:51 03/10/19 10:42 Xylocaine 2% Jelly TP 1 applic DAILY [facility] Administration Losartan Potassium 25 mg 03/08/19 10:00 03/10/19 10:42 Cozaar - PO 25 mg DAILY [facility] Administration Nystatin 1 applic 03/08/19 22:00 03/10/19 22:20 Nystop Powder - TP 1 applic HS [facility] Administration Tamsulosin HCl 0.4 mg 03/07/19 10:00 03/10/19 10:42 Flomax - PO 0.4 mg DAILY [facility] Administration Warfarin Sodium 5 mg/ Warfarin 8 mg 03/08/19 18:00 03/10/19 17:48 Sodium 3 mg PO 8 mg DAILY@1800 [facility] Administration Home Medications Medication Instructions Recorded Atorvastatin Calcium 20 mg PO DAILY 09/28/15 Calcium Carbonate [Coral Calcium] 10 gm PO TID 09/28/15 Cholecalciferol (Vitamin D3) 4,000 unit PO DAILY 09/28/15 [Vitamin D3 -] Folic Acid - 3 mg PO DAILY 09/28/15 Glimepiride [Glimepiride -] 2 mg PO BID 09/28/15 Multivit-Min/FA/Lycopen/Lutein 1 each PO DAILY 09/28/15 [Centrum Silver Tablet] Magnesium Chloride [Slow-Mag -] 64 mg PO DAILY 12/05/15 Allopurinol 300 mg PO DAILY 11/14/17 Docusate Sodium [Colace] 100 mg PO PRN PRN 11/14/17 Ferrous Sulfate [Feosol] 324 mg PO DAILY 11/14/17 Ranitidine [Zantac -] 150 mg PO BID 11/14/17 Furosemide [Lasix] 40 mg PO PRN PRN 01/06/19 Gabapentin [Neurontin -] 300 mg PO BID 01/06/19 Losartan Potassium [Cozaar -] 25 mg PO DAILY 01/06/19 Warfarin Na [Coumadin -] 6 mg PO DAILY@1800 30 Days #30 01/14/19 tablet Tamsulosin HCl 1 tablet PO DAILY 03/06/19 ASSESSMENT AND PLAN: Patient is a 79yo male with PMHx of DM , HTN, HLP, DVT, V liden def, celiac Dz, prostate ca, and feet ulcers. He presented with erythema of R leg He was diagnosed with acute cellulitis of RLE ,with bl venous stasis # Acute cellulitis of RLE on IV Azactam continue since patient is allergic to penicillin . # NAZARIO on CKD: Cr at base line(1.8), cont losartan and lasix #H/o DVT,factor V leiden def: cont couamdin # T2DM:cont SSI # BL open plantar ulcers continue Santyl daily , patient cannot have MRI # Decub ulcer on gluteal area, foam dressing and lidocaine gel continue , Ulcer Under R pannus, apply nystatin and bacitracin DVT px :coumadin
[2019-03-11] MEDS: TAMSULOSIN HCL 0.4 MG CAP PO SCH (10:37)
[2019-03-11] MEDS: GABAPENTIN 300 MG CAPSULE (FP) PO SCH ×2 (10:37→22:15)
[2019-03-11] MEDS: ALLOPURINOL 300 MG TABLET (FP) PO SCH (10:37)
[2019-03-11] MEDS: CHOLECALCIFEROL (VIT D3) 1,000 UNIT (25 MCG) TABLET PO SCH (10:37)
[2019-03-11] MEDS: LOSARTAN POTASSIUM 25 MG TABLET PO SCH (10:37)
[2019-03-11] MEDS: FOLIC ACID 1 MG TABLET (FP) PO SCH (10:37)
[2019-03-11] MEDS: FUROSEMIDE 40 MG TABLET (FP) PO SCH (10:37)
[2019-03-11] MEDS: BACITRACIN 15 GM TUBE TOPICAL OINTMENT TP SCH (10:38)
[2019-03-11] MEDS: COLLAGENASE CLOSTRIDIUM HIST. 30 GRAMS TUBE TP SCH (10:40)
[2019-03-11] MEDS: LIDOCAINE HCL 2% JELLY (30 ML/TUBE) TP SCH (10:41)
[2019-03-11] MEDS ORDERED: INSULIN (NOVOLOG) ASPART 100 UNITS/ML 10ML VIAL ONE (11:43)
--- NOTE | 2019-03-11 12:07 | PN ---
Progress Note (short form) - Note Progress Note: less leg pain less erythema less edema (now on lasix) Vital Signs Period Temp Pulse Resp BP Sys/Gautam Pulse Ox Last 24 Hr 97.3 F-99.0 F 60-71 18-20 139-155/63-78 95 cor-rrr lungs clear abd soft,nt ext less erythema LLE, less edema plantar ulcers both feet are clean CBC, BMP 03/11/19 07:35 03/11/19 07:35 Microbiology 03/05/19 18:50 Blood - Peripheral Venous Blood Culture - Final NO GROWTH AFTER 5 DAYS INCUBATION 03/05/19 18:55 Blood - Peripheral Venous Blood Culture - Final NO GROWTH AFTER 5 DAYS INCUBATION 03/05/19 21:25 Urine - Urine Clean Catch Urine Culture - Final Escherichia Coli Enterococcus Faecalis a/p cellulitis chronic plantar ulcers diabetes obesity venous stasis multilple antibiotic allergies continue vanco /azactam f/u with vascular d/w hospitalist service
--- NOTE | 2019-03-11 12:32 | PN ---
Progress Note, Physician Chief Complaint: wounds b/l feet with cellulitis right leg - Current Medication List Current Medications: Active Medications Acetaminophen (Tylenol -) 650 mg PO Q6H PRN PRN Reason: PAIN Allopurinol (Zyloprim -) 300 mg PO DAILY [facility] Last Admin: 03/11/19 10:37 Dose: 300 mg Atorvastatin Calcium (Lipitor -) 20 mg PO HS [facility] Last Admin: 03/10/19 22:20 Dose: 20 mg Bacitracin (Bacitracin -) 1 applic TP DAILY [facility] Last Admin: 03/11/19 10:38 Dose: 1 applic Cholecalciferol (Vitamin D3 -) 4,000 unit PO DAILY [facility] Last Admin: 03/11/19 10:37 Dose: 4,000 unit Collagenase (Santyl -) 1 applic TP DAILY [facility]; Protocol Last Admin: 03/11/19 10:40 Dose: 1 applic Folic Acid (Folic Acid -) 3 mg PO DAILY [facility] Last Admin: 03/11/19 10:37 Dose: 3 mg Furosemide (Lasix -) 40 mg PO DAILY [facility] Last Admin: 03/11/19 10:37 Dose: 40 mg Gabapentin (Neurontin -) 300 mg PO BID [facility] Last Admin: 03/11/19 10:37 Dose: 300 mg Aztreonam 2 gm/ Dextrose 100 mls @ 100 mls/hr IVPB Q8H-IV [facility]; Protocol Last Admin: 03/11/19 10:37 Dose: 100 mls/hr Vancomycin HCl (Vancomycin (Pre-Docked)) 1,000 mg in 250 mls @ 166.667 mls/hr IVPB Q24H [facility]; Protocol Insulin Aspart (Novolog Vial Sliding Scale -) 1 vial SQ TIDAC [facility]; Protocol Last Admin: 03/11/19 11:46 Dose: 6 units Lidocaine HCl (Xylocaine 2% Jelly) 1 applic TP DAILY [facility] Last Admin: 03/11/19 10:41 Dose: 1 applic Losartan Potassium (Cozaar -) 25 mg PO DAILY [facility] Last Admin: 03/11/19 10:37 Dose: 25 mg Nystatin (Nystop Powder -) 1 applic TP HS [facility] Last Admin: 03/10/19 22:20 Dose: 1 applic Tamsulosin HCl (Flomax -) 0.4 mg PO DAILY [facility] Last Admin: 03/11/19 10:37 Dose: 0.4 mg Warfarin Sodium 5 mg/ Warfarin (Sodium 3 mg) 8 mg PO DAILY@1800 [facility] Last Admin: 03/10/19 17:48 Dose: 8 mg - Objective Vital Signs: Vital Signs Temperature 97.8 F 03/11/19 10:45 Pulse Rate 71 03/11/19 10:45 Respiratory Rate 19 03/11/19 10:45 Blood Pressure 139/65 03/11/19 10:45 O2 Sat by Pulse Oximetry (%) 95 03/10/19 21:00 Extremities: Yes: Other Wound/Incision: Yes: Other (unchanged wounds with no drainage noted) Labs: CBC, BMP 03/11/19 07:35 03/11/19 07:35 INR, PTT INR 2.54 (0.83-1.09) H 03/11/19 07:35 Assessment/Plan cellulitis right leg chronic wounds b/l feet morbid obesity Vascular note appreciated and read. Left foot xray reviewed report. Awaiting MRI results. Will follow. Irena to foot wounds.
[2019-03-11] MEDS: VANCOMYCIN 1 GRAM (PRE-DOCKED) 1,000 MG/250 ML BAG IVPB SCH (15:51)
--- NOTE | 2019-03-11 16:32 | PN ---
Physical Exam: SUBJECTIVE: Patient seen and examined 79 y/o M, pmh of HLD, DM2, CKD (stage 4, 33%), Hx of DVT (on Coumadin), Factor V Leiden, Lupus anticoagulant +, Gout, Celiac disease, GERD, prostate CA ( remission since 2013) and non-healing wounds on R and L heels presented for worsening swelling, redness and pain of his right lower legs accompanied by chills and diaphoresis of 2 day duration. Currently, pt is afebrile and had no overnight issues. Pt reports his legs have improved but his redness has spread higher mildly. Pt c/o of decub ulcer pain and pannus ulcer pain. Denies f/c/n/v/ d/sob/chest pain/ numbness and tingling. OBJECTIVE: Vital Signs Period Temp Pulse Resp BP Sys/Gautam Pulse Ox Last 24 Hr 97.3 F-98.6 F 60-71 18-20 139-154/63-78 95-95 GENERAL: The patient is awake, alert, and fully oriented, in no acute distress. ENT: Dentition poor. Clear without exudates, moist mucous membranes. LUNGS: Breath sounds equal, clear to auscultation bilaterally, no wheezes, no crackles HEART: Regular rate and rhythm, S1, S2 without murmur, rub or gallop. ABDOMEN: Soft, nontender, nondistended, normoactive bowel sounds, no guarding, Pannus- 2 ulcers (both 1x.5) presents without erythema or purulent discharge. Ulcers are painful EXTREMITIES: RLE: 1x1.5 cm ulcer on the plantar surface of the 1st metatarsal- Appears improved. Swelling and redness present up to 2/3 of the LE. Tender to palpation. Redness is demarcated slightly above the line that was drawn. LLE: 1.5-1.5 cm ulcer on the plantar surface of 2nd metatarsal, w/ swelling of the foot. Non-tender to palpation. Back: .5x.5 decub ulcer with surrounding erythema w/ no purulent discharge- appears to be worsening NEUROLOGICAL: Cranial nerves II through XII grossly intact. SKIN: Warm, dry, normal turgor, no rashes or lesions noted Laboratory Results - last 24 hr CBC,CMP WBC 5.5 K/mm3 (4.0-10.0) 03/11/19 07:35 RBC 3.20 M/mm3 (4.00-5.60) L 03/11/19 07:35 Hgb 10.2 GM/dL (11.7-16.9) L 03/11/19 07:35 Hct 31.2 % (35.4-49) L 03/11/19 07:35 MCV 97.3 fl (80-96) H 03/11/19 07:35 MCH 31.9 pg (25.7-33.7) 03/11/19 07:35 MCHC 32.8 g/dl (32.0-35.9) 03/11/19 07:35 RDW 19.2 % (11.9-15.9) H 03/11/19 07:35 Plt Count 208 K/MM3 (134-434) D 03/11/19 07:35 MPV 9.4 fl (7.5-11.1) 03/11/19 07:35 Absolute Neuts (auto) 7.1 K/mm3 (1.5-8.0) 03/06/19 07:10 Neutrophils % 76.1 % (42.8-82.8) 03/06/19 07:10 Lymphocytes % 14.5 % (8-40) D 03/06/19 07:10 Monocytes % 8.6 % (3.8-10.2) 03/06/19 07:10 Eosinophils % 0.5 % (0-4.5) D 03/06/19 07:10 Basophils % 0.3 % (0-2.0) 03/06/19 07:10 Nucleated RBC % 0 % (0-0) 03/06/19 07:10 ESR 31 mm/hr (0-20) H 03/06/19 07:10 Sodium 138 mmol/L (136-145) 03/11/19 07:35 Potassium 4.5 mmol/L (3.5-5.1) 03/11/19 07:35 Chloride 106 mmol/L (98-107) 03/11/19 07:35 Carbon Dioxide 27 mmol/L (21-32) 03/11/19 07:35 Anion Gap 5 MMOL/L (8-16) L 03/11/19 07:35 BUN 34.7 mg/dL (7-18) H 03/11/19 07:35 Creatinine 1.7 mg/dL (0.55-1.3) H 03/11/19 07:35 Est GFR (CKD-EPI)AfAm 43.79 03/11/19 07:35 Est GFR (CKD-EPI)NonAf 37.79 03/11/19 07:35 POC Glucometer 251 UNITS (80-120) 03/11/19 11:41 Random Glucose 144 mg/dL (74-106) H 03/11/19 07:35 Hemoglobin A1c % 5.4 % (4.2-6.3) 03/10/19 07:22 Lactic Acid 1.4 mmol/L (0.4-2.0) 03/05/19 22:15 Calcium 8.6 mg/dL (8.5-10.1) 03/11/19 07:35 Phosphorus 2.8 mg/dL (2.5-4.9) 03/06/19 07:10 Magnesium 2.3 mg/dL (1.8-2.4) 03/06/19 07:10 Total Bilirubin 0.9 mg/dL (0.2-1) 03/06/19 07:10 AST 20 U/L (15-37) 03/06/19 07:10 ALT 19 U/L (13-61) 03/06/19 07:10 Alkaline Phosphatase 47 U/L (45-117) 03/06/19 07:10 Troponin I 0.02 ng/ml (0.00-0.05) 03/05/19 18:50 C-Reactive Protein 7.3 MG/DL (0.00-0.3) H 03/09/19 07:14 Total Protein 5.6 g/dl (6.4-8.2) L 03/06/19 07:10 Albumin 2.9 g/dl (3.4-5.0) L 03/06/19 07:10 Active Medications Current Medications Acetaminophen (Tylenol -) 650 mg PO Q6H PRN PRN Reason: PAIN Allopurinol (Zyloprim -) 300 mg PO DAILY ON LICENSE OF [facility] Last Admin: 03/11/19 10:37 Dose: 300 mg Atorvastatin Calcium (Lipitor -) 20 mg PO HS [facility] Last Admin: 03/10/19 22:20 Dose: 20 mg Bacitracin (Bacitracin -) 1 applic TP DAILY ON LICENSE OF [facility] Last Admin: 03/11/19 10:38 Dose: 1 applic Cholecalciferol (Vitamin D3 -) 4,000 unit PO DAILY [facility] Last Admin: 03/11/19 10:37 Dose: 4,000 unit Collagenase (Santyl -) 1 applic TP DAILY [facility]; Protocol Last Admin: 03/11/19 10:40 Dose: 1 applic Folic Acid (Folic Acid -) 3 mg PO DAILY [facility] Last Admin: 03/11/19 10:37 Dose: 3 mg Furosemide (Lasix -) 40 mg PO DAILY [facility] Last Admin: 03/11/19 10:37 Dose: 40 mg Gabapentin (Neurontin -) 300 mg PO BID [facility] Last Admin: 03/11/19 10:37 Dose: 300 mg Aztreonam 2 gm/ Dextrose 100 mls @ 100 mls/hr IVPB Q8H-IV [facility]; Protocol Last Admin: 03/11/19 10:37 Dose: 100 mls/hr Vancomycin HCl (Vancomycin (Pre-Docked)) 1,000 mg in 250 mls @ 166.667 mls/hr IVPB Q24H [facility]; Protocol Last Admin: 03/11/19 15:51 Dose: 166.667 mls/hr Insulin Aspart (Novolog Vial Sliding Scale -) 1 vial SQ TIDAC [facility]; Protocol Last Admin: 03/11/19 11:46 Dose: 6 units Lidocaine HCl (Xylocaine 2% Jelly) 1 applic TP DAILY ON LICENSE OF [facility] Last Admin: 03/11/19 10:41 Dose: 1 applic Losartan Potassium (Cozaar -) 25 mg PO DAILY [facility] Last Admin: 03/11/19 10:37 Dose: 25 mg Nystatin (Nystop Powder -) 1 applic TP HS ON LICENSE OF [facility] Last Admin: 03/10/19 22:20 Dose: 1 applic Tamsulosin HCl (Flomax -) 0.4 mg PO DAILY [facility] Last Admin: 03/11/19 10:37 Dose: 0.4 mg Warfarin Sodium 5 mg/ Warfarin (Sodium 3 mg) 8 mg PO DAILY@1800 [facility] Last Admin: 03/10/19 17:48 Dose: 8 mg Home Medications Medication Instructions Recorded Atorvastatin Calcium 20 mg PO DAILY 09/28/15 Calcium Carbonate [Coral Calcium] 10 gm PO TID 09/28/15 Cholecalciferol (Vitamin D3) 4,000 unit PO DAILY 06/08/16 [Vitamin D3 -] Folic Acid - 3 mg PO DAILY 09/28/15 Glimepiride [Glimepiride -] 2 mg PO BID 09/28/15 Multivit-Min/FA/Lycopen/Lutein 1 each PO DAILY 09/28/15 [Centrum Silver Tablet] Magnesium Chloride [Slow-Mag -] 64 mg PO DAILY 12/05/15 Allopurinol 300 mg PO DAILY 11/14/17 Docusate Sodium [Colace] 100 mg PO PRN PRN 11/14/17 Ferrous Sulfate [Feosol] 324 mg PO DAILY 11/14/17 Ranitidine [Zantac -] 150 mg PO BID 11/14/17 Furosemide [Lasix] 40 mg PO PRN PRN 01/06/19 Gabapentin [Neurontin -] 300 mg PO BID 01/06/19 Losartan Potassium [Cozaar -] 25 mg PO DAILY 01/06/19 Warfarin Na [Coumadin -] 6 mg PO DAILY@1800 30 Days #30 01/14/19 tablet Tamsulosin HCl 1 tablet PO DAILY 03/06/19 Microbiology 03/05/19 18:50 Blood - Peripheral Venous Blood Culture - Final NO GROWTH AFTER 5 DAYS INCUBATION 03/05/19 18:55 Blood - Peripheral Venous Blood Culture - Final NO GROWTH AFTER 5 DAYS INCUBATION 03/05/19 21:25 Urine - Urine Clean Catch Urine Culture - Final Escherichia Coli Enterococcus Faecalis ASSESSMENT/PLAN: 79 y/o M, pmh of HLD, DM2, CKD (stage 4, 33%), Hx of DVT (on Coumadin), Factor V Leiden, Lupus anticoagulant +, Gout, Celiac disease, GERD, prostate CA ( remission since 2013) and non-healing wounds on R and L heels presented for worsening swelling, redness and pain of his right lower legs accompanied by chills and diaphoresis of 2 day duration is admitted for cellulitis of the RLE #Swelling, erythema and tenderness of RLE likely 2/2 to Cellulitis Aztreonam and vanc vanc trough today- 13.8, MRI of LE ordered- pending results Duplex LE ordered- 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, significant stenosis between distal SFA and popliteal artery Apply gentamicin ointment on the wound #Decub ulcers Lidocaine gel topical Foam and dressing #Right Pannus ulcer dry dressing #Hx of DVT cont home meds- Coumadin- 8mg #NAZARIO on CKD Cautious dosing of meds- renal dose Lasix 40 #DM ISS, monitor BGM #Gout cont home meds- allopurinol #HLD cont home meds #Morbid Obesity monitor wts recom out pt bariatric options advised on diet control, exercise and wt loss #DVTppx on coumadin FEN monitor lytes, sodium controlled diet Dispo: monitor INR, cont Abx, f/u MRI Visit type - Emergency Visit Emergency Visit: Yes ED Registration Date: 03/05/19 Care time: The patient presented to the Emergency Department on the above date and was hospitalized for further evaluation of their emergent condition. - New Patient This patient is new to me today: Yes Date on this admission: 03/11/19 - Critical Care Critical Care patient: No - Discharge Referral Referred to [facility] Med P.C.: No ATTENDING PHYSICIAN STATEMENT I saw and evaluated the patient. I reviewed the resident's note and discussed the case with the resident. I agree with the resident's findings and plan as documented. SUBJECTIVE: OBJECTIVE: ASSESSMENT AND PLAN:
[2019-03-11] MEDS ORDERED: WARFARIN NA 5 MG TABLET (UD) ONE (16:59)
[2019-03-11] MEDS ORDERED: WARFARIN NA 3 MG TABLET ONE (16:59)
[2019-03-11] MEDS: WARFARIN NA 5 MG, WARFARIN NA 3 MG PO SCH (17:34)
[2019-03-11] MEDS: ATORVASTATIN CA 20 MG TABLET (FP) PO SCH (22:15)
[2019-03-11] MEDS: NYSTATIN POWDER 100,000 UNITS/GM - 15 GM TOPICAL POWDER TP SCH (22:15)
[2019-03-12] MEDS ORDERED: PT OWN MED DRAWER 7, Y5N ONE ×3 (00:36→17:13)
[2019-03-12] MEDS: AZTREONAM 2 GM in DEXTROSE 5%-WATER 100 ML IVPB SCH ×3 (01:54→17:21)
[2019-03-12] MEDS: INSULIN SLIDING SCALE (NOVOLOG) 1 VIAL SQ SCH ×3 (06:45→17:19)
[2019-03-12] MEDS ORDERED: INSULIN (NOVOLOG) ASPART 100 UNITS/ML 10ML VIAL ONE (06:51)
--- NOTE | 2019-03-12 09:38 | PN ---
Progress Note, Physician Chief Complaint: wounds b/l feet with cellulitis right leg. Unable to get MRI do to limitations of machine. - Current Medication List Current Medications: Active Medications Acetaminophen (Tylenol -) 650 mg PO Q6H PRN PRN Reason: PAIN Allopurinol (Zyloprim -) 300 mg PO DAILY [facility] Last Admin: 03/11/19 10:37 Dose: 300 mg Atorvastatin Calcium (Lipitor -) 20 mg PO HS AN[facility] Last Admin: 03/11/19 22:15 Dose: 20 mg Bacitracin (Bacitracin -) 1 applic TP DAILY [facility] Last Admin: 03/11/19 10:38 Dose: 1 applic Cholecalciferol (Vitamin D3 -) 4,000 unit PO DAILY [facility] Last Admin: 03/11/19 10:37 Dose: 4,000 unit Collagenase (Santyl -) 1 applic TP DAILY [facility]; Protocol Last Admin: 03/11/19 10:40 Dose: 1 applic Folic Acid (Folic Acid -) 3 mg PO DAILY [facility] Last Admin: 03/11/19 10:37 Dose: 3 mg Furosemide (Lasix -) 40 mg PO DAILY [facility] Last Admin: 03/11/19 10:37 Dose: 40 mg Gabapentin (Neurontin -) 300 mg PO BID [facility] Last Admin: 03/11/19 22:15 Dose: 300 mg Aztreonam 2 gm/ Dextrose 100 mls @ 100 mls/hr IVPB Q8H-IV [facility]; Protocol Last Admin: 03/12/19 01:54 Dose: 100 mls/hr Vancomycin HCl (Vancomycin (Pre-Docked)) 1,000 mg in 250 mls @ 166.667 mls/hr IVPB Q24H [facility]; Protocol Last Admin: 03/11/19 15:51 Dose: 166.667 mls/hr Insulin Aspart (Novolog Vial Sliding Scale -) 1 vial SQ TIDAC [facility]; Protocol Last Admin: 03/12/19 06:45 Dose: 2 units Lidocaine HCl (Xylocaine 2% Jelly) 1 applic TP DAILY [facility] Last Admin: 03/11/19 10:41 Dose: 1 applic Losartan Potassium (Cozaar -) 25 mg PO DAILY [facility] Last Admin: 03/11/19 10:37 Dose: 25 mg Nystatin (Nystop Powder -) 1 applic TP HS [facility] Last Admin: 03/11/19 22:15 Dose: 1 applic Tamsulosin HCl (Flomax -) 0.4 mg PO DAILY [facility] Last Admin: 03/11/19 10:37 Dose: 0.4 mg Warfarin Sodium 5 mg/ Warfarin (Sodium 3 mg) 8 mg PO DAILY@1800 [facility] Last Admin: 03/11/19 17:34 Dose: 8 mg - Objective Vital Signs: Vital Signs Temperature 97.4 F L 03/12/19 06:00 Pulse Rate 66 03/12/19 06:00 Respiratory Rate 18 03/12/19 06:00 Blood Pressure 148/71 03/12/19 06:00 O2 Sat by Pulse Oximetry (%) 95 03/11/19 21:00 Wound/Incision: Yes: Other (stable wounds on feet, +cellulitis right leg) Labs: CBC, BMP 03/11/19 07:35 03/11/19 07:35 INR, PTT INR 2.54 (0.83-1.09) H 03/11/19 07:35 Assessment/Plan cellulitis right leg chronic wounds b/l feet morbid obesity Discussed with vascular. Awaiting testing results. Will follow. Irena to foot wounds. Will try to get MRI outpatient upon DC. Rest as per team.
[2019-03-12 10:20] LABS: HEMATOCRIT 31.1 % (35.4-49); HEMOGLOBIN 10.2 GM/dL (11.7-16.9); MCH 31.7 pg (25.7-33.7); MCHC 32.9 g/dl (32.0-35.9); MEAN CELL VOLUME 96.2 fl (80-96); MEAN PLT VOLUME 9.1 fl (7.5-11.1); PLATELET COUNT 230 K/MM3 (134-434); RBC 3.24 M/mm3 (4.00-5.60); RDW 19.2 % (11.9-15.9); WHITE BLOOD COUNT 5.6 K/mm3 (4.0-10.0)
[2019-03-12 10:29] LABS: INR 3.36 (0.83-1.09); PROTHROMBIN TIME (PATIENT) 40.1 SEC (9.7-13.0)
[2019-03-12] MEDS: LOSARTAN POTASSIUM 25 MG TABLET PO SCH (10:31)
[2019-03-12] MEDS: FOLIC ACID 1 MG TABLET (FP) PO SCH (10:31)
[2019-03-12] MEDS: CHOLECALCIFEROL (VIT D3) 1,000 UNIT (25 MCG) TABLET PO SCH (10:31)
[2019-03-12] MEDS: LIDOCAINE HCL 2% JELLY (30 ML/TUBE) TP SCH (10:32)
[2019-03-12] MEDS: COLLAGENASE CLOSTRIDIUM HIST. 30 GRAMS TUBE TP SCH (10:32)
[2019-03-12] MEDS: GABAPENTIN 300 MG CAPSULE (FP) PO SCH ×2 (10:32→21:07)
[2019-03-12] MEDS: FUROSEMIDE 40 MG TABLET (FP) PO SCH (10:32)
[2019-03-12] MEDS: ALLOPURINOL 300 MG TABLET (FP) PO SCH (10:32)
[2019-03-12] MEDS: TAMSULOSIN HCL 0.4 MG CAP PO SCH (10:32)
[2019-03-12] MEDS: BACITRACIN 15 GM TUBE TOPICAL OINTMENT TP SCH (10:33)
[2019-03-12 10:49] LABS: BLOOD UREA NITROGEN 35.6 mg/dL (7-18); CALCIUM 8.5 mg/dL (8.5-10.1); CREATININE 1.8 mg/dL (0.55-1.3); POTASSIUM 4.5 mmol/L (3.5-5.1)
--- NOTE | 2019-03-12 12:13 | PN ---
Progress Note (short form) - Note Progress Note: VASCULAR SURGERY Patient seen/examined with Dr. Kelly. Vascular study reviewed. Foot/wound care as per [facility]/Podiatry. Working diagnosis of LE cellulitis. Instructed to f/u with Dr. Kelly as out-patient --> will get GONZALEZ and PVRs at that time. Will need RLE angio Cont care as per medical team. No further Vascular input needed. Reconsult PRN. On behalf of Dr. Kelly, thank you for the opportunity to participate in your patient's care
--- NOTE | 2019-03-12 13:04 | PN ---
Physical Exam: SUBJECTIVE: Patient seen and examined. Pt is doing well overall. He still c/o mild pain and numbness on his RLE, and pain in his back ulcer. Otherwise, pt is asymptomatic and afebrile. He has no further c/o or issues. He was unable to get an MRI of his leg because the machine would not support his weight. Denies f /c/n/v/d/sob/chest pain. OBJECTIVE: Vital Signs Period Temp Pulse Resp BP Sys/Gautam Pulse Ox Last 24 Hr 97.4 F-98.6 F 65-72 18-19 148-153/62-71 95 GENERAL: The patient is awake, alert, and fully oriented, in no acute distress. ENT: Dentition poor. Clear without exudates, moist mucous membranes. LUNGS: Breath sounds equal, clear to auscultation bilaterally, no wheezes, no crackles HEART: Regular rate and rhythm, S1, S2 without murmur, rub or gallop. ABDOMEN: Soft, nontender, nondistended, normoactive bowel sounds, no guarding, Pannus- 2 ulcers (both 1x.5) presents without erythema or purulent discharge. Ulcers are painful EXTREMITIES: RLE: 1x1.5 cm ulcer on the plantar surface of the 1st metatarsal- Appears improved. Swelling and redness present up to 2/3 of the LE. Tender to palpation. Redness is demarcated slightly above the line that was drawn. LLE: 1.5-1.5 cm ulcer on the plantar surface of 2nd metatarsal, w/ swelling of the foot. Non-tender to palpation Back: .5x.5 decub ulcer with surrounding erythema w/ no purulent discharge- today looks worse NEUROLOGICAL: Cranial nerves II through XII grossly intact. SKIN: Warm, dry, normal turgor, no rashes or lesions noted Laboratory Results - last 24 hr CBC,CMP WBC 5.6 K/mm3 (4.0-10.0) 03/12/19 09:32 RBC 3.24 M/mm3 (4.00-5.60) L 03/12/19 09:32 Hgb 10.2 GM/dL (11.7-16.9) L 03/12/19 09:32 Hct 31.1 % (35.4-49) L 03/12/19 09:32 MCV 96.2 fl (80-96) H 03/12/19 09:32 MCH 31.7 pg (25.7-33.7) 03/12/19 09:32 MCHC 32.9 g/dl (32.0-35.9) 03/12/19 09:32 RDW 19.2 % (11.9-15.9) H 03/12/19 09:32 Plt Count 230 K/MM3 (134-434) 03/12/19 09:32 MPV 9.1 fl (7.5-11.1) 03/12/19 09:32 Absolute Neuts (auto) 7.1 K/mm3 (1.5-8.0) 03/06/19 07:10 Neutrophils % 76.1 % (42.8-82.8) 03/06/19 07:10 Lymphocytes % 14.5 % (8-40) D 03/06/19 07:10 Monocytes % 8.6 % (3.8-10.2) 03/06/19 07:10 Eosinophils % 0.5 % (0-4.5) D 03/06/19 07:10 Basophils % 0.3 % (0-2.0) 03/06/19 07:10 Nucleated RBC % 0 % (0-0) 03/06/19 07:10 ESR 31 mm/hr (0-20) H 03/06/19 07:10 Sodium 137 mmol/L (136-145) 03/12/19 06:00 Potassium 4.5 mmol/L (3.5-5.1) 03/12/19 06:00 Chloride 104 mmol/L (98-107) 03/12/19 06:00 Carbon Dioxide 29 mmol/L (21-32) 03/12/19 06:00 Anion Gap 4 MMOL/L (8-16) L 03/12/19 06:00 BUN 35.6 mg/dL (7-18) H 03/12/19 06:00 Creatinine 1.8 mg/dL (0.55-1.3) H 03/12/19 06:00 Est GFR (CKD-EPI)AfAm 40.87 03/12/19 06:00 Est GFR (CKD-EPI)NonAf 35.26 03/12/19 06:00 POC Glucometer 287 UNITS (80-120) 03/12/19 11:59 Random Glucose 210 mg/dL (74-106) H 03/12/19 06:00 Hemoglobin A1c % 5.4 % (4.2-6.3) 03/10/19 07:22 Lactic Acid 1.4 mmol/L (0.4-2.0) 03/05/19 22:15 Calcium 8.5 mg/dL (8.5-10.1) 03/12/19 06:00 Phosphorus 2.8 mg/dL (2.5-4.9) 03/06/19 07:10 Magnesium 2.3 mg/dL (1.8-2.4) 03/06/19 07:10 Total Bilirubin 0.9 mg/dL (0.2-1) 03/06/19 07:10 AST 20 U/L (15-37) 03/06/19 07:10 ALT 19 U/L (13-61) 03/06/19 07:10 Alkaline Phosphatase 47 U/L (45-117) 03/06/19 07:10 Troponin I 0.02 ng/ml (0.00-0.05) 03/05/19 18:50 C-Reactive Protein 7.3 MG/DL (0.00-0.3) H 03/09/19 07:14 Total Protein 5.6 g/dl (6.4-8.2) L 03/06/19 07:10 Albumin 2.9 g/dl (3.4-5.0) L 03/06/19 07:10 Active Medications Current Medications Acetaminophen (Tylenol -) 650 mg PO Q6H PRN PRN Reason: PAIN Allopurinol (Zyloprim -) 300 mg PO DAILY [facility] Last Admin: 03/12/19 10:32 Dose: 300 mg Atorvastatin Calcium (Lipitor -) 20 mg PO HS AN[facility] Last Admin: 03/11/19 22:15 Dose: 20 mg Bacitracin (Bacitracin -) 1 applic TP DAILY [facility] Last Admin: 03/12/19 10:33 Dose: 1 applic Cholecalciferol (Vitamin D3 -) 4,000 unit PO DAILY [facility] Last Admin: 03/12/19 10:31 Dose: 4,000 unit Collagenase (Santyl -) 1 applic TP DAILY [facility]; Protocol Last Admin: 03/12/19 10:32 Dose: 1 applic Folic Acid (Folic Acid -) 3 mg PO DAILY [facility] Last Admin: 03/12/19 10:31 Dose: 3 mg Furosemide (Lasix -) 40 mg PO DAILY [facility] Last Admin: 03/12/19 10:32 Dose: 40 mg Gabapentin (Neurontin -) 300 mg PO BID [facility] Last Admin: 03/12/19 10:32 Dose: 300 mg Aztreonam 2 gm/ Dextrose 100 mls @ 100 mls/hr IVPB Q8H-IV [facility]; Protocol Last Admin: 03/12/19 10:31 Dose: 100 mls/hr Vancomycin HCl (Vancomycin (Pre-Docked)) 1,000 mg in 250 mls @ 166.667 mls/hr IVPB Q24H [facility]; Protocol Last Admin: 03/11/19 15:51 Dose: 166.667 mls/hr Insulin Aspart (Novolog Vial Sliding Scale -) 1 vial SQ TIDAC [facility]; Protocol Last Admin: 03/12/19 12:24 Dose: 6 units Lidocaine HCl (Xylocaine 2% Jelly) 1 applic TP DAILY [facility] Last Admin: 03/12/19 10:32 Dose: 1 applic Losartan Potassium (Cozaar -) 25 mg PO DAILY [facility] Last Admin: 03/12/19 10:31 Dose: 25 mg Nystatin (Nystop Powder -) 1 applic TP HS [facility] Last Admin: 03/11/19 22:15 Dose: 1 applic Tamsulosin HCl (Flomax -) 0.4 mg PO DAILY [facility] Last Admin: 03/12/19 10:32 Dose: 0.4 mg Warfarin Sodium 5 mg/ Warfarin (Sodium 3 mg) 8 mg PO DAILY@1800 [facility] Last Admin: 03/11/19 17:34 Dose: 8 mg Home Medications Medication Instructions Recorded Atorvastatin Calcium 20 mg PO DAILY 09/28/15 Calcium Carbonate [Coral Calcium] 10 gm PO TID 09/28/15 Cholecalciferol (Vitamin D3) 4,000 unit PO DAILY 09/28/15 [Vitamin D3 -] Folic Acid - 3 mg PO DAILY 09/28/15 Glimepiride [Glimepiride -] 2 mg PO BID 09/28/15 Multivit-Min/FA/Lycopen/Lutein 1 each PO DAILY 09/28/15 [Centrum Silver Tablet] Magnesium Chloride [Slow-Mag -] 64 mg PO DAILY 08/15/16 Allopurinol 300 mg PO DAILY 11/14/17 Docusate Sodium [Colace] 100 mg PO PRN PRN 11/14/17 Ferrous Sulfate [Feosol] 324 mg PO DAILY 11/14/17 Ranitidine [Zantac -] 150 mg PO BID 11/14/17 Furosemide [Lasix] 40 mg PO PRN PRN 01/06/19 Gabapentin [Neurontin -] 300 mg PO BID 01/06/19 Losartan Potassium [Cozaar -] 25 mg PO DAILY 01/06/19 Warfarin Na [Coumadin -] 6 mg PO DAILY@1800 30 Days #30 01/14/19 tablet Tamsulosin HCl 1 tablet PO DAILY 03/06/19 Microbiology 03/05/19 18:50 Blood - Peripheral Venous Blood Culture - Final NO GROWTH AFTER 5 DAYS INCUBATION 03/05/19 18:55 Blood - Peripheral Venous Blood Culture - Final NO GROWTH AFTER 5 DAYS INCUBATION 03/05/19 21:25 Urine - Urine Clean Catch Urine Culture - Final Escherichia Coli Enterococcus Faecalis ASSESSMENT/PLAN: #Swelling, erythema and tenderness of RLE likely 2/2 to Cellulitis Aztreonam and vanc vanc trough tomorrow MRI of LE ordered- pending Apply gentamicin ointment on the wound Appreciate vascular consult Will recom pt for out pt follow up with Dr. Kelly for RLE angio and GONZALEZ/PVR #Decub ulcers Lidocaine gel topical Foam and dressing #Right Pannus ulcer dry dressing #Hx of DVT cont home meds- Coumadin- 8mg #NAZARIO on CKD Cautious dosing of meds- renal dose Lasix 40 #DM ISS, monitor BGM #Gout cont home meds- allopurinol #HLD cont home meds #Morbid Obesity monitor wts recom out pt bariatric options advised on diet control, exercise and wt loss #DVTppx on coumadin FEN monitor lytes, sodium controlled diet Dispo: monitor INR, cont Abx, f/u MRI Visit type - Emergency Visit Emergency Visit: Yes ED Registration Date: 03/05/19 Care time: The patient presented to the Emergency Department on the above date and was hospitalized for further evaluation of their emergent condition. - New Patient This patient is new to me today: Yes Date on this admission: 03/14/19 - Critical Care Critical Care patient: No - Discharge Referral Referred to [facility] Med P.C.: No ATTENDING PHYSICIAN STATEMENT I saw and evaluated the patient. I reviewed the resident's note and discussed the case with the resident. I agree with the resident's findings and plan as documented. SUBJECTIVE: OBJECTIVE: ASSESSMENT AND PLAN:
[2019-03-12] MEDS: VANCOMYCIN 1 GRAM (PRE-DOCKED) 1,000 MG/250 ML BAG IVPB SCH (15:04)
[2019-03-12 15:45] LABS: INR 3.45 (0.83-1.09); PROTHROMBIN TIME (PATIENT) 41.2 SEC (9.7-13.0)
[2019-03-12] MEDS ORDERED: WARFARIN NA 5 MG TABLET (UD) ONE (17:13)
[2019-03-12] MEDS ORDERED: WARFARIN NA 3 MG TABLET ONE (17:13)
--- NOTE | 2019-03-12 17:46 | PN ---
Teaching Attending Note Name of Resident: Osman Hagan ATTENDING PHYSICIAN STATEMENT I saw and evaluated the patient. I reviewed the resident's note and discussed the case with the resident. I agree with the resident's findings and plan as documented. SUBJECTIVE: Patient has no fever or chills, no shortness of pain. no fever or chills. Vital Signs Temperature 98.0 F 03/12/19 14:00 Pulse Rate 64 03/12/19 14:00 Respiratory Rate 18 03/12/19 14:00 Blood Pressure 155/63 03/12/19 14:00 O2 Sat by Pulse Oximetry (%) 95 03/12/19 09:00 GENERAL: The patient is awake, alert, and fully oriented, in no acute distress. HEAD: Normal with no signs of trauma. EYES: PERRL, extraocular movements intact, sclera anicteric, conjunctiva clear. ENT: Ears normal, oropharynx clear without exudates, moist mucous membranes. NECK: Trachea midline, full range of motion, supple. LUNGS: Breath sounds equal, clear to auscultation bilaterally, no wheezes, no crackles, no accessory muscle use. HEART: Regular rate and rhythm, S1, S2 without murmur, rub or gallop. ABDOMEN: Soft, NT,ND, normoactive bowel sounds, no guarding, no rebound, no hepatosplenomegaly, no masses. EXTREMITIES: 2+ pulses, warm, well-perfused, erythema of RLE improving, a craig size open wound with clean base at both plantars of LEs, with chronic venous stasis. NEUROLOGICAL: Cranial nerves II through XII grossly intact. Normal speech, gait is stable uses canes. PSYCH: Normal mood, normal affect. SKIN: Warm, dry, normal turgor, no rashes or lesions noted EXt: Right lower extremity cellulitis improving CBCD WBC 5.6 K/mm3 (4.0-10.0) 03/12/19 09:32 RBC 3.24 M/mm3 (4.00-5.60) L 03/12/19 09:32 Hgb 10.2 GM/dL (11.7-16.9) L 03/12/19 09:32 Hct 31.1 % (35.4-49) L 03/12/19 09:32 MCV 96.2 fl (80-96) H 03/12/19 09:32 MCHC 32.9 g/dl (32.0-35.9) 03/12/19 09:32 RDW 19.2 % (11.9-15.9) H 03/12/19 09:32 Plt Count 230 K/MM3 (134-434) 03/12/19 09:32 MPV 9.1 fl (7.5-11.1) 03/12/19 09:32 CMP Sodium 137 mmol/L (136-145) 03/12/19 06:00 Potassium 4.5 mmol/L (3.5-5.1) 03/12/19 06:00 Chloride 104 mmol/L (98-107) 03/12/19 06:00 Carbon Dioxide 29 mmol/L (21-32) 03/12/19 06:00 Anion Gap 4 MMOL/L (8-16) L 03/12/19 06:00 BUN 35.6 mg/dL (7-18) H 03/12/19 06:00 Creatinine 1.8 mg/dL (0.55-1.3) H 03/12/19 06:00 Random Glucose 210 mg/dL (74-106) H 03/12/19 06:00 Calcium 8.5 mg/dL (8.5-10.1) 03/12/19 06:00 Total Bilirubin 0.9 mg/dL (0.2-1) 03/06/19 07:10 AST 20 U/L (15-37) 03/06/19 07:10 ALT 19 U/L (13-61) 03/06/19 07:10 Alkaline Phosphatase 47 U/L (45-117) 03/06/19 07:10 Total Protein 5.6 g/dl (6.4-8.2) L 03/06/19 07:10 Albumin 2.9 g/dl (3.4-5.0) L 03/06/19 07:10 CARDIAC ENZYMES Troponin I 0.02 ng/ml (0.00-0.05) 03/05/19 18:50 Current Medications Generic Name Dose Route Start Last Admin Trade Name Freq PRN Reason Stop Dose Admin Acetaminophen 650 mg 03/07/19 19:54 Tylenol - PO Q6H PRN PAIN Allopurinol 300 mg 03/07/19 10:00 03/12/19 10:32 Zyloprim - PO 300 mg DAILY ANNY Administration Atorvastatin Calcium 20 mg 03/06/19 22:00 03/11/19 22:15 Lipitor - PO 20 mg HS ANNY Administration Bacitracin 1 applic 03/08/19 17:00 03/12/19 10:33 Bacitracin - TP 1 applic DAILY ANNY Administration Cholecalciferol 4,000 unit 03/07/19 10:00 03/12/19 10:31 Vitamin D3 - PO 4,000 unit DAILY ANNY Administration Collagenase 1 applic 03/10/19 10:00 03/12/19 10:32 Santyl - TP 1 applic DAILY ANNY Administration Protocol Folic Acid 3 mg 03/07/19 10:00 03/12/19 10:31 Folic Acid - PO 3 mg DAILY ANNY Administration Furosemide 40 mg 03/10/19 10:00 03/12/19 10:32 Lasix - PO 40 mg DAILY ANNY Administration Gabapentin 300 mg 03/06/19 10:00 03/12/19 10:32 Neurontin - PO 300 mg BID ANNY Administration Aztreonam 2 gm/ Dextrose 100 mls @ 100 mls/hr 03/06/19 18:00 03/12/19 17:21 IVPB 100 mls/hr Q8H-IV ANNY Administration Protocol Vancomycin HCl 1,000 mg in 250 mls @ 166.667 mls/hr 03/11/19 13:00 03/12/19 15:04 Vancomycin (Pre-Docked) IVPB 166.667 mls/hr Q24H ANNY Administration Protocol Insulin Aspart 1 vial 03/06/19 11:00 03/12/19 17:19 Novolog Vial Sliding Scale - SQ 4 units TIDAC ANNY Administration Protocol Lidocaine HCl 1 applic 03/08/19 16:51 03/12/19 10:32 Xylocaine 2% Jelly TP 1 applic DAILY ANNY Administration Losartan Potassium 25 mg 03/08/19 10:00 03/12/19 10:31 Cozaar - PO 25 mg DAILY ANNY Administration Nystatin 1 applic 03/08/19 22:00 03/11/19 22:15 Nystop Powder - TP 1 applic HS ANNY Administration Tamsulosin HCl 0.4 mg 03/07/19 10:00 03/12/19 10:32 Flomax - PO 0.4 mg DAILY ANNY Administration Warfarin Sodium 5 mg/ Warfarin 8 mg 03/08/19 18:00 03/11/19 17:34 Sodium 3 mg PO 8 mg DAILY@1800 [facility] Administration Home Medications Medication Instructions Recorded Atorvastatin Calcium 20 mg PO DAILY 09/28/15 Calcium Carbonate [Coral Calcium] 10 gm PO TID 09/28/15 Cholecalciferol (Vitamin D3) 4,000 unit PO DAILY 09/28/15 [Vitamin D3 -] Folic Acid - 3 mg PO DAILY 09/28/15 Glimepiride [Glimepiride -] 2 mg PO BID 09/28/15 Multivit-Min/FA/Lycopen/Lutein 1 each PO DAILY 09/28/15 [Centrum Silver Tablet] Magnesium Chloride [Slow-Mag -] 64 mg PO DAILY 12/05/15 Allopurinol 300 mg PO DAILY 11/14/17 Docusate Sodium [Colace] 100 mg PO PRN PRN 11/14/17 Ferrous Sulfate [Feosol] 324 mg PO DAILY 11/14/17 Ranitidine [Zantac -] 150 mg PO BID 11/14/17 Furosemide [Lasix] 40 mg PO PRN PRN 01/06/19 Gabapentin [Neurontin -] 300 mg PO BID 01/06/19 Losartan Potassium [Cozaar -] 25 mg PO DAILY 01/06/19 Warfarin Na [Coumadin -] 6 mg PO DAILY@1800 30 Days #30 01/14/19 tablet Tamsulosin HCl 1 tablet PO DAILY 03/06/19 ASSESSMENT AND PLAN: Patient is a 79yo male with PMHx of DM , HTN, HLP, DVT, V liden def, celiac Dz, prostate ca, and feet ulcers. He presented with erythema of R leg He was diagnosed with acute cellulitis of RLE ,with bl venous stasis # Acute cellulitis of RLE on IV Azactam and vancomycin continue discussed with ID # [id number] on CKD: Cr at base line(1.8), cont losartan and lasix #H/o DVT,factor V leiden def: cont couamdin # T2DM:cont SSI # BL open plantar ulcers continue Santyl daily , patient cannot have MRI # Decub ulcer on gluteal area, foam dressing and lidocaine gel continue , Ulcer Under R pannus, apply nystatin and bacitracin DVT px :coumadin
--- NOTE | 2019-03-12 18:13 | PN ---
Progress Note (short form) - Note Progress Note: less leg pain less erythema less edema (now on lasix) feels improved Vital Signs Period Temp Pulse Resp BP Sys/Gautam Pulse Ox Last 24 Hr 97.4 F-98.2 F 64-72 18-18 148-155/63-71 95-95 cor-rrr lungs clear abd soft,nt ext less erythema LLE, less edema plantar ulcers both feet are clean and shallow CBC, BMP 03/12/19 09:32 03/12/19 06:00 Microbiology 03/05/19 18:50 Blood - Peripheral Venous Blood Culture - Final NO GROWTH AFTER 5 DAYS INCUBATION 03/05/19 18:55 Blood - Peripheral Venous Blood Culture - Final NO GROWTH AFTER 5 DAYS INCUBATION 03/05/19 21:25 Urine - Urine Clean Catch Urine Culture - Final Escherichia Coli Enterococcus Faecalis Current Medications Acetaminophen (Tylenol -) 650 mg PO Q6H PRN PRN Reason: PAIN Allopurinol (Zyloprim -) 300 mg PO DAILY ANNY Last Admin: 03/12/19 10:32 Dose: 300 mg Atorvastatin Calcium (Lipitor -) 20 mg PO HS ANNY Last Admin: 03/11/19 22:15 Dose: 20 mg Bacitracin (Bacitracin -) 1 applic TP DAILY [facility] Last Admin: 03/12/19 10:33 Dose: 1 applic Cholecalciferol (Vitamin D3 -) 4,000 unit PO DAILY [facility] Last Admin: 03/12/19 10:31 Dose: 4,000 unit Collagenase (Santyl -) 1 applic TP DAILY [facility]; Protocol Last Admin: 03/12/19 10:32 Dose: 1 applic Folic Acid (Folic Acid -) 3 mg PO DAILY [facility] Last Admin: 03/12/19 10:31 Dose: 3 mg Furosemide (Lasix -) 40 mg PO DAILY [facility] Last Admin: 03/12/19 10:32 Dose: 40 mg Gabapentin (Neurontin -) 300 mg PO BID ANNY Last Admin: 03/12/19 10:32 Dose: 300 mg Aztreonam 2 gm/ Dextrose 100 mls @ 100 mls/hr IVPB Q8H-IV [facility]; Protocol Last Admin: 03/12/19 17:21 Dose: 100 mls/hr Vancomycin HCl (Vancomycin (Pre-Docked)) 1,000 mg in 250 mls @ 166.667 mls/hr IVPB Q24H [facility]; Protocol Last Admin: 03/12/19 15:04 Dose: 166.667 mls/hr Insulin Aspart (Novolog Vial Sliding Scale -) 1 vial SQ TIDAC [facility]; Protocol Last Admin: 03/12/19 17:19 Dose: 4 units Lidocaine HCl (Xylocaine 2% Jelly) 1 applic TP DAILY [facility] Last Admin: 03/12/19 10:32 Dose: 1 applic Losartan Potassium (Cozaar -) 25 mg PO DAILY [facility] Last Admin: 03/12/19 10:31 Dose: 25 mg Nystatin (Nystop Powder -) 1 applic TP HS [facility] Last Admin: 03/11/19 22:15 Dose: 1 applic Tamsulosin HCl (Flomax -) 0.4 mg PO DAILY [facility] Last Admin: 03/12/19 10:32 Dose: 0.4 mg Warfarin Sodium 5 mg/ Warfarin (Sodium 3 mg) 8 mg PO DAILY@1800 [facility] Last Admin: 03/11/19 17:34 Dose: 8 mg a/p cellulitis chronic plantar ulcers diabetes obesity venous stasis multilple antibiotic allergies continue vanco /azactam if he continues to improve, will switch to po clindamycin in next 24 to 48 hours
[2019-03-12] MEDS: WARFARIN NA 5 MG, WARFARIN NA 3 MG PO SCH (19:15)
[2019-03-12] MEDS: ATORVASTATIN CA 20 MG TABLET (FP) PO SCH (21:06)
[2019-03-12] MEDS: NYSTATIN POWDER 100,000 UNITS/GM - 15 GM TOPICAL POWDER TP SCH (21:42)
[2019-03-13] MEDS: AZTREONAM 2 GM in DEXTROSE 5%-WATER 100 ML IVPB SCH ×3 (01:58→10:30)
[2019-03-13] MEDS: INSULIN SLIDING SCALE (NOVOLOG) 1 VIAL SQ SCH ×3 (06:03→18:15)
[2019-03-13] MEDS ORDERED: INSULIN (NOVOLOG) ASPART 100 UNITS/ML 10ML VIAL ONE ×2 (06:24→12:05)
[2019-03-13 08:43] LABS: HEMATOCRIT 31.7 % (35.4-49); HEMOGLOBIN 10.4 GM/dL (11.7-16.9); MCH 31.8 pg (25.7-33.7); MCHC 32.9 g/dl (32.0-35.9); MEAN CELL VOLUME 96.6 fl (80-96); MEAN PLT VOLUME 9.2 fl (7.5-11.1); PLATELET COUNT 246 K/MM3 (134-434); RBC 3.28 M/mm3 (4.00-5.60); RDW 18.8 % (11.9-15.9); WHITE BLOOD COUNT 6.1 K/mm3 (4.0-10.0)
[2019-03-13 08:54] LABS: BLOOD UREA NITROGEN 32.9 mg/dL (7-18); CALCIUM 8.6 mg/dL (8.5-10.1); CREATININE 1.8 mg/dL (0.55-1.3); POTASSIUM 4.6 mmol/L (3.5-5.1)
[2019-03-13 09:17] LABS: INR 3.08 (0.83-1.09); PROTHROMBIN TIME (PATIENT) 36.8 SEC (9.7-13.0)
[2019-03-13] MEDS ORDERED: PT OWN MED DRAWER 7, Y5N ONE (10:09)
[2019-03-13] MEDS: CHOLECALCIFEROL (VIT D3) 1,000 UNIT (25 MCG) TABLET PO SCH (10:12)
[2019-03-13] MEDS: GABAPENTIN 300 MG CAPSULE (FP) PO SCH ×2 (10:12→21:13)
[2019-03-13] MEDS: FUROSEMIDE 40 MG TABLET (FP) PO SCH (10:13)
[2019-03-13] MEDS: ALLOPURINOL 300 MG TABLET (FP) PO SCH (10:13)
[2019-03-13] MEDS: FOLIC ACID 1 MG TABLET (FP) PO SCH (10:13)
[2019-03-13] MEDS: TAMSULOSIN HCL 0.4 MG CAP PO SCH (10:13)
[2019-03-13] MEDS: LOSARTAN POTASSIUM 25 MG TABLET PO SCH (10:14)
[2019-03-13] MEDS: BACITRACIN 15 GM TUBE TOPICAL OINTMENT TP SCH (10:15)
[2019-03-13] MEDS: COLLAGENASE CLOSTRIDIUM HIST. 30 GRAMS TUBE TP SCH (10:15)
[2019-03-13] MEDS: LIDOCAINE HCL 2% JELLY (30 ML/TUBE) TP SCH (10:16)
--- NOTE | 2019-03-13 10:40 | PN ---
Progress Note (short form) - Note Progress Note: no complaints LE about the same still some warmth and erythema Vital Signs Period Temp Pulse Resp BP Sys/Gautam Pulse Ox Last 24 Hr 97.4 F-98.5 F 61-67 18-20 152-163/63-76 cor-rrr lulngs clear LLE edema unchanged CBC, BMP 03/13/19 07:27 03/13/19 07:27 spoke with surgery will try joshua compression both LE will switch to iv clindamycin- if legs improve then home on Saturday on po clindamycin a/p cellulitis chronic plantar ulcers diabetes obesity venous stasis multilple antibiotic allergies iv clindamycin for 48hours, then po if improved joshua compression
[2019-03-13] MEDS: LACTOBACILLUS ACIDOPHILUS 1 TABLET PO SCH (12:08)
[2019-03-13] MEDS: CLINDAMYCIN 600MG PREMIX IVPB 600 MG/50 ML BAG IVPB SCH ×2 (12:08→18:12)
--- NOTE | 2019-03-13 13:19 | PN ---
Progress Note, Physician Chief Complaint: wounds b/l feet with cellulitis right leg. Unable to get MRI do to limitations of machine. - Current Medication List Current Medications: Active Medications Acetaminophen (Tylenol -) 650 mg PO Q6H PRN PRN Reason: PAIN Allopurinol (Zyloprim -) 300 mg PO DAILY [facility] Last Admin: 03/13/19 10:13 Dose: 300 mg Atorvastatin Calcium (Lipitor -) 20 mg PO HS [facility] Last Admin: 03/12/19 21:06 Dose: 20 mg Bacitracin (Bacitracin -) 1 applic TP DAILY [facility] Last Admin: 03/13/19 10:15 Dose: 1 applic Cholecalciferol (Vitamin D3 -) 4,000 unit PO DAILY [facility] Last Admin: 03/13/19 10:12 Dose: 4,000 unit Collagenase (Santyl -) 1 applic TP DAILY [facility]; Protocol Last Admin: 03/13/19 10:15 Dose: 1 applic Folic Acid (Folic Acid -) 3 mg PO DAILY [facility] Last Admin: 03/13/19 10:13 Dose: 3 mg Furosemide (Lasix -) 40 mg PO DAILY [facility] Last Admin: 03/13/19 10:13 Dose: 40 mg Gabapentin (Neurontin -) 300 mg PO BID [facility] Last Admin: 03/13/19 10:12 Dose: 300 mg Clindamycin Phosphate (Cleocin 600 Mg Premix Ivpb -) 600 mg in 50 mls @ 100 mls /hr IVPB Q8H-IV [facility]; Protocol Last Admin: 03/13/19 12:08 Dose: 100 mls/hr Insulin Aspart (Novolog Vial Sliding Scale -) 1 vial SQ TIDAC [facility]; Protocol Last Admin: 03/13/19 12:10 Dose: 6 units Lactobacillus Acidophilus (Bacid -) 1 tab PO DAILY [facility] Last Admin: 03/13/19 12:08 Dose: 1 tab Lidocaine HCl (Xylocaine 2% Jelly) 1 applic TP DAILY [facility] Last Admin: 03/13/19 10:16 Dose: 1 applic Losartan Potassium (Cozaar -) 25 mg PO DAILY [facility] Last Admin: 03/13/19 10:14 Dose: 25 mg Nystatin (Nystop Powder -) 1 applic TP HS [facility] Last Admin: 03/12/19 21:42 Dose: 1 applic Tamsulosin HCl (Flomax -) 0.4 mg PO DAILY [facility] Last Admin: 03/13/19 10:13 Dose: 0.4 mg Warfarin Sodium 5 mg/ Warfarin (Sodium 3 mg) 8 mg PO DAILY@1800 [facility] Last Admin: 03/12/19 19:15 Dose: Not Given - Objective Vital Signs: Vital Signs Temperature 97.4 F L 03/13/19 06:00 Pulse Rate 61 03/13/19 06:00 Respiratory Rate 18 03/13/19 06:00 Blood Pressure 155/76 03/13/19 06:00 O2 Sat by Pulse Oximetry (%) 95 03/12/19 09:00 Extremities: Yes: Other (improved cellulitis right ankle, stable foot wounds) Labs: CBC, BMP 03/13/19 07:27 03/13/19 07:27 INR, PTT INR 3.08 (0.83-1.09) H 03/13/19 08:30 Assessment/Plan cellulitis right leg improving chronic wounds b/l feet morbid obesity Santyl to foot wounds. Upon DC going back to Dr. Feng for care of foot wounds. Will follow till DC.
[2019-03-13 14:12] VITALS: BMI 44.4
--- NOTE | 2019-03-13 15:10 | PN ---
Physical Exam: SUBJECTIVE: Patient seen and examined Pt is doing well overall. No overnight issues or events. Symptoms improved. Otherwise, pt is asymptomatic and afebrile. He has no further c/o or issues. Denies f/c/n/v/d/sob/chest pain. OBJECTIVE: Vital Signs Period Temp Pulse Resp BP Sys/Gautam Pulse Ox Last 24 Hr 97.4 F-98.5 F 61-67 18-20 152-163/64-76 GENERAL: The patient is awake, alert, and fully oriented, in no acute distress. ENT: Dentition poor. Clear without exudates, moist mucous membranes. LUNGS: Breath sounds equal, clear to auscultation bilaterally, no wheezes, no crackles HEART: Regular rate and rhythm, S1, S2 without murmur, rub or gallop. ABDOMEN: Soft, nontender, nondistended, normoactive bowel sounds, no guarding, Pannus- 2 ulcers (both 1x.5) presents without erythema or purulent discharge. Ulcers are painful EXTREMITIES: RLE: 1x1.5 cm ulcer on the plantar surface of the 1st metatarsal- improving. Tender to palpation. Redness is demarcated below the line that was drawn. LLE: 1.5-1.5 cm ulcer on the plantar surface of 2nd metatarsal, w/ swelling of the foot. Non-tender to palpation Back: .5x.5 decub ulcer with surrounding erythema w/ no purulent discharge- today looks worse NEUROLOGICAL: Cranial nerves II through XII grossly intact. SKIN: Warm, dry, normal turgor, no rashes or lesions noted Laboratory Results - last 24 hr 03/12/19 03/12/19 03/13/19 14:31 17:16 05:57 WBC RBC Hgb Hct MCV MCH MCHC RDW Plt Count MPV PT with INR 41.20 H INR 3.45 H Sodium Potassium Chloride Carbon Dioxide Anion Gap BUN Creatinine Est GFR (CKD-EPI)AfAm Est GFR (CKD-EPI)NonAf POC Glucometer 225 161 Random Glucose Calcium Random Vancomycin 03/13/19 03/13/19 03/13/19 07:27 07:27 07:27 WBC 6.1 RBC 3.28 L Hgb 10.4 L Hct 31.7 L MCV 96.6 H MCH 31.8 MCHC 32.9 RDW 18.8 H Plt Count 246 MPV 9.2 PT with INR INR Sodium 137 Potassium 4.6 Chloride 104 Carbon Dioxide 31 Anion Gap 3 L BUN 32.9 H Creatinine 1.8 H Est GFR (CKD-EPI)AfAm 40.87 Est GFR (CKD-EPI)NonAf 35.26 POC Glucometer Random Glucose 150 H Calcium 8.6 Random Vancomycin 16.3 L 03/13/19 03/13/19 08:30 10:25 WBC RBC Hgb Hct MCV MCH MCHC RDW Plt Count MPV PT with INR 36.80 H INR 3.08 H Sodium Potassium Chloride Carbon Dioxide Anion Gap BUN Creatinine Est GFR (CKD-EPI)AfAm Est GFR (CKD-EPI)NonAf POC Glucometer 278 Random Glucose Calcium Random Vancomycin Active Medications Current Medications Acetaminophen (Tylenol -) 650 mg PO Q6H PRN PRN Reason: PAIN Allopurinol (Zyloprim -) 300 mg PO DAILY [facility] Last Admin: 03/13/19 10:13 Dose: 300 mg Atorvastatin Calcium (Lipitor -) 20 mg PO HS ANNY Last Admin: 03/12/19 21:06 Dose: 20 mg Bacitracin (Bacitracin -) 1 applic TP DAILY [facility] Last Admin: 03/13/19 10:15 Dose: 1 applic Cholecalciferol (Vitamin D3 -) 4,000 unit PO DAILY [facility] Last Admin: 03/13/19 10:12 Dose: 4,000 unit Collagenase (Santyl -) 1 applic TP DAILY [facility]; Protocol Last Admin: 03/13/19 10:15 Dose: 1 applic Folic Acid (Folic Acid -) 3 mg PO DAILY [facility] Last Admin: 03/13/19 10:13 Dose: 3 mg Furosemide (Lasix -) 40 mg PO DAILY [facility] Last Admin: 03/13/19 10:13 Dose: 40 mg Gabapentin (Neurontin -) 300 mg PO BID [facility] Last Admin: 03/13/19 10:12 Dose: 300 mg Clindamycin Phosphate (Cleocin 600 Mg Premix Ivpb -) 600 mg in 50 mls @ 100 mls /hr IVPB Q8H-IV [facility]; Protocol Last Admin: 03/13/19 12:08 Dose: 100 mls/hr Insulin Aspart (Novolog Vial Sliding Scale -) 1 vial SQ TIDAC [facility]; Protocol Last Admin: 03/13/19 12:10 Dose: 6 units Lactobacillus Acidophilus (Bacid -) 1 tab PO DAILY [facility] Last Admin: 03/13/19 12:08 Dose: 1 tab Lidocaine HCl (Xylocaine 2% Jelly) 1 applic TP DAILY [facility] Last Admin: 03/13/19 10:16 Dose: 1 applic Losartan Potassium (Cozaar -) 25 mg PO DAILY [facility] Last Admin: 03/13/19 10:14 Dose: 25 mg Nystatin (Nystop Powder -) 1 applic TP HS [facility] Last Admin: 03/12/19 21:42 Dose: 1 applic Tamsulosin HCl (Flomax -) 0.4 mg PO DAILY [facility] Last Admin: 03/13/19 10:13 Dose: 0.4 mg Warfarin Sodium 5 mg/ Warfarin (Sodium 3 mg) 8 mg PO DAILY@1800 [facility] Last Admin: 03/12/19 19:15 Dose: Not Given Home Medications Medication Instructions Recorded Atorvastatin Calcium 20 mg PO DAILY 09/28/15 Calcium Carbonate [Coral Calcium] 10 gm PO TID 09/28/15 Cholecalciferol (Vitamin D3) 4,000 unit PO DAILY 09/28/15 [Vitamin D3 -] Folic Acid - 3 mg PO DAILY 09/28/15 Glimepiride [Glimepiride -] 2 mg PO BID 09/28/15 Multivit-Min/FA/Lycopen/Lutein 1 each PO DAILY 09/28/15 [Centrum Silver Tablet] Magnesium Chloride [Slow-Mag -] 64 mg PO DAILY 12/05/15 Allopurinol 300 mg PO DAILY 11/14/17 Docusate Sodium [Colace] 100 mg PO PRN PRN 11/14/17 Ferrous Sulfate [Feosol] 324 mg PO DAILY 11/14/17 Ranitidine [Zantac -] 150 mg PO BID 11/14/17 Furosemide [Lasix] 40 mg PO PRN PRN 01/06/19 Gabapentin [Neurontin -] 300 mg PO BID 01/06/19 Losartan Potassium [Cozaar -] 25 mg PO DAILY 01/06/19 Warfarin Na [Coumadin -] 6 mg PO DAILY@1800 30 Days #30 01/14/19 tablet Tamsulosin HCl 1 tablet PO DAILY 03/06/19 Microbiology 03/05/19 18:50 Blood - Peripheral Venous Blood Culture - Final NO GROWTH AFTER 5 DAYS INCUBATION 03/05/19 18:55 Blood - Peripheral Venous Blood Culture - Final NO GROWTH AFTER 5 DAYS INCUBATION 03/05/19 21:25 Urine - Urine Clean Catch Urine Culture - Final Escherichia Coli Enterococcus Faecalis ASSESSMENT/PLAN: #Swelling, erythema and tenderness of RLE likely 2/2 to Cellulitis Clindamycin for 48hrs then PO abx Likely d/c on saturday MRI of LE ordered- unable to obtain due to overweight of pt Apply gentamicin ointment on the wound Will recom pt for out pt follow up with Dr. Kelly for RLE angio and GONZALEZ/PVR #Decub ulcers Lidocaine gel topical Foam and dressing #Right Pannus ulcer dry dressing #Hx of DVT cont home meds- Coumadin- 8mg #NAZARIO on CKD Cautious dosing of meds- renal dose Lasix 40 #DM ISS, monitor BGM #Gout cont home meds- allopurinol #HLD cont home meds #Morbid Obesity monitor wts recom out pt bariatric options advised on diet control, exercise and wt loss #DVTppx on coumadin FEN monitor lytes, sodium controlled diet Dispo: monitor INR, cont IV Abx for 48 hrs then po abx Visit type - Emergency Visit Emergency Visit: Yes ED Registration Date: 03/05/19 Care time: The patient presented to the Emergency Department on the above date and was hospitalized for further evaluation of their emergent condition. - New Patient This patient is new to me today: Yes Date on this admission: 03/14/19 - Critical Care Critical Care patient: No - Discharge Referral Referred to [facility] Med [facility].C[facility] No ATTENDING PHYSICIAN STATEMENT I saw and evaluated the patient. I reviewed the resident's note and discussed the case with the resident. I agree with the resident's findings and plan as documented. SUBJECTIVE: OBJECTIVE: ASSESSMENT AND PLAN:
[2019-03-13] MEDS ORDERED: WARFARIN NA 2 MG TABLET (UD) PO ONE (19:28)
[2019-03-13] MEDS: WARFARIN NA 5 MG, WARFARIN NA 3 MG PO SCH (19:49)
--- NOTE | 2019-03-13 20:27 | PN ---
Teaching Attending Note Name of Resident: Osman Hagan ATTENDING PHYSICIAN STATEMENT I saw and evaluated the patient. I reviewed the resident's note and discussed the case with the resident. I agree with the resident's findings and plan as documented. SUBJECTIVE: Patient is feeling well with no acute distress, no nausea or vomiting. Vital Signs Temperature 97.6 F 03/13/19 18:00 Pulse Rate 70 03/13/19 18:00 Respiratory Rate 20 03/13/19 18:00 Blood Pressure 151/57 L 03/13/19 18:00 O2 Sat by Pulse Oximetry (%) 95 03/12/19 09:00 GENERAL: The patient is awake, alert, and fully oriented, in no acute distress. HEAD: Normal with no signs of trauma. EYES: PERRL, extraocular movements intact, sclera anicteric, conjunctiva clear. ENT: Ears normal, oropharynx clear without exudates, moist mucous membranes. NECK: Trachea midline, full range of motion, supple. LUNGS: Breath sounds equal, clear to auscultation bilaterally, no wheezes, no crackles, no accessory muscle use. HEART: Regular rate and rhythm, S1, S2 without murmur, rub or gallop. ABDOMEN: Soft, NT,ND, normoactive bowel sounds, no guarding, no rebound, no hepatosplenomegaly, no masses. EXTREMITIES: 2+ pulses, warm, well-perfused, erythema of RLE improving, a craig size open wound with clean base at both plantars of LEs NEUROLOGICAL: Cranial nerves II through XII grossly intact. Normal speech, gait is stable uses canes. PSYCH: Normal mood, normal affect. SKIN: Warm, dry, normal turgor, no rashes or lesions noted EXt: Right lower extremity cellulitis improving CMP Sodium 137 mmol/L (136-145) 03/13/19 07:27 Potassium 4.6 mmol/L (3.5-5.1) 03/13/19 07:27 Chloride 104 mmol/L (98-107) 03/13/19 07:27 Carbon Dioxide 31 mmol/L (21-32) 03/13/19 07:27 Anion Gap 3 MMOL/L (8-16) L 03/13/19 07:27 BUN 32.9 mg/dL (7-18) H 03/13/19 07:27 Creatinine 1.8 mg/dL (0.55-1.3) H 03/13/19 07:27 Est GFR (CKD-EPI)AfAm 40.87 03/13/19 07:27 Est GFR (CKD-EPI)NonAf 35.26 03/13/19 07:27 POC Glucometer 228 UNITS (80-120) 03/13/19 18:13 Random Glucose 150 mg/dL (74-106) H 03/13/19 07:27 Hemoglobin A1c % 5.4 % (4.2-6.3) 03/10/19 07:22 Lactic Acid 1.4 mmol/L (0.4-2.0) 03/05/19 22:15 Calcium 8.6 mg/dL (8.5-10.1) 03/13/19 07:27 Phosphorus 2.8 mg/dL (2.5-4.9) 03/06/19 07:10 Magnesium 2.3 mg/dL (1.8-2.4) 03/06/19 07:10 Total Bilirubin 0.9 mg/dL (0.2-1) 03/06/19 07:10 AST 20 U/L (15-37) 03/06/19 07:10 ALT 19 U/L (13-61) 03/06/19 07:10 Alkaline Phosphatase 47 U/L (45-117) 03/06/19 07:10 Troponin I 0.02 ng/ml (0.00-0.05) 03/05/19 18:50 C-Reactive Protein 7.3 MG/DL (0.00-0.3) H 03/09/19 07:14 Total Protein 5.6 g/dl (6.4-8.2) L 03/06/19 07:10 Albumin 2.9 g/dl (3.4-5.0) L 03/06/19 07:10 Current Medications Generic Name Dose Route Start Last Admin Trade Name Freq PRN Reason Stop Dose Admin Acetaminophen 650 mg 03/07/19 19:54 Tylenol - PO Q6H PRN PAIN Allopurinol 300 mg 03/07/19 10:00 03/13/19 10:13 Zyloprim - PO 300 mg DAILY ANNY Administration Atorvastatin Calcium 20 mg 03/06/19 22:00 03/12/19 21:06 Lipitor - PO 20 mg HS ANNY Administration Bacitracin 1 applic 03/08/19 17:00 03/13/19 10:15 Bacitracin - TP 1 applic DAILY ANNY Administration Cholecalciferol 4,000 unit 03/07/19 10:00 03/13/19 10:12 Vitamin D3 - PO 4,000 unit DAILY ANNY Administration Collagenase 1 applic 03/10/19 10:00 03/13/19 10:15 Santyl - TP 1 applic DAILY ANNY Administration Protocol Folic Acid 3 mg 03/07/19 10:00 03/13/19 10:13 Folic Acid - PO 3 mg DAILY ANNY Administration Furosemide 40 mg 03/10/19 10:00 03/13/19 10:13 Lasix - PO 40 mg DAILY ANNY Administration Gabapentin 300 mg 03/06/19 10:00 03/13/19 10:12 Neurontin - PO 300 mg BID ANNY Administration Clindamycin Phosphate 600 mg in 50 mls @ 100 mls/hr 03/13/19 10:45 03/13/19 18:12 Cleocin 600 Mg Premix Ivpb - IVPB 100 mls/hr Q8H-IV ANNY Administration Protocol Insulin Aspart 1 vial 03/06/19 11:00 03/13/19 18:15 Novolog Vial Sliding Scale - SQ 4 units TIDAC ANNY Administration Protocol Lactobacillus Acidophilus 1 tab 03/13/19 10:45 03/13/19 12:08 Bacid - PO 1 tab DAILY ANNY Administration Lidocaine HCl 1 applic 03/08/19 16:51 03/13/19 10:16 Xylocaine 2% Jelly TP 1 applic DAILY ANNY Administration Losartan Potassium 25 mg 03/08/19 10:00 03/13/19 10:14 Cozaar - PO 25 mg DAILY ANNY Administration Nystatin 1 applic 03/08/19 22:00 03/12/19 21:42 Nystop Powder - TP 1 applic HS ANNY Administration Tamsulosin HCl 0.4 mg 03/07/19 10:00 03/13/19 10:13 Flomax - PO 0.4 mg DAILY ANNY Administration Warfarin Sodium 5 mg/ Warfarin 8 mg 03/08/19 18:00 03/13/19 19:49 Sodium 3 mg PO Not Given DAILY@1800 [facility] home Medications Medication Instructions Recorded Atorvastatin Calcium 20 mg PO DAILY 09/28/15 Calcium Carbonate [Coral Calcium] 10 gm PO TID 09/28/15 Cholecalciferol (Vitamin D3) 4,000 unit PO DAILY 09/28/15 [Vitamin D3 -] Folic Acid - 3 mg PO DAILY 09/28/15 Glimepiride [Glimepiride -] 2 mg PO BID 09/28/15 Multivit-Min/FA/Lycopen/Lutein 1 each PO DAILY 09/28/15 [Centrum Silver Tablet] Magnesium Chloride [Slow-Mag -] 64 mg PO DAILY 12/05/15 Allopurinol 300 mg PO DAILY 11/14/17 Docusate Sodium [Colace] 100 mg PO PRN PRN 11/14/17 Ferrous Sulfate [Feosol] 324 mg PO DAILY 11/14/17 Ranitidine [Zantac -] 150 mg PO BID 11/14/17 Furosemide [Lasix] 40 mg PO PRN PRN 01/06/19 Gabapentin [Neurontin -] 300 mg PO BID 01/06/19 Losartan Potassium [Cozaar -] 25 mg PO DAILY 01/06/19 Warfarin Na [Coumadin -] 6 mg PO DAILY@1800 30 Days #30 01/14/19 tablet Tamsulosin HCl 1 tablet PO DAILY 03/06/19 ASSESSMENT AND PLAN: Patient is a 79yo male with PMHx of DM , HTN, HLP, DVT, V liden def, celiac Dz, prostate ca, and feet ulcers. He presented with erythema of R leg He was diagnosed with acute cellulitis of RLE ,with bl venous stasis # Acute cellulitis of RLE on IV clindamycin now, s/p aztreonam/Vanco, as per ID to continue for 48hr # NAZARIO on CKD: Cr at base line(1.8), cont losartan and lasix #H/o DVT,factor V leiden def: cont couamdin # T2DM:cont SSI # BL open plantar ulcers continue Santyl daily , patient cannot have MRI # Decub ulcer on gluteal area, foam dressing and lidocaine gel continue , Ulcer Under R pannus , apply nystatin and bacitracin DVT px :coumadin
[2019-03-13] MEDS: NYSTATIN POWDER 100,000 UNITS/GM - 15 GM TOPICAL POWDER TP SCH (21:13)
[2019-03-13] MEDS: ATORVASTATIN CA 20 MG TABLET (FP) PO SCH (21:13)
[2019-03-14] MEDS: CLINDAMYCIN 600MG PREMIX IVPB 600 MG/50 ML BAG IVPB SCH ×3 (02:57→17:15)
[2019-03-14] MEDS: ACETAMINOPHEN 325 MG TABLET (FP) PO PRN (03:38)
[2019-03-14] MEDS: INSULIN SLIDING SCALE (NOVOLOG) 1 VIAL SQ SCH ×3 (06:39→17:14)
[2019-03-14 09:55] LABS: HEMATOCRIT 29.8 % (35.4-49); HEMOGLOBIN 9.9 GM/dL (11.7-16.9); MCH 31.9 pg (25.7-33.7); MCHC 33.4 g/dl (32.0-35.9); MEAN CELL VOLUME 95.6 fl (80-96); MEAN PLT VOLUME 9.2 fl (7.5-11.1); PLATELET COUNT 209 K/MM3 (134-434); RBC 3.12 M/mm3 (4.00-5.60); WHITE BLOOD COUNT 5.1 K/mm3 (4.0-10.0)
[2019-03-14 10:02] LABS: INR 2.54 (0.83-1.09); PROTHROMBIN TIME (PATIENT) 30.2 SEC (9.7-13.0)
[2019-03-14 10:25] LABS: BLOOD UREA NITROGEN 37.1 mg/dL (7-18); CALCIUM 8.5 mg/dL (8.5-10.1); CREATININE 1.8 mg/dL (0.55-1.3); MAGNESIUM 2.2 mg/dL (1.8-2.4); POTASSIUM 4.5 mmol/L (3.5-5.1)
[2019-03-14] MEDS: GABAPENTIN 300 MG CAPSULE (FP) PO SCH ×2 (10:48→21:38)
[2019-03-14] MEDS: LACTOBACILLUS ACIDOPHILUS 1 TABLET PO SCH (10:48)
[2019-03-14] MEDS: CHOLECALCIFEROL (VIT D3) 1,000 UNIT (25 MCG) TABLET PO SCH (10:48)
[2019-03-14] MEDS: FUROSEMIDE 40 MG TABLET (FP) PO SCH (10:48)
[2019-03-14] MEDS: LOSARTAN POTASSIUM 25 MG TABLET PO SCH (10:48)
[2019-03-14] MEDS: TAMSULOSIN HCL 0.4 MG CAP PO SCH (10:48)
[2019-03-14] MEDS: FOLIC ACID 1 MG TABLET (FP) PO SCH (10:48)
[2019-03-14] MEDS: ALLOPURINOL 300 MG TABLET (FP) PO SCH (10:49)
--- NOTE | 2019-03-14 11:57 | PN ---
Progress Note (short form) - Note Progress Note: Patient is comfortable with no acute distress, no fever or chills, son at bedside. Temperature 97.5 F L 03/14/19 06:00 Pulse Rate 65 03/14/19 06:00 Respiratory Rate 20 03/14/19 06:00 Blood Pressure 157/71 03/14/19 06:00 O2 Sat by Pulse Oximetry (%) 95 03/13/19 21:00 GENERAL: The patient is awake, alert, and fully oriented, in no acute distress. HEAD: Normal with no signs of trauma. EYES: PERRL, extraocular movements intact, sclera anicteric, conjunctiva clear. ENT: Ears normal, oropharynx clear without exudates, moist mucous membranes. NECK: Trachea midline, full range of motion, supple. LUNGS: Breath sounds equal, clear to auscultation bilaterally, no wheezes, no crackles, no accessory muscle use. HEART: Regular rate and rhythm, S1, S2 without murmur, rub or gallop. ABDOMEN: Soft, nontender, nondistended, normoactive bowel sounds, no guarding, no rebound, no hepatosplenomegaly, no masses. EXTREMITIES: 2+ pulses, warm, well-perfused, erythema of RLE improving, a craig size open wound with clean base at the plantar of the both LEs NEUROLOGICAL: Cranial nerves II through XII grossly intact. Normal speech, gait not observed. PSYCH: Normal mood, normal affect. SKIN: Warm, dry, normal turgor, no rashes or lesions noted EXt: R leg erythema and edema expanded beyond the line. feet in dressings CBCD WBC 5.1 K/mm3 (4.0-10.0) 03/14/19 07:40 RBC 3.12 M/mm3 (4.00-5.60) L 03/14/19 07:40 Hgb 9.9 GM/dL (11.7-16.9) L 03/14/19 07:40 Hct 29.8 % (35.4-49) L 03/14/19 07:40 MCV 95.6 fl (80-96) 03/14/19 07:40 MCHC 33.4 g/dl (32.0-35.9) 03/14/19 07:40 RDW 19.0 % (11.9-15.9) H 03/14/19 07:40 Plt Count 209 K/MM3 (134-434) 03/14/19 07:40 MPV 9.2 fl (7.5-11.1) 03/14/19 07:40 CMP Sodium 139 mmol/L (136-145) 03/14/19 07:40 Potassium 4.5 mmol/L (3.5-5.1) 03/14/19 07:40 Chloride 105 mmol/L (98-107) 03/14/19 07:40 Carbon Dioxide 29 mmol/L (21-32) 03/14/19 07:40 Anion Gap 5 MMOL/L (8-16) L 03/14/19 07:40 BUN 37.1 mg/dL (7-18) H 03/14/19 07:40 Creatinine 1.8 mg/dL (0.55-1.3) H 03/14/19 07:40 Random Glucose 158 mg/dL (74-106) H 03/14/19 07:40 Calcium 8.5 mg/dL (8.5-10.1) 03/14/19 07:40 Total Bilirubin 0.9 mg/dL (0.2-1) 03/06/19 07:10 AST 20 U/L (15-37) 03/06/19 07:10 ALT 19 U/L (13-61) 03/06/19 07:10 Alkaline Phosphatase 47 U/L (45-117) 03/06/19 07:10 Total Protein 5.6 g/dl (6.4-8.2) L 03/06/19 07:10 Albumin 2.9 g/dl (3.4-5.0) L 03/06/19 07:10 CARDIAC ENZYMES Troponin I 0.02 ng/ml (0.00-0.05) 03/05/19 18:50 Current Medications Generic Name Dose Route Start Last Admin Trade Name Freq PRN Reason Stop Dose Admin Acetaminophen 650 mg 03/07/19 19:54 03/14/19 03:38 Tylenol - PO 650 mg Q6H PRN Administration PAIN Allopurinol 300 mg 03/07/19 10:00 03/14/19 10:49 Zyloprim - PO 300 mg DAILY ANNY Administration Atorvastatin Calcium 20 mg 03/06/19 22:00 03/13/19 21:13 Lipitor - PO 20 mg HS ANNY Administration Bacitracin 1 applic 03/08/19 17:00 03/13/19 10:15 Bacitracin - TP 1 applic DAILY ANNY Administration Cholecalciferol 4,000 unit 03/07/19 10:00 03/14/19 10:48 Vitamin D3 - PO 4,000 unit DAILY ANNY Administration Collagenase 1 applic 03/10/19 10:00 03/13/19 10:15 Santyl - TP 1 applic DAILY ANNY Administration Protocol Folic Acid 3 mg 03/07/19 10:00 03/14/19 10:48 Folic Acid - PO 3 mg DAILY ANNY Administration Furosemide 40 mg 03/10/19 10:00 03/14/19 10:48 Lasix - PO 40 mg DAILY ANNY Administration Gabapentin 300 mg 03/06/19 10:00 03/14/19 10:48 Neurontin - PO 300 mg BID ANNY Administration Clindamycin Phosphate 600 mg in 50 mls @ 100 mls/hr 03/13/19 10:45 03/14/19 10:49 Cleocin 600 Mg Premix Ivpb - IVPB 100 mls/hr Q8H-IV ANNY Administration Protocol Insulin Aspart 1 vial 03/06/19 11:00 03/14/19 06:39 Novolog Vial Sliding Scale - SQ 2 units TIDAC ANNY Administration Protocol Lactobacillus Acidophilus 1 tab 03/13/19 10:45 03/14/19 10:48 Bacid - PO 1 tab DAILY ANNY Administration Lidocaine HCl 1 applic 03/08/19 16:51 03/13/19 10:16 Xylocaine 2% Jelly TP 1 applic DAILY ANNY Administration Losartan Potassium 25 mg 03/08/19 10:00 03/14/19 10:48 Cozaar - PO 25 mg DAILY ANNY Administration Nystatin 1 applic 03/08/19 22:00 03/13/19 21:13 Nystop Powder - TP 1 applic HS ANNY Administration Tamsulosin HCl 0.4 mg 03/07/19 10:00 03/14/19 10:48 Flomax - PO 0.4 mg DAILY ANNY Administration Warfarin Sodium 5 mg/ Warfarin 8 mg 03/08/19 18:00 03/13/19 19:49 Sodium 3 mg PO Not Given DAILY@1800 [facility] home Medications Medication Instructions Recorded Atorvastatin Calcium 20 mg PO DAILY 09/28/15 Calcium Carbonate [Coral Calcium] 10 gm PO TID 09/28/15 Cholecalciferol (Vitamin D3) 4,000 unit PO DAILY 09/28/15 [Vitamin D3 -] Folic Acid - 3 mg PO DAILY 09/28/15 Glimepiride [Glimepiride -] 2 mg PO BID 09/28/15 Multivit-Min/FA/Lycopen/Lutein 1 each PO DAILY 09/28/15 [Centrum Silver Tablet] Magnesium Chloride [Slow-Mag -] 64 mg PO DAILY 12/05/15 Allopurinol 300 mg PO DAILY 11/14/17 Docusate Sodium [Colace] 100 mg PO PRN PRN 11/14/17 Ferrous Sulfate [Feosol] 324 mg PO DAILY 11/14/17 Ranitidine [Zantac -] 150 mg PO BID 11/14/17 Furosemide [Lasix] 40 mg PO PRN PRN 01/06/19 Gabapentin [Neurontin -] 300 mg PO BID 01/06/19 Losartan Potassium [Cozaar -] 25 mg PO DAILY 01/06/19 Warfarin Na [Coumadin -] 6 mg PO DAILY@1800 30 Days #30 01/14/19 tablet Tamsulosin HCl 1 tablet PO DAILY 03/06/19 Laboratory Tests 03/10/19 03/11/19 03/12/19 07:22 07:35 09:32 INR 2.19 H 2.54 H 3.36 H 03/12/19 03/13/19 03/14/19 14:31 08:30 07:40 INR 3.45 H 3.08 H 2.54 H ASSESSMENT AND PLAN: Patient is a 79yo male with PMHx of DM , HTN, HLP, DVT, V liden def, celiac Dz, prostate ca, and feet ulcers. He presented with erythema of R leg He was diagnosed with acute cellulitis of RLE ,with bl venous stasis # Acute Cellulitis of RLE on IV clindamycin now, s/p aztreonam/Vanco, as per ID to continue with oral dose in am for one more day , will discuss with id. # NAZARIO on CKD: Cr at base line., cont losartan and lasix #H/o DVT, factor V leiden def: cont couamdin 6mg today since INR 2.54 today and received 4mg po coumadin , pt/inr daily # T2DM:cont SSI # BL open plantar ulcer continue Santyl daily , patient cannot have MRI # Decub ulcer on gluteal area, foam dressing and lidocaine gel continue , Ulcer Under R pannus , apply nystatin and bacitracin DVT px :coumadin Visit type - Emergency Visit Emergency Visit: Yes ED Registration Date: 03/05/19 Care time: The patient presented to the Emergency Department on the above date and was hospitalized for further evaluation of their emergent condition. - New Patient This patient is new to me today: No - Critical Care Critical Care patient: No - Discharge Referral Referred to [facility] Med P.C.: No
[2019-03-14] MEDS: LIDOCAINE HCL 2% JELLY (30 ML/TUBE) TP SCH (12:52)
[2019-03-14] MEDS: COLLAGENASE CLOSTRIDIUM HIST. 30 GRAMS TUBE TP SCH (13:15)
[2019-03-14] MEDS: BACITRACIN 15 GM TUBE TOPICAL OINTMENT TP SCH (13:15)
--- NOTE | 2019-03-14 17:19 | PN ---
Progress Note, Physician History of Present Illness: OOB IN CHAIR NO C/O LEG PAIN NO FEVER/ CHILLS - Current Medication List Current Medications: Active Medications Acetaminophen (Tylenol -) 650 mg PO Q6H PRN PRN Reason: PAIN Last Admin: 03/14/19 03:38 Dose: 650 mg Allopurinol (Zyloprim -) 300 mg PO DAILY ANNY Last Admin: 03/14/19 10:49 Dose: 300 mg Atorvastatin Calcium (Lipitor -) 20 mg PO HS ANNY Last Admin: 03/13/19 21:13 Dose: 20 mg Bacitracin (Bacitracin -) 1 applic TP DAILY ANNY Last Admin: 03/14/19 13:15 Dose: 1 applic Cholecalciferol (Vitamin D3 -) 4,000 unit PO DAILY ANNY Last Admin: 03/14/19 10:48 Dose: 4,000 unit Collagenase (Santyl -) 1 applic TP DAILY ANNY; Protocol Last Admin: 03/14/19 13:15 Dose: 1 applic Folic Acid (Folic Acid -) 3 mg PO DAILY ANNY Last Admin: 03/14/19 10:48 Dose: 3 mg Furosemide (Lasix -) 40 mg PO DAILY ANNY Last Admin: 03/14/19 10:48 Dose: 40 mg Gabapentin (Neurontin -) 300 mg PO BID ANNY Last Admin: 03/14/19 10:48 Dose: 300 mg Clindamycin Phosphate (Cleocin 600 Mg Premix Ivpb -) 600 mg in 50 mls @ 100 mls /hr IVPB Q8H-IV ANNY; Protocol Last Admin: 03/14/19 17:15 Dose: 100 mls/hr Insulin Aspart (Novolog Vial Sliding Scale -) 1 vial SQ TIDAC [facility]; Protocol Last Admin: 03/14/19 17:14 Dose: 2 units Lactobacillus Acidophilus (Bacid -) 1 tab PO DAILY ANNY Last Admin: 03/14/19 10:48 Dose: 1 tab Lidocaine HCl (Xylocaine 2% Jelly) 1 applic TP DAILY ANNY Last Admin: 03/14/19 12:52 Dose: 1 applic Losartan Potassium (Cozaar -) 25 mg PO DAILY ANNY Last Admin: 03/14/19 10:48 Dose: 25 mg Nystatin (Nystop Powder -) 1 applic TP HS ANNY Last Admin: 03/13/19 21:13 Dose: 1 applic Tamsulosin HCl (Flomax -) 0.4 mg PO DAILY [facility] Last Admin: 03/14/19 10:48 Dose: 0.4 mg Warfarin Sodium 5 mg/ Warfarin (Sodium 3 mg) 8 mg PO DAILY@1800 [facility] Last Admin: 03/13/19 19:49 Dose: Not Given - Objective Vital Signs: Vital Signs Temperature 98.1 F 03/14/19 14:00 Pulse Rate 66 03/14/19 14:00 Respiratory Rate 20 03/14/19 14:00 Blood Pressure 137/65 03/14/19 14:00 O2 Sat by Pulse Oximetry (%) 95 03/13/19 21:00 Constitutional: Yes: No Distress, Obese Eyes: Yes: Conjunctiva Clear Cardiovascular: Yes: Regular Rate and Rhythm, S1, S2 Respiratory: Yes: CTA Bilaterally Gastrointestinal: Yes: Normal Bowel Sounds, Abdomen, Obese Extremities: Yes: Other (LE ERYTHEMA) Labs: CBC, BMP 03/14/19 07:40 03/14/19 07:40 INR, PTT INR 2.54 (0.83-1.09) H 03/14/19 07:40 Assessment/Plan RECURRENT LE CELLULITIS MULTIPLE ANTIBIOTIC ALLERGIES CONTINUE IV CLINDAMYCIN PO ANTIBIOTICS NEXT 24HR
[2019-03-14] MEDS ORDERED: WARFARIN NA 3 MG TABLET PO SCH (18:00)
[2019-03-14] MEDS: NYSTATIN POWDER 100,000 UNITS/GM - 15 GM TOPICAL POWDER TP SCH (21:38)
[2019-03-14] MEDS: ATORVASTATIN CA 20 MG TABLET (FP) PO SCH (21:38)
[2019-03-15] MEDS: CLINDAMYCIN 600MG PREMIX IVPB 600 MG/50 ML BAG IVPB SCH ×2 (01:31→10:35)
[2019-03-15 06:09] VITALS: BP 159/65; PULSE 62; TEMP 97.8
[2019-03-15] MEDS: INSULIN SLIDING SCALE (NOVOLOG) 1 VIAL SQ SCH ×2 (06:17→12:15)
[2019-03-15] MEDS: ACETAMINOPHEN 325 MG TABLET (FP) PO PRN (10:34)
[2019-03-15] MEDS: CHOLECALCIFEROL (VIT D3) 1,000 UNIT (25 MCG) TABLET PO SCH (10:35)
[2019-03-15] MEDS: GABAPENTIN 300 MG CAPSULE (FP) PO SCH (10:35)
[2019-03-15] MEDS: FOLIC ACID 1 MG TABLET (FP) PO SCH (10:35)
[2019-03-15] MEDS: LACTOBACILLUS ACIDOPHILUS 1 TABLET PO SCH (10:36)
[2019-03-15] MEDS: LOSARTAN POTASSIUM 25 MG TABLET PO SCH (10:36)
[2019-03-15] MEDS: FUROSEMIDE 40 MG TABLET (FP) PO SCH (10:36)
[2019-03-15] MEDS: TAMSULOSIN HCL 0.4 MG CAP PO SCH (10:36)
[2019-03-15] MEDS: ALLOPURINOL 300 MG TABLET (FP) PO SCH (10:36)
--- NOTE | 2019-03-15 11:19 | PN ---
Progress Note, Physician History of Present Illness: OOB IN CHAIR NO C/O LEG PAIN NO FEVER/ CHILLS LE CELLULITIS AND BUTTOCK WOUND EXAMINED - Current Medication List Current Medications: Active Medications Acetaminophen (Tylenol -) 650 mg PO Q6H PRN PRN Reason: PAIN Last Admin: 03/15/19 10:34 Dose: 650 mg Allopurinol (Zyloprim -) 300 mg PO DAILY ANNY Last Admin: 03/15/19 10:36 Dose: 300 mg Atorvastatin Calcium (Lipitor -) 20 mg PO HS ANNY Last Admin: 03/14/19 21:38 Dose: 20 mg Bacitracin (Bacitracin -) 1 applic TP DAILY ANNY Last Admin: 03/14/19 13:15 Dose: 1 applic Cholecalciferol (Vitamin D3 -) 4,000 unit PO DAILY ANNY Last Admin: 03/15/19 10:35 Dose: 4,000 unit Collagenase (Santyl -) 1 applic TP DAILY ANNY; Protocol Last Admin: 03/14/19 13:15 Dose: 1 applic Folic Acid (Folic Acid -) 3 mg PO DAILY ANNY Last Admin: 03/15/19 10:35 Dose: 3 mg Furosemide (Lasix -) 40 mg PO DAILY ANNY Last Admin: 03/15/19 10:36 Dose: 40 mg Gabapentin (Neurontin -) 300 mg PO BID ANNY Last Admin: 03/15/19 10:35 Dose: 300 mg Clindamycin Phosphate (Cleocin 600 Mg Premix Ivpb -) 600 mg in 50 mls @ 100 mls /hr IVPB Q8H-IV ANNY; Protocol Last Admin: 03/15/19 10:35 Dose: 100 mls/hr Insulin Aspart (Novolog Vial Sliding Scale -) 1 vial SQ TIDAC ANNY; Protocol Last Admin: 03/15/19 06:17 Dose: 2 units Lactobacillus Acidophilus (Bacid -) 1 tab PO DAILY ANNY Last Admin: 03/15/19 10:36 Dose: 1 tab Lidocaine HCl (Xylocaine 2% Jelly) 1 applic TP DAILY ANNY Last Admin: 03/14/19 12:52 Dose: 1 applic Losartan Potassium (Cozaar -) 25 mg PO DAILY ANNY Last Admin: 03/15/19 10:36 Dose: 25 mg Nystatin (Nystop Powder -) 1 applic TP HS ANNY Last Admin: 03/14/19 21:38 Dose: 1 applic Tamsulosin HCl (Flomax -) 0.4 mg PO DAILY [facility] Last Admin: 03/15/19 10:36 Dose: 0.4 mg Warfarin Sodium (Coumadin -) 6 mg PO DAILY@1800 [facility] Last Admin: 03/14/19 18:36 Dose: 6 mg - Objective Vital Signs: Vital Signs Temperature 97.8 F 03/15/19 06:08 Pulse Rate 62 03/15/19 06:08 Respiratory Rate 20 03/15/19 06:08 Blood Pressure 159/65 03/15/19 06:08 O2 Sat by Pulse Oximetry (%) 95 03/14/19 21:00 Constitutional: Yes: No Distress, Obese Eyes: Yes: Conjunctiva Clear Cardiovascular: Yes: Regular Rate and Rhythm, S1, S2 Respiratory: Yes: CTA Bilaterally Gastrointestinal: Yes: Normal Bowel Sounds, Soft, Abdomen, Obese. No: Tenderness Extremities: Yes: Other (+ CHRONIC VENOUS STASIS DERMATITIS AND SL ERYTHEMA/ WARMTH LE BILATERALLY + SMALL ULCERATIONS, BUTTOCKS NO DRAINAGE) Edema: Yes Labs: CBC, BMP 03/14/19 07:40 03/14/19 07:40 INR, PTT INR 2.54 (0.83-1.09) H 03/14/19 07:40 Assessment/Plan RECURRENT LE CELLULITIS IMPROVED CHRONIC VENOUS STASIS DERMATITIS MULTIPLE ANTIBIOTIC ALLERGIES SUBSTITUTE CLINDAMYCIN 300MG PO Q8H X7D WITH PROBIOTIC
[2019-03-15] MEDS: LIDOCAINE HCL 2% JELLY (30 ML/TUBE) TP SCH (12:16)
[2019-03-15] MEDS: BACITRACIN 15 GM TUBE TOPICAL OINTMENT TP SCH (12:16)
[2019-03-15] MEDS: COLLAGENASE CLOSTRIDIUM HIST. 30 GRAMS TUBE TP SCH (12:16)
--- NOTE | 2019-03-15 13:14 | DS ---
Physical Exam: SUBJECTIVE: Patient seen and examined. No chest pain, no SOB. Leg pain and redness improved. OBJECTIVE: Vital Signs Period Temp Pulse Resp BP Sys/Gautam Pulse Ox Last 24 Hr 97.8 F-98.3 F 62-66 20-20 137-159/59-65 95 Vital Signs Temp 97.8 F 03/15/19 06:08 Pulse 62 03/15/19 06:08 Resp 20 03/15/19 06:08 BP 159/65 03/15/19 06:08 Pulse Ox 95 03/14/19 21:00 Intake & Output 03/14/19 03/15/19 03/15/19 23:59 11:59 23:59 Intake Total 500 190 Output Total 350 Balance 500 -160 Intake: IVPB 50 Oral 500 140 Output: Urine 350 Void 350 Other: Voiding Method Toilet Toilet # Unmeasured Voids Void 2 2 Bowel Movement Yes No # Bowel Movements 1 PHYSICAL EXAM GENERAL: Obese, awake, alert, and fully oriented, in no acute distress. EYES: PERRL, extraocular movements intact ENT: moist mucous membranes. LUNGS: Breath sounds equal, clear to auscultation bilaterally, no wheezes, no crackles. HEART: Regular rate and rhythm, S1, S2 without murmur, rub or gallop. ABDOMEN: Obese, Soft, nontender, nondistended, normoactive bowel sounds, no guarding, no rebound EXTREMITIES: [place] shins b/l, no increased warmth, plantar ulcers, bilateral balls of 1st toes, clean dry, no exudates, pedal edema+ NEUROLOGICAL: Cranial nerves II through XII grossly intact. Normal speech, gait not observed. CBC, BMP 03/14/19 07:40 03/14/19 07:40 LABS Laboratory Results - last 24 hr 03/14/19 03/15/19 03/15/19 17:02 05:47 12:09 POC Glucometer 193 165 249 Ambulatory Orders Atorvastatin Calcium 20 mg PO DAILY 09/28/15 Calcium Carbonate [Coral Calcium] 10 gm PO TID 09/28/15 Cholecalciferol (Vitamin D3) [Vitamin D3 -] 4,000 unit PO DAILY 09/28/15 Folic Acid - 3 mg PO DAILY 09/28/15 Glimepiride [Glimepiride -] 2 mg PO BID 09/28/15 Multivit-Min/FA/Lycopen/Lutein [Centrum Silver Tablet] 1 each PO DAILY 09/28/15 Magnesium Chloride [Slow-Mag -] 64 mg PO DAILY 12/05/15 Allopurinol 300 mg PO DAILY 11/14/17 Docusate Sodium [Colace] 100 mg PO PRN PRN 11/14/17 Ferrous Sulfate [Feosol] 324 mg PO DAILY 11/14/17 Ranitidine [Zantac -] 150 mg PO BID 11/14/17 Furosemide [Lasix] 40 mg PO PRN PRN 01/06/19 Gabapentin [Neurontin -] 300 mg PO BID 01/06/19 Losartan Potassium [Cozaar -] 25 mg PO DAILY 01/06/19 Tamsulosin HCl 1 tablet PO DAILY 03/06/19 Acetaminophen [Tylenol .Regular Strength -] 650 mg PO Q6H PRN tablet 03/15/19 Bacitracin - [Bacitracin Topical Ointment -] 1 applic TP DAILY tube 03/15/19 Clindamycin [Cleocin -] 300 mg PO TID #21 capsule 03/15/19 Collagenase Clostridium Hist. [Santyl -] 1 applic TP DAILY #7 tube 03/15/19 Lactobacillus Acidophilus [Bacid -] 1 tab PO DAILY #7 tab 03/15/19 Warfarin Sodium 6 mg PO DAILY #30 tablet 03/15/19 HOSPITAL COURSE: Date of Admission:03/05/19 Date of Discharge: 03/15/19 Pt is a 78 year old male with a PMHx of hypertension, diabetes, CKD, Factor V Leiden mutation, lupus anticoagulant, chronic BLE foot wounds, gout, celiac disease, prostate CA, GERD who presents with RLE erythema and warmth. Pt was treated with iv antibiotics for RLE cellulitis and switched to PO clindamycin 300mg tid at discharge. 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 Treatment for all his chronic conditions were continued and pt was discharged on 6mg of coumadin to follow up closely for INR checks as an outpt. Minutes to complete discharge: 30 Discharge Summary Problems reviewed: Yes Reason For Visit: CELLULITIS Current Active Problems Cellulitis (Acute) Condition: Stable - Instructions Diet, Activity, Other Instructions: YOUR VISIT: You were admitted to the hospital for a skin infection of your right leg. You were treated with IV antibiotics. Your leg has improved, and you are stable to be discharged. MEDICATIONS: Continue your home medications as directed. Antibiotics: Clindamycin 300 mg three times a day for the next 7 days by mouth Bacid, 1 pill daily, for 30 days. Your warfarin dose is changed to 6mg daily, follow up with the primary in 2 days to recheck your INR level. Also do not take warfarin with allopurinal , at least 4 hrs apart from each other Nystatin powder, apply to the abdominal wall and Bacitracin daily to the abdominal wall. Continue your local dressing with santyl, follow up with your wire weaver helper and wound care center. FOLLOW UP: Dr. Klein, primary care, in 1 week. Your INR should be monitored. Dr. Watkins, infectious disease, in [address] Feng, podiatry, in 2 weeks and follow up with the wound clinic OTHER INSTRUCTIONS: Return to the emergency room if you have worsening leg/foot pain or redness, worsening back or stomach ulcer, feel chills or fatigue, or have fever above 101. Referrals: Santiago Watkins MD [Staff Physician] - 2 Weeks Jose Young MD [Primary Care Provider] - 1 Week Dioni Feng MD [Staff Physician] - 1 Month Disposition: HOME - Home Medications Comprehensive Discharge Medication List: Ambulatory Orders Atorvastatin Calcium 20 mg PO DAILY 09/28/15 Calcium Carbonate [Coral Calcium] 10 gm PO TID 09/28/15 Cholecalciferol (Vitamin D3) [Vitamin D3 -] 4,000 unit PO DAILY 09/28/15 Folic Acid - 3 mg PO DAILY 09/28/15 Glimepiride [Glimepiride -] 2 mg PO BID 09/28/15 Multivit-Min/FA/Lycopen/Lutein [Centrum Silver Tablet] 1 each PO DAILY 09/28/15 Magnesium Chloride [Slow-Mag -] 64 mg PO DAILY 12/05/15 Allopurinol 300 mg PO DAILY 11/14/17 Docusate Sodium [Colace] 100 mg PO PRN PRN 11/14/17 Ferrous Sulfate [Feosol] 324 mg PO DAILY 11/14/17 Ranitidine [Zantac -] 150 mg PO BID 11/14/17 Furosemide [Lasix] 40 mg PO PRN PRN 01/06/19 Gabapentin [Neurontin -] 300 mg PO BID 01/06/19 Losartan Potassium [Cozaar -] 25 mg PO DAILY 01/06/19 Tamsulosin HCl 1 tablet PO DAILY 03/06/19 Acetaminophen [Tylenol .Regular Strength -] 650 mg PO Q6H PRN tablet 03/15/19 Bacitracin - [Bacitracin Topical Ointment -] 1 applic TP DAILY tube 03/15/19 Collagenase Clostridium Hist. [Santyl -] 1 applic TP DAILY #7 tube 03/15/19 Lactobacillus Acidophilus [Bacid -] 1 tab PO DAILY #7 tab 03/15/19 Warfarin Sodium 6 mg PO DAILY #30 tablet 03/15/19 This patient is new to me today: Yes Date on this admission: 03/15/19 Emergency Visit: Yes ED Registration Date: 03/05/19 Care time: The patient presented to the Emergency Department on the above date and was hospitalized for further evaluation of their emergent condition. Critical Care patient: No - Discharge Referral Referred to [facility] Med P.C.: No ATTENDING PHYSICIAN STATEMENT I saw and evaluated the patient. I reviewed the resident's note and discussed the case with the resident. I agree with the resident's findings and plan as documented. SUBJECTIVE: OBJECTIVE: ASSESSMENT AND PLAN:
[2019-03-15] MEDS ORDERED: CLINDAMYCIN HCL 150 MG CAPSULE (FP) PO ONE (14:51)
--- NOTE | 2019-03-15 16:06 | PN ---
Teaching Attending Note Name of Resident: Loren Hernandez ATTENDING PHYSICIAN STATEMENT I saw and evaluated the patient. I reviewed the resident's note and discussed the case with the resident. I agree with the resident's findings and plan as documented. SUBJECTIVE: Patient is comfortable with no acute distress, feels better. Vital Signs Temperature 97.8 F 03/15/19 06:08 Pulse Rate 62 03/15/19 06:08 Respiratory Rate 20 03/15/19 06:08 Blood Pressure 159/65 03/15/19 06:08 O2 Sat by Pulse Oximetry (%) 95 03/14/19 21:00 GENERAL: The patient is awake, alert, and fully oriented, in no acute distress. HEAD: Normal with no signs of trauma. EYES: PERRL, extraocular movements intact, sclera anicteric, conjunctiva clear. ENT: Ears normal, oropharynx clear without exudates, moist mucous membranes. NECK: Trachea midline, full range of motion, supple. LUNGS: Breath sounds equal, clear to auscultation bilaterally, no wheezes, no crackles, no accessory muscle use. HEART: Regular rate and rhythm, S1, S2 without murmur, rub or gallop. ABDOMEN: Soft, nontender, nondistended, normoactive bowel sounds, no guarding, no rebound, no hepatosplenomegaly, no masses. EXTREMITIES: 2+ pulses, warm, well-perfused, erythema of RLE improved, not warm to touch, a craig size open wound with clean base at the plantar of the both LEs NEUROLOGICAL: Cranial nerves II through XII grossly intact. Normal speech, gait is stable, patient uses 2 canes . PSYCH: Normal mood, normal affect. SKIN: Warm, dry, normal turgor. WBC 5.1 K/mm3 (4.0-10.0) 03/14/19 07:40 RBC 3.12 M/mm3 (4.00-5.60) L 03/14/19 07:40 Hgb 9.9 GM/dL (11.7-16.9) L 03/14/19 07:40 Hct 29.8 % (35.4-49) L 03/14/19 07:40 MCV 95.6 fl (80-96) 03/14/19 07:40 MCHC 33.4 g/dl (32.0-35.9) 03/14/19 07:40 RDW 19.0 % (11.9-15.9) H 03/14/19 07:40 Plt Count 209 K/MM3 (134-434) 03/14/19 07:40 MPV 9.2 fl (7.5-11.1) 03/14/19 07:40 CMP Sodium 139 mmol/L (136-145) 03/14/19 07:40 Potassium 4.5 mmol/L (3.5-5.1) 03/14/19 07:40 Chloride 105 mmol/L (98-107) 03/14/19 07:40 Carbon Dioxide 29 mmol/L (21-32) 03/14/19 07:40 Anion Gap 5 MMOL/L (8-16) L 03/14/19 07:40 BUN 37.1 mg/dL (7-18) H 03/14/19 07:40 Creatinine 1.8 mg/dL (0.55-1.3) H 03/14/19 07:40 Random Glucose 158 mg/dL (74-106) H 03/14/19 07:40 Calcium 8.5 mg/dL (8.5-10.1) 03/14/19 07:40 Total Bilirubin 0.9 mg/dL (0.2-1) 03/06/19 07:10 AST 20 U/L (15-37) 03/06/19 07:10 ALT 19 U/L (13-61) 03/06/19 07:10 Alkaline Phosphatase 47 U/L (45-117) 03/06/19 07:10 Total Protein 5.6 g/dl (6.4-8.2) L 03/06/19 07:10 Albumin 2.9 g/dl (3.4-5.0) L 03/06/19 07:10 CARDIAC ENZYMES Troponin I 0.02 ng/ml (0.00-0.05) 03/05/19 18:50 Current Medications Generic Name Dose Route Start Last Admin Trade Name Freq PRN Reason Stop Dose Admin Acetaminophen 650 mg 03/07/19 19:54 03/14/19 03:38 Tylenol - PO 650 mg Q6H PRN Administration PAIN Allopurinol 300 mg 03/07/19 10:00 03/14/19 10:49 Zyloprim - PO 300 mg DAILY ANNY Administration Atorvastatin Calcium 20 mg 03/06/19 22:00 03/13/19 21:13 Lipitor - PO 20 mg HS ANNY Administration Bacitracin 1 applic 03/08/19 17:00 03/13/19 10:15 Bacitracin - TP 1 applic DAILY ANNY Administration Cholecalciferol 4,000 unit 03/07/19 10:00 03/14/19 10:48 Vitamin D3 - PO 4,000 unit DAILY ANNY Administration Collagenase 1 applic 03/10/19 10:00 03/13/19 10:15 Santyl - TP 1 applic DAILY ANNY Administration Protocol Folic Acid 3 mg 03/07/19 10:00 03/14/19 10:48 Folic Acid - PO 3 mg DAILY ANNY Administration Furosemide 40 mg 03/10/19 10:00 03/14/19 10:48 Lasix - PO 40 mg DAILY ANNY Administration Gabapentin 300 mg 03/06/19 10:00 03/14/19 10:48 Neurontin - PO 300 mg BID ANNY Administration Clindamycin Phosphate 600 mg in 50 mls @ 100 mls/hr 03/13/19 10:45 03/14/19 10:49 Cleocin 600 Mg Premix Ivpb - IVPB 100 mls/hr Q8H-IV ANNY Administration Protocol Insulin Aspart 1 vial 03/06/19 11:00 03/14/19 06:39 Novolog Vial Sliding Scale - SQ 2 units TIDAC ANNY Administration Protocol Lactobacillus Acidophilus 1 tab 03/13/19 10:45 03/14/19 10:48 Bacid - PO 1 tab DAILY ANNY Administration Lidocaine HCl 1 applic 03/08/19 16:51 03/13/19 10:16 Xylocaine 2% Jelly TP 1 applic DAILY ANNY Administration Losartan Potassium 25 mg 03/08/19 10:00 03/14/19 10:48 Cozaar - PO 25 mg DAILY ANNY Administration Nystatin 1 applic 03/08/19 22:00 03/13/19 21:13 Nystop Powder - TP 1 applic HS ANNY Administration Tamsulosin HCl 0.4 mg 03/07/19 10:00 03/14/19 10:48 Flomax - PO 0.4 mg DAILY ANNY Administration Warfarin Sodium 5 mg/ Warfarin 8 mg 03/08/19 18:00 03/13/19 19:49 Sodium 3 mg PO Not Given DAILY@1800 [facility] home Medications Medication Instructions Recorded Atorvastatin Calcium 20 mg PO DAILY 09/28/15 Calcium Carbonate [Coral Calcium] 10 gm PO TID 09/28/15 Cholecalciferol (Vitamin D3) 4,000 unit PO DAILY 09/28/15 [Vitamin D3 -] Folic Acid - 3 mg PO DAILY 09/28/15 Glimepiride [Glimepiride -] 2 mg PO BID 09/28/15 Multivit-Min/FA/Lycopen/Lutein 1 each PO DAILY 09/28/15 [Centrum Silver Tablet] Magnesium Chloride [Slow-Mag -] 64 mg PO DAILY 12/05/15 Allopurinol 300 mg PO DAILY 11/14/17 Docusate Sodium [Colace] 100 mg PO PRN PRN 11/14/17 Ferrous Sulfate [Feosol] 324 mg PO DAILY 11/14/17 Ranitidine [Zantac -] 150 mg PO BID 11/14/17 Furosemide [Lasix] 40 mg PO PRN PRN 01/06/19 Gabapentin [Neurontin -] 300 mg PO BID 01/06/19 Losartan Potassium [Cozaar -] 25 mg PO DAILY 01/06/19 Warfarin Na [Coumadin -] 6 mg PO DAILY@1800 30 Days #30 01/14/19 tablet Tamsulosin HCl 1 tablet PO DAILY 03/06/19 Laboratory Tests 03/10/19 03/11/19 03/12/19 07:22 07:35 09:32 INR 2.19 H 2.54 H 3.36 H 03/12/19 03/13/19 03/14/19 14:31 08:30 07:40 INR 3.45 H 3.08 H 2.54 H ASSESSMENT AND PLAN: Patient is a 79yo male with PMHx of DM , HTN, HLP, DVT, V liden def, celiac Dz, prostate ca, and feet ulcers. He presented with erythema of R leg He was diagnosed with acute cellulitis of RLE ,with bl venous stasis # Acute Cellulitis of RLE s/p IV clindamycin ,s/p aztreonam/Vanco, as per ID to send the patient home with oral clindamycin ,discussed with ID , and added Lactobacillus. follow up with wound clinic. # NAZARIO on CKD: Cr at base line., cont losartan and lasix #H/o DVT, factor V leiden def: will continue with coumadin 6mg since on 8mg INR is 3.08 . Follow up with the manager field investigations, inr to be checked in 2 days. # T2DM:cont SSI # BL open plantar ulcer continue Santyl daily , patient cannot have MRI # Decub ulcer on gluteal area, foam dressing continue , Ulcer Under R pannus , continue with nystatin and bacitracin DVT px :coumadin
== END 2019-03-15 15:24 | disposition home or self-care (01) | DRG 603 ==
LOC: JER 18:09 → JERBED 19:34 → J5S 22:58
PROVIDERS: ADMIT Internal Medicine; ATTEND Internal Medicine
DX: L03.115 Cellulitis of right lower limb (principal); Z68.41 Body mass index [BMI] 40.0-44.9, adult; D68.62 Lupus anticoagulant syndrome; L97.429 Non-pressure chronic ulcer of left heel and midfoot with unspecified severity; L97.419 Non-pressure chronic ulcer of right heel and midfoot with unspecified severity; D68.51 Activated protein C resistance; N18.4 Chronic kidney disease, stage 4 (severe); N17.9 Acute kidney failure, unspecified; E11.621 Type 2 diabetes mellitus with foot ulcer; E11.22 Type 2 diabetes mellitus with diabetic chronic kidney disease; E66.01 Morbid (severe) obesity due to excess calories; I12.9 Hypertensive chronic kidney disease with stage 1 through stage 4 chronic kidney disease, or unspecified chronic kidney disease; Z86.718 Personal history of other venous thrombosis and embolism; Z79.01 Long term (current) use of anticoagulants; E78.5 Hyperlipidemia, unspecified; M10.9 Gout, unspecified; E11.649 Type 2 diabetes mellitus with hypoglycemia without coma; K21.9 Gastro-esophageal reflux disease without esophagitis; K90.0 Celiac disease; Z88.0 Allergy status to penicillin; F17.210 Nicotine dependence, cigarettes, uncomplicated; C61 Malignant neoplasm of prostate; D53.9 Nutritional anemia, unspecified; Z79.84 Long term (current) use of oral hypoglycemic drugs; E11.40 Type 2 diabetes mellitus with diabetic neuropathy, unspecified; I87.2 Venous insufficiency (chronic) (peripheral); L89.109 Pressure ulcer of unspecified part of back, unspecified stage
CPT/HCPCS: 36415; 71045-TC-FY; 73630-TC-LT; 73630-TC-RT-FY; 76775-TC; 80048; 80053; 81003; 82803; 82962; 83036; 83605; 83735; 84100; 84484; 85025; 85027; 85610; 85651; 85730; 86140; 87040; 87086; 87186; 93005; 93010; 93925-TC; 93970-TC; 97116-GP; 97161-GP; 99285-25; G0480; J7030

== ENCOUNTER 2020-03-18 19:39 | Inpatient (IN) | payer OTHER ==
[2020-03-18] MEDS ORDERED: LACTATED RINGERS SOLUTION 1000 ML INFUS.BAG IV ONE ×2 (20:31→20:40)
[2020-03-18] MEDS ORDERED: ACETAMINOPHEN 1000 MG/100 ML VIAL (NON FORMULARY) IVPB ONE (21:02)
[2020-03-18] MEDS ORDERED: ACETAMINOPHEN INJECTION 100 ML IVPB ONE (21:54)
[2020-03-18 21:57] LABS: BASO % 0.3 % (0-2.0); HEMATOCRIT 37.1 % (35.4-49); HEMOGLOBIN 12.1 GM/dL (11.7-16.9); LYMPH % 7.5 % (8-40); MCHC 32.8 g/dl (32.0-35.9); MEAN CELL VOLUME 94.7 fl (80-96); MEAN PLT VOLUME 9.9 fl (7.5-11.1); MONO % 5.1 % (3.8-10.2); NEUT % 87.1 % (42.8-82.8); PLATELET COUNT 205 K/MM3 (134-434); RBC 3.92 M/mm3 (4.00-5.60); RDW 18.4 % (11.9-15.9); WHITE BLOOD COUNT 17.3 K/mm3 (4.0-10.0)
[2020-03-18 22:20] LABS: POTASSIUM 4.5 mmol/L (3.5-5.1)
[2020-03-18 22:22] LABS: ALBUMIN 3.4 g/dl (3.4-5.0); CALCIUM 8.3 mg/dL (8.5-10.1)
[2020-03-18 22:25] LABS: CREATININE 2.9 mg/dL (0.55-1.3)
[2020-03-18 22:27] LABS: BILIRUBIN,TOTAL 0.8 mg/dL (0.2-1); TOT PROT 6.6 g/dl (6.4-8.2)
[2020-03-18 22:52] LABS: ERYTHROCYTE SEDIMENTATION RATE 13 mm/hr (0-20)
[2020-03-18 23:27] LABS: INR 2.28 (0.83-1.09); PROTHROMBIN TIME (PATIENT) 27.4 SEC (9.7-13.0)
[2020-03-18] MEDS ORDERED: CLINDAMYCIN 600MG PREMIX IVPB 600 MG/50 ML BAG IVPB ONE (23:28)
[2020-03-18 23:29] LABS: ACTIVATED PTT 34.9 SECONDS (25.2-36.5)
[2020-03-19] MEDS ORDERED: CLINDAMYCIN 600MG PREMIX IVPB 600 MG/50 ML BAG IVPB ONE (00:04)
[2020-03-19 02:12] LABS: EPI CELLS 27 /uL (0-25.1); HYALINE CASTS 2 /uL (0-3.1); PH,URINE 5.5 (5.0-8.0); URINE APPEARANCE CLEAR; URINE BACTERIA 800 /uL (0-1359); URINE BILIRUBIN NEGATIVE (NEGATIVE); URINE COLOR YELLOW; URINE GLUCOSE (UA) NEGATIVE (NEGATIVE); URINE KETONE NEGATIVE (NEGATIVE); URINE LEUK ESTERASE NEGATIVE (NEGATIVE); URINE NITRITE NEGATIVE (NEGATIVE); URINE PROTEIN 3+ (NEGATIVE); URINE RBC 13 /uL (0-23.9); URINE UROBILINOGEN 0.2 mg/dL (0.2-1.0); URINE WBC 28 /uL (0-25.8)
[2020-03-19] MEDS ORDERED: VANCOMYCIN HCL 1,500 MG/500 ML BAG IVPB SCH (06:00)
[2020-03-19] MEDS ORDERED: AZTREONAM 2 GM in DEXTROSE 5%-WATER 100 ML IVPB SCH ×2 (06:00→15:00)
[2020-03-19] MEDS: INSULIN SLIDING SCALE (NOVOLOG) 1 VIAL SQ SCH ×4 (07:07→21:25)
[2020-03-19 08:01] LABS: HEMATOCRIT 33.6 % (35.4-49); HEMOGLOBIN 11.3 GM/dL (11.7-16.9); MCH 31.3 pg (25.7-33.7); MCHC 33.5 g/dl (32.0-35.9); MEAN CELL VOLUME 93.4 fl (80-96); MEAN PLT VOLUME 9.6 fl (7.5-11.1); PLATELET COUNT 179 K/MM3 (134-434); RDW 18.2 % (11.9-15.9); WHITE BLOOD COUNT 10.7 K/mm3 (4.0-10.0)
[2020-03-19 08:12] LABS: POTASSIUM 4.1 mmol/L (3.5-5.1)
[2020-03-19 08:14] LABS: BLOOD UREA NITROGEN 57.7 mg/dL (7-18); CALCIUM 7.9 mg/dL (8.5-10.1)
[2020-03-19 08:17] LABS: CREATININE 2.6 mg/dL (0.55-1.3); PHOSPHOROUS 2.8 mg/dL (2.5-4.9)
[2020-03-19 08:18] LABS: INR 2.16 (0.83-1.09); PROTHROMBIN TIME (PATIENT) 25.6 SEC (9.7-13.0)
[2020-03-19 08:19] LABS: BILIRUBIN,TOTAL 0.8 mg/dL (0.2-1); TOT PROT 6.2 g/dl (6.4-8.2)
[2020-03-19 08:21] LABS: ACTIVATED PTT 35.1 SECONDS (25.2-36.5)
[2020-03-19] MEDS: ASCORBIC ACID 500 MG TABLET (FP) PO SCH ×2 (09:33→21:25)
[2020-03-19] MEDS: CHOLECALCIFEROL (VIT D3) 1,000 UNIT (25 MCG) TABLET PO SCH (09:33)
[2020-03-19] MEDS ORDERED: HEPARIN NA (PORCINE) 5,000 UNITS/ML 1ML VIAL SQ SCH (10:00)
[2020-03-19] MEDS ORDERED: COLLAGENASE CLOSTRIDIUM HIST. 30 GRAMS TUBE TP SCH (11:00)
[2020-03-19] MEDS ORDERED: AZTREONAM 1 GM VIAL (RESTRICTED TO ID) ONE (17:00)
[2020-03-19] MEDS ORDERED: DEXTROSE 5%-WATER - 50 ML IVPB ONE (17:00)
[2020-03-19] MEDS ORDERED: PT OWN MED DRAWER 7, Y5N ONE (17:01)
[2020-03-19] MEDS: PANTOPRAZOLE 40 MG TABLET PO SCH (17:09)
[2020-03-19] MEDS: LOSARTAN POTASSIUM 25 MG TABLET PO SCH (17:09)
[2020-03-19] MEDS: AZTREONAM 1 GM in DEXTROSE 5%-WATER - 50 ML IVPB SCH (17:10)
[2020-03-19] MEDS ORDERED: WARFARIN NA 3 MG TABLET PO ONE (18:00)
[2020-03-19] MEDS: GABAPENTIN 300 MG CAPSULE PO SCH (21:25)
[2020-03-19] MEDS: ATORVASTATIN CA 20 MG TABLET (FP) PO SCH (21:25)
[2020-03-20] MEDS ORDERED: AZTREONAM 2 GM in DEXTROSE 5%-WATER 100 ML IVPB SCH (02:00)
[2020-03-20] MEDS ORDERED: DEXTROSE 5%-WATER - 50 ML IVPB ONE ×2 (05:57→16:01)
[2020-03-20] MEDS ORDERED: AZTREONAM 1 GM VIAL (RESTRICTED TO ID) ONE ×2 (05:57→16:01)
[2020-03-20] MEDS ORDERED: VANCOMYCIN HCL 1,500 MG/500 ML BAG IVPB SCH (06:00)
[2020-03-20] MEDS: INSULIN SLIDING SCALE (NOVOLOG) 1 VIAL SQ SCH ×4 (06:20→22:42)
[2020-03-20] MEDS: AZTREONAM 1 GM in DEXTROSE 5%-WATER - 50 ML IVPB SCH ×2 (06:20→17:12)
[2020-03-20 08:15] LABS: BASO % 0.6 % (0-2.0); EOS % 3.6 % (0-4.5); HEMATOCRIT 34.7 % (35.4-49); HEMOGLOBIN 11.7 GM/dL (11.7-16.9); LYMPH % 16.2 % (8-40); MCHC 33.6 g/dl (32.0-35.9); MEAN CELL VOLUME 95.4 fl (80-96); MEAN PLT VOLUME 9.6 fl (7.5-11.1); MONO % 7.8 % (3.8-10.2); NEUT % 71.8 % (42.8-82.8); PLATELET COUNT 177 K/MM3 (134-434); RBC 3.64 M/mm3 (4.00-5.60); RDW 18.1 % (11.9-15.9); WHITE BLOOD COUNT 7.5 K/mm3 (4.0-10.0)
[2020-03-20 08:22] LABS: POTASSIUM 3.8 mmol/L (3.5-5.1)
[2020-03-20 08:25] LABS: BLOOD UREA NITROGEN 56.7 mg/dL (7-18); CALCIUM 8.2 mg/dL (8.5-10.1)
[2020-03-20 08:28] LABS: CREATININE 2.4 mg/dL (0.55-1.3)
[2020-03-20 08:30] LABS: BILIRUBIN,TOTAL 0.6 mg/dL (0.2-1); TOT PROT 6.5 g/dl (6.4-8.2)
[2020-03-20] MEDS ORDERED: FUROSEMIDE 40 MG TABLET (FP) PO SCH (10:00)
[2020-03-20] MEDS: LOSARTAN POTASSIUM 25 MG TABLET PO SCH (10:09)
[2020-03-20] MEDS: CHOLECALCIFEROL (VIT D3) 1,000 UNIT (25 MCG) TABLET PO SCH (10:09)
[2020-03-20] MEDS: FOLIC ACID 1 MG TABLET (FP) PO SCH (10:09)
[2020-03-20] MEDS: ASCORBIC ACID 500 MG TABLET (FP) PO SCH ×2 (10:09→22:42)
[2020-03-20] MEDS: FERROUS SO4 325 MG TABLET (FP) PO SCH (10:09)
[2020-03-20] MEDS: MULTIVITAMINS (DAILY MVI) TABLET (FP) PO SCH (10:10)
[2020-03-20] MEDS: ALLOPURINOL 300 MG TABLET (FP) PO SCH (10:10)
[2020-03-20] MEDS: TAMSULOSIN HCL 0.4 MG CAP PO SCH (10:10)
[2020-03-20] MEDS: GABAPENTIN 300 MG CAPSULE PO SCH ×2 (10:10→22:43)
[2020-03-20] MEDS: PANTOPRAZOLE 40 MG TABLET PO SCH (10:10)
[2020-03-20] MEDS: CALCIUM CARBONATE 650 MG TABLET PO SCH (10:11)
[2020-03-20] MEDS ORDERED: VANCOMYCIN 1 GRAM (PRE-DOCKED) 1,000 MG/250 ML BAG IVPB ONE (10:25)
[2020-03-20] MEDS ORDERED: FUROSEMIDE 40 MG/4 ML INJECTABLE VIAL IVPUSH ONE (11:13)
[2020-03-20] MEDS ORDERED: FUROSEMIDE 40 MG/4 ML INJECTABLE VIAL IVPUSH SCH (11:15)
[2020-03-20] MEDS: ATORVASTATIN CA 20 MG TABLET (FP) PO SCH (22:42)
[2020-03-21] MEDS ORDERED: AZTREONAM 1 GM VIAL (RESTRICTED TO ID) ONE ×2 (06:23→15:45)
[2020-03-21] MEDS ORDERED: DEXTROSE 5%-WATER - 50 ML IVPB ONE ×2 (06:23→15:45)
[2020-03-21] MEDS: AZTREONAM 1 GM in DEXTROSE 5%-WATER - 50 ML IVPB SCH ×2 (06:32→17:27)
[2020-03-21] MEDS: INSULIN SLIDING SCALE (NOVOLOG) 1 VIAL SQ SCH ×4 (06:34→21:54)
[2020-03-21 08:31] LABS: BASO % 0.5 % (0-2.0); EOS % 6.2 % (0-4.5); HEMATOCRIT 36.3 % (35.4-49); HEMOGLOBIN 12.3 GM/dL (11.7-16.9); LYMPH % 20.1 % (8-40); MCHC 33.8 g/dl (32.0-35.9); MEAN CELL VOLUME 94.7 fl (80-96); MEAN PLT VOLUME 9.2 fl (7.5-11.1); MONO % 8.2 % (3.8-10.2); PLATELET COUNT 193 K/MM3 (134-434); RBC 3.83 M/mm3 (4.00-5.60); RDW 18.3 % (11.9-15.9)
[2020-03-21 08:43] LABS: INR 1.72 (0.83-1.09); PROTHROMBIN TIME (PATIENT) 20.5 SEC (9.7-13.0)
[2020-03-21 09:37] LABS: ALBUMIN 3.3 g/dl (3.4-5.0); BILIRUBIN,TOTAL 0.8 mg/dL (0.2-1); BLOOD UREA NITROGEN 62.4 mg/dL (7-18); CALCIUM 8.9 mg/dL (8.5-10.1); CREATININE 2.7 mg/dL (0.55-1.3); MAGNESIUM 2.3 mg/dL (1.8-2.4); PHOSPHOROUS 3.7 mg/dL (2.5-4.9); POTASSIUM 3.9 mmol/L (3.5-5.1)
[2020-03-21] MEDS: FOLIC ACID 1 MG TABLET (FP) PO SCH (09:54)
[2020-03-21] MEDS: FERROUS SO4 325 MG TABLET (FP) PO SCH (09:54)
[2020-03-21] MEDS: ALLOPURINOL 300 MG TABLET (FP) PO SCH (09:54)
[2020-03-21] MEDS: ASCORBIC ACID 500 MG TABLET (FP) PO SCH ×2 (09:54→21:54)
[2020-03-21] MEDS: MULTIVITAMINS (DAILY MVI) TABLET (FP) PO SCH (09:54)
[2020-03-21] MEDS: CHOLECALCIFEROL (VIT D3) 1,000 UNIT (25 MCG) TABLET PO SCH (09:54)
[2020-03-21] MEDS: GABAPENTIN 300 MG CAPSULE PO SCH ×2 (09:55→21:54)
[2020-03-21] MEDS: FUROSEMIDE 40 MG/4 ML INJECTABLE VIAL IVPUSH SCH (09:55)
[2020-03-21] MEDS: TAMSULOSIN HCL 0.4 MG CAP PO SCH (09:55)
[2020-03-21] MEDS: PANTOPRAZOLE 40 MG TABLET PO SCH (09:55)
[2020-03-21] MEDS: CALCIUM CARBONATE 650 MG TABLET PO SCH (09:55)
[2020-03-21] MEDS ORDERED: PATIENT'S OWN MEDICATION (NON-FORMULARY) (Warfarin Sodium [Warfarin Sodium] 6 MG Tablet) PO SCH (10:00)
[2020-03-21] MEDS ORDERED: VANCOMYCIN 1 GRAM (PRE-DOCKED) 1,000 MG/250 ML BAG IVPB ONE (11:00)
[2020-03-21 14:23] VITALS: BMI 44.6
[2020-03-21] MEDS ORDERED: WARFARIN NA 5 MG TABLET ONE (17:29)
[2020-03-21] MEDS ORDERED: WARFARIN NA 3 MG TABLET ONE (17:29)
[2020-03-21] MEDS ORDERED: WARFARIN NA 3 MG TABLET PO SCH ×2 (18:00)
[2020-03-21] MEDS ORDERED: WARFARIN NA 5 MG, WARFARIN NA 3 MG PO SCH (18:00)
[2020-03-21] MEDS: ATORVASTATIN CA 20 MG TABLET (FP) PO SCH (21:54)
[2020-03-22] MEDS ORDERED: AZTREONAM 1 GM VIAL (RESTRICTED TO ID) ONE ×2 (05:39→05:43)
[2020-03-22] MEDS ORDERED: DEXTROSE 5%-WATER - 50 ML IVPB ONE ×2 (05:39→05:43)
[2020-03-22] MEDS: AZTREONAM 1 GM in DEXTROSE 5%-WATER - 50 ML IVPB SCH (06:29)
[2020-03-22] MEDS: INSULIN SLIDING SCALE (NOVOLOG) 1 VIAL SQ SCH ×2 (06:30→11:14)
[2020-03-22 08:12] LABS: BASO % 0.6 % (0-2.0); EOS % 7.5 % (0-4.5); HEMATOCRIT 37.3 % (35.4-49); HEMOGLOBIN 12.1 GM/dL (11.7-16.9); LYMPH % 25.3 % (8-40); MCH 30.5 pg (25.7-33.7); MCHC 32.5 g/dl (32.0-35.9); MEAN CELL VOLUME 94.1 fl (80-96); MEAN PLT VOLUME 9.5 fl (7.5-11.1); NEUT % 58.6 % (42.8-82.8); PLATELET COUNT 225 K/MM3 (134-434); RBC 3.97 M/mm3 (4.00-5.60); RDW 18.4 % (11.9-15.9); WHITE BLOOD COUNT 7.2 K/mm3 (4.0-10.0)
[2020-03-22 08:14] LABS: POTASSIUM 4.2 mmol/L (3.5-5.1)
[2020-03-22 08:22] LABS: BLOOD UREA NITROGEN 56.9 mg/dL (7-18)
[2020-03-22 08:24] LABS: CALCIUM 8.4 mg/dL (8.5-10.1); MAGNESIUM 2.3 mg/dL (1.8-2.4)
[2020-03-22 08:25] LABS: CREATININE 2.6 mg/dL (0.55-1.3); PHOSPHOROUS 4.1 mg/dL (2.5-4.9)
[2020-03-22] MEDS ORDERED: PT OWN MED DRAWER 7, Y5N ONE (09:30)
[2020-03-22] MEDS: FOLIC ACID 1 MG TABLET (FP) PO SCH (09:33)
[2020-03-22] MEDS: ASCORBIC ACID 500 MG TABLET (FP) PO SCH (09:33)
[2020-03-22] MEDS: TAMSULOSIN HCL 0.4 MG CAP PO SCH (09:33)
[2020-03-22] MEDS: FERROUS SO4 325 MG TABLET (FP) PO SCH (09:33)
[2020-03-22] MEDS: MULTIVITAMINS (DAILY MVI) TABLET (FP) PO SCH (09:33)
[2020-03-22] MEDS: GABAPENTIN 300 MG CAPSULE PO SCH (09:33)
[2020-03-22] MEDS: FUROSEMIDE 40 MG/4 ML INJECTABLE VIAL IVPUSH SCH (09:34)
[2020-03-22] MEDS: PANTOPRAZOLE 40 MG TABLET PO SCH (09:34)
[2020-03-22] MEDS: CHOLECALCIFEROL (VIT D3) 1,000 UNIT (25 MCG) TABLET PO SCH (09:34)
[2020-03-22] MEDS: ALLOPURINOL 300 MG TABLET (FP) PO SCH (09:34)
[2020-03-22] MEDS: CALCIUM CARBONATE 650 MG TABLET PO SCH (09:34)
[2020-03-22] MEDS ORDERED: SILVER SULFADIAZINE 1% TOP CREAM 50 GM JAR TP SCH (10:00)
[2020-03-22] MEDS ORDERED: DOCUSATE SODIUM 100 MG CAPSULE (FP) PO SCH (11:15)
[2020-03-22 11:54] LABS: INR 1.62 (0.83-1.09); PROTHROMBIN TIME (PATIENT) 19.7 SEC (9.7-13.0)
[2020-03-22] MEDS ORDERED: ENOXAPARIN NA (PORCINE) 100 MG/1 ML DISP.SYRIN SQ SCH (15:00)
[2020-03-22 15:18] VITALS: BP 130/70; PULSE 65; TEMP 98.5
[2020-03-22] MEDS ORDERED: VANCOMYCIN 500 MG in DEXTROSE 5%-WATER - 100 ML IVPB ONE (16:45)
== END 2020-03-22 17:21 | disposition home health service (06) | DRG 872 ==
LOC: JER 19:39 → JERBED 23:29 → J8W 03-19 04:15
PROVIDERS: ADMIT Hospitalist
DX: A41.89 Other specified sepsis (principal); L03.115 Cellulitis of right lower limb; D68.51 Activated protein C resistance; N17.9 Acute kidney failure, unspecified; L97.428 Non-pressure chronic ulcer of left heel and midfoot with other specified severity; L97.418 Non-pressure chronic ulcer of right heel and midfoot with other specified severity; M86.8X7 Other osteomyelitis, ankle and foot; Z68.41 Body mass index [BMI] 40.0-44.9, adult; K90.0 Celiac disease; E11.51 Type 2 diabetes mellitus with diabetic peripheral angiopathy without gangrene; I12.9 Hypertensive chronic kidney disease with stage 1 through stage 4 chronic kidney disease, or unspecified chronic kidney disease; N18.30 Chronic kidney disease, stage 3 unspecified; E11.22 Type 2 diabetes mellitus with diabetic chronic kidney disease; K21.9 Gastro-esophageal reflux disease without esophagitis; K57.90 Diverticulosis of intestine, part unspecified, without perforation or abscess without bleeding; N40.0 Benign prostatic hyperplasia without lower urinary tract symptoms; I25.10 Atherosclerotic heart disease of native coronary artery without angina pectoris; M32.9 Systemic lupus erythematosus, unspecified; M10.9 Gout, unspecified; E78.5 Hyperlipidemia, unspecified; E11.621 Type 2 diabetes mellitus with foot ulcer; E11.69 Type 2 diabetes mellitus with other specified complication; E66.01 Morbid (severe) obesity due to excess calories; F17.210 Nicotine dependence, cigarettes, uncomplicated; D72.829 Elevated white blood cell count, unspecified; R50.9 Fever, unspecified; Z88.1 Allergy status to other antibiotic agents; Z86.718 Personal history of other venous thrombosis and embolism; Z85.46 Personal history of malignant neoplasm of prostate
CPT/HCPCS: 36415; 73630-TC-RT-FY; 80048; 80053; 81003; 82565; 82962; 83036; 83605; 83735; 84100; 84156; 84540; 85025; 85027; 85610; 85651; 85730; 86140; 87040; 87086; 87186; 87205; 93971-TC; 97116-GP; 97161-GP; 99285-25; C9803; G0480; J0131; U0003

== ENCOUNTER 2021-06-22 15:58 | Observation (INO) | payer OTHER ==
[2021-06-22] MEDS ORDERED: ACETAMINOPHEN 500 MG TABLET (FP) PO ONE (17:35)
[2021-06-22] MEDS ORDERED: ACETAMINOPHEN 500 MG TABLET (FP) ONE (17:59)
[2021-06-22] MEDS ORDERED: morphine CARPU-JECT 4 MG/1 ML DISP.SYRIN IVPUSH ONE (19:56)
[2021-06-22] MEDS ORDERED: morphine SULFATE 4 MG/ML VIAL ONE (21:04)
[2021-06-22 21:43] LABS: BASO % 0.4 % (0-2.0); HEMATOCRIT 31.9 % (35.4-49); HEMOGLOBIN 10.8 GM/dL (11.7-16.9); LYMPH % 15.7 % (8-40); MCH 32.8 pg (25.7-33.7); MEAN CELL VOLUME 96.6 fl (80-96); MONO % 6.9 % (3.8-10.2); PLATELET COUNT 228 10^3/uL (134-434); RDW 17.3 % (11.9-15.9); WHITE BLOOD COUNT 8.1 K/mm3 (4.0-10.0)
[2021-06-22 22:01] LABS: BLOOD UREA NITROGEN 32.1 mg/dL (7-18)
[2021-06-22 22:02] LABS: ALBUMIN 3.6 g/dl (3.4-5.0); CALCIUM 8.9 mg/dL (8.5-10.1)
[2021-06-22 22:06] LABS: CREATININE 2.2 mg/dL (0.55-1.3)
[2021-06-22 22:07] LABS: BILIRUBIN,TOTAL 0.4 mg/dL (0.2-1); TOT PROT 6.8 g/dl (6.4-8.2)
[2021-06-23 03:19] VITALS: BMI 38.7
[2021-06-23] MEDS: LIDOCAINE 5% TOPICAL PATCH TP SCH ×2 (03:46→09:43)
[2021-06-23] MEDS: GABAPENTIN 300 MG CAPSULE PO SCH ×3 (03:46→21:12)
[2021-06-23] MEDS ORDERED: HEPARIN NA (PORCINE) 5,000 UNITS/ML 1ML VIAL SQ SCH (06:00)
[2021-06-23] MEDS: INSULIN SLIDING SCALE (NOVOLOG) 1 VIAL SQ SCH ×4 (06:01→21:22)
[2021-06-23] MEDS: FOLIC ACID 1 MG TABLET (FP) PO SCH ×3 (06:01→21:12)
[2021-06-23 09:14] LABS: BASO % 0.6 % (0-2.0); EOS % 3.1 % (0-4.5); HEMATOCRIT 29.1 % (35.4-49); HEMOGLOBIN 10.1 GM/dL (11.7-16.9); MCHC 34.6 g/dl (32.0-35.9); MEAN CELL VOLUME 95.3 fl (80-96); MONO % 9.2 % (3.8-10.2); NEUT % 66.1 % (42.8-82.8); PLATELET COUNT 204 10^3/uL (134-434); RBC 3.05 M/mm3 (4.00-5.60); RDW 16.6 % (11.9-15.9); WHITE BLOOD COUNT 5.9 K/mm3 (4.0-10.0)
[2021-06-23 09:22] LABS: INR 1.4 (0.83-1.09); PROTHROMBIN TIME (PATIENT) 16.2 SEC (9.7-13.0)
[2021-06-23 09:25] LABS: ACTIVATED PTT 32.8 SECONDS (25.2-36.5)
[2021-06-23 09:35] LABS: CALCIUM 8.7 mg/dL (8.5-10.1)
[2021-06-23 09:36] LABS: ALBUMIN 3.4 g/dl (3.4-5.0); BLOOD UREA NITROGEN 31.8 mg/dL (7-18); MAGNESIUM 2.2 mg/dL (1.8-2.4)
[2021-06-23 09:37] LABS: IRON SERUM 89 ug/dL (50-175); TOTAL IRON BINDING CAPACITY 192 ug/dL (250-450)
[2021-06-23 09:39] LABS: CREATININE 2.1 mg/dL (0.55-1.3); PHOSPHOROUS 3.6 mg/dL (2.5-4.9)
[2021-06-23 09:40] LABS: BILIRUBIN,TOTAL 0.8 mg/dL (0.2-1); TOT PROT 6.2 g/dl (6.4-8.2)
[2021-06-23] MEDS: ACETAMINOPHEN 325 MG TABLET (FP) PO PRN ×2 (09:42→23:09)
[2021-06-23] MEDS: LOSARTAN POTASSIUM 25 MG TABLET PO SCH (09:46)
[2021-06-23] MEDS: ALLOPURINOL 300 MG TABLET (FP) PO SCH (09:52)
[2021-06-23] MEDS: FUROSEMIDE 40 MG TABLET (FP) PO SCH (15:32)
[2021-06-23] MEDS ORDERED: WARFARIN NA 3 MG TABLET PO SCH (18:00)
[2021-06-23] MEDS: TAMSULOSIN HCL 0.4 MG CAP PO SCH (21:12)
[2021-06-23] MEDS: ATORVASTATIN CA 20 MG TABLET (FP) PO SCH (21:12)
[2021-06-23] MEDS: LIDOCAINE PATCH REMOVAL MC SCH (21:15)
[2021-06-23] MEDS ORDERED: INSULIN (NOVOLOG) ASPART 100 UNITS/ML 10ML VIAL ONE (21:17)
[2021-06-24] MEDS: ACETAMINOPHEN 325 MG TABLET (FP) PO PRN ×2 (05:59→09:49)
[2021-06-24] MEDS: FOLIC ACID 1 MG TABLET (FP) PO SCH ×3 (05:59→21:17)
[2021-06-24] MEDS: INSULIN SLIDING SCALE (NOVOLOG) 1 VIAL SQ SCH ×4 (06:35→21:25)
[2021-06-24 09:00] LABS: BASO % 0.5 % (0-2.0); EOS % 3.7 % (0-4.5); HEMATOCRIT 29.9 % (35.4-49); HEMOGLOBIN 10.1 GM/dL (11.7-16.9); LYMPH % 25.7 % (8-40); MCHC 33.7 g/dl (32.0-35.9); MEAN CELL VOLUME 97.7 fl (80-96); MEAN PLT VOLUME 9.1 fl (7.5-11.1); MONO % 8.5 % (3.8-10.2); NEUT % 61.6 % (42.8-82.8); PLATELET COUNT 195 10^3/uL (134-434); RBC 3.05 M/mm3 (4.00-5.60); RDW 17.3 % (11.9-15.9); WHITE BLOOD COUNT 5.3 K/mm3 (4.0-10.0)
[2021-06-24 09:10] LABS: INR 1.28 (0.83-1.09); PROTHROMBIN TIME (PATIENT) 14.7 SEC (9.7-13.0)
[2021-06-24 09:27] LABS: ALBUMIN 3.2 g/dl (3.4-5.0); CALCIUM 8.7 mg/dL (8.5-10.1)
[2021-06-24 09:28] LABS: BLOOD UREA NITROGEN 39.3 mg/dL (7-18)
[2021-06-24 09:30] LABS: CREATININE 2.3 mg/dL (0.55-1.3)
[2021-06-24 09:31] LABS: MAGNESIUM 2.3 mg/dL (1.8-2.4)
[2021-06-24 09:32] LABS: BILIRUBIN,TOTAL 0.7 mg/dL (0.2-1); TOT PROT 6.3 g/dl (6.4-8.2)
[2021-06-24] MEDS: LIDOCAINE 5% TOPICAL PATCH TP SCH (09:48)
[2021-06-24] MEDS: LOSARTAN POTASSIUM 25 MG TABLET PO SCH (09:48)
[2021-06-24] MEDS: FUROSEMIDE 40 MG TABLET (FP) PO SCH (09:48)
[2021-06-24] MEDS: ALLOPURINOL 300 MG TABLET (FP) PO SCH (09:48)
[2021-06-24] MEDS: GABAPENTIN 300 MG CAPSULE PO SCH ×2 (09:48→21:17)
[2021-06-24] MEDS: oxyCODONE HCL 5 MG TABLET PO PRN (14:36)
[2021-06-24] MEDS: WARFARIN NA 5 MG TABLET PO SCH (17:01)
[2021-06-24] MEDS: DOCUSATE SODIUM 100 MG CAPSULE (FP) PO SCH (21:17)
[2021-06-24] MEDS: LIDOCAINE PATCH REMOVAL MC SCH (21:17)
[2021-06-24] MEDS: TAMSULOSIN HCL 0.4 MG CAP PO SCH (21:17)
[2021-06-24] MEDS: ATORVASTATIN CA 20 MG TABLET (FP) PO SCH (21:17)
[2021-06-24] MEDS: POLYETHYLENE GLYCOL (HEALTHYLAX) 3350 17 GM PACKET PO SCH (21:18)
[2021-06-25] MEDS: DOCUSATE SODIUM 100 MG CAPSULE (FP) PO SCH ×3 (05:52→22:08)
[2021-06-25] MEDS: FOLIC ACID 1 MG TABLET (FP) PO SCH ×3 (05:53→22:07)
[2021-06-25] MEDS: INSULIN SLIDING SCALE (NOVOLOG) 1 VIAL SQ SCH ×4 (06:02→22:16)
[2021-06-25] MEDS: POLYETHYLENE GLYCOL (HEALTHYLAX) 3350 17 GM PACKET PO SCH ×2 (09:54→22:08)
[2021-06-25] MEDS: FUROSEMIDE 40 MG TABLET (FP) PO SCH (09:55)
[2021-06-25] MEDS: LIDOCAINE 5% TOPICAL PATCH TP SCH (09:55)
[2021-06-25] MEDS: LOSARTAN POTASSIUM 25 MG TABLET PO SCH (09:55)
[2021-06-25] MEDS: ALLOPURINOL 300 MG TABLET (FP) PO SCH (09:55)
[2021-06-25] MEDS: GABAPENTIN 300 MG CAPSULE PO SCH ×2 (09:55→22:07)
[2021-06-25] MEDS: oxyCODONE HCL 5 MG TABLET PO PRN ×2 (10:12→14:07)
[2021-06-25 10:24] LABS: BASO % 0.7 % (0-2.0); EOS % 3.5 % (0-4.5); HEMATOCRIT 30.1 % (35.4-49); HEMOGLOBIN 10.4 GM/dL (11.7-16.9); MCH 33.2 pg (25.7-33.7); MCHC 34.7 g/dl (32.0-35.9); MEAN CELL VOLUME 95.7 fl (80-96); MEAN PLT VOLUME 8.8 fl (7.5-11.1); MONO % 7.8 % (3.8-10.2); PLATELET COUNT 210 10^3/uL (134-434); RBC 3.14 M/mm3 (4.00-5.60); WHITE BLOOD COUNT 5.5 K/mm3 (4.0-10.0)
[2021-06-25 10:29] LABS: INR 1.36 (0.83-1.09); PROTHROMBIN TIME (PATIENT) 15.7 SEC (9.7-13.0)
[2021-06-25 10:40] LABS: CALCIUM 8.8 mg/dL (8.5-10.1)
[2021-06-25 10:41] LABS: ALBUMIN 3.3 g/dl (3.4-5.0); BLOOD UREA NITROGEN 40.3 mg/dL (7-18); MAGNESIUM 2.2 mg/dL (1.8-2.4)
[2021-06-25 10:45] LABS: BILIRUBIN,TOTAL 0.5 mg/dL (0.2-1); TOT PROT 6.4 g/dl (6.4-8.2)
[2021-06-25] MEDS ORDERED: oxyCODONE HCL 5 MG TABLET PO PRN (11:59)
[2021-06-25] MEDS: ACETAMINOPHEN 325 MG TABLET (FP) PO SCH ×2 (12:06→17:35)
[2021-06-25] MEDS: WARFARIN NA 5 MG TABLET PO SCH (17:35)
[2021-06-25] MEDS: LIDOCAINE PATCH REMOVAL MC SCH (22:08)
[2021-06-25] MEDS: TAMSULOSIN HCL 0.4 MG CAP PO SCH (22:08)
[2021-06-25] MEDS: ATORVASTATIN CA 20 MG TABLET (FP) PO SCH (22:08)
[2021-06-26] MEDS: ACETAMINOPHEN 325 MG TABLET (FP) PO SCH ×4 (00:46→17:06)
[2021-06-26] MEDS: FOLIC ACID 1 MG TABLET (FP) PO SCH ×3 (05:46→21:47)
[2021-06-26] MEDS: DOCUSATE SODIUM 100 MG CAPSULE (FP) PO SCH ×3 (05:46→21:47)
[2021-06-26] MEDS: INSULIN SLIDING SCALE (NOVOLOG) 1 VIAL SQ SCH ×4 (06:00→21:53)
[2021-06-26] MEDS: GABAPENTIN 300 MG CAPSULE PO SCH ×2 (10:05→21:47)
[2021-06-26] MEDS: LIDOCAINE 5% TOPICAL PATCH TP SCH (10:06)
[2021-06-26] MEDS: POLYETHYLENE GLYCOL (HEALTHYLAX) 3350 17 GM PACKET PO SCH ×2 (10:06→21:47)
[2021-06-26] MEDS: ALLOPURINOL 300 MG TABLET (FP) PO SCH (10:06)
[2021-06-26] MEDS: LOSARTAN POTASSIUM 25 MG TABLET PO SCH (10:06)
[2021-06-26] MEDS: FUROSEMIDE 40 MG TABLET (FP) PO SCH (10:06)
[2021-06-26] MEDS: oxyCODONE HCL 5 MG TABLET PO PRN (10:07)
[2021-06-26 12:01] LABS: BASO % 0.8 % (0-2.0); EOS % 3.5 % (0-4.5); HEMATOCRIT 33.3 % (35.4-49); HEMOGLOBIN 11.3 GM/dL (11.7-16.9); LYMPH % 31.7 % (8-40); MCH 32.8 pg (25.7-33.7); MCHC 33.9 g/dl (32.0-35.9); MEAN CELL VOLUME 96.5 fl (80-96); MEAN PLT VOLUME 9.3 fl (7.5-11.1); MONO % 7.1 % (3.8-10.2); NEUT % 56.9 % (42.8-82.8); PLATELET COUNT 242 10^3/uL (134-434); RBC 3.45 M/mm3 (4.00-5.60); WHITE BLOOD COUNT 6.6 K/mm3 (4.0-10.0)
[2021-06-26 12:21] LABS: INR 1.4 (0.83-1.09); PROTHROMBIN TIME (PATIENT) 16.1 SEC (9.7-13.0)
[2021-06-26 12:28] LABS: BLOOD UREA NITROGEN 42.6 mg/dL (7-18)
[2021-06-26 12:29] LABS: ALBUMIN 3.4 g/dl (3.4-5.0); CALCIUM 8.6 mg/dL (8.5-10.1); MAGNESIUM 2.3 mg/dL (1.8-2.4)
[2021-06-26 12:31] LABS: CREATININE 2.2 mg/dL (0.55-1.3)
[2021-06-26 12:32] LABS: BILIRUBIN,TOTAL 0.6 mg/dL (0.2-1); TOT PROT 6.7 g/dl (6.4-8.2)
[2021-06-26] MEDS ORDERED: BISACODYL 10 MG SUPP.RECT PR ONE (13:15)
[2021-06-26] MEDS: WARFARIN NA 5 MG TABLET PO SCH (17:06)
[2021-06-26] MEDS ORDERED: INSULIN (NOVOLOG) ASPART 100 UNITS/ML 10ML VIAL ONE (21:16)
[2021-06-26] MEDS: ATORVASTATIN CA 20 MG TABLET (FP) PO SCH (21:48)
[2021-06-26] MEDS: TAMSULOSIN HCL 0.4 MG CAP PO SCH (21:48)
[2021-06-26] MEDS: LIDOCAINE PATCH REMOVAL MC SCH (21:48)
[2021-06-27] MEDS: ACETAMINOPHEN 325 MG TABLET (FP) PO SCH ×2 (00:45→06:32)
[2021-06-27] MEDS: FOLIC ACID 1 MG TABLET (FP) PO SCH (06:31)
[2021-06-27] MEDS: DOCUSATE SODIUM 100 MG CAPSULE (FP) PO SCH (06:32)
[2021-06-27] MEDS: INSULIN SLIDING SCALE (NOVOLOG) 1 VIAL SQ SCH (06:38)
[2021-06-27] MEDS: ALLOPURINOL 300 MG TABLET (FP) PO SCH (09:32)
[2021-06-27] MEDS: POLYETHYLENE GLYCOL (HEALTHYLAX) 3350 17 GM PACKET PO SCH (09:32)
[2021-06-27] MEDS: LIDOCAINE 5% TOPICAL PATCH TP SCH (09:32)
[2021-06-27] MEDS: FUROSEMIDE 40 MG TABLET (FP) PO SCH (09:32)
[2021-06-27] MEDS: LOSARTAN POTASSIUM 25 MG TABLET PO SCH (09:32)
[2021-06-27] MEDS: GABAPENTIN 300 MG CAPSULE PO SCH (09:32)
[2021-06-27 09:45] LABS: BASO % 0.7 % (0-2.0); HEMATOCRIT 31.7 % (35.4-49); HEMOGLOBIN 10.9 GM/dL (11.7-16.9); MCHC 34.5 g/dl (32.0-35.9); MEAN CELL VOLUME 95.7 fl (80-96); MEAN PLT VOLUME 9.3 fl (7.5-11.1); MONO % 8.3 % (3.8-10.2); PLATELET COUNT 242 10^3/uL (134-434); RBC 3.31 M/mm3 (4.00-5.60); RDW 17.2 % (11.9-15.9); WHITE BLOOD COUNT 6.1 K/mm3 (4.0-10.0)
[2021-06-27 09:52] LABS: INR 1.57 (0.83-1.09); PROTHROMBIN TIME (PATIENT) 18.1 SEC (9.7-13.0)
[2021-06-27 10:14] LABS: CALCIUM 8.2 mg/dL (8.5-10.1)
[2021-06-27 10:15] LABS: ALBUMIN 3.3 g/dl (3.4-5.0); BLOOD UREA NITROGEN 46.4 mg/dL (7-18)
[2021-06-27 10:18] LABS: CREATININE 2.2 mg/dL (0.55-1.3); MAGNESIUM 2.2 mg/dL (1.8-2.4)
[2021-06-27 10:20] LABS: BILIRUBIN,TOTAL 0.7 mg/dL (0.2-1); TOT PROT 6.4 g/dl (6.4-8.2)
[2021-06-27 11:22] VITALS: BP 148/78; PULSE 75; TEMP 97.8
== END 2021-06-27 11:33 | disposition home or self-care (01) ==
LOC: JER 15:58 → JERBED 23:56 → J6S 06-23 02:48
PROVIDERS: ADMIT Hospitalist; ATTEND Nurse Practitioner Family
PROC: 3E013VG Introduction of Insulin into Subcutaneous Tissue, Percutaneous Approach (ICD-10-PCS; principal; 2021-06-22)
PROC: 3E033NZ Introduction of Analgesics, Hypnotics, Sedatives into Peripheral Vein, Percutaneous Approach (ICD-10-PCS; 2021-06-22)
DX: I13.10 Hypertensive heart and chronic kidney disease without heart failure, with stage 1 through stage 4 chronic kidney disease, or unspecified chronic kidney disease (principal); E11.22 Type 2 diabetes mellitus with diabetic chronic kidney disease; N18.9 Chronic kidney disease, unspecified; R29.6 Repeated falls; Z85.46 Personal history of malignant neoplasm of prostate; Z91.018 Allergy to other foods; Z88.8 Allergy status to other drugs, medicaments and biological substances; Z88.0 Allergy status to penicillin; F17.210 Nicotine dependence, cigarettes, uncomplicated; W18.39XA Other fall on same level, initial encounter; Y93.89 Activity, other specified; Y92.89 Other specified places as the place of occurrence of the external cause; D64.9 Anemia, unspecified; Z79.01 Long term (current) use of anticoagulants; Z29.9 Encounter for prophylactic measures, unspecified; E66.9 Obesity, unspecified; Z68.38 Body mass index [BMI] 38.0-38.9, adult
CPT/HCPCS: 36415; 70450-TC; 71045-TC-FY; 72125-TC; 72128-TC; 72131-TC; 72170-TC-FY; 80053; 82962; 83036; 83540; 83550; 83735; 84100; 85025; 85610; 85730; 93005; 93010; 96372; 96374; 97116-GP; 97163-GP; 99285-25; C9803; G0378; U0003; U0005